=== PATIENT | male | born 1980 | race Caucasian/White ===

== ENCOUNTER 2017-02-17 20:46 | Emergency (ER) | payer SELFPAY ==
[2017-02-17 20:49] VITALS: BP 149/100; BMI 32.1
[2017-02-17] MEDS ORDERED: FUL-GLO STRIP ONE ×2 (21:26→22:02)
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
[2017-02-17] MEDS ORDERED: BACITRACIN ZINC ONE (22:23)
[2017-02-17] MEDS ORDERED: BACTROBAN OINT TOP ONE (22:24)
[2017-02-17] MEDS ORDERED: BACITRACIN ZINC TOP ONE (22:26)
[2017-02-17] MEDS ORDERED: ARTIFICIAL TEARS DROPS AFFEYE ONE (22:29)
[2017-02-17] MEDS ORDERED: ILOTYCIN OPHTH OINT EACHEYE ONE (22:29)
[2017-02-17] MEDS ORDERED: ARTIFICIAL TEARS DROPS ONE (22:30)
[2017-02-17] MEDS ORDERED: ILOTYCIN OPHTH OINT ONE (22:30)
[2017-02-17 22:31] LABS: BASOPHILS # (AUTO) 0.1 X10^3/uL (0.0-0.1); BASOPHILS % (AUTO) 1.2 % (0.2-1.0); EOSINOPHILS # (AUTO) 0.2 x10^3/uL (0.0-0.2); EOSINOPHILS % (AUTO) 2.1 % (0.9-2.9); HEMATOCRIT 41.2 % (42.0-54.0); HEMOGLOBIN 14.8 g/dL (13.5-18.0); LYMPHOCYTES # (AUTO) 2.2 X10^3/uL (1.3-2.9); LYMPHOCYTES % (AUTO) 27.7 % (21.0-51.0); MEAN CORPUSCULAR VOLUME 80.5 fL (80.0-100.0); MEAN PLATELET VOLUME 9.5 fL (7.4-11.0); MONOCYTES # (AUTO) 0.5 x10^3/uL (0.3-0.8); MONOCYTES % (AUTO) 6.4 % (0.0-13.0); NEUTROPHILS # (AUTO) 5.1 x10^3/uL (2.2-4.8); NEUTROPHILS % (AUTO) 62.6 % (42.0-75.0); PLATELET COUNT 215 X10^3/uL (150.0-450.0); RED BLOOD COUNT 5.12 X10^6/uL (4.7-6.0); RED CELL DISTRIBUTION WIDTH 13.7 % (11.6-16.5); WHITE BLOOD COUNT 8.1 X10^3/uL (3.6-10.0)
[2017-02-17 22:41] LABS: ALANINE AMINOTRANSFERASE 26 Units/L (12-78); ALBUMIN 3.5 g/dL (3.4-5.0); ALKALINE PHOSPHATASE 64 Units/L (46-116); ASPARTATE AMINO TRANSFERASE 18 Units/L (15-37); BLOOD UREA NITROGEN 11 mg/dL (7-18); CALCIUM 8.8 mg/dL (8.5-10.1); CARBON DIOXIDE 23.6 mmol/L (21-32); CHLORIDE 103 mmol/L (98-107); COR NA(FOR HYPERGLY) 142 mmol/L (136-145); CREATININE 1.19 mg/dL (0.70-1.30); SODIUM 137 mmol/L (136-145); eGFR BLACK RACES > 60 (>60); eGFR NON BLACK RACES > 60 (>60)
--- NOTE | 2017-02-17 23:31 | CT ---
HISTORY: Headache, worst headache of life. Study: CT brain without contrast Comparison: None Technique: Multiple axial images of the brain were obtained from the skull base to the vertex without administra tion of IV contrast. Automated exposure control (AEC) was utilized to adjust the MA and/or kV accordi ng to patient size. Findings: There is no acute intracranial hemorrhage. The brain parenchyma is normal in density. No mass or ma ss effect. No abnormal extra-axial fluid collection. The ventricles are normal in size, shape and position. Basilar cisterns patent. Pederson matter -white m atter interface is distinct. The bilateral mastoid air cells and included paranasal sinuses are predominantly clear. There is no acute osseous abnormality. IMPRESSION: 1. No acute intracranial process can be identified. Reported By:
== END 2017-02-17 23:51 | disposition home or self-care (01) ==
LOC: ER 20:46
DX: R51 Headache (principal); T26.12XA Burn of cornea and conjunctival sac, left eye, initial encounter; E11.9 Type 2 diabetes mellitus without complications; E87.6 Hypokalemia
CPT/HCPCS: 36415; 70450; 80053; 85025; 99282; 99283

== ENCOUNTER 2017-07-12 22:26 | Emergency (ER) | payer SELFPAY ==
[2017-07-12 22:32] VITALS: BP 129/80; BMI 32.1
--- NOTE | 2017-07-12 23:33 | RAD ---
Three views of the left foot Indication: Left foot pain after twisting injury Findings: There is no acute fracture or dislocation identified within the left foot. There is mild so ft tissue swelling within the left forefoot. Lisfranc joint alignment is maintained. Mild degenerativ e change of the great toe MTP joint and IP joint. There appear to be hammertoe deformities involving the 2nd through 5th toes. The mild degenerative changes noted within the talonavicular joint. Impression: Degenerative changes without acute fracture or dislocation within the left foot. Mild sof t tissue swelling within the forefoot. Reported By:
--- NOTE | 2017-07-13 01:01 | RAD ---
Three views of the left ankle Indication: Twisting injury 2 weeks prior with ankle swelling. Findings: There is circumferential soft tissue swelling within the left ankle. Cortical regularity is noted within the lateral talar body suspicious for talofibular ligamentous avulsion injury of indete rminate age. There is a well corticated osseous density in the tip of the medial malleolus consistent with likely chronic deltoid ligamentous avulsion injury. Ankle mortise is symmetric with mild degene rative change of the tibiotalar articulation. There is also degenerative change of the talar neck and 10 navicular joints. Mild enthesopathic change of the Achilles tendon. No talar dome osteochondral a bnormality. Impression: 1.Circumferential soft tissue swelling within the left ankle consistent with soft tissue injury/sprai n. 2.Age-indeterminate talofibular avulsion injury adjacent to the lateral talar body. 3.Chronic appearing avulsion injury of the deltoid ligamentous complex at the tip of the medial malle olus. 4.Mild osteoarthrosis of the tibiotalar joint. Reported By:
--- NOTE | 2017-07-13 01:03 | DR.GENAD ---
HPI - PCP Primary Care Physician: MILTON - HPI Comment HPI Comment: PROGRESSIVE SWELLING AND PAIN SINCE. WORSE TODAY. NO NEW INJURY. - Complaint/Symptoms Chief Complaint Doctors Comments: INJURY LEFT FOOT AND ANKLE TIMES 2 WEEKS. Chief Complaint:: TWISTED MY FOOT 2 WEEKS AGO AND IT JUST STARTED SWELLING BAD TODAY - Nurses notes reviewed Nurses Notes Review: Yes - Source History Provided: Patient - Mode of Arrival Mode of Arrival: Ambulatory - Timing Onset of Chief Complaint: 06/28/17 Came on: Suddenly - Duration Duration: Constant Duration: Days - Severity Severity: Moderate PMH - PMH Past Medical History: Yes Past Medical History: Diabetes, Kidney Stones Past Surgical History: Yes Surgical History: Ortho Surgery - Family History History of Family Medical Conditions: Yes Family Medical History: Diabetes Mellitus, Cancer, Hypertension - Social History Type of Tobacco Use: Smokeless Does any household member use tobacco: Yes Alcohol Use: None Do you use any recreational Drugs:: No Lives With: Family Lives Where: Home - infectious screening In the last 2 months have you had wt loss of >10#?: NO Have you had fever, night sweats or hemotysis?: No Have you traveled outside the country in the last 6 months?: No Isolation: Standard ROS - Review of Systems Constitutional: No Symptoms Reported Eyes: No Symptoms Reported ENTM: No Symptoms Reported Respiratoy: No Symptoms Reported Cardiovascular: No Symptoms Reported Gastrointestinal/Abdominal: No Symptoms Reported Genitourinary: No Symptoms Reported Neurological: No Symptoms Reported Musculoskeletal: Left, Ankle, Foot Integumentary: Change in Color, Bruises Endocrine: No Symptoms Reported All Other Systems: Reviewed and Negative PE - Vital Signs Vitals: Temperature 97.3 F Pulse Rate 91 Respiratory Rate 18 Blood Pressure [Left Calf] 178/89 Blood Pressure [Right Calf] 152/83 Blood Pressure [Right Arm] 119/69 Blood Pressure [Left Arm] 108/66 Blood Pressure 129/80 O2 Sat by Pulse Oximetry 100 - General Limitations: No Limitations General Appearance: Alert - Head Head Exam: Normal Inspection - Eyes Eye exam: Normal Appearance - ENT ENT Exam: Normal External Ear Exam External Ear Exam: Normal External Inspection Throat Exam: Normal Inspection - Neck Neck Exam: Trachea Midline - Chest Chest Inspection: Symmetric Chest Wall Rise - Respiratory Respiratory Exam: Normal Lung Sounds Bilat Respiratory Exam: Bilateral Clear to Auscultation - Cardiovascular Cardiovascular Exam: Regular Rate, Normal Rhythm, Normal Heart Sounds - Abdominal Exam Abdominal Exam: Normal Bowel Sounds, Soft. negative: Tenderness - Extremities Extremities Exam: Tenderness (LEFT ANKLE AND FOOT SWOLLEN, TENDER WITH DECREASE ROM.) - Back Back Exam: Normal Inspection - Neurologic Neurological Exam: Alert, Oriented X3 - Psychiatric Psychiatric Exam: Normal Affect, Normal Mood - Skin Skin Exam: Normal Color MDM - Additional Information Additional Information Obtained From: Family - Differential Diagnosis Differential Diagnosis: LEFT FOOT AND ANKLE CONTUSION, SPRAIN, FRACTURE. Course - Treatment Treatment: SEE ORDERS. - Education/Counseling Education/Counseling: Patient, Family, Education Educated On: Diagnosis, Needs for Follow Up ROR - XRAY XRAY Interpreted by: Radiologist XRAY Findings: REPORT DISCUSS WITH PATIENT AND FAMILY. - Diagnosis Discharge Problem: Left ankle sprain Qualifiers: Encounter type: initial encounter Involved ligament of ankle: unspecified ligament Qualified Code(s): S93.402A - Sprain of unspecified ligament of left ankle, initial encounter Contusion of left foot Qualifiers: Encounter type: initial encounter Qualified Code(s): S90.32XA - Contusion of left foot, initial encounter Sprain of left foot Qualifiers: Encounter type: initial encounter Qualified Code(s): S93.602A - Unspecified sprain of left foot, initial encounter - Discharge Plan Condition: Stable Prescriptions: Ibuprofen [MOTRIN TAB 800 MG *] 800 mg PO Q8H PRN #30 tab PRN Reason: Pain/Inflammation Tramadol HCl 50 mg PO Q8H #15 tablet - Follow ups/Referrals Follow ups/Referrals: NFD,None [Primary Care Provider] - 3 days - Instructions Instructions: Ankle Fracture With Rehab-SportsMed Additional Instructions: RETURN TO ED IF WORSE. YOU ALSO HAVE SPRAIN LEFT FOOT.
== END 2017-07-13 00:19 | disposition home or self-care (01) ==
LOC: ER 22:34
DX: S93.402A Sprain of unspecified ligament of left ankle, initial encounter (principal); S90.32XA Contusion of left foot, initial encounter; S93.602A Unspecified sprain of left foot, initial encounter; Y33.XXXA Other specified events, undetermined intent, initial encounter; Y92.9 Unspecified place or not applicable
CPT/HCPCS: 29540; 73610; 73630; 99282; 99283

== ENCOUNTER 2017-07-25 15:15 | Emergency (ER) | payer SELFPAY ==
[2017-07-25 15:21] VITALS: BMI 34.7
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
[2017-07-25 16:59] LABS: BASOPHILS # (AUTO) 0.1 X10^3/uL (0.0-0.1); BASOPHILS % (AUTO) 1.3 % (0.2-1.0); EOSINOPHILS # (AUTO) 0.1 x10^3/uL (0.0-0.2); EOSINOPHILS % (AUTO) 1.8 % (0.9-2.9); HEMOGLOBIN 14.4 g/dL (13.5-18.0); LYMPHOCYTES # (AUTO) 1.7 X10^3/uL (1.3-2.9); MEAN CORPUSCULAR HEMOGLOBIN 28.8 pg (27.0-34.0); MEAN CORPUSCULAR VOLUME 82.3 fL (80.0-100.0); MEAN PLATELET VOLUME 9.6 fL (7.4-11.0); MONOCYTES # (AUTO) 0.3 x10^3/uL (0.3-0.8); MONOCYTES % (AUTO) 5.7 % (0.0-13.0); NEUTROPHILS # (AUTO) 3.6 x10^3/uL (2.2-4.8); NEUTROPHILS % (AUTO) 62.2 % (42.0-75.0); PLATELET COUNT 230 X10^3/uL (150.0-450.0); RED BLOOD COUNT 4.98 X10^6/uL (4.7-6.0); RED CELL DISTRIBUTION WIDTH 13.4 % (11.6-16.5); WHITE BLOOD COUNT 5.8 X10^3/uL (3.6-10.0)
[2017-07-25 17:15] LABS: ALANINE AMINOTRANSFERASE 22 Units/L (12-78); ALBUMIN 3.2 g/dL (3.4-5.0); ALKALINE PHOSPHATASE 86 Units/L (46-116); ASPARTATE AMINO TRANSFERASE 12 Units/L (15-37); BLOOD UREA NITROGEN 11 mg/dL (7-18); CALCIUM 8.3 mg/dL (8.5-10.1); CARBON DIOXIDE 27.3 mmol/L (21-32); CHLORIDE 100 mmol/L (98-107); COR CA(FOR HYPOALB) 8.9 mg/dL (8.5-10.1); COR NA(FOR HYPERGLY) 144 mmol/L (136-145); SODIUM 136 mmol/L (136-145); TOTAL PROTEIN 6.9 g/dL (6.4-8.2); eGFR BLACK RACES > 60 (>60); eGFR NON BLACK RACES > 60 (>60)
--- NOTE | 2017-07-25 18:56 | RAD ---
HISTORY: Pain and swelling of the left foot/ankle x1 month. Study: Three views each of the left foot and ankle. Comparison: Left foot series dated July 12, 2017. Findings: Marked soft tissue swelling is seen about the ankle and midfoot. There is a minimally displaced fract ure of the left mid navicular bone with associated intra-articular extension. Remaining osseous struc tures appear intact. IMPRESSION: Left mid navicular bone fracture as above. Reported By:
[2017-07-25 19:57] VITALS: BP 138/72
== END 2017-07-25 19:57 | disposition home or self-care (01) ==
LOC: ER 15:30
PROC: 2W3MX1Z Immobilization of Left Lower Extremity using Splint (ICD-10-PCS; principal; 2017-07-25)
DX: S92.902A Unspecified fracture of left foot, initial encounter for closed fracture (principal); W45.8XXA Other foreign body or object entering through skin, initial encounter; Y92.9 Unspecified place or not applicable
CPT/HCPCS: 29515; 36415; 73610; 73630; 80053; 82009; 85025; 85378; 87040; 99283; 99284

== ENCOUNTER 2017-12-25 15:49 | Observation (INO) ==
[2017-12-25] MEDS ORDERED: NORCO 7.5/325 MG TAB PO PRN (17:08)
--- NOTE | 2017-12-25 17:36 | RAD ---
HISTORY: Chest pain Study: Single view chest Comparison: 05/02/2016 Findings: Single portable view is submitted. Lung volumes are slightly reduced. No infiltrate, effusion or pneu mothorax identified. The cardiac and mediastinal contours are within normal limits. The soft tissues are unremarkable. IMPRESSION: 1. No acute cardiopulmonary abnormality. Reported By:
[2017-12-25 17:45] LABS: BASOPHILS % (AUTO) 0.3 % (0.2-1.0); EOSINOPHILS # (AUTO) 0.1 x10^3/uL (0.0-0.2); HEMOGLOBIN 13.8 g/dL (13.5-18.0); LYMPHOCYTES # (AUTO) 1.9 X10^3/uL (1.3-2.9); MEAN CORPUSCULAR HEMOGLOBIN 27.3 pg (27.0-34.0); MEAN CORPUSCULAR HGB CONC 34.7 g/dL (33.0-35.0); MEAN CORPUSCULAR VOLUME 78.9 fL (80.0-100.0); MEAN PLATELET VOLUME 8.4 fL (7.4-11.0); MONOCYTES # (AUTO) 0.5 x10^3/uL (0.3-0.8); MONOCYTES % (AUTO) 7.1 % (0.0-13.0); NEUTROPHILS # (AUTO) 3.9 x10^3/uL (2.2-4.8); NEUTROPHILS % (AUTO) 60.6 % (42.0-75.0); PLATELET COUNT 314 X10^3/uL (150.0-450.0); RED BLOOD COUNT 5.07 X10^6/uL (4.7-6.0); RED CELL DISTRIBUTION WIDTH 13.9 % (11.6-16.5); WHITE BLOOD COUNT 6.5 X10^3/uL (3.6-10.0)
[2017-12-25 18:00] LABS: ALANINE AMINOTRANSFERASE 17 Units/L (12-78); ALBUMIN 3.1 g/dL (3.4-5.0); ALKALINE PHOSPHATASE 98 Units/L (46-116); ASPARTATE AMINO TRANSFERASE 10 Units/L (15-37); BLOOD UREA NITROGEN 9 mg/dL (7-18); CALCIUM 8.7 mg/dL (8.5-10.1); CARBON DIOXIDE 25.9 mmol/L (21-32); CHLORIDE 100 mmol/L (98-107); COR CA(FOR HYPOALB) 9.4 mg/dL (8.5-10.1); COR NA(FOR HYPERGLY) 136 mmol/L (136-145); CREATININE 1.09 mg/dL (0.70-1.30); MAGNESIUM 1.9 mg/dL (1.7-2.9); SODIUM 132 mmol/L (136-145); TOTAL PROTEIN 7.3 g/dL (6.4-8.2); eGFR NON BLACK RACES > 60 (>60)
[2017-12-25] MEDS: NS 1000 ML 1,000 ML IV SCH (18:16)
[2017-12-25] MEDS: BACTROBAN TOPICAL OINT TOP SCH (18:17)
[2017-12-25 18:20] LABS: CKMB % 2.7 % (<4); CREATINE KINASE 37 Units/L (39-308); CREATINE KINASE MB < 1.0 ng/mL (0-4.0); TROPONIN I < 0.02 ng/mL (0-1.5)
[2017-12-25] MEDS ORDERED: GLUCOPHAGE ONE (18:31)
[2017-12-25] MEDS: GLUCOPHAGE PO SCH (18:31)
[2017-12-25 19:05] VITALS: BMI 27.2
[2017-12-25] MEDS ORDERED: SNACK - Diabetic Appropriate PO SCH (20:00)
[2017-12-25] MEDS: VANCOMYCIN HCL 1 GM VIAL 1 G in D5W 250 ML IV 250 ML IV SCH ×2 (20:10→20:17)
[2017-12-25] MEDS: BACTRIM DS TAB PO SCH (20:53)
[2017-12-25] MEDS: KLONOPIN TAB 1 MG PO SCH (20:53)
[2017-12-25] MEDS: HumuLIN R SUBCUT PRN (20:54)
[2017-12-25] MEDS ORDERED: CIPRO IV 400 MG PREMIX* 400 MG/200 ML IV.SOLN. IV SCH (21:00)
[2017-12-26 00:08] LABS: CKMB % 2.2 % (<4); CREATINE KINASE 45 Units/L (39-308); CREATINE KINASE MB < 1.0 ng/mL (0-4.0); TROPONIN I < 0.02 ng/mL (0-1.5)
[2017-12-26 05:21] LABS: BASOPHILS # (AUTO) 0.1 X10^3/uL (0.0-0.1); BASOPHILS % (AUTO) 1.1 % (0.2-1.0); EOSINOPHILS # (AUTO) 0.1 x10^3/uL (0.0-0.2); EOSINOPHILS % (AUTO) 2.2 % (0.9-2.9); HEMATOCRIT 38.7 % (42.0-54.0); HEMOGLOBIN 13.2 g/dL (13.5-18.0); LYMPHOCYTES # (AUTO) 2.2 X10^3/uL (1.3-2.9); LYMPHOCYTES % (AUTO) 31.5 % (21.0-51.0); MEAN CORPUSCULAR HEMOGLOBIN 27.3 pg (27.0-34.0); MEAN CORPUSCULAR HGB CONC 34.1 g/dL (33.0-35.0); MEAN PLATELET VOLUME 8.9 fL (7.4-11.0); MONOCYTES # (AUTO) 0.6 x10^3/uL (0.3-0.8); MONOCYTES % (AUTO) 8.1 % (0.0-13.0); NEUTROPHILS % (AUTO) 57.1 % (42.0-75.0); PLATELET COUNT 314 X10^3/uL (150.0-450.0); RED BLOOD COUNT 4.84 X10^6/uL (4.7-6.0); WHITE BLOOD COUNT 6.9 X10^3/uL (3.6-10.0)
[2017-12-26 05:41] LABS: CKMB % 3.1 % (<4); CREATINE KINASE 32 Units/L (39-308); CREATINE KINASE MB < 1.0 ng/mL (0-4.0); TROPONIN I < 0.02 ng/mL (0-1.5)
[2017-12-26] MEDS ORDERED: GLUCOPHAGE ONE (05:42)
[2017-12-26 05:47] LABS: ALANINE AMINOTRANSFERASE 17 Units/L (12-78); ALBUMIN 2.8 g/dL (3.4-5.0); ALKALINE PHOSPHATASE 88 Units/L (46-116); ASPARTATE AMINO TRANSFERASE 10 Units/L (15-37); BLOOD UREA NITROGEN 12 mg/dL (7-18); CALCIUM 8.4 mg/dL (8.5-10.1); CARBON DIOXIDE 27.4 mmol/L (21-32); CHLORIDE 100 mmol/L (98-107); CHOL/HDL RATIO 5.7 (0.0-5.0); CHOLESTEROL 136 mg/dL (0-200); COR CA(FOR HYPOALB) 9.4 mg/dL (8.5-10.1); COR NA(FOR HYPERGLY) 139 mmol/L (136-145); CREATININE 1.12 mg/dL (0.70-1.30); HDL CHOLESTEROL 24 mg/dL (40-60); SODIUM 133 mmol/L (136-145); TOTAL PROTEIN 6.6 g/dL (6.4-8.2); TRIGLYCERIDES 327 mg/dL (0-150); eGFR NON BLACK RACES > 60 (>60)
[2017-12-26] MEDS: HumuLIN R SUBCUT PRN (06:06)
[2017-12-26] MEDS: GLUCOPHAGE PO SCH (06:06)
[2017-12-26] MEDS: VANCOMYCIN HCL 1 GM VIAL 1 G in D5W 250 ML IV 250 ML IV SCH (09:05)
[2017-12-26] MEDS: KLONOPIN TAB 1 MG PO SCH (09:05)
[2017-12-26] MEDS: BACTRIM DS TAB PO SCH (09:06)
[2017-12-26] MEDS: NS 1000 ML 1,000 ML IV SCH (09:07)
[2017-12-26] MEDS: BACTROBAN TOPICAL OINT TOP SCH (09:07)
--- NOTE | 2017-12-26 11:20 | DR.UPDATE ---
H&P Update History and Physical Update: WAS SEEN IN THE OFFICE TODAY. A H&P WAS COMPLETED PRIOR TO ADMISSION. PATIENT HAS BEEN SEEN AND EXAMINED WITH NO CHANGES NOTED TO H&P. Changes noted: NO Yes with the following:
[2017-12-26 12:20] VITALS: BP 116/60
--- NOTE | 2018-01-04 01:20 | DR.CARTERD ---
- Discharge Summary for: Discharge Summary for Date of:: 12/26/17 - Admission Date Date of Admission: 12/25/17 - Admission Diagnoses Admission Diagnosis: 1. Chest pain 2. Hyperglycemia 3. Left foot ulcer 4. Diabetes type 2 - Discharge Date Discharge Date: 12/26/17 - Discharge Diagnoses Discharge Diagnosis: 1. Chest pain 2. Staphylococcus Haemolyticus infection 3. Hyperglycemia 4. Left foot ulcer 5. Diabetes type 2 - Hospital Course Hospital Course: Day one, Mr. Pena presented to the hospital as a direct admission after being seen in the office with multiple complaints. Patient stated his blood sugar had been running high. He reported he was taken to [facility] and was taken off of his Metformin and put on Insulin. Patient stated he broke his left foot in July and it never healed. He reportedly had an abscess on the left foot which was drained last Sunday and he had been on oral antibiotics. Patient reported he had chest pain on Sunday on and off but had not had any additional chest pain since Sunday. Patient stated he thought it was stress because he had been under a lot. Patient admitted to the hospital for further evaluation and treatment. Medical History: Kidney Stones, DM type II, Anxiety. Medications: [place] 7.5/325mg 1tab po Q6hr PRN, Humulin R sliding scale PRN, Glucophage 1000mg po BID, OTBS ACHS, Bactroban Ointment daily, NS @75ml/hr, Vancomycin 1gm IV Q12hr, Klonopin 1mg po BID, Bactrim Ds 1tab po BID. Abnormal Labs: Hct 40.0, MCV 78.9, Creatine Kinase 37, Sodium 132, Glucose 265, AST 10, Albumin 3.1, A/G Ratio 0.7. Chest X-Ray: No acute cardiopulmonary abnormality. EKG: Sinus Rhythm, rate 84. Left foot wound cultured. Day two, patient reported he was feeling better. Blood glucose 251. Final wound culture reported: Staphylococcus Haemolyticus. Vital signs stable. Labs wnl. Cardiac enzymes and ekg's normal. We planned for discharge with oral antibiotics according to culture and sensitivity. Instructions for medications and follow up were discussed with patient and family, both voiced understanding. Patient discharged home in stable condition with family. Labs: Microbiology 12/25/17 17:25 Foot - Left Gram Stain - Final 12/25/17 17:25 Foot - Left Wound Culture - Final Staphylococcus Haemolyticus - Discharge Medications Discharge Medications: Home Medication List ciprofloxacin HCl 1 tab PO BID 12/25/17 [History] hydrocodone-acetaminophen 1 tab PO Q6H PRN 12/25/17 [History] sulfamethoxazole-trimethoprim 1 tab PO BID 12/25/17 [History] fluoxetine [Prozac] 20 mg PO QAM #30 cap 12/26/17 [Rx] insulin regular human [Humulin R Regular U-100 Insuln] See Label Instructions .ROUTE .COMPLEX PRN #10 ml 12/26/17 [Rx] metformin 1,000 mg PO BIDWM #60 tab 12/26/17 [Rx] rosuvastatin 5 mg PO HS #30 tab 12/26/17 [Rx] Prescriptions: fluoxetine [Prozac] Marcus Amezcua insulin regular human [Humulin R Regular U-100 Insuln] Marcus Amezcua metformin Marcus Amezcua rosuvastatin Marcus Amezcua - Discharge Disposition Discharge Disposition: Patient is to follow up in our office in one week.
== END 2017-12-26 12:05 | disposition home or self-care (01) ==
LOC: MED/SURG 16:35 → INTOOBSV 16:35
PROVIDERS: ADMIT Internal Medicine; ATTEND Internal Medicine
DX: E11.65 Type 2 diabetes mellitus with hyperglycemia; X58.XXXA Exposure to other specified factors, initial encounter; M14.672 Charcot's joint, left ankle and foot; Z89.411 Acquired absence of right great toe; R07.89 Other chest pain; Z79.899 Other long term (current) drug therapy; S91.302A Unspecified open wound, left foot, initial encounter; E11.621 Type 2 diabetes mellitus with foot ulcer
CPT/HCPCS: 36415; 71010; 71045; 80053; 80061; 82550; 82553; 83036; 83735; 84484; 85025; 85610; 85730; 87070; 87077; 87186; 87205; 93005; 93010; 94760; A4216; A4222; G0378; J1815; J3370; J3490; J7030; J7060

== ENCOUNTER 2018-11-17 23:10 | Observation (INO) ==
[2018-11-17] MEDS ORDERED: ASPIRIN 81 MG CHEWTAB PO ONE (23:22)
[2018-11-17] MEDS ORDERED: ASPIRIN 81 MG CHEWTAB ONE (23:23)
[2018-11-17] MEDS ORDERED: NITROSTAT SL PRN (23:30)
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
[2018-11-17 23:32] LABS: BASOPHILS # (AUTO) 0.1 X10^3/uL (0.0-0.1); BASOPHILS % (AUTO) 0.9 % (0.2-1.0); EOSINOPHILS # (AUTO) 0.1 x10^3/uL (0.0-0.2); EOSINOPHILS % (AUTO) 1.1 % (0.9-2.9); HEMATOCRIT 36.1 % (42.0-54.0); HEMOGLOBIN 12.1 g/dL (13.5-18.0); LYMPHOCYTES # (AUTO) 2.3 X10^3/uL (1.3-2.9); LYMPHOCYTES % (AUTO) 25.1 % (21.0-51.0); MEAN CORPUSCULAR HEMOGLOBIN 26.1 pg (27.0-34.0); MEAN CORPUSCULAR HGB CONC 33.4 g/dL (33.0-35.0); MEAN CORPUSCULAR VOLUME 78.2 fL (80.0-100.0); MEAN PLATELET VOLUME 8.3 fL (7.4-11.0); MONOCYTES # (AUTO) 0.7 x10^3/uL (0.3-0.8); MONOCYTES % (AUTO) 7.1 % (0.0-13.0); NEUTROPHILS # (AUTO) 6.1 x10^3/uL (2.2-4.8); NEUTROPHILS % (AUTO) 65.8 % (42.0-75.0); PLATELET COUNT 316 X10^3/uL (150.0-450.0); RED BLOOD COUNT 4.62 X10^6/uL (4.7-6.0); RED CELL DISTRIBUTION WIDTH 13.9 % (11.6-16.5); WHITE BLOOD COUNT 9.2 X10^3/uL (3.6-10.0)
[2018-11-17] MEDS: NS 1000 ML 1,000 ML IV SCH (23:42)
[2018-11-17 23:46] LABS: BLOOD UREA NITROGEN 13 mg/dL (7-18); CALCIUM 8.7 mg/dL (8.5-10.1); CARBON DIOXIDE 23.2 mmol/L (21-32); CHLORIDE 101 mmol/L (98-107); COR NA(FOR HYPERGLY) 142 mmol/L (136-145); CREATININE 1.42 mg/dL (0.70-1.30); SODIUM 136 mmol/L (136-145); TROPONIN I < 0.02 ng/mL (0-1.5); eGFR NON BLACK RACES 60 (>60)
[2018-11-17 23:51] LABS: ALANINE AMINOTRANSFERASE 11 Units/L (12-78); ALBUMIN 3.2 g/dL (3.4-5.0); ALKALINE PHOSPHATASE 90 Units/L (46-116); ASPARTATE AMINO TRANSFERASE 20 Units/L (15-37); CKMB % 0.1 % (<4); COR CA(FOR HYPOALB) 9.3 mg/dL (8.5-10.1); CREATINE KINASE 733 Units/L (39-308); CREATINE KINASE MB < 1.0 ng/mL (0-4.0); TOTAL PROTEIN 7.4 g/dL (6.4-8.2)
[2018-11-18] MEDS ORDERED: NORCO 7.5/325 MG TAB PO PRN (01:15)
[2018-11-18] MEDS ORDERED: HumuLIN R SC PRN (01:17)
[2018-11-18] MEDS: NS 1000 ML 1,000 ML IV SCH ×3 (02:45→09:27)
[2018-11-18 03:46] VITALS: BMI 33.7
[2018-11-18] MEDS ORDERED: NS 1000 ML 1,000 ML ONE (04:25)
--- NOTE | 2018-11-18 04:41 | RAD ---
Chest AP portable Indication: Chest pain. Findings: There is no pneumothorax or effusion. There is no consolidation. Monitoring leads obscure detail. Impression: No acute chest process or change from the prior. Reported By:
[2018-11-18 05:23] LABS: BASOPHILS # (AUTO) 0.1 X10^3/uL (0.0-0.1); BASOPHILS % (AUTO) 1.1 % (0.2-1.0); EOSINOPHILS # (AUTO) 0.2 x10^3/uL (0.0-0.2); EOSINOPHILS % (AUTO) 2.5 % (0.9-2.9); HEMATOCRIT 32.7 % (42.0-54.0); HEMOGLOBIN 11.1 g/dL (13.5-18.0); LYMPHOCYTES # (AUTO) 2.3 X10^3/uL (1.3-2.9); LYMPHOCYTES % (AUTO) 30.9 % (21.0-51.0); MEAN CORPUSCULAR HEMOGLOBIN 26.5 pg (27.0-34.0); MEAN CORPUSCULAR HGB CONC 33.9 g/dL (33.0-35.0); MEAN PLATELET VOLUME 8.3 fL (7.4-11.0); MONOCYTES # (AUTO) 0.6 x10^3/uL (0.3-0.8); MONOCYTES % (AUTO) 8.4 % (0.0-13.0); NEUTROPHILS # (AUTO) 4.3 x10^3/uL (2.2-4.8); NEUTROPHILS % (AUTO) 57.1 % (42.0-75.0); PLATELET COUNT 270 X10^3/uL (150.0-450.0); RED BLOOD COUNT 4.18 X10^6/uL (4.7-6.0); RED CELL DISTRIBUTION WIDTH 14.3 % (11.6-16.5); WHITE BLOOD COUNT 7.6 X10^3/uL (3.6-10.0)
[2018-11-18 05:37] LABS: ALANINE AMINOTRANSFERASE 9 Units/L (12-78); ALBUMIN 2.6 g/dL (3.4-5.0); ALKALINE PHOSPHATASE 76 Units/L (46-116); ASPARTATE AMINO TRANSFERASE 12 Units/L (15-37); BLOOD UREA NITROGEN 12 mg/dL (7-18); CALCIUM 8.1 mg/dL (8.5-10.1); CARBON DIOXIDE 24.1 mmol/L (21-32); CHLORIDE 105 mmol/L (98-107); CHOL/HDL RATIO 4.3 (0.0-5.0); CHOLESTEROL 103 mg/dL (0-200); COR CA(FOR HYPOALB) 9.2 mg/dL (8.5-10.1); COR NA(FOR HYPERGLY) 142 mmol/L (136-145); CREATININE 1.05 mg/dL (0.70-1.30); HDL CHOLESTEROL 24 mg/dL (40-60); MAGNESIUM 1.9 mg/dL (1.7-2.9); SODIUM 139 mmol/L (136-145); TOTAL PROTEIN 6.3 g/dL (6.4-8.2); TRIGLYCERIDES 112 mg/dL (0-150); eGFR NON BLACK RACES > 60 (>60)
[2018-11-18 05:53] LABS: CKMB % 0.2 % (<4); CREATINE KINASE 470 Units/L (39-308); CREATINE KINASE MB < 1.0 ng/mL (0-4.0); TROPONIN I < 0.02 ng/mL (0-1.5)
[2018-11-18] MEDS ORDERED: POTASSIUM CHL 60 MEQ/NS 0.45% 500 ML IV PRN (06:35)
[2018-11-18] MEDS ORDERED: MICRO K EXTEN CAP 10 MEQ PO PRN (06:35)
[2018-11-18] MEDS ORDERED: K-RIDER 10 MEQ/NS 100 ML 10 MEQ/100 ML BAG IV PRN (06:35)
[2018-11-18] MEDS ORDERED: KLOR-CON PO PRN (06:35)
[2018-11-18] MEDS ORDERED: POTASSIUM CHL 40 MEQ/NS 0.45% 500 ML IV PRN (06:35)
[2018-11-18] MEDS ORDERED: POTASSIUM CHLORIDE LIQ 20 MEQ UDC PO PRN (06:35)
[2018-11-18] MEDS ORDERED: K-DUR TAB 20 MEQ PO PRN (06:35)
[2018-11-18] MEDS ORDERED: PROzac PO SCH (09:00)
[2018-11-18] MEDS: MAGNESIUM SULFATE 1 GRAM/100 mL PREMIX 1 GM/100 ML BAG IV PRN ×2 (09:25→10:30)
[2018-11-18 09:50] VITALS: BP 120/67
[2018-11-18 09:52] LABS: BILIRUBIN,URINE NEGATIVE (NEGATIVE); BLOOD/HEMOGLOBIN,URINE NEGATIVE (NEGATIVE); GLUCOSE, URINE 4+ (NEGATIVE); KETONES,URINE NEGATIVE (NEGATIVE); LEUKOCYTE ESTERASE ,URINE NEGATIVE (NEGATIVE); NITRITES,URINE NEGATIVE (NEGATIVE); PROTEIN,URINE NEGATIVE (NEGATIVE); UROBILINOGEN,URINE 2+ (NORMAL)
[2018-11-18 09:55] LABS: APPEARANCE,URINE CLEAR (CLEAR); COLOR,URINE YELLOW (YELLOW)
[2018-11-18 10:31] LABS: RBC,URINE NONE SEEN /HPF (NONE SEEN)
[2018-11-18 10:32] LABS: AMORPHOUS SEDIMENT,UR 1+ /HPF (NEGATIVE); BACTERIA,URINE NEGATIVE /HPF (NEGATIVE); SQUAMOUS EPITHELIAL CELL,UR RARE /HPF (NEGATIVE)
[2018-11-18 12:09] LABS: CKMB % 0.3 % (<4); CREATINE KINASE 360 Units/L (39-308); CREATINE KINASE MB < 1.0 ng/mL (0-4.0); TROPONIN I < 0.02 ng/mL (0-1.5)
[2018-11-18] MEDS ORDERED: SNACK - Diabetic Appropriate PO SCH (20:00)
[2018-11-18] MEDS ORDERED: INSULIN DEGLUDEC 60 UNIT SUBCUT SCH (21:00)
[2018-11-18] MEDS ORDERED: CRESTOR TAB 10 MG PO SCH (21:00)
== END 2018-11-18 12:59 | disposition home or self-care (01) ==
LOC: MED/SURG 23:10 → ER 23:10 → MED/SURG 11-18 01:27
PROVIDERS: ADMIT Obstetrics & Gynecology Obstetrics; ATTEND Obstetrics & Gynecology Obstetrics
DX: E86.0 Dehydration; E11.9 Type 2 diabetes mellitus without complications; R07.89 Other chest pain; M54.2 Cervicalgia; R73.9 Hyperglycemia, unspecified
CPT/HCPCS: 36415; 71010; 71045; 80053; 80061; 81001; 82550; 82553; 83735; 84132; 84484; 85025; 87070; 87075; 87205; 93005; 93041; 96365; 96367; 96372; 96374; 99284; A4222; G0378; J1815; J3475; J7030

== ENCOUNTER 2019-03-26 21:01 | Inpatient (IN) ==
[2019-03-26] MEDS ORDERED: NS 1000 ML 1,000 ML IV ONE (21:34)
[2019-03-26] MEDS ORDERED: NS 1000 ML 1,000 ML ONE (21:35)
--- NOTE | 2019-03-26 21:54 | DR.ABDMALE ---
HPI Time seen Time Seen by Provider: 03/26/19 21:15 PCP Primary Care Physician: Stormy MESSER Complaint Chief Complaint Doctors Comments: Pt is a 38 yo male who present abdominal pain. He states that he has had it for month but it has progressively worsened. He states that it Is located around his umbilicus, is 10 out of 10 pain, feels like he is being squeezed,. Patient says that is a severe pain. He was worked up at another hospital and told that he has ulcers. But he was never scoped. He has been on Carafate and Protonix. But the pain has been worsening which brought him in tonight. Over the past few days he stated his past blood clots. And that he has been also having diarrhea and vomiting. Chief Complaint:: SEEN IN [facility] ON MAR 18 FOR BLOOD IN HIS STOOL. WAS TOLD THAT HE HAD A BLEEDING ULCER. TODAY HIS ABDOMINAL PAIN IS WORSE AND HE HAS PASSED 5-6 BLOOD CLOTS IN HIS STOOL. Source History provided by:: patient Mode of arrival Mode of Arrival: Ambulatory Timing Onset of Chief Complaint: 01/08/19 PMH PMH Past Medical History: Yes Past Medical History: Diabetes and Kidney Stones Past Medical History Comment: H-PYLORI, NEUROPATHY Past Surgical History: Yes Surgical History: Ortho Surgery Family History History of Family Medical Conditions: Yes Family Medical History: Diabetes Mellitus Social History Does patient currently use any type of tobacco product: Yes Have you used tobacco products in the last 12 months: Yes Type of Tobacco Use: Smokeless How many years tobacco product used: 22 Alcohol Use: None Do you use any recreational Drugs:: No Lives With: Family Lives Where: Home infectious screening In the last 2 months have you had wt loss of >10#?: NO Have you had fever, night sweats or hemotysis?: No Have you traveled outside the country in the last 6 months?: No Isolation: Standard ROS Review of Systems Constitutional: No Symptoms Reported Eyes: No Symptoms Reported ENTM: No Symptoms Reported Respiratoy: No Symptoms Reported Cardiovascular: No Symptoms Reported Gastrointestinal/Abdominal: Abdominal Pain, Diarrhea, Nausea, Vomiting and Other (blood in stool ) Genitourinary: No Symptoms Reported Neurological: No Symptoms Reported Musculoskeletal: No Symptoms Reported Integumentary: No Symptoms Reported Hematologic/Lymphatic: No Symptoms Reported Psychiatric: No Symptoms Reported All Other Systems: Reviewed and Negative PE Vital Signs Vital Signs: Temp Pulse Pulse Resp BP BP BP 03/26/19 22:09 20 03/26/19 21:16 99.4 F 114 H 20 112/75 03/26/19 21:15 99.4 F 114 H 20 112/75 11/18/18 08:00 05/03/16 12:00 178/89 05/01/16 00:00 BP BP Pulse Ox 03/26/19 22:09 03/26/19 21:16 99 03/26/19 21:15 99 11/18/18 08:00 120/67 05/03/16 12:00 05/01/16 00:00 152/83 General Limitations: No Limitations General Appearance: In Distress Head Head Exam: Normal Inspection, Atraumatic and Normocephalic Eyes Eye exam: Normal Appearance and EOMI ENT ENT Exam: Normal Exam and Normal Oropharynx Respiratory Respiratory Exam: Normal Lung Sounds Bilat Respiratory Exam: Bilateral: Clear to Auscultation Cardiovascular Cardiovascular Exam: Normal Rhythm and Tachycardia Abdominal Exam Abdominal Exam: Normal Bowel Sounds, Soft and Tenderness Abdominal Tenderness: Diffuse and Other (umbilical ) Extremeties Extremities Exam: Normal Inspection and Full ROM Neurologic Neurological Exam: Alert, Oriented X3, CN II-XII Intact and Normal Gait Psychiatric Psychiatric Exam: Normal Affect, Normal Mood and Anxious Skin Skin Exam: Warm, Dry, Intact and Normal Color MDM Additional Information Obtained From Additional information provided by: Old Records and Family Differential Diagnosis Differential Diagnosis: Appendicitis, Bowel Obstruction, Cholcystitis, Diverticular disease and Gastritus/PUD COURSE Treatment Treatment: Patient presents with acute pain in the abdomen. Pain was treated while in ED. Patient has history of ulcers and GI issues. Patient was made n.p.o. and given Protonix. GI was consulted. CT had abnormal findings of the abdomen and pelvis please see above. Reevaluation 1st: Worsened (22:06 pt is in pain during exam, pain med and nausea meds. ) 2nd: Improved (22:40 pt improved, pt states that he has no more pain. ) 3rd: Unchanged (23:49 unchanged. ) Consultation Called: 23:45 Call Returned: 23:45 Consultation Comments: Dr. Miguel discussed case with him. advised admission Education/Counseling Education/Counseling: Patient, Family, Education and Counseling Educated On: Treatment, Diagnosis, Prognosis and Needs for Follow Up ROR Labs Reviewed Laboratory Results Reviewed?: Yes Result Diagrams: 03/26/19 21:44 03/26/19 21:44 Laboratory: WBC 5.2 X10^3/uL (3.6-10.0) 03/26/19 21:44 RBC 4.86 X10^6/uL (4.7-6.0) 03/26/19 21:44 Hgb 11.6 g/dL (13.5-18.0) L 03/26/19 21:44 Hct 34.8 % (42.0-54.0) L 03/26/19 21:44 MCV 71.6 fL (80.0-100.0) L 03/26/19 21:44 MCH 23.8 pg (27.0-34.0) L 03/26/19 21:44 MCHC 33.3 g/dL (33.0-35.0) 03/26/19 21:44 RDW 15.8 % (11.6-16.5) 03/26/19 21:44 Plt Count 273 X10^3/uL (150.0-450.0) 03/26/19 21:44 Plt Count Comment Adequate (ADEQUATE) 03/26/19 21:44 MPV 7.8 fL (7.4-11.0) 03/26/19 21:44 Neut % (Auto) 71.2 % (42.0-75.0) 03/26/19 21:44 Lymph % (Auto) 16.4 % (21.0-51.0) L 03/26/19 21:44 [place] % (Auto) 10.9 % (0.0-13.0) 03/26/19 21:44 Eos % (Auto) 0.7 % (0.9-2.9) L 03/26/19 21:44 Baso % (Auto) 0.8 % (0.2-1.0) 03/26/19 21:44 Neut # (Auto) 3.7 x10^3/uL (2.2-4.8) 03/26/19 21:44 Lymph # (Auto) 0.9 X10^3/uL (1.3-2.9) L 03/26/19 21:44 [place] # (Auto) 0.6 x10^3/uL (0.3-0.8) 03/26/19 21:44 Eos # (Auto) 0.0 x10^3/uL (0.0-0.2) 03/26/19 21:44 Baso # (Auto) 0.0 X10^3/uL (0.0-0.1) 03/26/19 21:44 Absolute Nucleated RBC 0.0 /100WBC 03/26/19 21:44 Plt Morphology Comment Normal (NORMAL) 03/26/19 21:44 RBC Morphology Abnormal (NORMAL) 03/26/19 21:44 Hypochromasia 1+ A 03/26/19 21:44 Microcytosis Slight A 03/26/19 21:44 Sodium 138 mmol/L (136-145) 03/26/19 21:44 Corrected Sodium 144 mmol/L (136-145) 03/26/19 21:44 Potassium 3.5 mmol/L (3.5-5.1) 03/26/19 21:44 Chloride 101 mmol/L (98-107) 03/26/19 21:44 Carbon Dioxide 23.2 mmol/L (21-32) 03/26/19 21:44 BUN 7 mg/dL (7-18) 03/26/19 21:44 Creatinine 1.18 mg/dL (0.70-1.30) 03/26/19 21:44 Est GFR (MDRD) Af Amer > 60 (>60) 03/26/19 21:44 Est GFR (MDRD) Non-Af > 60 (>60) 03/26/19 21:44 Glucose 338 mg/dL (65-99) H 03/26/19 21:44 Calcium 8.5 mg/dL (8.5-10.1) 03/26/19 21:44 Corrected Calcium 9.4 mg/dL (8.5-10.1) 03/26/19 21:44 Total Bilirubin 0.40 mg/dL (0.2-1.0) 03/26/19 21:44 AST 12 Units/L (15-37) L 03/26/19 21:44 ALT 12 Units/L (12-78) 03/26/19 21:44 Alkaline Phosphatase 88 Units/L (46-116) 03/26/19 21:44 Total Protein 7.2 g/dL (6.4-8.2) 03/26/19 21:44 Albumin 2.9 g/dL (3.4-5.0) L 03/26/19 21:44 Globulin 4.3 g/dL (2.5-4.5) 03/26/19 21:44 Albumin/Globulin Ratio 0.7 Ratio (1.1-2.1) L 03/26/19 21:44 Stool Description Fob tube 03/26/19 22:05 Stl Occult Blood (IFOB) Negative (NEGATIVE) 03/26/19 22:05 Acetone, Semi-Quant Negative (NEGATIVE) 03/26/19 21:44 Other Results Comments: Service Date: 03/26/19 Service Time: 2219 CT abdomen and pelvis with contrast Indication: Abdominal pain, nausea, vomiting, diarrhea Technique: Helical CT images of the abdomen and pelvis were obtained with IV contrast. Reformatted images in the coronal and sagittal planes were also generated for review. Comparison: None Findings: Lung bases are clear. No acute osseous abnormality. The liver, gallbladder, spleen, pancreas, adrenals and kidneys are unremarkable. Evaluation of the GI tract is slightly limited without oral contrast. Accounting for this, there is short segment irregular mural thickening of the rectosigmoid colon (see coronal images 22-30 for example). The remainder of the GI tract is without obstruction or inflammation. The appendix is normal. The IVC, abdominal aorta and urinary bladder are normal. Prostate is not enlarged. No free air, free fluid or bulky lymphadenopathy is identified. Impression: Irregular short segment mural thickening of the rectosigmoid colon as above. Although findings could reflect focal colitis, direct visualization with colonoscopy is recommended to exclude underlying colonic neoplasm. Opioid Opioid Risk Tool Age (Víctor box if 16-45): Yes History of Preadolescent Sexual Abuse: No Total: 1 Total Score Risk Category: Low Risk Copyright: [facility] predicting aberrant behaviors Diagnosis Discharge Problem: Colitis Narrative Support Text: Admit to Dr. Ambriz.
[2019-03-26 21:55] LABS: BASOPHILS % (AUTO) 0.8 % (0.2-1.0); EOSINOPHILS % (AUTO) 0.7 % (0.9-2.9); HEMATOCRIT 34.8 % (42.0-54.0); HEMOGLOBIN 11.6 g/dL (13.5-18.0); LYMPHOCYTES # (AUTO) 0.9 X10^3/uL (1.3-2.9); LYMPHOCYTES % (AUTO) 16.4 % (21.0-51.0); MEAN CORPUSCULAR HEMOGLOBIN 23.8 pg (27.0-34.0); MEAN CORPUSCULAR HGB CONC 33.3 g/dL (33.0-35.0); MEAN CORPUSCULAR VOLUME 71.6 fL (80.0-100.0); MEAN PLATELET VOLUME 7.8 fL (7.4-11.0); MONOCYTES # (AUTO) 0.6 x10^3/uL (0.3-0.8); MONOCYTES % (AUTO) 10.9 % (0.0-13.0); NEUTROPHILS # (AUTO) 3.7 x10^3/uL (2.2-4.8); NEUTROPHILS % (AUTO) 71.2 % (42.0-75.0); PLATELET COUNT 273 X10^3/uL (150.0-450.0); RED BLOOD COUNT 4.86 X10^6/uL (4.7-6.0); RED CELL DISTRIBUTION WIDTH 15.8 % (11.6-16.5); WHITE BLOOD COUNT 5.2 X10^3/uL (3.6-10.0)
[2019-03-26] MEDS ORDERED: ZOFRAN INJ 4 MG VIAL IVP ONE (21:56)
[2019-03-26] MEDS ORDERED: DEMEROL INJ IVP ONE (21:56)
[2019-03-26] MEDS ORDERED: ZOFRAN INJ 4 MG VIAL ONE (21:57)
[2019-03-26] MEDS ORDERED: DEMEROL INJ ONE (21:58)
[2019-03-26 22:04] LABS: PLATELET MORPHOLOGY COMMENT NORMAL (NORMAL)
[2019-03-26 22:05] LABS: HYPOCHROMASIA 1+; MICROCYTOSIS SLIGHT
[2019-03-26 22:06] LABS: ALANINE AMINOTRANSFERASE 12 Units/L (12-78); ALBUMIN 2.9 g/dL (3.4-5.0); ALKALINE PHOSPHATASE 88 Units/L (46-116); ASPARTATE AMINO TRANSFERASE 12 Units/L (15-37); BLOOD UREA NITROGEN 7 mg/dL (7-18); CALCIUM 8.5 mg/dL (8.5-10.1); CARBON DIOXIDE 23.2 mmol/L (21-32); CHLORIDE 101 mmol/L (98-107); COR CA(FOR HYPOALB) 9.4 mg/dL (8.5-10.1); COR NA(FOR HYPERGLY) 144 mmol/L (136-145); CREATININE 1.18 mg/dL (0.70-1.30); SODIUM 138 mmol/L (136-145); TOTAL PROTEIN 7.2 g/dL (6.4-8.2); eGFR NON BLACK RACES > 60 (>60)
[2019-03-26] MEDS ORDERED: PROTONIX INJ 40 MG VIAL IVP ONE (22:50)
--- NOTE | 2019-03-26 23:18 | CT ---
CT abdomen and pelvis with contrast Indication: Abdominal pain, nausea, vomiting, diarrhea Technique: Helical CT images of the abdomen and pelvis were obtained with IV contrast. Reformatted images in the coronal and sagittal planes were also generated for review. Comparison: None Findings: Lung bases are clear. No acute osseous abnormality. The liver, gallbladder, spleen, pancreas, adrenals and kidneys are unremarkable. Evaluation of the GI tract is slightly limited without oral contrast. Accounting for this, there is short segment irregular mural thickening of the rectosigmoid colon (see coronal images 22-30 for example). The remainder of the GI tract is without obstruction or inflammation. The appendix is normal. The IVC, abdominal aorta and urinary bladder are normal. Prostate is not enlarged. No free air, free fluid or bulky lymphadenopathy is identified. Impression: Irregular short segment mural thickening of the rectosigmoid colon as above. Although findings could reflect focal colitis, direct visualization with colonoscopy is recommended to exclude underlying colonic neoplasm. Reported By:
[2019-03-27] MEDS ORDERED: PROTONIX INJ 40 MG VIAL ONE (00:30)
[2019-03-27] MEDS ORDERED: HumuLIN R SUBCUT PRN (00:35)
[2019-03-27] MEDS ORDERED: DEMEROL INJ IVP PRN (01:30)
[2019-03-27] MEDS: NS 1000 ML 1,000 ML IV SCH ×3 (01:52→23:11)
[2019-03-27 02:12] VITALS: BMI 32.3
[2019-03-27 05:24] LABS: BASOPHILS % (AUTO) 0.7 % (0.2-1.0); EOSINOPHILS # (AUTO) 0.1 x10^3/uL (0.0-0.2); EOSINOPHILS % (AUTO) 1.3 % (0.9-2.9); HEMATOCRIT 33.3 % (42.0-54.0); HEMOGLOBIN 10.9 g/dL (13.5-18.0); LYMPHOCYTES # (AUTO) 1.3 X10^3/uL (1.3-2.9); LYMPHOCYTES % (AUTO) 26.2 % (21.0-51.0); MEAN CORPUSCULAR HEMOGLOBIN 23.6 pg (27.0-34.0); MEAN CORPUSCULAR HGB CONC 32.8 g/dL (33.0-35.0); MEAN CORPUSCULAR VOLUME 72.1 fL (80.0-100.0); MEAN PLATELET VOLUME 8.5 fL (7.4-11.0); MONOCYTES # (AUTO) 0.6 x10^3/uL (0.3-0.8); MONOCYTES % (AUTO) 11.9 % (0.0-13.0); NEUTROPHILS % (AUTO) 59.9 % (42.0-75.0); PLATELET COUNT 251 X10^3/uL (150.0-450.0); RED BLOOD COUNT 4.62 X10^6/uL (4.7-6.0); RED CELL DISTRIBUTION WIDTH 16.1 % (11.6-16.5)
[2019-03-27 05:39] LABS: ALANINE AMINOTRANSFERASE 12 Units/L (12-78); ALBUMIN 2.7 g/dL (3.4-5.0); ALKALINE PHOSPHATASE 80 Units/L (46-116); ASPARTATE AMINO TRANSFERASE 12 Units/L (15-37); BLOOD UREA NITROGEN 7 mg/dL (7-18); CARBON DIOXIDE 24.9 mmol/L (21-32); CHLORIDE 105 mmol/L (98-107); COR NA(FOR HYPERGLY) 141 mmol/L (136-145); CREATININE 0.83 mg/dL (0.70-1.30); SODIUM 140 mmol/L (136-145); TOTAL PROTEIN 6.8 g/dL (6.4-8.2); eGFR NON BLACK RACES > 60 (>60)
[2019-03-27 05:41] LABS: HYPOCHROMASIA 1+; PLATELET MORPHOLOGY COMMENT NORMAL (NORMAL)
[2019-03-27] MEDS ORDERED: K-DUR TAB 20 MEQ PO PRN (05:52)
[2019-03-27] MEDS ORDERED: MICRO K EXTEN CAP 10 MEQ PO PRN (05:52)
[2019-03-27] MEDS ORDERED: POTASSIUM CHLORIDE LIQ 20 MEQ UDC PO PRN (05:52)
[2019-03-27] MEDS ORDERED: KLOR-CON PO PRN (05:52)
[2019-03-27] MEDS ORDERED: K-RIDER 10 MEQ/NS 100 ML 10 MEQ/100 ML BAG IV PRN (05:52)
[2019-03-27] MEDS ORDERED: POTASSIUM CHL 60 MEQ/NS 0.45% 500 ML IV PRN (05:52)
[2019-03-27] MEDS ORDERED: MAGNESIUM SULFATE 1 GRAM/100 mL PREMIX 1 GM/100 ML BAG IV PRN (05:52)
[2019-03-27] MEDS ORDERED: POTASSIUM CHL 40 MEQ/NS 0.45% 500 ML IV PRN (05:52)
[2019-03-27] MEDS ORDERED: DIPRIVAN VIAL ONE (11:08)
[2019-03-27] MEDS ORDERED: HYDROGEN PEROXIDE 3% MT PRN (11:52)
[2019-03-27] MEDS ORDERED: PHARMACY CONSULT - VANCOMYCIN XX SCH (12:00)
--- NOTE | 2019-03-27 12:50 | RAD ---
History: Plantar left foot wound Study: Three views of the left foot Comparison: July 25, 2017 Findings: There is new severe pes planus with reversal of plantar arch. There is severe collapse and fragmentation of the navicular, new since 2018 with superior displacement of deformed navicular. There is new deformity of the cuboid and the medial and lateral Q deforms. There are osteophytes. A midfoot plantar ulcer is demonstrated. There is no associated bone destruction to suggest osteomyelitis. There are degenerative osteophytes in the ankle joint. Impression: Severe new midfoot abnormalities suggesting Charcot joint. No evidence for osteomyelitis. Reported By:
[2019-03-27] MEDS: VANCOMYCIN HCL 1 G in NS 250 ML IV 250 ML IV SCH ×2 (14:25→22:46)
[2019-03-27] MEDS ORDERED: DIPRIVAN VIAL 20 ML ONE (14:47)
[2019-03-27] MEDS ORDERED: NULYTELY or GO-LYTELY PO SCH (16:00)
[2019-03-27] MEDS: PROTONIX INJ 40 MG VIAL IVP SCH ×2 (16:50→20:33)
[2019-03-27] MEDS ORDERED: ATIVAN TAB 1 MG PO PRN (18:15)
[2019-03-28] MEDS: NS 1000 ML 1,000 ML IV SCH ×2 (01:42→10:17)
[2019-03-28] MEDS: VANCOMYCIN HCL 1 G in NS 250 ML IV 250 ML IV SCH (05:09)
[2019-03-28 05:25] LABS: BASOPHILS % (AUTO) 0.9 % (0.2-1.0); EOSINOPHILS # (AUTO) 0.2 x10^3/uL (0.0-0.2); EOSINOPHILS % (AUTO) 3.3 % (0.9-2.9); HEMATOCRIT 33.2 % (42.0-54.0); HEMOGLOBIN 10.8 g/dL (13.5-18.0); LYMPHOCYTES # (AUTO) 1.6 X10^3/uL (1.3-2.9); LYMPHOCYTES % (AUTO) 30.4 % (21.0-51.0); MEAN CORPUSCULAR HEMOGLOBIN 23.5 pg (27.0-34.0); MEAN CORPUSCULAR HGB CONC 32.5 g/dL (33.0-35.0); MEAN CORPUSCULAR VOLUME 72.3 fL (80.0-100.0); MEAN PLATELET VOLUME 8.4 fL (7.4-11.0); MONOCYTES # (AUTO) 0.6 x10^3/uL (0.3-0.8); MONOCYTES % (AUTO) 12.1 % (0.0-13.0); NEUTROPHILS # (AUTO) 2.9 x10^3/uL (2.2-4.8); NEUTROPHILS % (AUTO) 53.3 % (42.0-75.0); PLATELET COUNT 262 X10^3/uL (150.0-450.0); RED BLOOD COUNT 4.59 X10^6/uL (4.7-6.0); RED CELL DISTRIBUTION WIDTH 16.4 % (11.6-16.5); WHITE BLOOD COUNT 5.4 X10^3/uL (3.6-10.0)
[2019-03-28 05:39] LABS: HYPOCHROMASIA SLIGHT; PLATELET MORPHOLOGY COMMENT NORMAL (NORMAL)
[2019-03-28 05:45] LABS: ALANINE AMINOTRANSFERASE 13 Units/L (12-78); ALBUMIN 2.6 g/dL (3.4-5.0); ALKALINE PHOSPHATASE 78 Units/L (46-116); ASPARTATE AMINO TRANSFERASE 15 Units/L (15-37); BLOOD UREA NITROGEN 7 mg/dL (7-18); CALCIUM 8.3 mg/dL (8.5-10.1); CARBON DIOXIDE 25.7 mmol/L (21-32); CHLORIDE 106 mmol/L (98-107); COR CA(FOR HYPOALB) 9.4 mg/dL (8.5-10.1); COR NA(FOR HYPERGLY) 142 mmol/L (136-145); SODIUM 140 mmol/L (136-145); TOTAL PROTEIN 6.8 g/dL (6.4-8.2); eGFR NON BLACK RACES > 60 (>60)
[2019-03-28] MEDS ORDERED: DIPRIVAN VIAL 20 ML ONE (08:35)
[2019-03-28] MEDS ORDERED: DIPRIVAN VIAL 10 ML ONE (08:53)
[2019-03-28] MEDS ORDERED: NS 1000 ML 1,000 ML ONE (09:20)
--- NOTE | 2019-03-28 09:20 | MRI ---
MR left foot with and without contrast Indication: Plantar wound left foot. Technique: Multiplanar multi sequence imaging through the left foot before and after IV contrast. Comparison: 07/25/2017 radiograph and 03/27/2019 radiograph Findings: As seen on the prior radiograph, the midfoot shows advanced collapsed, with fragmentation of the navicular bone with fracture fragments displaced dorsally-see sagittal image 15. Fragments are also displaced medially-see axial image 19. Advanced degenerative change of the calcaneocuboid joint and the tarsometatarsal joints is noted. Findings suggesting osteonecrosis and collapse of the anterior talus is seen on sagittal image 10, with tibiotalar and talocalcaneal DJD noted. Due to the collapse of the midfoot, the 5th toe metatarsal base and the cuboid appear displaced in a plantar direction-see sagittal image 18 with overlying skin thickening. No large tract is seen, but developing pressure ulcer is certainly possible. Great toe MTP joint DJD is mild, with the phalanges generally appearing intact. Mild intramuscular edema in the midfoot intrinsic musculature noted. There is edema within the anterior talus and the cuneiform bones, best demonstrated on axial image 18 and sagittal images 11 through 15. The extensor tendons are intact. There is tear of the peroneus longus tendon at the level of the calcaneus on axial image 23 through 28, as the tendon enters the cuboid tunnel, probably a split tear or partial-thickness tear with tendinosis. The flexor tendons are intact. Tarsal tunnel structures appear normal. Achilles tendon is intact. Lateral ankle ligaments are not well resolved, with possible chronic tearing of the anterior talofibular ligament. The deltoid ligament, particularly the superficial fibers and spring ligament are probably torn, not well identified, with the midfoot sagging medially and in a plantar direction. Plantar fascia is mildly thickened at the medial bundle. There is enhancement of the subcutaneous soft tissues at the lateral aspect of the plantar fascia, where the cuboid approaches the plantar skin, best demonstrated on coronal images 22 through 29. There is mild associated edema. Developing phlegmon is possible. The peroneus longus passes through this area and shows thickening and abnormal signal, compatible with partial-thickness tear. Infected tenosynovitis could be developing if there is open wound. No tense joint effusion or peripherally enhancing fluid collection seen. No peripherally enhancing tract to the joint is identified Impression: 1. Findings are most compatible with midfoot Charcot joint, worst at the talonavicular and tarsometatarsal joints of the cuneiform is and cuboid joints, with resulting midfoot collapse medially and plantarly, with the cuboid rotated and approaching the skin surface. 2. The navicular bone is fragmented and fractured, presumably chronically given lack of edema, with fragments displaced superiorly and medially. 3. 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 Partial collapse of the intermediate and lateral cuneiform S0. 4. There is subcutaneous edema and enhancement at the plantar lateral foot, where the cuboid approaches the skin surface, without large peripherally enhancing fluid collection or specific evidence of osteomyelitis, drainable abscess or tract deep into the joint. All this favors noninfected Charcot joint. 5. However, given the mild enhancement in the approach to the skin, if there is indeed a skin defect, developing phlegmon or developing osteomyelitis are difficult to completely exclude. Therefore close clinical and imaging follow-up is recommended. 6. Tear of the peroneus longus tendon just above and within the cuboid tunnel, possibly split tear intrasubstance partial thickness tearing. Given the approach of the peroneus longus tendon to the enhancing subcutaneous soft tissue, developing infected tenosynovitis is not entirely excluded 7. With the midfoot collapse, the superficial and anterior fibers of the deltoid ligament complex including the spring ligament are likely torn. 8. Mild thickening of the medial bundle of the plantar fascia. Chronic plantar fasciitis possible. Reported By:
[2019-03-28] MEDS: PROTONIX INJ 40 MG VIAL IVP SCH (10:12)
[2019-03-28] MEDS ORDERED: DIPRIVAN VIAL ONE (10:54)
[2019-03-28 12:30] VITALS: BP 149/86
[2019-03-28] MEDS ORDERED: PHARMACY COMMENT IV NR (13:30)
== END 2019-03-28 11:55 | disposition home or self-care (01) | DRG 378 ==
LOC: MED/SURG 21:15 → ER 21:15 → OBSVTOIN 03-27 00:34 → MED/SURG 03-27 01:37
PROVIDERS: ADMIT Surgery; ATTEND Surgery
DX: E11.65 Type 2 diabetes mellitus with hyperglycemia; C18.7 Malignant neoplasm of sigmoid colon; D64.89 Other specified anemias; B96.4 Proteus (mirabilis) (morganii) as the cause of diseases classified elsewhere; X58.XXXA Exposure to other specified factors, initial encounter; E11.610 Type 2 diabetes mellitus with diabetic neuropathic arthropathy; B96.89 Other specified bacterial agents as the cause of diseases classified elsewhere; K44.9 Diaphragmatic hernia without obstruction or gangrene; R10.84 Generalized abdominal pain; K26.3 Acute duodenal ulcer without hemorrhage or perforation; Z87.19 Personal history of other diseases of the digestive system; S90.922A Unspecified superficial injury of left foot, initial encounter; Z87.11 Personal history of peptic ulcer disease; K21.9 Gastro-esophageal reflux disease without esophagitis; K62.5 Hemorrhage of anus and rectum
CPT/HCPCS: 36415; 73630; 73720; 74177; 80053; 82009; 82270; 82378; 83036; 83735; 85025; 87070; 87075; 87077; 87186; 87205; 94760; 96365; 96367; 96374; 96375; 99284; A4216; A4222; C9113; J1815; J2175; J2405; J2704; J3370; J3480; J7030; J7050

== ENCOUNTER 2021-05-16 07:30 | Inpatient (IN) ==
[2021-05-16] MEDS ORDERED: NS 1,000 ML IV 1,000 ML ONE ×3 (07:43→12:41)
[2021-05-16] MEDS ORDERED: ANCEF 1 GRAM IV PREMIX* 2 G/100 ML BAG IV ONE (07:43)
[2021-05-16] MEDS ORDERED: BETADINE SOLN ONE (08:52)
[2021-05-16] MEDS ORDERED: POLYMYXIN B SULFATE ONE ×2 (08:52→13:14)
[2021-05-16] MEDS ORDERED: NovoLIN R (or HumuLIN R) ONE ×2 (08:52→10:07)
[2021-05-16] MEDS ORDERED: NovoLIN R (or HumuLIN R) SUBCUT ONE (08:56)
[2021-05-16] MEDS ORDERED: DILAUDID INJ ONE ×2 (09:03→14:19)
[2021-05-16] MEDS ORDERED: FENTANYL VIAL INJ 250 mcg ONE (09:03)
[2021-05-16] MEDS ORDERED: OFIRMEV IV 1000 MG VIAL 1,000 MG/100 ML VIAL IV ONE (09:03)
[2021-05-16] MEDS ORDERED: BRIDION ONE (09:10)
[2021-05-16] MEDS ORDERED: EPHEDRINE SULFATE INJ ONE (09:30)
[2021-05-16] MEDS ORDERED: XYLOCAINE 2 % (PLAIN) ONE (09:30)
[2021-05-16] MEDS ORDERED: VERSED ONE (09:30)
[2021-05-16] MEDS ORDERED: QUELICIN (OR ANECTINE) ONE (09:30)
[2021-05-16] MEDS ORDERED: NORCURON INJ 10 MG VIAL ONE (09:30)
[2021-05-16] MEDS ORDERED: SUPRANE ONE ×2 (09:30→11:59)
[2021-05-16] MEDS ORDERED: ZOFRAN INJ 4 MG VIAL ONE (09:30)
[2021-05-16] MEDS ORDERED: DIPRIVAN VIAL ONE (09:30)
[2021-05-16] MEDS ORDERED: LEVAQUIN PREMIX IV 500 MG 500 MG/100 ML BAG IV ONE (13:20)
[2021-05-16] MEDS ORDERED: REGLAN INJ 10 MG VIAL IVP PRN (13:29)
[2021-05-16] MEDS ORDERED: PHENERGAN INJ 25 MG IM PRN (13:29)
[2021-05-16] MEDS ORDERED: DILAUDID INJ IVP PRN (13:29)
[2021-05-16] MEDS ORDERED: BARHEMSYS INJ IVP PRN (13:29)
[2021-05-16] MEDS ORDERED: ZOFRAN INJ 4 MG VIAL IVP PRN ×2 (13:29→15:42)
[2021-05-16] MEDS ORDERED: BENADRYL INJ 50 MG VIAL IVP PRN (13:29)
[2021-05-16] MEDS: D5 1/2 NS 1,000 ML 1,000 ML IV SCH ×2 (16:00→23:44)
[2021-05-16 16:06] LABS: BASOPHILS # (AUTO) 0.1 X10^3/uL (0.0-0.1); BASOPHILS % (AUTO) 0.4 % (0.2-1.0); EOSINOPHILS % (AUTO) 0.1 % (0.9-2.9); HEMATOCRIT 45.6 % (42.0-54.0); HEMOGLOBIN 15.8 g/dL (13.5-18.0); LYMPHOCYTES # (AUTO) 0.9 X10^3/uL (1.3-2.9); LYMPHOCYTES % (AUTO) 6.5 % (21.0-51.0); MEAN CORPUSCULAR HGB CONC 34.6 g/dL (33.0-35.0); MEAN CORPUSCULAR VOLUME 83.7 fL (80.0-100.0); MEAN PLATELET VOLUME 9.4 fL (7.4-11.0); MONOCYTES # (AUTO) 0.7 x10^3/uL (0.3-0.8); MONOCYTES % (AUTO) 4.9 % (0.0-13.0); NEUTROPHILS # (AUTO) 12.6 x10^3/uL (2.2-4.8); NEUTROPHILS % (AUTO) 88.1 % (42.0-75.0); PLATELET COUNT 240 X10^3/uL (150.0-450.0); RED BLOOD COUNT 5.45 X10^6/uL (4.7-6.0); RED CELL DISTRIBUTION WIDTH 13.2 % (11.6-16.5); WHITE BLOOD COUNT 14.4 X10^3/uL (3.6-10.0)
[2021-05-16 16:19] LABS: ALANINE AMINOTRANSFERASE 19 Units/L (12-78); ALKALINE PHOSPHATASE 71 Units/L (46-116); ASPARTATE AMINO TRANSFERASE 18 Units/L (15-37); BLOOD UREA NITROGEN 11 mg/dL (7-18); CALCIUM 7.5 mg/dL (8.5-10.1); CARBON DIOXIDE 25.3 mmol/L (21-32); CHLORIDE 106 mmol/L (98-107); COR CA(FOR HYPOALB) 8.3 mg/dL (8.5-10.1); COR NA(FOR HYPERGLY) 145 mmol/L (136-145); CREATININE 1.22 mg/dL (0.70-1.30); SODIUM 140 mmol/L (136-145); TOTAL PROTEIN 6.5 g/dL (6.4-8.2); eGFR NON BLACK RACES > 60 (>60)
[2021-05-16] MEDS: DILAUDID INJ IVP PRN (19:20)
[2021-05-16] MEDS ORDERED: ZOSYN VIAL 3.375 GRAMS IV ONE (20:08)
[2021-05-16] MEDS ORDERED: NS 100 ML IV + SPIKE MINIBAG* 100 ML IV ONE (20:08)
[2021-05-16] MEDS: NovoLIN R (or HumuLIN R) SUBCUT PRN (20:15)
[2021-05-16] MEDS: SNACK - Diabetic Appropriate PO SCH (20:35)
[2021-05-16] MEDS: ZOSYN VIAL 3.375 GRAMS 3.375 G in NS 100 ML IV + SPIKE MINIBAG* 100 ML IV SCH (21:03)
[2021-05-17] MEDS: ZOSYN VIAL 3.375 GRAMS 3.375 G in NS 100 ML IV + SPIKE MINIBAG* 100 ML IV SCH ×3 (05:45→21:01)
[2021-05-17] MEDS: DILAUDID INJ IVP PRN ×2 (05:50→11:59)
[2021-05-17 06:11] LABS: BASOPHILS % (AUTO) 0.4 % (0.2-1.0); EOSINOPHILS % (AUTO) 0.1 % (0.9-2.9); HEMOGLOBIN 15.3 g/dL (13.5-18.0); LYMPHOCYTES # (AUTO) 1.2 X10^3/uL (1.3-2.9); LYMPHOCYTES % (AUTO) 9.9 % (21.0-51.0); MEAN CORPUSCULAR HEMOGLOBIN 28.7 pg (27.0-34.0); MEAN CORPUSCULAR VOLUME 84.4 fL (80.0-100.0); MEAN PLATELET VOLUME 9.6 fL (7.4-11.0); MONOCYTES % (AUTO) 7.6 % (0.0-13.0); NEUTROPHILS # (AUTO) 10.3 x10^3/uL (2.2-4.8); PLATELET COUNT 234 X10^3/uL (150.0-450.0); RED BLOOD COUNT 5.34 X10^6/uL (4.7-6.0); RED CELL DISTRIBUTION WIDTH 13.5 % (11.6-16.5); WHITE BLOOD COUNT 12.6 X10^3/uL (3.6-10.0)
[2021-05-17 06:20] LABS: ALANINE AMINOTRANSFERASE 13 Units/L (12-78); ALBUMIN 2.8 g/dL (3.4-5.0); ALKALINE PHOSPHATASE 65 Units/L (46-116); ASPARTATE AMINO TRANSFERASE 14 Units/L (15-37); BLOOD UREA NITROGEN 9 mg/dL (7-18); CALCIUM 8.2 mg/dL (8.5-10.1); CARBON DIOXIDE 28.8 mmol/L (21-32); CHLORIDE 104 mmol/L (98-107); COR CA(FOR HYPOALB) 9.2 mg/dL (8.5-10.1); COR NA(FOR HYPERGLY) 148 mmol/L (136-145); CREATININE 1.17 mg/dL (0.70-1.30); SODIUM 142 mmol/L (136-145); TOTAL PROTEIN 6.5 g/dL (6.4-8.2); eGFR NON BLACK RACES > 60 (>60)
[2021-05-17] MEDS: D5 1/2 NS 1,000 ML 1,000 ML IV SCH ×4 (06:25→20:00)
[2021-05-17] MEDS: NovoLIN R (or HumuLIN R) SUBCUT PRN ×4 (06:31→21:06)
[2021-05-17] MEDS: LOVENOX INJ 40 MG SYR SC SCH (08:29)
[2021-05-17] MEDS: PROTONIX INJ 40 MG VIAL IVP SCH (08:29)
--- NOTE | 2021-05-17 08:51 | DR.PROGNOT ---
Hospital Progress Notes - Progress Note for Day of: Progress Note Date: 05/17/21 - Chief Complaint Chief Complaint: c/o nausea and discomfort with the NGT. moderate incisional pain . - Past Medical Family Social History Past Med/Fam/Surg Hx: No changes since H&P Allergies: Allergies No Known Drug Allergies Allergy (Verified 07/25/17 15:16) - Review Of Systems ROS: No change since H&P - Vital Signs Vital Signs: Temperature 98.4 F Pulse Rate [Bilateral Radial] 105 Pulse Rate 112 Respiratory Rate 20 Blood Pressure [Left Arm] 121/77 Blood Pressure [Left Calf] 178/89 Blood Pressure [Right Calf] 152/83 Blood Pressure [Right Arm] 149/86 Blood Pressure [Left Arm] 138/72 Blood Pressure 138/73 O2 Sat by Pulse Oximetry 97 - Physical Exam Oriented: Normal Eyes: Normal Ear: Normal Nose: Normal Throat: Normal Respiratory: Normal Cardiovascular: Normal GI:Auscultation: Decreased GI: Tenderness: Diffuse (soft abdomen with diffuse tenderness .. BS hypoactive ) Musculoskeletal: Normal Psychiatric: Normal Mood Description: Calm, Appropriate Speech Pattern: Clear, Appropriate - Laboratory and Diagnostics Result Diagrams: 05/17/21 05:45 05/17/21 05:45 Labs: Laboratory WBC 12.6 X10^3/uL (3.6-10.0) H 05/17/21 05:45 RBC 5.34 X10^6/uL (4.7-6.0) 05/17/21 05:45 Hgb 15.3 g/dL (13.5-18.0) 05/17/21 05:45 Hct 45.0 % (42.0-54.0) 05/17/21 05:45 MCV 84.4 fL (80.0-100.0) 05/17/21 05:45 MCH 28.7 pg (27.0-34.0) 05/17/21 05:45 MCHC 34.0 g/dL (33.0-35.0) 05/17/21 05:45 RDW 13.5 % (11.6-16.5) 05/17/21 05:45 Plt Count 234 X10^3/uL (150.0-450.0) 05/17/21 05:45 MPV 9.6 fL (7.4-11.0) 05/17/21 05:45 Neut % (Auto) 82.0 % (42.0-75.0) H 05/17/21 05:45 Lymph % (Auto) 9.9 % (21.0-51.0) L 05/17/21 05:45 [place] % (Auto) 7.6 % (0.0-13.0) 05/17/21 05:45 Eos % (Auto) 0.1 % (0.9-2.9) L 05/17/21 05:45 Baso % (Auto) 0.4 % (0.2-1.0) 05/17/21 05:45 Neut # (Auto) 10.3 x10^3/uL (2.2-4.8) H 05/17/21 05:45 Lymph # (Auto) 1.2 X10^3/uL (1.3-2.9) L 05/17/21 05:45 [place] # (Auto) 1.0 x10^3/uL (0.3-0.8) H 05/17/21 05:45 Eos # (Auto) 0.0 x10^3/uL (0.0-0.2) 05/17/21 05:45 Baso # (Auto) 0.0 X10^3/uL (0.0-0.1) 05/17/21 05:45 Absolute Nucleated RBC 0.3 /100WBC 05/17/21 05:45 Sodium 142 mmol/L (136-145) 05/17/21 05:45 Corrected Sodium 148 mmol/L (136-145) H 05/17/21 05:45 Potassium 3.9 mmol/L (3.5-5.1) 05/17/21 05:45 Chloride 104 mmol/L (98-107) 05/17/21 05:45 Carbon Dioxide 28.8 mmol/L (21-32) 05/17/21 05:45 BUN 9 mg/dL (7-18) 05/17/21 05:45 Creatinine 1.17 mg/dL (0.70-1.30) 05/17/21 05:45 Est GFR (MDRD) Af Amer > 60 (>60) 05/17/21 05:45 Est GFR (MDRD) Non-Af > 60 (>60) 05/17/21 05:45 Glucose 353 mg/dL (65-99) H 05/17/21 05:45 POC Glucose (mg/dL) 311 mg/dL (65-99) H 05/17/21 06:23 Calcium 8.2 mg/dL (8.5-10.1) L 05/17/21 05:45 Corrected Calcium 9.2 mg/dL (8.5-10.1) 05/17/21 05:45 Total Bilirubin 0.90 mg/dL (0.2-1.0) 05/17/21 05:45 AST 14 Units/L (15-37) L 05/17/21 05:45 ALT 13 Units/L (12-78) 05/17/21 05:45 Alkaline Phosphatase 65 Units/L (46-116) 05/17/21 05:45 Total Protein 6.5 g/dL (6.4-8.2) 05/17/21 05:45 Albumin 2.8 g/dL (3.4-5.0) L 05/17/21 05:45 Globulin 3.7 g/dL (2.5-4.5) 05/17/21 05:45 Albumin/Globulin Ratio 0.8 Ratio (1.1-2.1) L 05/17/21 05:45 Tissue Pathology To follow 05/16/21 13:00 - Assessment and Plan 1: Post op laparotomy , closure of Guadalupe's with low pelvic anastomosis . DM . same PO care and diabetic control .. DVT prophylaxis ,
[2021-05-17] MEDS ORDERED: CHLORASEPTIC SPRAY MT PRN (09:10)
[2021-05-17] MEDS ORDERED: XYLOCAINE VISCOUS MT PRN (09:11)
--- NOTE | 2021-05-17 10:35 | DR.CONSULT ---
Consult - Consultation for Day of: Date: 05/17/21 - Chief Complaint Chief Complaint: STATUS POST CLOSURE OF JUSTINO'S PROCEDURE WITH LOW PELVIC ANASTOMOSIS AND LYSIS OF ADHESIONS. DIABETES. - History of Present Illness History of Present Illness: IS A 40 YEAR OLD PATIENT OF . HE IS DAY 1 POST OP CLOSURE OF HARTMANNS PROCEDURE WITH LOW PELVIC ANASTOMOSIS AND LYSIS OF ADHESIONS. WE WERE CONSULTED FOR MEDICAL MANAG EMENT OF DIABETES. REASON FOR HARTMANNSS PROCEDURE IN 2019 WAS COLON CANCER. ON THE DAY OF ADMISSION, YESTERDAY, HIS BLOOD SUGAR WAS OVER 400. HE WAS TREATED WITH HUMULIN R SLIDING SCALE. HE WAS GIVEN IV LEVAQUIN AND ANCEF DURING SURGERY AND ALSO IRRIGATED WITH ANTIBIOTIC SOLUTION DUE TO OPENING OF RECTAL STUMP WITH MINIMAL SPILLAGE. AN NG TUBE, NINO CATHETER, AND YONY DRAIN WERE PLACED DURING SURGERY AND LEFT IN PLACE. TODAY, HE IS ALERT, LYING IN BED ON MORNING ROUNDS. HE REPORTS DIFFUSE TENDERNESS TO ABDOMEN AND SORE THROAT FROM THE NG TUBE. HE HAS HAD A MODERATE AMOUNT OF DRAINAGE FROM NG TUBE THROUGHOUT THE NIGHT. ON EXAMINATION, HEART IS REGULAR IN RATE AND RHYTHM. ABDOMEN ROUND, SOFT, AND NOTED WITH DIFFUSE TENDERNESS. YONY DRAIN NOTED TO RIGHT SIDE ABDOMEN. NINO CATHETER NOTED TO BEDSIDE DRAINAGE. HIS VITALS THIS MORNING ARE: 98.4-105-20-97%-121/77. LABS WERE OBTAINED. ABNORMAL LAB VALUES INCLUDE THE FOLLOWING: WBC 12.6, GLUCOSE 353, CALCIUM 8.2, AST 14, ALBUMIN 2.8. HE IS CURRENTLY RECEIVING D51/2 NS AT 150 ML/HR, ZOSYN 3.375G IV TID, LOVENOX 40MG SC DAILY, DILAUDID 2MG IV Q4H PRN, PROTONIX 40MG IV DAILY, ZOFRAN 4MG IV Q6H PRN, XYLOCAINE VISCOUS 5ML PO QID PRN, CHLORASEPTIC 2SPR PO Q12H PRN, OTBS ACHS, AND HUMULIN R SLIDING SCALE. WE WILL CONTINUE WITH CURRENT PLAN OF CARE TODAY. OTHERWISE, WE PLAN TO FOLLOW UP WITH AM LABS AND CONTINUE TO MONITOR. TIME SPENT ON CLINICAL ASSESSMENT, REVIEWING LABS AND IMAGING, DECISION MAKING, AND DOCUMENTATION GREATER THAN 45 MINUTES. - Past Medical History Past Medical History: Diabetes, Kidney Stones Additional Medical History: HX COLON CANCER - Past Surgical History Surgical History: Bowel Resection, Ortho Surgery Additional Surgical History: LEFT BTK AMPUTATION, RIGHT GREAT TOE AMPUTATION - Family History Family Medical History: Diabetes Mellitus, Cancer, Hypertension - Social History Does patient currently use any type of tobacco product: No Have you used tobacco products in the last 12 months: No Type of Tobacco Use: None Does any household member use tobacco: No Alcohol Use: None Drug Use: None - Medications Home Medications: No Known Drug Allergies Allergy (Verified 07/25/17 15:16) CONTINUE taking the following medications insulin regular human [Novolin R Flexpen] See Rx Instructions .ROUTE .COMPLEX 05/16/21 [History] tramadol 50 mg PO BID PRN 05/16/21 [History] - Review of Systems Constitutional: Weakness Eyes: No Symptoms Reported ENT: Throat Pain Respiratory: No Symptoms Reported Cardiovascular: No Symptoms Reported Gastrointestinal: See HPI, Nausea, Abdominal Pain Genitourinary: No Symptoms Reported Musculoskeletal: No Symptoms Reported Skin: No Symptoms Reported Neurological: Weakness - Physical Exam Vital Signs: Temperature 98.4 F Pulse Rate [Bilateral Radial] 105 Pulse Rate 112 Respiratory Rate 20 Blood Pressure [Left Arm] 121/77 Blood Pressure [Left Calf] 178/89 Blood Pressure [Right Calf] 152/83 Blood Pressure [Right Arm] 149/86 Blood Pressure [Left Arm] 138/72 Blood Pressure 138/73 O2 Sat by Pulse Oximetry 97 Oriented: Normal Eyes: Normal Ear: Normal Nose: Normal, Other (NG TUBE ) Throat: Dry Respiratory: Clear Throughout Cardiovascular: Normal : Normal Auscultation: Bowel Sounds: Decreased, Other (YONY DRAIN ) Palpation: Normal Tenderness: Diffuse, Moderate Skin: Normal Musculoskeletal: Normal Psychiatric: Normal Mood Description: Calm Affect: Normal Speech Pattern: Clear - Plan Plan: DAY 1 STATUS POST CLOSURE OF HARTMANS PROCEDURE AND LYSIS OF ADHESIONS. CONTINUE WITH IV ANTIBIOTICS. PAIN MANAGEMENT. DIABETES MANAGEMENT WITH SLIDING SCALE INSULIN. SURGICAL FOLLOW UP AND MANAGEMENT PER . - Allergies Allergies/Adverse Reactions: Allergies Allergy/AdvReac Type Severity Reaction Status Date / Time No Known Drug Allergies Allergy Verified 07/25/17 15:16
[2021-05-17] MEDS: SNACK - Diabetic Appropriate PO SCH (20:58)
[2021-05-18] MEDS: DILAUDID INJ IVP PRN ×2 (03:30→10:39)
[2021-05-18] MEDS: D5 1/2 NS 1,000 ML 1,000 ML IV SCH ×4 (03:36→22:39)
[2021-05-18] MEDS: ZOSYN VIAL 3.375 GRAMS 3.375 G in NS 100 ML IV + SPIKE MINIBAG* 100 ML IV SCH ×3 (06:00→21:18)
[2021-05-18] MEDS: NovoLIN R (or HumuLIN R) SUBCUT PRN ×4 (06:20→21:19)
[2021-05-18 06:33] LABS: BASOPHILS # (AUTO) 0.1 X10^3/uL (0.0-0.1); BASOPHILS % (AUTO) 0.7 % (0.2-1.0); EOSINOPHILS % (AUTO) 0.3 % (0.9-2.9); HEMATOCRIT 37.7 % (42.0-54.0); HEMOGLOBIN 12.9 g/dL (13.5-18.0); LYMPHOCYTES # (AUTO) 1.1 X10^3/uL (1.3-2.9); LYMPHOCYTES % (AUTO) 11.1 % (21.0-51.0); MEAN CORPUSCULAR HEMOGLOBIN 28.7 pg (27.0-34.0); MEAN CORPUSCULAR VOLUME 84.4 fL (80.0-100.0); MEAN PLATELET VOLUME 9.7 fL (7.4-11.0); MONOCYTES # (AUTO) 0.7 x10^3/uL (0.3-0.8); MONOCYTES % (AUTO) 6.8 % (0.0-13.0); NEUTROPHILS # (AUTO) 8.3 x10^3/uL (2.2-4.8); NEUTROPHILS % (AUTO) 81.1 % (42.0-75.0); PLATELET COUNT 212 X10^3/uL (150.0-450.0); RED BLOOD COUNT 4.47 X10^6/uL (4.7-6.0); RED CELL DISTRIBUTION WIDTH 13.8 % (11.6-16.5); WHITE BLOOD COUNT 10.2 X10^3/uL (3.6-10.0)
[2021-05-18 06:53] LABS: ALANINE AMINOTRANSFERASE 11 Units/L (12-78); ALBUMIN 2.3 g/dL (3.4-5.0); ALKALINE PHOSPHATASE 52 Units/L (46-116); ASPARTATE AMINO TRANSFERASE 12 Units/L (15-37); BLOOD UREA NITROGEN 10 mg/dL (7-18); CARBON DIOXIDE 27.8 mmol/L (21-32); CHLORIDE 105 mmol/L (98-107); COR CA(FOR HYPOALB) 9.4 mg/dL (8.5-10.1); COR NA(FOR HYPERGLY) 146 mmol/L (136-145); CREATININE 0.92 mg/dL (0.70-1.30); SODIUM 141 mmol/L (136-145); TOTAL PROTEIN 6.1 g/dL (6.4-8.2); eGFR NON BLACK RACES > 60 (>60)
[2021-05-18] MEDS: LOVENOX INJ 40 MG SYR SC SCH (08:13)
[2021-05-18] MEDS: PROTONIX INJ 40 MG VIAL IVP SCH (08:14)
--- NOTE | 2021-05-18 10:03 | DR.PROGNOT ---
Hospital Progress Notes - Progress Note for Day of: Progress Note Date: 05/18/21 - Chief Complaint Chief Complaint: c/o nausea and discomfort with the NGT. moderate incisional pain . WBC 10.2. BS 266. afebrile . - Past Medical Family Social History Past Med/Fam/Surg Hx: No changes since H&P Allergies: Allergies No Known Drug Allergies Allergy (Verified 07/25/17 15:16) - Review Of Systems ROS: No change since H&P - Vital Signs Vital Signs: Temperature 98.3 F Pulse Rate [Bilateral Radial] 104 Pulse Rate 112 Respiratory Rate 20 Blood Pressure [Left Arm] 144/88 Blood Pressure [Left Calf] 178/89 Blood Pressure [Right Calf] 152/83 Blood Pressure [Right Arm] 149/86 Blood Pressure [Left Arm] 138/72 Blood Pressure 138/73 O2 Sat by Pulse Oximetry 93 - Physical Exam Oriented: Normal Eyes: Normal Ear: Normal Nose: Normal, Other (NG TUBE ) Throat: Dry Respiratory: Normal Cardiovascular: Normal : Normal GI:Auscultation: Decreased, Other (YONY DRAIN ) GI:Palpation: Normal (soft abdomen with diffuse tendederness .. BS+ but hypoactive .) GI: Tenderness: Diffuse, Moderate Skin: Normal Musculoskeletal: Normal Psychiatric: Normal Mood Description: Calm Affect: Normal Speech Pattern: Clear, Appropriate - Laboratory and Diagnostics Result Diagrams: 05/18/21 05:20 05/18/21 05:20 Labs: Laboratory WBC 10.2 X10^3/uL (3.6-10.0) H 05/18/21 05:20 RBC 4.47 X10^6/uL (4.7-6.0) L 05/18/21 05:20 Hgb 12.9 g/dL (13.5-18.0) L D 05/18/21 05:20 Hct 37.7 % (42.0-54.0) L 05/18/21 05:20 MCV 84.4 fL (80.0-100.0) 05/18/21 05:20 MCH 28.7 pg (27.0-34.0) 05/18/21 05:20 MCHC 34.0 g/dL (33.0-35.0) 05/18/21 05:20 RDW 13.8 % (11.6-16.5) 05/18/21 05:20 Plt Count 212 X10^3/uL (150.0-450.0) 05/18/21 05:20 MPV 9.7 fL (7.4-11.0) 05/18/21 05:20 Neut % (Auto) 81.1 % (42.0-75.0) H 05/18/21 05:20 Lymph % (Auto) 11.1 % (21.0-51.0) L 05/18/21 05:20 [place] % (Auto) 6.8 % (0.0-13.0) 05/18/21 05:20 Eos % (Auto) 0.3 % (0.9-2.9) L 05/18/21 05:20 Baso % (Auto) 0.7 % (0.2-1.0) 05/18/21 05:20 Neut # (Auto) 8.3 x10^3/uL (2.2-4.8) H 05/18/21 05:20 Lymph # (Auto) 1.1 X10^3/uL (1.3-2.9) L 05/18/21 05:20 [place] # (Auto) 0.7 x10^3/uL (0.3-0.8) 05/18/21 05:20 Eos # (Auto) 0.0 x10^3/uL (0.0-0.2) 05/18/21 05:20 Baso # (Auto) 0.1 X10^3/uL (0.0-0.1) 05/18/21 05:20 Absolute Nucleated RBC 0.1 /100WBC 05/18/21 05:20 Sodium 141 mmol/L (136-145) 05/18/21 05:20 Corrected Sodium 146 mmol/L (136-145) H 05/18/21 05:20 Potassium 3.7 mmol/L (3.5-5.1) 05/18/21 05:20 Chloride 105 mmol/L (98-107) 05/18/21 05:20 Carbon Dioxide 27.8 mmol/L (21-32) 05/18/21 05:20 BUN 10 mg/dL (7-18) 05/18/21 05:20 Creatinine 0.92 mg/dL (0.70-1.30) 05/18/21 05:20 Est GFR (MDRD) Af Amer > 60 (>60) 05/18/21 05:20 Est GFR (MDRD) Non-Af > 60 (>60) 05/18/21 05:20 Glucose 288 mg/dL (65-99) H 05/18/21 05:20 POC Glucose (mg/dL) 311 mg/dL (65-99) H 05/18/21 05:57 Calcium 8.0 mg/dL (8.5-10.1) L 05/18/21 05:20 Corrected Calcium 9.4 mg/dL (8.5-10.1) 05/18/21 05:20 Total Bilirubin 0.70 mg/dL (0.2-1.0) 05/18/21 05:20 AST 12 Units/L (15-37) L 05/18/21 05:20 ALT 11 Units/L (12-78) L 05/18/21 05:20 Alkaline Phosphatase 52 Units/L (46-116) 05/18/21 05:20 Total Protein 6.1 g/dL (6.4-8.2) L 05/18/21 05:20 Albumin 2.3 g/dL (3.4-5.0) L 05/18/21 05:20 Globulin 3.8 g/dL (2.5-4.5) 05/18/21 05:20 Albumin/Globulin Ratio 0.6 Ratio (1.1-2.1) L 05/18/21 05:20 Tissue Pathology To follow 05/16/21 13:00 - Assessment and Plan 1: Post op laparotomy , closure of Guadalupe's with low pelvic anastomosis . DM . same PO care and diabetic control .. DVT prophylaxis , OOB . to D/C NGT and keep NPO for now .
--- NOTE | 2021-05-18 10:44 | PCM.PROG ---
Progress Note - Progress Note for Day of Date of Exam: 05/18/21 - Subjective Subjective: IS A 40 YEAR OLD PATIENT OF . HE IS DAY 2 POST OP CLOSURE OF HARTMANNS PROCEDURE WITH LOW PELVIC ANASTOMOSIS AND LYSIS OF ADHESIONS. WE WERE CONSULTED FOR MEDICAL MANAGEMENT OF DIABETES. TODAY, HE IS ALERT, LYING IN BED ON MORNING ROUNDS. HE CONTINUES TO REPORT DIFFUSE TENDERNESS TO ABDOMEN AND SORE THROAT FROM THE NG TUBE. ON EXAMINATION, NG TUBE NOTED TO RIGHT NARE, TO INTERMITTENT SUCTION. HEART IS REGULAR IN RATE AND RHYTHM. ABDOMEN ROUND, SOFT, AND NOTED WITH DIFFUSE TENDERNESS. YONY DRAIN NOTED TO RIGHT SIDE ABDOMEN. HIS VITALS THIS MORNING ARE: 98.3-100-20-93%-144/88. LABS WERE OBTAINED. ABNORMAL LAB VALUES INCLUDE THE FOLLOWING: WBC 10.2, RBC 4.47, HGB 1 2.9, HCT 37.7, GLUCOSE 288, CALCIUM 8.0, AT 12, ALT 11, TOTAL PROTEIN 6.1, ALBUMIN 2.3. HE IS CURRENTLY RECEIVING D51/2 NS AT 150 ML/HR, ZOSYN 3.375G IV TID, LOVENOX 40MG SC DAILY, DILAUDID 2MG IV Q4H PRN, PROTONIX 40MG IV DAILY, ZOFRAN 4MG IV Q6H PRN, XYLOCAINE VISCOUS 5ML PO QID PRN, CHLORASEPTIC 2SPR PO Q12H PRN, OTBS ACHS, AND HUMULIN R SLIDING SCALE. WE WILL CONTINUE WITH CURRENT PLAN OF CARE TODAY. OTHERWISE, WE PLAN TO FOLLOW UP WITH AM LABS AND CONTINUE TO MONITOR. PLANS TO REMOVE NG TUBE AND ALLOW PATIENT TO HAVE ICE CHIPS. TIME SPENT ON CLINICAL ASSESSMENT, REVIEWING LABS AND IMAGING, DECISION MAKING, AND DOCUMENTATION GREATER THAN 45 MINUTES. - Past Medical Family Social History Past Med/Fam/Surg Hx: No changes since H&P Allergies: Allergies No Known Drug Allergies Allergy (Verified 07/25/17 15:16) - Review of Systems ROS: No change since H&P - Vital Signs and I&O's Vital Signs: Temperature 98.3 F Pulse Rate [Bilateral Radial] 104 Pulse Rate 112 Respiratory Rate 20 Blood Pressure [Left Arm] 144/88 Blood Pressure [Left Calf] 178/89 Blood Pressure [Right Calf] 152/83 Blood Pressure [Right Arm] 149/86 Blood Pressure [Left Arm] 138/72 Blood Pressure 138/73 O2 Sat by Pulse Oximetry 93 Intake and Output: Intake & Output 05/15/21 05/16/21 05/17/21 05/18/21 11:59 11:59 11:59 11:59 Intake Total 1948 4999 / 4999 3753 / 3753 Output Total 5135 / 5135 2300 / 2300 Balance 1948 -136 / -136 1453 / 1453 - Physical Exam Oriented: Normal Eyes: Normal Ear: Normal Nose: Normal, Other (NG TUBE ) Throat: Dry Respiratory: Normal Cardiovascular: Normal : Normal Auscultation: Bowel Sounds: Decreased, Other (YONY DRAIN ) Tenderness: Diffuse, Moderate Skin: Normal Musculoskeletal: Normal Psychiatric: Normal Mood Description: Calm Affect: Normal Speech Pattern: Clear, Appropriate - Laboratory and Diagnostics Result Diagrams: 05/18/21 05:20 05/18/21 05:20 Labs: Laboratory WBC 10.2 X10^3/uL (3.6-10.0) H 05/18/21 05:20 RBC 4.47 X10^6/uL (4.7-6.0) L 05/18/21 05:20 Hgb 12.9 g/dL (13.5-18.0) L D 05/18/21 05:20 Hct 37.7 % (42.0-54.0) L 05/18/21 05:20 MCV 84.4 fL (80.0-100.0) 05/18/21 05:20 MCH 28.7 pg (27.0-34.0) 05/18/21 05:20 MCHC 34.0 g/dL (33.0-35.0) 05/18/21 05:20 RDW 13.8 % (11.6-16.5) 05/18/21 05:20 Plt Count 212 X10^3/uL (150.0-450.0) 05/18/21 05:20 MPV 9.7 fL (7.4-11.0) 05/18/21 05:20 Neut % (Auto) 81.1 % (42.0-75.0) H 05/18/21 05:20 Lymph % (Auto) 11.1 % (21.0-51.0) L 05/18/21 05:20 [place] % (Auto) 6.8 % (0.0-13.0) 05/18/21 05:20 Eos % (Auto) 0.3 % (0.9-2.9) L 05/18/21 05:20 Baso % (Auto) 0.7 % (0.2-1.0) 05/18/21 05:20 Neut # (Auto) 8.3 x10^3/uL (2.2-4.8) H 05/18/21 05:20 Lymph # (Auto) 1.1 X10^3/uL (1.3-2.9) L 05/18/21 05:20 [place] # (Auto) 0.7 x10^3/uL (0.3-0.8) 05/18/21 05:20 Eos # (Auto) 0.0 x10^3/uL (0.0-0.2) 05/18/21 05:20 Baso # (Auto) 0.1 X10^3/uL (0.0-0.1) 05/18/21 05:20 Absolute Nucleated RBC 0.1 /100WBC 05/18/21 05:20 Sodium 141 mmol/L (136-145) 05/18/21 05:20 Corrected Sodium 146 mmol/L (136-145) H 05/18/21 05:20 Potassium 3.7 mmol/L (3.5-5.1) 05/18/21 05:20 Chloride 105 mmol/L (98-107) 05/18/21 05:20 Carbon Dioxide 27.8 mmol/L (21-32) 05/18/21 05:20 BUN 10 mg/dL (7-18) 05/18/21 05:20 Creatinine 0.92 mg/dL (0.70-1.30) 05/18/21 05:20 Est GFR (MDRD) Af Amer > 60 (>60) 05/18/21 05:20 Est GFR (MDRD) Non-Af > 60 (>60) 05/18/21 05:20 Glucose 288 mg/dL (65-99) H 05/18/21 05:20 POC Glucose (mg/dL) 311 mg/dL (65-99) H 05/18/21 05:57 Calcium 8.0 mg/dL (8.5-10.1) L 05/18/21 05:20 Corrected Calcium 9.4 mg/dL (8.5-10.1) 05/18/21 05:20 Total Bilirubin 0.70 mg/dL (0.2-1.0) 05/18/21 05:20 AST 12 Units/L (15-37) L 05/18/21 05:20 ALT 11 Units/L (12-78) L 05/18/21 05:20 Alkaline Phosphatase 52 Units/L (46-116) 05/18/21 05:20 Total Protein 6.1 g/dL (6.4-8.2) L 05/18/21 05:20 Albumin 2.3 g/dL (3.4-5.0) L 05/18/21 05:20 Globulin 3.8 g/dL (2.5-4.5) 05/18/21 05:20 Albumin/Globulin Ratio 0.6 Ratio (1.1-2.1) L 05/18/21 05:20 Tissue Pathology To follow 05/16/21 13:00
[2021-05-18] MEDS: SNACK - Diabetic Appropriate PO SCH (22:40)
[2021-05-19] MEDS: DILAUDID INJ IVP PRN ×3 (00:38→17:54)
[2021-05-19] MEDS: NovoLIN R (or HumuLIN R) SUBCUT PRN ×4 (05:56→21:27)
[2021-05-19] MEDS: ZOSYN VIAL 3.375 GRAMS 3.375 G in NS 100 ML IV + SPIKE MINIBAG* 100 ML IV SCH ×3 (05:58→21:27)
[2021-05-19 06:18] LABS: BASOPHILS # (AUTO) 0.1 X10^3/uL (0.0-0.1); BASOPHILS % (AUTO) 0.9 % (0.2-1.0); EOSINOPHILS # (AUTO) 0.1 x10^3/uL (0.0-0.2); EOSINOPHILS % (AUTO) 1.7 % (0.9-2.9); HEMATOCRIT 36.5 % (42.0-54.0); HEMOGLOBIN 12.5 g/dL (13.5-18.0); LYMPHOCYTES # (AUTO) 1.5 X10^3/uL (1.3-2.9); LYMPHOCYTES % (AUTO) 20.6 % (21.0-51.0); MEAN CORPUSCULAR HEMOGLOBIN 29.1 pg (27.0-34.0); MEAN CORPUSCULAR HGB CONC 34.2 g/dL (33.0-35.0); MEAN CORPUSCULAR VOLUME 85.1 fL (80.0-100.0); MEAN PLATELET VOLUME 9.6 fL (7.4-11.0); MONOCYTES # (AUTO) 0.6 x10^3/uL (0.3-0.8); MONOCYTES % (AUTO) 8.9 % (0.0-13.0); NEUTROPHILS # (AUTO) 4.9 x10^3/uL (2.2-4.8); NEUTROPHILS % (AUTO) 67.9 % (42.0-75.0); PLATELET COUNT 214 X10^3/uL (150.0-450.0); RED BLOOD COUNT 4.29 X10^6/uL (4.7-6.0); RED CELL DISTRIBUTION WIDTH 13.3 % (11.6-16.5); WHITE BLOOD COUNT 7.2 X10^3/uL (3.6-10.0)
[2021-05-19 06:44] LABS: ALANINE AMINOTRANSFERASE 11 Units/L (12-78); ALBUMIN 2.1 g/dL (3.4-5.0); ALKALINE PHOSPHATASE 46 Units/L (46-116); ASPARTATE AMINO TRANSFERASE 33 Units/L (15-37); BLOOD UREA NITROGEN 10 mg/dL (7-18); CALCIUM 7.9 mg/dL (8.5-10.1); CARBON DIOXIDE 26.4 mmol/L (21-32); CHLORIDE 105 mmol/L (98-107); COR CA(FOR HYPOALB) 9.4 mg/dL (8.5-10.1); COR NA(FOR HYPERGLY) 143 mmol/L (136-145); CREATININE 0.83 mg/dL (0.70-1.30); SODIUM 139 mmol/L (136-145); TOTAL PROTEIN 6.1 g/dL (6.4-8.2); eGFR NON BLACK RACES > 60 (>60)
[2021-05-19] MEDS: D5 1/2 NS 1,000 ML 1,000 ML IV SCH ×2 (08:13→10:02)
[2021-05-19] MEDS: LOVENOX INJ 40 MG SYR SC SCH (08:13)
[2021-05-19] MEDS: PROTONIX INJ 40 MG VIAL IVP SCH (08:13)
--- NOTE | 2021-05-19 09:22 | DR.PROGNOT ---
Hospital Progress Notes - Progress Note for Day of: Progress Note Date: 05/19/21 - Chief Complaint Chief Complaint: more comfortable today .. no more nausea . passing flatus , no BM yet . mild drainage in YONY. BS is better controlled . afebrile .. - Past Medical Family Social History Past Med/Fam/Surg Hx: No changes since H&P Allergies: Allergies No Known Drug Allergies Allergy (Verified 07/25/17 15:16) - Review Of Systems ROS: No change since H&P - Vital Signs Vital Signs: Temperature 98.1 F Pulse Rate [Bilateral Radial] 81 Pulse Rate 112 Respiratory Rate 18 Blood Pressure [Left Arm] 123/85 Blood Pressure [Left Calf] 178/89 Blood Pressure [Right Calf] 152/83 Blood Pressure [Right Arm] 149/86 Blood Pressure [Left Arm] 138/72 Blood Pressure 138/73 O2 Sat by Pulse Oximetry 94 - Physical Exam Oriented: Normal Eyes: Normal Ear: Normal Nose: Normal, Other (NG TUBE ) Throat: Dry Respiratory: Normal Cardiovascular: Normal : Normal GI:Auscultation: Decreased, Other (YONY DRAIN ) GI:Palpation: Normal (soft abdomen with diffuse tendederness .. BS+ but hypoactive .) GI: Tenderness: Diffuse, Moderate Skin: Normal Musculoskeletal: Normal Psychiatric: Normal Mood Description: Calm Affect: Normal Speech Pattern: Clear, Appropriate - Laboratory and Diagnostics Result Diagrams: 05/19/21 05:51 05/19/21 05:51 Labs: Laboratory WBC 7.2 X10^3/uL (3.6-10.0) 05/19/21 05:51 RBC 4.29 X10^6/uL (4.7-6.0) L 05/19/21 05:51 Hgb 12.5 g/dL (13.5-18.0) L 05/19/21 05:51 Hct 36.5 % (42.0-54.0) L 05/19/21 05:51 MCV 85.1 fL (80.0-100.0) 05/19/21 05:51 MCH 29.1 pg (27.0-34.0) 05/19/21 05:51 MCHC 34.2 g/dL (33.0-35.0) 05/19/21 05:51 RDW 13.3 % (11.6-16.5) 05/19/21 05:51 Plt Count 214 X10^3/uL (150.0-450.0) 05/19/21 05:51 MPV 9.6 fL (7.4-11.0) 05/19/21 05:51 Neut % (Auto) 67.9 % (42.0-75.0) 05/19/21 05:51 Lymph % (Auto) 20.6 % (21.0-51.0) L 05/19/21 05:51 [place] % (Auto) 8.9 % (0.0-13.0) 05/19/21 05:51 Eos % (Auto) 1.7 % (0.9-2.9) 05/19/21 05:51 Baso % (Auto) 0.9 % (0.2-1.0) 05/19/21 05:51 Neut # (Auto) 4.9 x10^3/uL (2.2-4.8) H 05/19/21 05:51 Lymph # (Auto) 1.5 X10^3/uL (1.3-2.9) 05/19/21 05:51 [place] # (Auto) 0.6 x10^3/uL (0.3-0.8) 05/19/21 05:51 Eos # (Auto) 0.1 x10^3/uL (0.0-0.2) 05/19/21 05:51 Baso # (Auto) 0.1 X10^3/uL (0.0-0.1) 05/19/21 05:51 Absolute Nucleated RBC 0.1 /100WBC 05/19/21 05:51 Sodium 139 mmol/L (136-145) 05/19/21 05:51 Corrected Sodium 143 mmol/L (136-145) 05/19/21 05:51 Potassium 3.9 mmol/L (3.5-5.1) 05/19/21 05:51 Chloride 105 mmol/L (98-107) 05/19/21 05:51 Carbon Dioxide 26.4 mmol/L (21-32) 05/19/21 05:51 BUN 10 mg/dL (7-18) 05/19/21 05:51 Creatinine 0.83 mg/dL (0.70-1.30) 05/19/21 05:51 Est GFR (MDRD) Af Amer > 60 (>60) 05/19/21 05:51 Est GFR (MDRD) Non-Af > 60 (>60) 05/19/21 05:51 Glucose 248 mg/dL (65-99) H 05/19/21 05:51 POC Glucose (mg/dL) 218 mg/dL (65-99) H 05/19/21 05:53 Calcium 7.9 mg/dL (8.5-10.1) L 05/19/21 05:51 Corrected Calcium 9.4 mg/dL (8.5-10.1) 05/19/21 05:51 Total Bilirubin 0.90 mg/dL (0.2-1.0) 05/19/21 05:51 AST 33 Units/L (15-37) 05/19/21 05:51 ALT 11 Units/L (12-78) L 05/19/21 05:51 Alkaline Phosphatase 46 Units/L (46-116) 05/19/21 05:51 Total Protein 6.1 g/dL (6.4-8.2) L 05/19/21 05:51 Albumin 2.1 g/dL (3.4-5.0) L 05/19/21 05:51 Globulin 4.0 g/dL (2.5-4.5) 05/19/21 05:51 Albumin/Globulin Ratio 0.5 Ratio (1.1-2.1) L 05/19/21 05:51 Tissue Pathology To follow 05/16/21 13:00 - Assessment and Plan 1: day 3 Post op laparotomy , closure of [place]'s with low pelvic anastomosis . DM . on clear liquid now . OOB and PT
[2021-05-19] MEDS: ALBUMIN HUMAN 25%- 100 ML 100 ML IV SCH (10:02)
--- NOTE | 2021-05-19 11:52 | PCM.PROG ---
Progress Note - Progress Note for Day of Date of Exam: 05/19/21 - Subjective Subjective: IS A 40 YEAR OLD PATIENT OF . HE IS DAY 3 POST OP CLOSURE OF HARTMANNS PROCEDURE WITH LOW PELVIC ANASTOMOSIS AND LYSIS OF ADHESIONS. WE WERE CONSULTED FOR MEDICAL MANAGEMENT OF DIABETES. TODAY, HE IS ALERT, LYING IN BED ON MORNING ROUNDS. HE CONTINUES TO REPORT DIFFUSE TENDERNESS TO ABDOMEN WITH SLIGHT IMPROVEMENT TODAY. ON EXAMINATION, HEART IS REGULAR IN RATE AND RHYTHM. ABDOMEN ROUND, SOFT, AND NOTED WITH DIFFUSE TENDERNESS. YONY DRAIN NOTED TO RIGHT SIDE ABDOMEN WITH MINIMAL DRAINAGE. HIS VITALS THIS MORNING ARE: 98.1-81-18-94%-123/85. LABS WERE OBTAINED. ABNORMAL LAB VALUES INCLUDE THE FOLLOWING: RBC 4.29, HGB 12.5, HCT 36.5, GLUCOSE 248, CALCIUM 7.9, ALT 11, TOTAL PROTEIN 6.1, ALBUMIN 2.1. HE IS CURRENTLY RECEIVING D51/2 NS AT 150 ML/HR, ZOSYN 3.375G IV TID, LOVENOX 40MG SC DAILY, DILAUDID 2MG IV Q4H PRN, PROTONIX 40MG IV DAILY, ZOFRAN 4MG IV Q6H PRN, XYLOCAINE VISCOUS 5ML PO QID PRN, CHLORASEPTIC 2SPR PO Q12H PRN, OTBS ACHS, AND HUMULIN R SLIDING SCALE. HAS ADVANCED HIM TO A CLEAR LIQUID DIET. WE WILL CONTINUE WITH CURRENT PLAN OF CARE TODAY AND ADD LEVEMIR 10 UNITS SC DAILY. OTHERWISE, WE PLAN TO FOLLOW UP WITH AM LABS AND CONTINUE TO MONITOR. TIME SPENT ON CLINICAL ASSESSMENT, REVIEWING LABS AND IMAGING, DECISION MAKING, AND DOCUMENTATION GREATER THAN 45 MINUTES. - Past Medical Family Social History Past Med/Fam/Surg Hx: No changes since H&P Allergies: Allergies No Known Drug Allergies Allergy (Verified 07/25/17 15:16) - Review of Systems ROS: No change since H&P - Vital Signs and I&O's Vital Signs: Temperature 98.1 F Pulse Rate [Bilateral Radial] 81 Pulse Rate 112 Respiratory Rate 20 Blood Pressure [Left Arm] 123/85 Blood Pressure [Left Calf] 178/89 Blood Pressure [Right Calf] 152/83 Blood Pressure [Right Arm] 149/86 Blood Pressure [Left Arm] 138/72 Blood Pressure 138/73 O2 Sat by Pulse Oximetry 94 Intake and Output: Intake & Output 05/16/21 05/17/21 05/18/21 05/19/21 11:59 11:59 11:59 11:59 Intake Total 1948 4999 / 4999 3753 / 3753 3680 / 3680 Output Total 5135 / 5135 2300 / 2300 2530 / 2530 Balance 1948 -136 / -136 1453 / 1453 1150 / 1150 - Physical Exam Oriented: Normal Eyes: Normal Ear: Normal Nose: Normal, Other (NG TUBE ) Throat: Dry Respiratory: Normal Cardiovascular: Normal : Normal Auscultation: Bowel Sounds: Decreased, Other (YONY DRAIN ) Tenderness: Diffuse, Moderate Skin: Normal Musculoskeletal: Normal Psychiatric: Normal Mood Description: Calm Affect: Normal Speech Pattern: Clear, Appropriate - Laboratory and Diagnostics Result Diagrams: 05/19/21 05:51 05/19/21 05:51 Labs: Laboratory WBC 7.2 X10^3/uL (3.6-10.0) 05/19/21 05:51 RBC 4.29 X10^6/uL (4.7-6.0) L 05/19/21 05:51 Hgb 12.5 g/dL (13.5-18.0) L 05/19/21 05:51 Hct 36.5 % (42.0-54.0) L 05/19/21 05:51 MCV 85.1 fL (80.0-100.0) 05/19/21 05:51 MCH 29.1 pg (27.0-34.0) 05/19/21 05:51 MCHC 34.2 g/dL (33.0-35.0) 05/19/21 05:51 RDW 13.3 % (11.6-16.5) 05/19/21 05:51 Plt Count 214 X10^3/uL (150.0-450.0) 05/19/21 05:51 MPV 9.6 fL (7.4-11.0) 05/19/21 05:51 Neut % (Auto) 67.9 % (42.0-75.0) 05/19/21 05:51 Lymph % (Auto) 20.6 % (21.0-51.0) L 05/19/21 05:51 [place] % (Auto) 8.9 % (0.0-13.0) 05/19/21 05:51 Eos % (Auto) 1.7 % (0.9-2.9) 05/19/21 05:51 Baso % (Auto) 0.9 % (0.2-1.0) 05/19/21 05:51 Neut # (Auto) 4.9 x10^3/uL (2.2-4.8) H 05/19/21 05:51 Lymph # (Auto) 1.5 X10^3/uL (1.3-2.9) 05/19/21 05:51 [place] # (Auto) 0.6 x10^3/uL (0.3-0.8) 05/19/21 05:51 Eos # (Auto) 0.1 x10^3/uL (0.0-0.2) 05/19/21 05:51 Baso # (Auto) 0.1 X10^3/uL (0.0-0.1) 05/19/21 05:51 Absolute Nucleated RBC 0.1 /100WBC 05/19/21 05:51 Sodium 139 mmol/L (136-145) 05/19/21 05:51 Corrected Sodium 143 mmol/L (136-145) 05/19/21 05:51 Potassium 3.9 mmol/L (3.5-5.1) 05/19/21 05:51 Chloride 105 mmol/L (98-107) 05/19/21 05:51 Carbon Dioxide 26.4 mmol/L (21-32) 05/19/21 05:51 BUN 10 mg/dL (7-18) 05/19/21 05:51 Creatinine 0.83 mg/dL (0.70-1.30) 05/19/21 05:51 Est GFR (MDRD) Af Amer > 60 (>60) 05/19/21 05:51 Est GFR (MDRD) Non-Af > 60 (>60) 05/19/21 05:51 Glucose 248 mg/dL (65-99) H 05/19/21 05:51 POC Glucose (mg/dL) 274 mg/dL (65-99) H 05/19/21 11:27 Calcium 7.9 mg/dL (8.5-10.1) L 05/19/21 05:51 Corrected Calcium 9.4 mg/dL (8.5-10.1) 05/19/21 05:51 Total Bilirubin 0.90 mg/dL (0.2-1.0) 05/19/21 05:51 AST 33 Units/L (15-37) 05/19/21 05:51 ALT 11 Units/L (12-78) L 05/19/21 05:51 Alkaline Phosphatase 46 Units/L (46-116) 05/19/21 05:51 Total Protein 6.1 g/dL (6.4-8.2) L 05/19/21 05:51 Albumin 2.1 g/dL (3.4-5.0) L 05/19/21 05:51 Globulin 4.0 g/dL (2.5-4.5) 05/19/21 05:51 Albumin/Globulin Ratio 0.5 Ratio (1.1-2.1) L 05/19/21 05:51 Tissue Pathology To follow 05/16/21 13:00
[2021-05-19] MEDS: LEVEMIR SC SCH (12:17)
[2021-05-19 17:08] VITALS: BMI 30.2
[2021-05-19] MEDS ORDERED: SNACK - Diabetic Appropriate PO SCH (20:00)
[2021-05-19] MEDS: SNACK - Diabetic Appropriate PO SCH (21:28)
[2021-05-20] MEDS: DILAUDID INJ IVP PRN (01:04)
[2021-05-20] MEDS: D5 1/2 NS 1,000 ML 1,000 ML IV SCH (02:15)
[2021-05-20] MEDS: NovoLIN R (or HumuLIN R) SUBCUT PRN (06:38)
[2021-05-20] MEDS: ZOSYN VIAL 3.375 GRAMS 3.375 G in NS 100 ML IV + SPIKE MINIBAG* 100 ML IV SCH (06:38)
[2021-05-20 06:54] LABS: ALANINE AMINOTRANSFERASE 10 Units/L (12-78); ALBUMIN 2.2 g/dL (3.4-5.0); ALKALINE PHOSPHATASE 40 Units/L (46-116); ASPARTATE AMINO TRANSFERASE 8 Units/L (15-37); BASOPHILS % (AUTO) 0.9 % (0.2-1.0); BLOOD UREA NITROGEN 8 mg/dL (7-18); CALCIUM 7.9 mg/dL (8.5-10.1); CARBON DIOXIDE 27.9 mmol/L (21-32); CHLORIDE 103 mmol/L (98-107); COR CA(FOR HYPOALB) 9.3 mg/dL (8.5-10.1); COR NA(FOR HYPERGLY) 142 mmol/L (136-145); CREATININE 0.78 mg/dL (0.70-1.30); EOSINOPHILS # (AUTO) 0.1 x10^3/uL (0.0-0.2); EOSINOPHILS % (AUTO) 2.7 % (0.9-2.9); HEMATOCRIT 32.3 % (42.0-54.0); HEMOGLOBIN 11.3 g/dL (13.5-18.0); LYMPHOCYTES # (AUTO) 1.1 X10^3/uL (1.3-2.9); LYMPHOCYTES % (AUTO) 21.3 % (21.0-51.0); MEAN CORPUSCULAR HGB CONC 34.9 g/dL (33.0-35.0); MEAN CORPUSCULAR VOLUME 83.2 fL (80.0-100.0); MEAN PLATELET VOLUME 8.8 fL (7.4-11.0); MONOCYTES # (AUTO) 0.5 x10^3/uL (0.3-0.8); MONOCYTES % (AUTO) 9.3 % (0.0-13.0); NEUTROPHILS # (AUTO) 3.5 x10^3/uL (2.2-4.8); NEUTROPHILS % (AUTO) 65.8 % (42.0-75.0); PLATELET COUNT 194 X10^3/uL (150.0-450.0); RED BLOOD COUNT 3.88 X10^6/uL (4.7-6.0); RED CELL DISTRIBUTION WIDTH 13.1 % (11.6-16.5); SODIUM 139 mmol/L (136-145); TOTAL PROTEIN 5.7 g/dL (6.4-8.2); WHITE BLOOD COUNT 5.4 X10^3/uL (3.6-10.0); eGFR NON BLACK RACES > 60 (>60)
[2021-05-20 07:56] VITALS: BP 129/63
[2021-05-20] MEDS: LEVEMIR SC SCH (09:17)
[2021-05-20] MEDS: ALBUMIN HUMAN 25%- 100 ML 100 ML IV SCH (09:17)
[2021-05-20] MEDS: LOVENOX INJ 40 MG SYR SC SCH (09:18)
[2021-05-20] MEDS: PROTONIX INJ 40 MG VIAL IVP SCH (09:18)
== END 2021-05-20 11:20 | disposition home or self-care (01) | DRG 331 ==
LOC: MED/SURG 07:30 → EDSTATUS 09:00
PROVIDERS: ADMIT Surgery; ATTEND Surgery
DX: Z93.3 Colostomy status; E11.65 Type 2 diabetes mellitus with hyperglycemia; Z89.512 Acquired absence of left leg below knee; C20 Malignant neoplasm of rectum; I73.89 Other specified peripheral vascular diseases

== ENCOUNTER 2021-06-14 10:31 | Inpatient (IN) ==
[2021-06-14 10:37] VITALS: BMI 29.9
[2021-06-14] MEDS ORDERED: ZOSYN VIAL 4.5 GRAMS 4.5 G in NS 100 ML IV + SPIKE MINIBAG* 100 ML IV STA (11:23)
[2021-06-14] MEDS ORDERED: NS 1,000 ML IV 1,000 ML IV ONE ×2 (11:23)
--- NOTE | 2021-06-14 11:23 | DR.GENAD ---
HPI Time Seen Time Seen by Provider: 06/14/21 11:22 PCP Primary Care Physician: Pillo HPI Comment HPI Comment: PATIENT WITH A HISTORY OF COLON CARCINOMA, POST CHEMO, RADIATION THERAPY, BOWEL RESECTION WITH COLOSTOMY, UNDER COLOSTOMY TAKE DOWN 05/16/2021 AND THIS AM NOTICED MARKED BROWN DRAINAGE FROM WOUND SITE. DENIES FEVER, ABDOMINAL PAIN, NAUSEA, DIARRHEA. Complaint/Symptoms Chief Complaint Doctors Comments: MARKED BROWN DRAINAGE FROM COLOSTOMY SITE Chief Complaint:: Pt states he had a colostomy reversal 05/16/2021. He says he was sitting on his porch this am and an area of the incision opened. Large amounts of brown drainage noted at this site. Area around site is red and warm to touch. Pt states he has not noticed the redness before today. COVID-19 Coronavirus risk:travel/contact w/high risk person: No Has patient experienced Coronavirus symptoms: No Nurses notes reviewed Nurses Notes Review: Yes Source History Provided: Patient Mode of Arrival Mode of Arrival: Ambulatory Timing Onset of Chief Complaint: 06/14/21 Duration How lon Duration: Hours Location Location: LEFT LOWER ABDOMEN Modifying Factors Worsens:: MARKED DRAINAGE UPON STANDING Associated Signs and Symptoms Associated Signs and Symptoms: DENIES FEVER, CHILLS OR ABDOMINAL PAIN PMH PMH Past Medical History: Yes Past Medical History: Diabetes and Kidney Stones Past Medical History Comment: colon cancer 2019 Past Surgical History: Yes Surgical History: Bowel Resection and Ortho Surgery Family History History of Family Medical Conditions: Yes Family Medical History: Diabetes Mellitus, Cancer and Hypertension Social History Does patient currently use any type of tobacco product: No Have you used tobacco products in the last 12 months: No Type of Tobacco Use: None Does any household member use tobacco: No Alcohol Use: None Do you use any recreational Drugs:: No Lives With: Family Lives Where: Home Travel Risk Coronavirus risk:travel/contact w/high risk person: No Has patient experienced Coronavirus symptoms: No Infectious screening In the last 2 months have you had wt loss of >10#?: NO Have you had fever, night sweats or hemotysis?: No Have you traveled outside the country in the last 6 months?: No Isolation: Standard ROS Review of Systems Constitutional: No Symptoms Reported Eyes: No Symptoms Reported ENTM: No Symptoms Reported Respiratoy: No Symptoms Reported Cardiovascular: No Symptoms Reported Gastrointestinal/Abdominal: See HPI and Other (MARKED ABDOMINAL DRAINAGE, DENIES PAIN) Genitourinary: No Symptoms Reported Neurological: No Symptoms Reported Musculoskeletal: No Symptoms Reported Integumentary: No Symptoms Reported Hematologic/Lymphatic: No Symptoms Reported Endocrine: No Symptoms Reported Psychiatric: No Symptoms Reported All Other Systems: Reviewed and Negative PE Vital Signs Vitals: Temperature 99.4 F Pulse Rate 109 Respiratory Rate 16 Blood Pressure [Left Arm] 129/63 Blood Pressure [Left Calf] 178/89 Blood Pressure [Right Calf] 152/83 Blood Pressure [Right Arm] 149/86 Blood Pressure [Left Arm] 138/72 Blood Pressure 110/62 O2 Sat by Pulse Oximetry 97 General Limitations: No Limitations General Appearance: Alert and In No Apparent Distress Head Head Exam: Normal Inspection and Atraumatic Eyes Eye exam: Normal Appearance and PERRL ENT ENT Exam: Normal Exam and Normal Oropharynx External Ear Exam: Normal External Inspection TM/Canal Exam: Bilateral: Normal Mouth Exam: Normal Inspection Neck Neck Exam: Normal Inspection and Full ROM Chest Chest Inspection: Normal Inspection Respiratory Respiratory Exam: Normal Lung Sounds Bilat Respiratory Exam: Bilateral: Clear to Auscultation Cardiovascular Cardiovascular Exam: Normal Rhythm and Tachycardia Abdominal Exam Abdominal Exam: Normal Bowel Sounds, Soft and Other (WOUND DEHESIENCE MEDIAL BORDER OF HEALING WOUND, MARKED BROWN DRAINAGE, SURROUNDING ERYTHEMA, NONTENDER) Extremities Extremities Exam: Normal Inspection and Full ROM Back Back Exam: Normal Inspection and Full ROM Neurologic Neurological Exam: Alert, Oriented X3 and CN II-XII Intact Psychiatric Psychiatric Exam: Normal Affect and Normal Mood MDM Differential Diagnosis Differential Diagnosis: INTRA-ABDOMINAL ABSCESS COURSE Treatment Treatment: IV NORMAL SALINE 1000ML/HR, AFTER BLOOD CULTURES, ZOSYN 4.5GM IVPB Consultation Call Returned: 12:30 Consultation Comments: 1230- DR PAREDES FOR SURGERY CONSULT AND ADMIT ROR Labs Reviewed Laboratory Results Reviewed?: Yes Result Diagrams: 06/14/21 11:55 06/14/21 11:55 Laboratory: WBC 14.6 X10^3/uL (3.6-10.0) H 06/14/21 11:55 RBC 4.67 X10^6/uL (4.7-6.0) L 06/14/21 11:55 Hgb 12.3 g/dL (13.5-18.0) L 06/14/21 11:55 Hct 36.3 % (42.0-54.0) L 06/14/21 11:55 MCV 77.6 fL (80.0-100.0) L 06/14/21 11:55 MCH 26.2 pg (27.0-34.0) L 06/14/21 11:55 MCHC 33.8 g/dL (33.0-35.0) 06/14/21 11:55 RDW 14.9 % (11.6-16.5) 06/14/21 11:55 Plt Count 295 X10^3/uL (150.0-450.0) 06/14/21 11:55 MPV 9.2 fL (7.4-11.0) 06/14/21 11:55 Neut % (Auto) 83.5 % (42.0-75.0) H 06/14/21 11:55 Lymph % (Auto) 7.3 % (21.0-51.0) L 06/14/21 11:55 [place] % (Auto) 8.3 % (0.0-13.0) 06/14/21 11:55 Eos % (Auto) 0.3 % (0.9-2.9) L 06/14/21 11:55 Baso % (Auto) 0.6 % (0.2-1.0) 06/14/21 11:55 Neut # (Auto) 12.2 x10^3/uL (2.2-4.8) H 06/14/21 11:55 Lymph # (Auto) 1.1 X10^3/uL (1.3-2.9) L 06/14/21 11:55 [place] # (Auto) 1.2 x10^3/uL (0.3-0.8) H 06/14/21 11:55 Eos # (Auto) 0.0 x10^3/uL (0.0-0.2) 06/14/21 11:55 Baso # (Auto) 0.1 X10^3/uL (0.0-0.1) 06/14/21 11:55 Absolute Nucleated RBC 0.0 /100WBC 06/14/21 11:55 PT 19.2 SECONDS (11.8-14.3) 06/14/21 11:55 INR Target Range - 06/14/21 11:55 INR 1.70 (0.8-1.3) H 06/14/21 11:55 Sodium 121 mmol/L (136-145) L* 06/14/21 11:55 Corrected Sodium 128 mmol/L (136-145) L 06/14/21 11:55 Potassium 3.7 mmol/L (3.5-5.1) 06/14/21 11:55 Chloride 87 mmol/L (98-107) L 06/14/21 11:55 Carbon Dioxide 26.3 mmol/L (21-32) 06/14/21 11:55 BUN 11 mg/dL (7-18) 06/14/21 11:55 Creatinine 1.32 mg/dL (0.70-1.30) H 06/14/21 11:55 Est GFR (MDRD) Af Amer > 60 (>60) 06/14/21 11:55 Est GFR (MDRD) Non-Af > 60 (>60) 06/14/21 11:55 Glucose 398 mg/dL (65-99) H 06/14/21 11:55 Lactic Acid 2.4 mmol/L (0.4-2.0) H 06/14/21 11:55 Calcium 8.7 mg/dL (8.5-10.1) 06/14/21 11:55 Corrected Calcium 10.2 mg/dL (8.5-10.1) H 06/14/21 11:55 Total Bilirubin 1.40 mg/dL (0.2-1.0) H 06/14/21 11:55 AST 14 Units/L (15-37) L 06/14/21 11:55 ALT 13 Units/L (12-78) 06/14/21 11:55 Alkaline Phosphatase 100 Units/L (46-116) 06/14/21 11:55 Troponin I < 0.02 ng/mL (0-1.5) 06/14/21 11:55 Total Protein 8.3 g/dL (6.4-8.2) H 06/14/21 11:55 Albumin 2.1 g/dL (3.4-5.0) L 06/14/21 11:55 Globulin 6.2 g/dL (2.5-4.5) H 06/14/21 11:55 Albumin/Globulin Ratio 0.3 Ratio (1.1-2.1) L 06/14/21 11:55 Acetone, Semi-Quant Negative (NEGATIVE) 06/14/21 11:55 XRAY XRAY Interpreted by: Radiologist (ABDOMINAL PELVIC CT IV CONTRAST- COLLECTION LLQ ANTERIOR BODY WALL ABSCESS 6.8 CM THICK ABDOMINAL RECTUS ABDOMINAL GAS) X-ray Results: PORTABLE CHEST XRAY- NEGATIVE Opioid Opioid Risk Tool Age (Víctor box if 16-45): Yes History of Preadolescent Sexual Abuse: No Total: 1 Total Score Risk Category: Low Risk Copyright: Ronny OLMSTEAD predicting aberrant behaviors Diagnosis Discharge Problem: Abdominal wall abscess
[2021-06-14] MEDS ORDERED: NS 100 ML IV + SPIKE MINIBAG* 100 ML IV ONE (11:37)
[2021-06-14] MEDS ORDERED: NS 1,000 ML IV 2,000 ML ONE (11:37)
[2021-06-14] MEDS ORDERED: ZOSYN VIAL 4.5 GRAMS IV ONE (11:37)
[2021-06-14 12:22] LABS: ALANINE AMINOTRANSFERASE 13 Units/L (12-78); ALBUMIN 2.1 g/dL (3.4-5.0); ALKALINE PHOSPHATASE 100 Units/L (46-116); ASPARTATE AMINO TRANSFERASE 14 Units/L (15-37); BLOOD UREA NITROGEN 11 mg/dL (7-18); CALCIUM 8.7 mg/dL (8.5-10.1); CARBON DIOXIDE 26.3 mmol/L (21-32); CHLORIDE 87 mmol/L (98-107); COR CA(FOR HYPOALB) 10.2 mg/dL (8.5-10.1); COR NA(FOR HYPERGLY) 128 mmol/L (136-145); CREATININE 1.32 mg/dL (0.70-1.30); TOTAL PROTEIN 8.3 g/dL (6.4-8.2); eGFR NON BLACK RACES > 60 (>60)
[2021-06-14 12:25] LABS: SODIUM 121 mmol/L (136-145)
[2021-06-14 12:27] LABS: BASOPHILS # (AUTO) 0.1 X10^3/uL (0.0-0.1); BASOPHILS % (AUTO) 0.6 % (0.2-1.0); EOSINOPHILS % (AUTO) 0.3 % (0.9-2.9); HEMATOCRIT 36.3 % (42.0-54.0); HEMOGLOBIN 12.3 g/dL (13.5-18.0); LYMPHOCYTES # (AUTO) 1.1 X10^3/uL (1.3-2.9); LYMPHOCYTES % (AUTO) 7.3 % (21.0-51.0); MEAN CORPUSCULAR HEMOGLOBIN 26.2 pg (27.0-34.0); MEAN CORPUSCULAR HGB CONC 33.8 g/dL (33.0-35.0); MEAN CORPUSCULAR VOLUME 77.6 fL (80.0-100.0); MEAN PLATELET VOLUME 9.2 fL (7.4-11.0); MONOCYTES # (AUTO) 1.2 x10^3/uL (0.3-0.8); MONOCYTES % (AUTO) 8.3 % (0.0-13.0); NEUTROPHILS # (AUTO) 12.2 x10^3/uL (2.2-4.8); NEUTROPHILS % (AUTO) 83.5 % (42.0-75.0); PLATELET COUNT 295 X10^3/uL (150.0-450.0); RED BLOOD COUNT 4.67 X10^6/uL (4.7-6.0); RED CELL DISTRIBUTION WIDTH 14.9 % (11.6-16.5); WHITE BLOOD COUNT 14.6 X10^3/uL (3.6-10.0)
--- NOTE | 2021-06-14 12:28 | CT ---
HISTORYPt states he had a colostomy reversal 05/16/2021. He says he was sitting on his porch this am and an area of the incision opened. Large amounts of brown drainage noted at this site. Area around site is red and warm to touchSTUDYABDOMEN/PELVIS WITH CONCOMPARISONCT stone from 06/04/2019.TECHNIQUEMultiple axial images of the abdomen and pelvis were obtained from the lung bases to the pubic symphysis after the administration of IV contrast. Dose reduction techniques including Automated Exposure Control (AEC) and adjustment of mA and kV were utilized.FINDINGSThe lung bases are clear. The heart is normal in size. Bilateral gynecomastia. The liver, gallbladder, spleen, pancreas, adrenal glands, and kidneys have a benign appearance. Urinary bladder appears benign.The prostate is normal in size. Status post partial colectomy with rectosigmoid anastomosis. The appendix appears normal. Negative for diverticulitis. Negative for bowel obstruction. Non-atherosclerotic normal caliber abdominal aorta. The portal vein is patent. No free intra-abdominal air. No free fluid. There is a complex collection in the lower anterior body wall and left lower quadrant of the anterior body wall. The collection has air-fluid level and peripheral enhancement suggesting abscess. One portion of the collection measures approximately the 4.5 x 5 cm axial image 65 series 4 and approximately 6.8 cm craniocaudal image 23 series 6. This is at the site of prior colostomy. There is mild thickening of the adjacent rectus musculature with a focus of gas in the left rectus musculature image 57 series 4. There is mild fat stranding in the adjacent omentum image 55 series 4. Suspected intra-abdominal extension of the abscess in this location in the left lower quadrant seen on image 23 series 7 with loss of normal fascial plane. There several bone islands about the left hip. No acute osseous abnormality.IMPRESSIONThere is a collection centered in the left lower quadrant of the anterior body wall consistent with an abscess. The abscess measures up to 6.8 cm craniocaudal. There is thickening of the left rectus abdominus musculature with a focus of gas consistent with abscess extension. There is suspected mild intra-abdominal extension with loss of normal fascial plane.Electronically signed by: Joaquin Walker (Jun 14, 2021 12:25:56)
[2021-06-14 12:33] LABS: LACTIC ACID 2.4 mmol/L (0.4-2.0)
[2021-06-14] MEDS ORDERED: NovoLIN R (or HumuLIN R) IV STA (12:40)
--- NOTE | 2021-06-14 12:54 | RAD ---
HISTORYPt states he had a colostomy reversal 05/16/2021. He says he was sitting on his porch this am and an area of the incision opened. Large amounts of brown drainage noted at this site. Area around site is red and warm to touch DM, COLON CA, COLOSTOMY REVERSALSTUDYCHEST, 1 VIEWCOMPARISONChest radiograph dated June 08, 2021FINDINGSThe trachea is midline. The cardiac silhouette is unremarkable. The lungs are clear without focal infiltrate or effusion. The bony thorax is unremarkable. There is an unchanged left-sided kelli catheter CVL. No pneumothorax or acute infiltrates are seen.IMPRESSIONNo acute cardiopulmonary findings or changes.Electronically signed by: BASILIA FRIEND III (Jun 14, 2021 12:53:05)
[2021-06-14] MEDS ORDERED: DILAUDID INJ IVP ONE (13:09)
[2021-06-14] MEDS ORDERED: DILAUDID INJ ONE (13:14)
[2021-06-14] MEDS ORDERED: NovoLIN R (or HumuLIN R) ONE (13:15)
[2021-06-14] MEDS: ZOSYN VIAL 4.5 GRAMS 4.5 G in NS 100 ML IV + SPIKE MINIBAG* 100 ML IV SCH ×2 (14:29→21:13)
[2021-06-14] MEDS ORDERED: NS 1/2 1,000 ML IV 1,000 ML IV ONE (14:33)
[2021-06-14] MEDS ORDERED: FLAGYL IV PREMIX 500 MG BAG 500 MG/100 ML BAG IV ONE (14:33)
[2021-06-14] MEDS: NS 1/2 1,000 ML IV 1,000 ML IV SCH (14:57)
[2021-06-14] MEDS: FLAGYL IV PREMIX 500 MG BAG 500 MG/100 ML BAG IV SCH ×2 (15:00→20:10)
[2021-06-14] MEDS ORDERED: NORCO 10/325 TAB PO PRN (16:25)
[2021-06-14] MEDS: NovoLIN R (or HumuLIN R) SUBCUT PRN ×2 (16:57→21:07)
[2021-06-14] MEDS: CRESTOR TAB 10 MG PO SCH (21:07)
[2021-06-14] MEDS: CELEBREX PO SCH (21:07)
[2021-06-14] MEDS: SNACK - Diabetic Appropriate PO SCH (21:08)
[2021-06-14 21:35] LABS: BILIRUBIN,URINE 1+ (NEGATIVE); BLOOD/HEMOGLOBIN,URINE 2+ (NEGATIVE); GLUCOSE, URINE 4+ (NEGATIVE); KETONES,URINE 2+ (NEGATIVE); LEUKOCYTE ESTERASE ,URINE NEGATIVE (NEGATIVE); NITRITES,URINE NEGATIVE (NEGATIVE); PROTEIN,URINE 2+ (NEGATIVE); UROBILINOGEN,URINE 4+ (NORMAL)
[2021-06-14 21:39] LABS: APPEARANCE,URINE CLEAR (CLEAR); BACTERIA,URINE TRACE /HPF (NEGATIVE); COLOR,URINE DARK YELLOW (YELLOW); SQUAMOUS EPITHELIAL CELL,UR RARE /HPF (NEGATIVE)
[2021-06-15] MEDS ORDERED: NS 1/2 1,000 ML IV 1,000 ML IV ONE ×2 (02:09→14:06)
[2021-06-15] MEDS: NS 1/2 1,000 ML IV 1,000 ML IV SCH ×3 (02:15→14:15)
[2021-06-15] MEDS: FLAGYL IV PREMIX 500 MG BAG 500 MG/100 ML BAG IV SCH ×4 (02:15→20:35)
[2021-06-15] MEDS: ZOSYN VIAL 4.5 GRAMS 4.5 G in NS 100 ML IV + SPIKE MINIBAG* 100 ML IV SCH ×4 (05:39→22:05)
[2021-06-15] MEDS: NovoLIN R (or HumuLIN R) SUBCUT PRN ×4 (05:39→20:36)
[2021-06-15 06:45] LABS: BASOPHILS # (AUTO) 0.1 X10^3/uL (0.0-0.1); BASOPHILS % (AUTO) 0.9 % (0.2-1.0); EOSINOPHILS # (AUTO) 0.2 x10^3/uL (0.0-0.2); EOSINOPHILS % (AUTO) 2.5 % (0.9-2.9); HEMATOCRIT 32.4 % (42.0-54.0); HEMOGLOBIN 11.2 g/dL (13.5-18.0); LYMPHOCYTES # (AUTO) 1.1 X10^3/uL (1.3-2.9); LYMPHOCYTES % (AUTO) 14.2 % (21.0-51.0); MEAN CORPUSCULAR HEMOGLOBIN 26.4 pg (27.0-34.0); MEAN CORPUSCULAR HGB CONC 34.4 g/dL (33.0-35.0); MEAN CORPUSCULAR VOLUME 76.6 fL (80.0-100.0); MEAN PLATELET VOLUME 9.1 fL (7.4-11.0); MONOCYTES # (AUTO) 0.7 x10^3/uL (0.3-0.8); MONOCYTES % (AUTO) 9.2 % (0.0-13.0); NEUTROPHILS # (AUTO) 5.5 x10^3/uL (2.2-4.8); NEUTROPHILS % (AUTO) 73.2 % (42.0-75.0); PLATELET COUNT 243 X10^3/uL (150.0-450.0); RED BLOOD COUNT 4.24 X10^6/uL (4.7-6.0); RED CELL DISTRIBUTION WIDTH 15.2 % (11.6-16.5); WHITE BLOOD COUNT 7.5 X10^3/uL (3.6-10.0)
[2021-06-15 06:58] LABS: ALANINE AMINOTRANSFERASE 8 Units/L (12-78); ALBUMIN 1.7 g/dL (3.4-5.0); ALKALINE PHOSPHATASE 77 Units/L (46-116); ASPARTATE AMINO TRANSFERASE 11 Units/L (15-37); BLOOD UREA NITROGEN 8 mg/dL (7-18); CALCIUM 8.3 mg/dL (8.5-10.1); CARBON DIOXIDE 26.1 mmol/L (21-32); CHLORIDE 95 mmol/L (98-107); COR CA(FOR HYPOALB) 10.1 mg/dL (8.5-10.1); COR NA(FOR HYPERGLY) 134 mmol/L (136-145); CREATININE 0.74 mg/dL (0.70-1.30); SODIUM 131 mmol/L (136-145); eGFR NON BLACK RACES > 60 (>60)
[2021-06-15 07:09] LABS: LACTIC ACID 0.9 mmol/L (0.4-2.0)
[2021-06-15] MEDS ORDERED: K-RIDER 10 MEQ/NS 100 ML 10 MEQ/100 ML BAG IV PRN (07:57)
[2021-06-15] MEDS ORDERED: POTASSIUM CHL 60 MEQ/NS 0.45% 500 ML IV PRN (07:57)
[2021-06-15] MEDS ORDERED: POTASSIUM CHLORIDE LIQ 20 MEQ UDC PO PRN (07:57)
[2021-06-15] MEDS ORDERED: KLOR-CON PO PRN (07:57)
[2021-06-15] MEDS ORDERED: MICRO K EXTEN CAP 10 MEQ PO PRN (07:57)
[2021-06-15] MEDS ORDERED: POTASSIUM CHL 40 MEQ/NS 0.45% 500 ML IV PRN (07:57)
[2021-06-15] MEDS ORDERED: LEVEMIR SC SCH (09:00)
[2021-06-15] MEDS: CELEBREX PO SCH ×2 (09:03→20:36)
[2021-06-15] MEDS: CARDIZEM CD 120 MG 24-HR PO SCH (09:03)
[2021-06-15] MEDS: ERTUGLIFLOZIN 15 MG PO SCH (09:03)
[2021-06-15] MEDS: CARAFATE PO SCH (09:03)
[2021-06-15] MEDS: K-DUR TAB 20 MEQ PO PRN (09:04)
[2021-06-15] MEDS: LEVEMIR SC SCH (09:04)
[2021-06-15] MEDS: PROTONIX TAB 40 MG PO SCH (09:04)
[2021-06-15] MEDS: DILAUDID INJ IVP PRN (10:06)
--- NOTE | 2021-06-15 10:47 | DR.PROGNOT ---
Hospital Progress Notes - Progress Note for Day of: Progress Note Date: 06/15/21 - Chief Complaint Chief Complaint: no abdominal pain . no nausea or vomiting . still having moderate drainage from colosomy site incision . the dressing was changed and a new packing was used .. GS 238.. K 3.1. temp 98 - Past Medical Family Social History Past Med/Fam/Surg Hx: No changes since H&P Allergies: Allergies No Known Drug Allergies Allergy (Verified 07/25/17 15:16) - Review Of Systems ROS: No change since H&P - Vital Signs Vital Signs: Temperature 97.6 F Pulse Rate [Left Brachial] 73 Pulse Rate 92 Respiratory Rate 20 Blood Pressure [Left Arm] 120/71 Blood Pressure [Left Calf] 178/89 Blood Pressure [Right Calf] 152/83 Blood Pressure [Right Arm] 149/86 Blood Pressure [Left Arm] 138/72 Blood Pressure 108/58 O2 Sat by Pulse Oximetry 100 - Physical Exam Oriented: Normal Eyes: Normal Ear: Normal Nose: Normal Respiratory: Normal Cardiovascular: Normal : Normal GI:Auscultation: Normal GI:Palpation: Normal GI: Tenderness: Normal Skin: Other (open wound at previous colostomy site with mild cellulitis .. ) Speech Pattern: Clear, Appropriate - Laboratory and Diagnostics Result Diagrams: 06/15/21 05:43 06/15/21 05:43 Labs: 06/14/21 11:55 Abdomen Wound Culture - Preliminary Laboratory WBC 7.5 X10^3/uL (3.6-10.0) 06/15/21 05:43 RBC 4.24 X10^6/uL (4.7-6.0) L 06/15/21 05:43 Hgb 11.2 g/dL (13.5-18.0) L 06/15/21 05:43 Hct 32.4 % (42.0-54.0) L 06/15/21 05:43 MCV 76.6 fL (80.0-100.0) L 06/15/21 05:43 MCH 26.4 pg (27.0-34.0) L 06/15/21 05:43 MCHC 34.4 g/dL (33.0-35.0) 06/15/21 05:43 RDW 15.2 % (11.6-16.5) 06/15/21 05:43 Plt Count 243 X10^3/uL (150.0-450.0) 06/15/21 05:43 MPV 9.1 fL (7.4-11.0) 06/15/21 05:43 Neut % (Auto) 73.2 % (42.0-75.0) 06/15/21 05:43 Lymph % (Auto) 14.2 % (21.0-51.0) L 06/15/21 05:43 [place] % (Auto) 9.2 % (0.0-13.0) 06/15/21 05:43 Eos % (Auto) 2.5 % (0.9-2.9) 06/15/21 05:43 Baso % (Auto) 0.9 % (0.2-1.0) 06/15/21 05:43 Neut # (Auto) 5.5 x10^3/uL (2.2-4.8) H 06/15/21 05:43 Lymph # (Auto) 1.1 X10^3/uL (1.3-2.9) L 06/15/21 05:43 [place] # (Auto) 0.7 x10^3/uL (0.3-0.8) 06/15/21 05:43 Eos # (Auto) 0.2 x10^3/uL (0.0-0.2) 06/15/21 05:43 Baso # (Auto) 0.1 X10^3/uL (0.0-0.1) 06/15/21 05:43 Absolute Nucleated RBC 0.0 /100WBC 06/15/21 05:43 PT 19.2 SECONDS (11.8-14.3) 06/14/21 11:55 INR Target Range - 06/14/21 11:55 INR 1.70 (0.8-1.3) H 06/14/21 11:55 Sodium 131 mmol/L (136-145) L 06/15/21 05:43 Corrected Sodium 134 mmol/L (136-145) L 06/15/21 05:43 Potassium 3.1 mmol/L (3.5-5.1) L 06/15/21 05:43 Chloride 95 mmol/L (98-107) L 06/15/21 05:43 Carbon Dioxide 26.1 mmol/L (21-32) 06/15/21 05:43 BUN 8 mg/dL (7-18) 06/15/21 05:43 Creatinine 0.74 mg/dL (0.70-1.30) 06/15/21 05:43 Est GFR (MDRD) Af Amer > 60 (>60) 06/15/21 05:43 Est GFR (MDRD) Non-Af > 60 (>60) 06/15/21 05:43 Glucose 238 mg/dL (65-99) H 06/15/21 05:43 POC Glucose (mg/dL) 249 mg/dL (65-99) H 06/15/21 05:09 Lactic Acid 0.9 mmol/L (0.4-2.0) 06/15/21 05:43 Calcium 8.3 mg/dL (8.5-10.1) L 06/15/21 05:43 Corrected Calcium 10.1 mg/dL (8.5-10.1) 06/15/21 05:43 Magnesium 2.3 mg/dL (1.7-2.9) 06/15/21 05:43 Total Bilirubin 0.80 mg/dL (0.2-1.0) 06/15/21 05:43 AST 11 Units/L (15-37) L 06/15/21 05:43 ALT 8 Units/L (12-78) L 06/15/21 05:43 Alkaline Phosphatase 77 Units/L (46-116) 06/15/21 05:43 Troponin I < 0.02 ng/mL (0-1.5) 06/14/21 11:55 Total Protein 7.0 g/dL (6.4-8.2) 06/15/21 05:43 Albumin 1.7 g/dL (3.4-5.0) L 06/15/21 05:43 Globulin 5.3 g/dL (2.5-4.5) H 06/15/21 05:43 Albumin/Globulin Ratio 0.3 Ratio (1.1-2.1) L 06/15/21 05:43 Specimen Type Clean catch urine 06/14/21 21:15 Urine Color Dark yellow (YELLOW) 06/14/21 21:15 Urine Appearance Clear (CLEAR) 06/14/21 21:15 Urine pH 6.0 (5.0 - 8.0) 06/14/21 21:15 Ur Specific [place] 1.010 (1.000-1.030) 06/14/21 21:15 Urine Protein 2+ (NEGATIVE) 06/14/21 21:15 Urine Glucose (UA) 4+ (NEGATIVE) 06/14/21 21:15 Urine Ketones 2+ (NEGATIVE) 06/14/21 21:15 Urine Occult Blood 2+ (NEGATIVE) 06/14/21 21:15 Urine Nitrite Negative (NEGATIVE) 06/14/21 21:15 Urine Bilirubin 1+ (NEGATIVE) 06/14/21 21:15 Urine Urobilinogen 4+ (NORMAL) 06/14/21 21:15 Ur Leukocyte Esterase Negative (NEGATIVE) 06/14/21 21:15 Urine RBC 10-20 /HPF (0-3) A 06/14/21 21:15 Urine WBC 0-2 /HPF (0-5) 06/14/21 21:15 Ur Squamous Epith Cells Rare /HPF (NEGATIVE) 06/14/21 21:15 Urine Bacteria Trace /HPF (NEGATIVE) 06/14/21 21:15 Ur Culture Indicated? No/not indicated 06/14/21 21:15 Acetone, Semi-Quant Negative (NEGATIVE) 06/14/21 11:55 SARS CoV-2 RNA Rapid CINDY Negative (NEGATIVE) 06/14/21 12:52 - Assessment and Plan 1: abdominal wall abscess at colostomy site .Gm- Rods. s/p drainage. DM . h/o rectal cancer s/p resection .. same local care and IV ABT , diabetic control .. - Problem Patient Problems: Patient Problems Abdominal wall abscess (Acute) L02.211
--- NOTE | 2021-06-15 11:18 | DR.H&P ---
H&P - History & Physical for Day of: H&P Date: 06/14/21 - Chief Complaint Chief Complaint: ABDOMINAL WOUND DRAINAGE - History of Present Illness History of Present Illness: IS A 40 YEAR OLD PATIENT OF . HE IS STATUS POST CLOSURE OF HARTMANNS PROCEDURE, WHICH WAS DONE ABOUT A MONTH AGO. HE HAS DONE WELL SINCE THE PROCEDURE. SUTURES WERE RECENTLY REMOVED BY IN THE OFFICE. REASON FOR HARTMANNSS PROCEDURE IN 2019 WAS COLON CANCER. PATIENT PRESENTED TO THE ER ON 06/14/21 WITH REPORTS OF MODERATE DRAINAGE FROM THE STOMA SITE INCISION. HE REPORTS FOUL SMELLING, PURULENT DRAINAGE. HE DENIES PAIN OR FEVER, BUT DOES REPORT HAVING NAUSEA, VOMITING, AND WEAKNESS SEVERAL DAYS AGO. HE DENIES CHANGE IN BOWEL HABITS AND IS TOLERATING FOOD WELL. HE HAS A PMH OF DIABETES, WHICH IS DIFFICULT TO CONTROL, AND PERIPHER AL VASCULAR DISEASE. 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 ON ARRIVAL TO THE ER, VITALS WERE 99.4-128-16-98%-110/62. LABS WERE OBTAINED. ABNORMAL LAB VALUES INCLUDE THE FOLLOWING: WBC 14.6, RBC 4.67, HGB 12.3, HCT 36.3, INR 1.70, SODIUM 121, CHLORIDE 87, CREATININE 1.32, GLUCOSE 398, LACTIC ACID 2.4, TOTAL BILI 1.40, AST 14, TOTAL PRTOEIN 8.3, ALBUMIN 2.1, GLOBULIN 6.2. A URINALYSIS WAS OBTAINED AND REVEALED: WBC 0-2, RBC 10-20, BACTERIA TRACE, LEUKOCYTES NEGATIVE. URINE ACETONES NEGATIVE. COVID-19 NEGATIVE. BLOOD AND ABDOMEN/WOUND CULTURES WERE SET UP. AN ABDOMEN/PELVIS CT WITH CONTRAST WAS OBTAINED AND REVEALED: There is a collection centered in the left lower quadrant of the anterior body wall consistent with an abscess. The abscess measures up to 6.8 cm craniocaudal. There is thickening of the left rectus abdominus musculature with a focus of gas consistent with abscess extension. There is suspected mild intra-abdominal extension with loss of normal fascial plane. [facility] XRAY WAS OBTAINED AND REVEALED: No acute cardiopulmonary findings or changes. EKG REVEALED: SINUS TACHYCARDIA WITH HR 109. CONSULTED WITH PATIENT IN THE ER AND PACKED WOUND WITH INCH IODAFORM AND PLACED DRESSING TO AREA. IN THE ER, HE WAS GIVEN A NORMAL SALINE BOLUS X 2 LITERS, ZOSYN 4.5G IV X 1, NOVOLIN R 4 UNITS, DILAUDID 2MG IV X 1 DOSE. HE WAS ADMITTED TO THE HOSPITAL FOR FURTHER EVALUATION AND TREATMENT OF ABDOMINAL ABSCESS, SEPSIS, HYPONATREMIA, AND UNCONTROLLED DM. HE WAS STARTED ON NS AT 100 ML/HR, FLAGYL 500MG IV Q6H, ZOSYN 4.5G IV TID, OTBS ACHS, HUMULIN R SLIDING SCALE, LEVEMIR 15 UNITS SC DAILY, THE POTASSIUM AND MAGNESIUM PROTOCOLS, AND HIS HOME MEDICATIONS WERE RESUMED. OTHERWISE, WE PLAN TO FOLLOW UP WITH AM LABS AND CONTINUE TO MONITOR. TIME SPENT ON CLINICAL ASSESSMENT, REVIEWING LABS AND IMAGING, DECISION MAKING, AND DOCUMENTATION GREATER THAN 75 MINUTES. - Past Medical History Past Medical History: Diabetes, Kidney Stones Additional Medical History: HX COLON CANCER - Past Surgical History Surgical History: Bowel Resection, Ortho Surgery Additional Surgical History: LEFT BTK AMPUTATION, RIGHT GREAT TOE AMPUTATION, COLOSTOMY REVERSAL - Family History Family Medical History: Diabetes Mellitus, Cancer, Hypertension - Social History Does patient currently use any type of tobacco product: No Have you used tobacco products in the last 12 months: No Type of Tobacco Use: None Does any household member use tobacco: No Alcohol Use: None Drug Use: None - Medications Home Medications: No Known Drug Allergies Allergy (Verified 07/25/17 15:16) - Review of Systems Constitutional: No Symptoms Reported Eyes: No Symptoms Reported ENT: No Symptoms Reported Respiratory: No Symptoms Reported Cardiovascular: No Symptoms Reported Gastrointestinal: See HPI (DRAINAGE FROM ABDOMINAL WOUND ), Nausea Genitourinary: No Symptoms Reported Musculoskeletal: No Symptoms Reported Skin: No Symptoms Reported Neurological: No Symptoms Reported - Physical Exam Vital Signs: Temperature 97.6 F Pulse Rate [Left Brachial] 73 Pulse Rate 92 Respiratory Rate 20 Blood Pressure [Left Arm] 120/71 Blood Pressure [Left Calf] 178/89 Blood Pressure [Right Calf] 152/83 Blood Pressure [Right Arm] 149/86 Blood Pressure [Left Arm] 138/72 Blood Pressure 108/58 O2 Sat by Pulse Oximetry 100 Oriented: Normal Eyes: Normal Ear: Normal Nose: Normal Throat: Normal Respiratory: Clear Throughout Cardiovascular: Tachycardia : Normal Auscultation: Bowel Sounds: Normal Palpation: Normal Tenderness: Normal Skin: Red (ABDOMEN ), Tender, Hot Musculoskeletal: Left (LEFT BTK AMBUTATION ) Psychiatric: Normal Mood Description: Calm Affect: Normal Speech Pattern: Clear - Assessment/Plan (1) Abdominal wall abscess Status: Acute Plan: ADMIT, WOUND CARE, NS AT 100 ML/HR, FLAGYL 500MG IV Q6H, ZOSYN 4.5G IV TID, OTBS ACHS, HUMULIN R SLIDING SCALE, LEVEMIR 15 UNITS SC DAILY, THE POTASSIUM AND MAGNESIUM PROTOCOLS, AND HIS HOME MEDICATIONS WERE RESUMED. (2) Sepsis Qualifiers: Sepsis type: sepsis due to unspecified organism Sepsis acute organ dysfunction status: unspecified Qualified Code(s): A41.9 - Sepsis, unspecified organism Status: Acute (3) Hyponatremia Status: Acute (4) Paroxysmal sinus tachycardia Status: Acute (5) Diabetes mellitus, type 2 Qualifiers: Diabetes mellitus intermediate insulin use: with oysterman use Diabetes mellitus complication status: with hyperglycemia Qualified Code(s): E11.65 - Type 2 diabetes mellitus with hyperglycemia; Z79.4 - detention (current) use of insulin Status: Chronic - Allergies Allergies/Adverse Reactions: Allergies Allergy/AdvReac Type Severity Reaction Status Date / Time No Known Drug Allergies Allergy Verified 07/25/17 15:16
[2021-06-15] MEDS: ZOFRAN INJ 4 MG VIAL IVP PRN (16:21)
[2021-06-15] MEDS: SNACK - Diabetic Appropriate PO SCH (20:35)
[2021-06-15] MEDS: CRESTOR TAB 10 MG PO SCH (20:36)
[2021-06-16] MEDS ORDERED: NS 1/2 1,000 ML IV 1,000 ML IV ONE ×3 (00:37→20:03)
[2021-06-16] MEDS: NS 1/2 1,000 ML IV 1,000 ML IV SCH ×6 (01:56→21:58)
[2021-06-16] MEDS: FLAGYL IV PREMIX 500 MG BAG 500 MG/100 ML BAG IV SCH ×2 (02:02→08:36)
[2021-06-16] MEDS: ZOSYN VIAL 4.5 GRAMS 4.5 G in NS 100 ML IV + SPIKE MINIBAG* 100 ML IV SCH ×3 (05:38→21:58)
[2021-06-16 06:25] LABS: BASOPHILS # (AUTO) 0.1 X10^3/uL (0.0-0.1); BASOPHILS % (AUTO) 1.1 % (0.2-1.0); EOSINOPHILS # (AUTO) 0.1 x10^3/uL (0.0-0.2); EOSINOPHILS % (AUTO) 2.4 % (0.9-2.9); HEMATOCRIT 33.7 % (42.0-54.0); HEMOGLOBIN 11.6 g/dL (13.5-18.0); LYMPHOCYTES % (AUTO) 21.5 % (21.0-51.0); MEAN CORPUSCULAR HEMOGLOBIN 26.6 pg (27.0-34.0); MEAN CORPUSCULAR HGB CONC 34.4 g/dL (33.0-35.0); MEAN CORPUSCULAR VOLUME 77.2 fL (80.0-100.0); MEAN PLATELET VOLUME 8.7 fL (7.4-11.0); MONOCYTES # (AUTO) 0.4 x10^3/uL (0.3-0.8); MONOCYTES % (AUTO) 8.8 % (0.0-13.0); NEUTROPHILS % (AUTO) 66.2 % (42.0-75.0); PLATELET COUNT 271 X10^3/uL (150.0-450.0); RED BLOOD COUNT 4.37 X10^6/uL (4.7-6.0); RED CELL DISTRIBUTION WIDTH 14.8 % (11.6-16.5); WHITE BLOOD COUNT 4.5 X10^3/uL (3.6-10.0)
[2021-06-16 06:37] LABS: ALANINE AMINOTRANSFERASE < 6 Units/L (12-78); ALBUMIN 1.7 g/dL (3.4-5.0); ALKALINE PHOSPHATASE 63 Units/L (46-116); ASPARTATE AMINO TRANSFERASE 12 Units/L (15-37); BLOOD UREA NITROGEN 6 mg/dL (7-18); CARBON DIOXIDE 26.6 mmol/L (21-32); CHLORIDE 99 mmol/L (98-107); COR CA(FOR HYPOALB) 9.8 mg/dL (8.5-10.1); COR NA(FOR HYPERGLY) 133 mmol/L (136-145); CREATININE 0.75 mg/dL (0.70-1.30); SODIUM 132 mmol/L (136-145); TOTAL PROTEIN 6.5 g/dL (6.4-8.2); eGFR NON BLACK RACES > 60 (>60)
[2021-06-16] MEDS: LEVEMIR SC SCH (08:32)
[2021-06-16] MEDS: ALBUMIN HUMAN 25%- 100 ML 100 ML IV SCH (08:33)
[2021-06-16] MEDS: CARDIZEM CD 120 MG 24-HR PO SCH (08:35)
[2021-06-16] MEDS: CELEBREX PO SCH ×2 (08:35→20:49)
[2021-06-16] MEDS: CARAFATE PO SCH (08:35)
[2021-06-16] MEDS: ERTUGLIFLOZIN 15 MG PO SCH (08:36)
[2021-06-16] MEDS: PROTONIX TAB 40 MG PO SCH ×2 (08:36→20:50)
[2021-06-16] MEDS: ZOFRAN INJ 4 MG VIAL IVP PRN (08:59)
[2021-06-16] MEDS ORDERED: ZOFRAN INJ 4 MG VIAL IVP PRN (10:06)
[2021-06-16] MEDS: PEPCID 20 MG IV PREMIX* 20 MG/50 ML BAG IV SCH ×2 (11:12→20:50)
--- NOTE | 2021-06-16 11:33 | PCM.PROG ---
Progress Note - Progress Note for Day of Date of Exam: 06/16/21 - Subjective Subjective: IS BEING TREATED FOR AN ABDOMINAL WALL ABSCESS, SEPSIS, HYPONATREMIA, DM II. TODAY, HE IS ALERT AND ORIENTED, LYING IN BED ON MORNING ROUNDS. HE DENIES ABDOMINAL PAIN, BUT DOES ADMIT TO NAUSEA. HE REPORTEDLY HAD MULTIPLE EPISODES OF VOMITING YESTERDAY AND ONE TIME THIS MORNING. ON EXAMINATION, HEART IS REGULAR IN RATE AND RHYTHM. BILATERAL LUNGS ARE CLEAR TO AUSCULTATION. ABDOMEN IS ROUND, SOFT, AND NON-TENDER. THERE IS A DRESSING NOTED TO ABDOMEN. DRESSING IS DRY AND INTACT. THERE IS SOME REDNESS TO AREA SURROUNDING WOUND. HIS VITALS THIS MORNING ARE: 97.9-66-18-99%-153/86. LABS WERE OBTAINED. ABNORMAL LAB VALUES INCLUDE FOLLOWING: RBC 4.37, HGB 11.6, HCT 33.7, SODIUM 132, POTASSIUM 3.1, BUN 6, GLUCOSE 161, CALCIUM 8.0, AST 12, ALT <6, ALBUMIN 1.7. WOUND CULTURE IS POSITIVE FOR GROWTH OF E.COLI. BLOOD CULTURES ARE PENDING. HE IS CURRENTLY RECEIVING NS AT 100 ML/HR, FLAGYL 500MG IV Q6H, ZOSYN 4.5G IV TID, OTBS ACHS, HUMULIN R SLIDING SCALE, LEVEMIR 15 UNITS SC DAILY, THE POTASSIUM AND MAGNESIUM PROTOCOLS, AND HIS HOME MEDICATIONS WERE RESUMED. TODAY, WE WILL ADD PEPCID 20MG IV Q12H, INCREASE PROTONIX TO 40MG PO BID, AND INCREASE ZOFRAN TO 4MG IV Q4H PRN. WE WILL ALSO ADD ALBUMIN 25% IV DAILY. OTHERWISE, WE PLAN TO FOLLOW UP WITH AM LABS AND CONTINUE TO MONITOR. TIME SPENT ON CLINICAL ASSESSMENT, REVIEWING LABS AND IMAGING, DECISION MAKING, AND DOCUMENTATION GREATER THAN 45 MINUTES. - Past Medical Family Social History Past Med/Fam/Surg Hx: No changes since H&P Allergies: Allergies No Known Drug Allergies Allergy (Verified 07/25/17 15:16) - Review of Systems ROS: No change since H&P - Vital Signs and I&O's Vital Signs: Temperature 97.9 F Pulse Rate [Left Brachial] 66 Pulse Rate 92 Respiratory Rate 18 Blood Pressure [Left Arm] 153/86 Blood Pressure [Left Calf] 178/89 Blood Pressure [Right Calf] 152/83 Blood Pressure [Right Arm] 149/86 Blood Pressure [Left Arm] 138/72 Blood Pressure 108/58 O2 Sat by Pulse Oximetry 99 Intake and Output: Intake & Output 06/13/21 06/14/21 06/15/21 06/16/21 11:59 11:59 11:59 11:59 Intake Total 2200 / 2200 4160 / 4160 Output Total 1700 / 1700 1660 / 1660 Balance 500 / 500 2500 / 2500 - Physical Exam Oriented: Normal Eyes: Normal Ear: Normal Nose: Normal Throat: Normal Respiratory: Normal Cardiovascular: Tachycardia : Normal Auscultation: Bowel Sounds: Normal Palpation: Normal Tenderness: Normal Skin: Red (ABDOMEN ), Hot Musculoskeletal: Left (LEFT BTK AMBUTATION ) Psychiatric: Normal Mood Description: Calm Affect: Normal Speech Pattern: Clear, Appropriate - Laboratory and Diagnostics Result Diagrams: 06/16/21 05:34 06/16/21 05:34 Labs: 06/14/21 11:55 Abdomen Wound Culture - Final Escherichia Coli Laboratory WBC 4.5 X10^3/uL (3.6-10.0) 06/16/21 05:34 RBC 4.37 X10^6/uL (4.7-6.0) L 06/16/21 05:34 Hgb 11.6 g/dL (13.5-18.0) L 06/16/21 05:34 Hct 33.7 % (42.0-54.0) L 06/16/21 05:34 MCV 77.2 fL (80.0-100.0) L 06/16/21 05:34 MCH 26.6 pg (27.0-34.0) L 06/16/21 05:34 MCHC 34.4 g/dL (33.0-35.0) 06/16/21 05:34 RDW 14.8 % (11.6-16.5) 06/16/21 05:34 Plt Count 271 X10^3/uL (150.0-450.0) 06/16/21 05:34 MPV 8.7 fL (7.4-11.0) 06/16/21 05:34 Neut % (Auto) 66.2 % (42.0-75.0) 06/16/21 05:34 Lymph % (Auto) 21.5 % (21.0-51.0) 06/16/21 05:34 [place] % (Auto) 8.8 % (0.0-13.0) 06/16/21 05:34 Eos % (Auto) 2.4 % (0.9-2.9) 06/16/21 05:34 Baso % (Auto) 1.1 % (0.2-1.0) H 06/16/21 05:34 Neut # (Auto) 3.0 x10^3/uL (2.2-4.8) 06/16/21 05:34 Lymph # (Auto) 1.0 X10^3/uL (1.3-2.9) L 06/16/21 05:34 [place] # (Auto) 0.4 x10^3/uL (0.3-0.8) 06/16/21 05:34 Eos # (Auto) 0.1 x10^3/uL (0.0-0.2) 06/16/21 05:34 Baso # (Auto) 0.1 X10^3/uL (0.0-0.1) 06/16/21 05:34 Absolute Nucleated RBC 0.1 /100WBC 06/16/21 05:34 PT 19.2 SECONDS (11.8-14.3) 06/14/21 11:55 INR Target Range - 06/14/21 11:55 INR 1.70 (0.8-1.3) H 06/14/21 11:55 Sodium 132 mmol/L (136-145) L 06/16/21 05:34 Corrected Sodium 133 mmol/L (136-145) L 06/16/21 05:34 Potassium 3.1 mmol/L (3.5-5.1) L 06/16/21 05:34 Chloride 99 mmol/L (98-107) 06/16/21 05:34 Carbon Dioxide 26.6 mmol/L (21-32) 06/16/21 05:34 BUN 6 mg/dL (7-18) L 06/16/21 05:34 Creatinine 0.75 mg/dL (0.70-1.30) 06/16/21 05:34 Est GFR (MDRD) Af Amer > 60 (>60) 06/16/21 05:34 Est GFR (MDRD) Non-Af > 60 (>60) 06/16/21 05:34 Glucose 161 mg/dL (65-99) H 06/16/21 05:34 POC Glucose (mg/dL) 155 mg/dL (65-99) H 06/16/21 10:47 Lactic Acid 0.9 mmol/L (0.4-2.0) 06/15/21 05:43 Calcium 8.0 mg/dL (8.5-10.1) L 06/16/21 05:34 Corrected Calcium 9.8 mg/dL (8.5-10.1) 06/16/21 05:34 Magnesium 2.3 mg/dL (1.7-2.9) 06/15/21 05:43 Total Bilirubin 0.70 mg/dL (0.2-1.0) 06/16/21 05:34 AST 12 Units/L (15-37) L 06/16/21 05:34 ALT < 6 Units/L (12-78) L 06/16/21 05:34 Alkaline Phosphatase 63 Units/L (46-116) 06/16/21 05:34 Troponin I < 0.02 ng/mL (0-1.5) 06/14/21 11:55 Total Protein 6.5 g/dL (6.4-8.2) 06/16/21 05:34 Albumin 1.7 g/dL (3.4-5.0) L 06/16/21 05:34 Globulin 4.8 g/dL (2.5-4.5) H 06/16/21 05:34 Albumin/Globulin Ratio 0.4 Ratio (1.1-2.1) L 06/16/21 05:34 Specimen Type Clean catch urine 06/14/21 21:15 Urine Color Dark yellow (YELLOW) 06/14/21 21:15 Urine Appearance Clear (CLEAR) 06/14/21 21:15 Urine pH 6.0 (5.0 - 8.0) 06/14/21 21:15 Ur Specific [place] 1.010 (1.000-1.030) 06/14/21 21:15 Urine Protein 2+ (NEGATIVE) 06/14/21 21:15 Urine Glucose (UA) 4+ (NEGATIVE) 06/14/21 21:15 Urine Ketones 2+ (NEGATIVE) 06/14/21 21:15 Urine Occult Blood 2+ (NEGATIVE) 06/14/21 21:15 Urine Nitrite Negative (NEGATIVE) 06/14/21 21:15 Urine Bilirubin 1+ (NEGATIVE) 06/14/21 21:15 Urine Urobilinogen 4+ (NORMAL) 06/14/21 21:15 Ur Leukocyte Esterase Negative (NEGATIVE) 06/14/21 21:15 Urine RBC 10-20 /HPF (0-3) A 06/14/21 21:15 Urine WBC 0-2 /HPF (0-5) 06/14/21 21:15 Ur Squamous Epith Cells Rare /HPF (NEGATIVE) 06/14/21 21:15 Urine Bacteria Trace /HPF (NEGATIVE) 06/14/21 21:15 Ur Culture Indicated? No/not indicated 06/14/21 21:15 Acetone, Semi-Quant Negative (NEGATIVE) 06/14/21 11:55 SARS CoV-2 RNA Rapid CINDY Negative (NEGATIVE) 06/14/21 12:52 - Plan (1) Abdominal wall abscess Status: Acute Plan: WOUND CARE, NS AT 100 ML/HR, FLAGYL 500MG IV Q6H, ZOSYN 4.5G IV TID, ALBUMIN 25% IV DAILY, OTBS ACHS, HUMULIN R SLIDING SCALE, LEVEMIR 15 UNITS SC DAILY, PEPCID IV BID, PROTONIX BID, ZOFRAN 4MG IV Q4H PRN, THE POTASSIUM AND MAGNESIUM PROTOCOLS, AND HIS HOME MEDICATIONS WERE RESUMED. (2) Sepsis Status: Acute Qualifiers: Sepsis type: sepsis due to unspecified organism Sepsis acute organ dysfunction status: unspecified Qualified Code(s): A41.9 - Sepsis, unspecified organism (3) Hyponatremia Status: Acute (4) Paroxysmal sinus tachycardia Status: Acute (5) Diabetes mellitus, type 2 Status: Chronic Qualifiers: Diabetes mellitus residential insulin use: with intermediate manager use Diabetes mellitus complication status: with hyperglycemia Qualified Code(s): E11.65 - Type 2 diabetes mellitus with hyperglycemia; Z79.4 - shelter (current) use of insulin
[2021-06-16] MEDS ORDERED: PHENERGAN INJ 25 MG IM PRN (12:17)
--- NOTE | 2021-06-16 12:49 | DR.PROGNOT ---
Hospital Progress Notes - Progress Note for Day of: Progress Note Date: 06/16/21 - Chief Complaint Chief Complaint: no abdominal pain . having vausea and vomiting started last night . less drainage today .. . the dressing was changed and a new packing was used .. BS is less than 200 .. WBC is normal .. Albumin 1.7. temp 98 - Past Medical Family Social History Past Med/Fam/Surg Hx: No changes since H&P Allergies: Allergies No Known Drug Allergies Allergy (Verified 07/25/17 15:16) - Review Of Systems ROS: No change since H&P - Vital Signs Vital Signs: Temperature 97.8 F Pulse Rate [Left Brachial] 62 Pulse Rate 92 Respiratory Rate 20 Blood Pressure [Left Arm] 162/89 Blood Pressure [Left Calf] 178/89 Blood Pressure [Right Calf] 152/83 Blood Pressure [Right Arm] 149/86 Blood Pressure [Left Arm] 138/72 Blood Pressure 108/58 O2 Sat by Pulse Oximetry 100 - Physical Exam Oriented: Normal Eyes: Normal Ear: Normal Nose: Normal Throat: Normal Respiratory: Normal Cardiovascular: Tachycardia : Normal GI:Auscultation: Normal GI:Palpation: Normal GI: Tenderness: Normal Skin: Wound (colostomy site incision is still open with 3 x 3 cm cavity above the fascia .. erythema had subsided .) Musculoskeletal: Left (LEFT BTK AMBUTATION ) Psychiatric: Normal Mood Description: Calm Affect: Normal Speech Pattern: Clear, Appropriate - Laboratory and Diagnostics Result Diagrams: 06/16/21 05:34 06/16/21 05:34 Labs: 06/14/21 11:55 Blood Blood Culture - Preliminary 06/14/21 11:41 Blood Blood Culture - Preliminary 06/14/21 11:55 Abdomen Wound Culture - Final Escherichia Coli Laboratory WBC 4.5 X10^3/uL (3.6-10.0) 06/16/21 05:34 RBC 4.37 X10^6/uL (4.7-6.0) L 06/16/21 05:34 Hgb 11.6 g/dL (13.5-18.0) L 06/16/21 05:34 Hct 33.7 % (42.0-54.0) L 06/16/21 05:34 MCV 77.2 fL (80.0-100.0) L 06/16/21 05:34 MCH 26.6 pg (27.0-34.0) L 06/16/21 05:34 MCHC 34.4 g/dL (33.0-35.0) 06/16/21 05:34 RDW 14.8 % (11.6-16.5) 06/16/21 05:34 Plt Count 271 X10^3/uL (150.0-450.0) 06/16/21 05:34 MPV 8.7 fL (7.4-11.0) 06/16/21 05:34 Neut % (Auto) 66.2 % (42.0-75.0) 06/16/21 05:34 Lymph % (Auto) 21.5 % (21.0-51.0) 06/16/21 05:34 [place] % (Auto) 8.8 % (0.0-13.0) 06/16/21 05:34 Eos % (Auto) 2.4 % (0.9-2.9) 06/16/21 05:34 Baso % (Auto) 1.1 % (0.2-1.0) H 06/16/21 05:34 Neut # (Auto) 3.0 x10^3/uL (2.2-4.8) 06/16/21 05:34 Lymph # (Auto) 1.0 X10^3/uL (1.3-2.9) L 06/16/21 05:34 [place] # (Auto) 0.4 x10^3/uL (0.3-0.8) 06/16/21 05:34 Eos # (Auto) 0.1 x10^3/uL (0.0-0.2) 06/16/21 05:34 Baso # (Auto) 0.1 X10^3/uL (0.0-0.1) 06/16/21 05:34 Absolute Nucleated RBC 0.1 /100WBC 06/16/21 05:34 PT 19.2 SECONDS (11.8-14.3) 06/14/21 11:55 INR Target Range - 06/14/21 11:55 INR 1.70 (0.8-1.3) H 06/14/21 11:55 Sodium 132 mmol/L (136-145) L 06/16/21 05:34 Corrected Sodium 133 mmol/L (136-145) L 06/16/21 05:34 Potassium 3.1 mmol/L (3.5-5.1) L 06/16/21 05:34 Chloride 99 mmol/L (98-107) 06/16/21 05:34 Carbon Dioxide 26.6 mmol/L (21-32) 06/16/21 05:34 BUN 6 mg/dL (7-18) L 06/16/21 05:34 Creatinine 0.75 mg/dL (0.70-1.30) 06/16/21 05:34 Est GFR (MDRD) Af Amer > 60 (>60) 06/16/21 05:34 Est GFR (MDRD) Non-Af > 60 (>60) 06/16/21 05:34 Glucose 161 mg/dL (65-99) H 06/16/21 05:34 POC Glucose (mg/dL) 155 mg/dL (65-99) H 06/16/21 10:47 Lactic Acid 0.9 mmol/L (0.4-2.0) 06/15/21 05:43 Calcium 8.0 mg/dL (8.5-10.1) L 06/16/21 05:34 Corrected Calcium 9.8 mg/dL (8.5-10.1) 06/16/21 05:34 Magnesium 2.3 mg/dL (1.7-2.9) 06/15/21 05:43 Total Bilirubin 0.70 mg/dL (0.2-1.0) 06/16/21 05:34 AST 12 Units/L (15-37) L 06/16/21 05:34 ALT < 6 Units/L (12-78) L 06/16/21 05:34 Alkaline Phosphatase 63 Units/L (46-116) 06/16/21 05:34 Troponin I < 0.02 ng/mL (0-1.5) 06/14/21 11:55 Total Protein 6.5 g/dL (6.4-8.2) 06/16/21 05:34 Albumin 1.7 g/dL (3.4-5.0) L 06/16/21 05:34 Globulin 4.8 g/dL (2.5-4.5) H 06/16/21 05:34 Albumin/Globulin Ratio 0.4 Ratio (1.1-2.1) L 06/16/21 05:34 Specimen Type Clean catch urine 06/14/21 21:15 Urine Color Dark yellow (YELLOW) 06/14/21 21:15 Urine Appearance Clear (CLEAR) 06/14/21 21:15 Urine pH 6.0 (5.0 - 8.0) 06/14/21 21:15 Ur Specific [place] 1.010 (1.000-1.030) 06/14/21 21:15 Urine Protein 2+ (NEGATIVE) 06/14/21 21:15 Urine Glucose (UA) 4+ (NEGATIVE) 06/14/21 21:15 Urine Ketones 2+ (NEGATIVE) 06/14/21 21:15 Urine Occult Blood 2+ (NEGATIVE) 06/14/21 21:15 Urine Nitrite Negative (NEGATIVE) 06/14/21 21:15 Urine Bilirubin 1+ (NEGATIVE) 06/14/21 21:15 Urine Urobilinogen 4+ (NORMAL) 06/14/21 21:15 Ur Leukocyte Esterase Negative (NEGATIVE) 06/14/21 21:15 Urine RBC 10-20 /HPF (0-3) A 06/14/21 21:15 Urine WBC 0-2 /HPF (0-5) 06/14/21 21:15 Ur Squamous Epith Cells Rare /HPF (NEGATIVE) 06/14/21 21:15 Urine Bacteria Trace /HPF (NEGATIVE) 06/14/21 21:15 Ur Culture Indicated? No/not indicated 06/14/21 21:15 Acetone, Semi-Quant Negative (NEGATIVE) 06/14/21 11:55 SARS CoV-2 RNA Rapid CINDY Negative (NEGATIVE) 06/14/21 12:52 - Assessment and Plan 1: abdominal wall abscess at colostomy site . s/p drainage. DM . h/o rectal cancer s/p resection .. same local care with packing with Iodoform . and IV ABT , diabetic control .. to D/C Flagyl - Problem Patient Problems: Patient Problems Diabetes mellitus, type 2 (Chronic) E11.9 Hyponatremia (Acute) E87.1 Paroxysmal sinus tachycardia (Acute) I47.1 Abdominal wall abscess (Acute) L02.211 Sepsis (Acute) A41.9
[2021-06-16] MEDS: SNACK - Diabetic Appropriate PO SCH (20:49)
[2021-06-16] MEDS: CRESTOR TAB 10 MG PO SCH (20:50)
[2021-06-17] MEDS: ZOSYN VIAL 4.5 GRAMS 4.5 G in NS 100 ML IV + SPIKE MINIBAG* 100 ML IV SCH ×3 (05:39→21:53)
[2021-06-17] MEDS: NS 1/2 1,000 ML IV 1,000 ML IV SCH ×4 (05:40→23:30)
[2021-06-17 06:21] LABS: BASOPHILS % (AUTO) 0.8 % (0.2-1.0); EOSINOPHILS # (AUTO) 0.1 x10^3/uL (0.0-0.2); EOSINOPHILS % (AUTO) 2.3 % (0.9-2.9); HEMATOCRIT 30.2 % (42.0-54.0); HEMOGLOBIN 10.4 g/dL (13.5-18.0); LYMPHOCYTES # (AUTO) 1.3 X10^3/uL (1.3-2.9); LYMPHOCYTES % (AUTO) 28.5 % (21.0-51.0); MEAN CORPUSCULAR HEMOGLOBIN 26.5 pg (27.0-34.0); MEAN CORPUSCULAR HGB CONC 34.5 g/dL (33.0-35.0); MEAN CORPUSCULAR VOLUME 76.8 fL (80.0-100.0); MEAN PLATELET VOLUME 8.3 fL (7.4-11.0); MONOCYTES # (AUTO) 0.6 x10^3/uL (0.3-0.8); MONOCYTES % (AUTO) 12.2 % (0.0-13.0); NEUTROPHILS # (AUTO) 2.6 x10^3/uL (2.2-4.8); NEUTROPHILS % (AUTO) 56.2 % (42.0-75.0); PLATELET COUNT 279 X10^3/uL (150.0-450.0); RED BLOOD COUNT 3.93 X10^6/uL (4.7-6.0); RED CELL DISTRIBUTION WIDTH 14.7 % (11.6-16.5); WHITE BLOOD COUNT 4.6 X10^3/uL (3.6-10.0)
[2021-06-17 06:44] LABS: ALANINE AMINOTRANSFERASE 10 Units/L (12-78); ALBUMIN 1.8 g/dL (3.4-5.0); ALKALINE PHOSPHATASE 63 Units/L (46-116); ASPARTATE AMINO TRANSFERASE 22 Units/L (15-37); BLOOD UREA NITROGEN 6 mg/dL (7-18); CALCIUM 7.5 mg/dL (8.5-10.1); CARBON DIOXIDE 28.7 mmol/L (21-32); CHLORIDE 102 mmol/L (98-107); COR CA(FOR HYPOALB) 9.3 mg/dL (8.5-10.1); COR NA(FOR HYPERGLY) 137 mmol/L (136-145); CREATININE 0.83 mg/dL (0.70-1.30); SODIUM 135 mmol/L (136-145); TOTAL PROTEIN 5.9 g/dL (6.4-8.2); eGFR NON BLACK RACES > 60 (>60)
--- NOTE | 2021-06-17 08:36 | DR.PROGNOT ---
Hospital Progress Notes - Progress Note for Day of: Progress Note Date: 06/17/21 - Chief Complaint Chief Complaint: much better today .. no nausea . drainage is mild .. the dressing was changed and a new packing was used .. BS is less than 200 .. WBC is normal .. Albumin 1.8. temp 98 - Past Medical Family Social History Past Med/Fam/Surg Hx: No changes since H&P Allergies: Allergies No Known Drug Allergies Allergy (Verified 07/25/17 15:16) - Review Of Systems ROS: No change since H&P - Vital Signs Vital Signs: Temperature 97.7 F Pulse Rate [Left Brachial] 58 Pulse Rate 92 Respiratory Rate 18 Blood Pressure [Left Arm] 141/79 Blood Pressure [Left Calf] 178/89 Blood Pressure [Right Calf] 152/83 Blood Pressure [Right Arm] 149/86 Blood Pressure [Left Arm] 138/72 Blood Pressure 108/58 O2 Sat by Pulse Oximetry 99 - Physical Exam Oriented: Normal Eyes: Normal Ear: Normal Nose: Normal Throat: Normal Respiratory: Normal Cardiovascular: Tachycardia : Normal GI:Auscultation: Normal GI:Palpation: Normal GI: Tenderness: Normal Skin: Wound (colostomy site incision is still open with 2 x 1 x 3 cm cavity above the fascia .. erythema had subsided .) Musculoskeletal: Left (LEFT BTK AMBUTATION ) Psychiatric: Normal Mood Description: Calm Affect: Normal Speech Pattern: Clear, Appropriate - Laboratory and Diagnostics Result Diagrams: 06/17/21 05:26 06/17/21 05:26 Labs: 06/14/21 11:55 Blood Blood Culture - Preliminary 06/14/21 11:41 Blood Blood Culture - Preliminary 06/14/21 11:55 Abdomen Wound Culture - Final Escherichia Coli Laboratory WBC 4.6 X10^3/uL (3.6-10.0) 06/17/21 05:26 RBC 3.93 X10^6/uL (4.7-6.0) L 06/17/21 05:26 Hgb 10.4 g/dL (13.5-18.0) L 06/17/21 05:26 Hct 30.2 % (42.0-54.0) L 06/17/21 05:26 MCV 76.8 fL (80.0-100.0) L 06/17/21 05:26 MCH 26.5 pg (27.0-34.0) L 06/17/21 05:26 MCHC 34.5 g/dL (33.0-35.0) 06/17/21 05:26 RDW 14.7 % (11.6-16.5) 06/17/21 05:26 Plt Count 279 X10^3/uL (150.0-450.0) 06/17/21 05:26 MPV 8.3 fL (7.4-11.0) 06/17/21 05:26 Neut % (Auto) 56.2 % (42.0-75.0) 06/17/21 05:26 Lymph % (Auto) 28.5 % (21.0-51.0) 06/17/21 05:26 [place] % (Auto) 12.2 % (0.0-13.0) 06/17/21 05:26 Eos % (Auto) 2.3 % (0.9-2.9) 06/17/21 05:26 Baso % (Auto) 0.8 % (0.2-1.0) 06/17/21 05:26 Neut # (Auto) 2.6 x10^3/uL (2.2-4.8) 06/17/21 05:26 Lymph # (Auto) 1.3 X10^3/uL (1.3-2.9) 06/17/21 05:26 [place] # (Auto) 0.6 x10^3/uL (0.3-0.8) 06/17/21 05:26 Eos # (Auto) 0.1 x10^3/uL (0.0-0.2) 06/17/21 05:26 Baso # (Auto) 0.0 X10^3/uL (0.0-0.1) 06/17/21 05:26 Absolute Nucleated RBC 0.1 /100WBC 06/17/21 05:26 PT 19.2 SECONDS (11.8-14.3) 06/14/21 11:55 INR Target Range - 06/14/21 11:55 INR 1.70 (0.8-1.3) H 06/14/21 11:55 Sodium 135 mmol/L (136-145) L 06/17/21 05:26 Corrected Sodium 137 mmol/L (136-145) 06/17/21 05:26 Potassium 3.2 mmol/L (3.5-5.1) L 06/17/21 05:26 Chloride 102 mmol/L (98-107) 06/17/21 05:26 Carbon Dioxide 28.7 mmol/L (21-32) 06/17/21 05:26 BUN 6 mg/dL (7-18) L 06/17/21 05:26 Creatinine 0.83 mg/dL (0.70-1.30) 06/17/21 05:26 Est GFR (MDRD) Af Amer > 60 (>60) 06/17/21 05:26 Est GFR (MDRD) Non-Af > 60 (>60) 06/17/21 05:26 Glucose 170 mg/dL (65-99) H 06/17/21 05:26 POC Glucose (mg/dL) 168 mg/dL (65-99) H 06/17/21 05:09 Lactic Acid 0.9 mmol/L (0.4-2.0) 06/15/21 05:43 Calcium 7.5 mg/dL (8.5-10.1) L 06/17/21 05:26 Corrected Calcium 9.3 mg/dL (8.5-10.1) 06/17/21 05:26 Magnesium 2.3 mg/dL (1.7-2.9) 06/15/21 05:43 Total Bilirubin 0.50 mg/dL (0.2-1.0) 06/17/21 05:26 AST 22 Units/L (15-37) 06/17/21 05:26 ALT 10 Units/L (12-78) L 06/17/21 05:26 Alkaline Phosphatase 63 Units/L (46-116) 06/17/21 05:26 Troponin I < 0.02 ng/mL (0-1.5) 06/14/21 11:55 Total Protein 5.9 g/dL (6.4-8.2) L 06/17/21 05:26 Albumin 1.8 g/dL (3.4-5.0) L 06/17/21 05:26 Globulin 4.1 g/dL (2.5-4.5) 06/17/21 05:26 Albumin/Globulin Ratio 0.4 Ratio (1.1-2.1) L 06/17/21 05:26 Specimen Type Clean catch urine 06/14/21 21:15 Urine Color Dark yellow (YELLOW) 06/14/21 21:15 Urine Appearance Clear (CLEAR) 06/14/21 21:15 Urine pH 6.0 (5.0 - 8.0) 06/14/21 21:15 Ur Specific [place] 1.010 (1.000-1.030) 06/14/21 21:15 Urine Protein 2+ (NEGATIVE) 06/14/21 21:15 Urine Glucose (UA) 4+ (NEGATIVE) 06/14/21 21:15 Urine Ketones 2+ (NEGATIVE) 06/14/21 21:15 Urine Occult Blood 2+ (NEGATIVE) 06/14/21 21:15 Urine Nitrite Negative (NEGATIVE) 06/14/21 21:15 Urine Bilirubin 1+ (NEGATIVE) 06/14/21 21:15 Urine Urobilinogen 4+ (NORMAL) 06/14/21 21:15 Ur Leukocyte Esterase Negative (NEGATIVE) 06/14/21 21:15 Urine RBC 10-20 /HPF (0-3) A 06/14/21 21:15 Urine WBC 0-2 /HPF (0-5) 06/14/21 21:15 Ur Squamous Epith Cells Rare /HPF (NEGATIVE) 06/14/21 21:15 Urine Bacteria Trace /HPF (NEGATIVE) 06/14/21 21:15 Ur Culture Indicated? No/not indicated 06/14/21 21:15 Acetone, Semi-Quant Negative (NEGATIVE) 06/14/21 11:55 SARS CoV-2 RNA Rapid CINDY Negative (NEGATIVE) 06/14/21 12:52 - Assessment and Plan 1: abdominal wall abscess at colostomy site . s/p drainage. DM . h/o rectal cancer s/p resection .. same local care with packing with Iodoform . and IV ABT , diabetic control .. - Problem Patient Problems: Patient Problems Diabetes mellitus, type 2 (Chronic) E11.9 Hyponatremia (Acute) E87.1 Paroxysmal sinus tachycardia (Acute) I47.1 Abdominal wall abscess (Acute) L02.211 Sepsis (Acute) A41.9
[2021-06-17] MEDS: DILAUDID INJ IVP PRN ×2 (09:26→21:00)
[2021-06-17] MEDS: PEPCID 20 MG IV PREMIX* 20 MG/50 ML BAG IV SCH ×2 (10:05→21:00)
[2021-06-17] MEDS: CELEBREX PO SCH ×2 (10:05→21:00)
[2021-06-17] MEDS: CARDIZEM CD 120 MG 24-HR PO SCH (10:06)
[2021-06-17] MEDS: CARAFATE PO SCH (10:06)
[2021-06-17] MEDS: ALBUMIN HUMAN 25%- 100 ML 100 ML IV SCH (10:06)
[2021-06-17] MEDS: PROTONIX TAB 40 MG PO SCH ×2 (10:07→21:00)
[2021-06-17] MEDS: LEVEMIR SC SCH (10:07)
[2021-06-17] MEDS ORDERED: NS 1/2 1,000 ML IV 1,000 ML IV ONE ×2 (13:51→23:15)
--- NOTE | 2021-06-17 17:53 | PCM.PROG ---
Progress Note Progress Note for Day of Date of Exam: 06/17/21 Subjective Subjective: Patient seen at bedside, no events overnight. He has been doing well. He is currently being treaed for abdominal abscess at the colostomy site and hyponatremia. Dr Andrade also at bedside to change dressing. Patient's wound is still having moderate amount of drainage. Patient's site looks better, not much erythema seen. Patient's N/V improved after stopping Flagyl yesterday. Labs reviewed Plan: follow Dr Andrade's recommendations, dressing change. Continue IV Zosyn. Wound Cx growing E.coli. Blood Cx remain negative. Replace K as per protocol. Monitor AM labs. Possible discharge tomorrow. Past Medical Family Social History Past Med/Fam/Surg Hx: No changes since H&P Allergies: Allergies No Known Drug Allergies Allergy (Verified 07/25/17 15:16) Review of Systems ROS: No change since H&P Vital Signs and I&O's Vital Signs: Temperature 97.8 F Pulse Rate [Left Brachial] 60 Pulse Rate 92 Respiratory Rate 18 Blood Pressure [Left Arm] 149/75 Blood Pressure [Left Calf] 178/89 Blood Pressure [Right Calf] 152/83 Blood Pressure [Right Arm] 149/86 Blood Pressure [Left Arm] 138/72 Blood Pressure 108/58 O2 Sat by Pulse Oximetry 99 Intake and Output: Intake & Output 06/14/21 06/15/21 06/16/21 06/17/21 23:59 23:59 23:59 23:59 Intake Total 2200 / 2200 3060 / 3060 3591 / 3591 1530 / 1530 Output Total 900 / 900 1280 / 1280 2054 / 2054 0 / 0 Balance 1300 / 1300 1780 / 1780 1536 / 1536 1530 / 1530 Physical Exam Oriented: Normal Eyes: Normal Ear: Normal Nose: Normal Throat: Normal Respiratory: Normal Cardiovascular: Normal Auscultation: Bowel Sounds: Normal Tenderness: Normal Skin: Wound (colostomy site incision is still open with 2 x 1 x 3 cm cavity above the fascia .. erythema had subsided .) Musculoskeletal: Left (LEFT BTK AMBUTATION ) Psychiatric: Normal Mood Description: Calm Affect: Normal Speech Pattern: Clear and Appropriate Laboratory and Diagnostics Result Diagrams: 06/17/21 05:26 06/17/21 05:26 Labs: 06/14/21 11:55 Blood Blood Culture - Preliminary 06/14/21 11:41 Blood Blood Culture - Preliminary 06/14/21 11:55 Abdomen Wound Culture - Final Escherichia Coli Laboratory WBC 4.6 X10^3/uL (3.6-10.0) 06/17/21 05:26 RBC 3.93 X10^6/uL (4.7-6.0) L 06/17/21 05:26 Hgb 10.4 g/dL (13.5-18.0) L 06/17/21 05:26 Hct 30.2 % (42.0-54.0) L 06/17/21 05:26 MCV 76.8 fL (80.0-100.0) L 06/17/21 05:26 MCH 26.5 pg (27.0-34.0) L 06/17/21 05:26 MCHC 34.5 g/dL (33.0-35.0) 06/17/21 05:26 RDW 14.7 % (11.6-16.5) 06/17/21 05:26 Plt Count 279 X10^3/uL (150.0-450.0) 06/17/21 05:26 MPV 8.3 fL (7.4-11.0) 06/17/21 05:26 Neut % (Auto) 56.2 % (42.0-75.0) 06/17/21 05:26 Lymph % (Auto) 28.5 % (21.0-51.0) 06/17/21 05:26 [place] % (Auto) 12.2 % (0.0-13.0) 06/17/21 05:26 Eos % (Auto) 2.3 % (0.9-2.9) 06/17/21 05:26 Baso % (Auto) 0.8 % (0.2-1.0) 06/17/21 05:26 Neut # (Auto) 2.6 x10^3/uL (2.2-4.8) 06/17/21 05:26 Lymph # (Auto) 1.3 X10^3/uL (1.3-2.9) 06/17/21 05:26 [place] # (Auto) 0.6 x10^3/uL (0.3-0.8) 06/17/21 05:26 Eos # (Auto) 0.1 x10^3/uL (0.0-0.2) 06/17/21 05:26 Baso # (Auto) 0.0 X10^3/uL (0.0-0.1) 06/17/21 05:26 Absolute Nucleated RBC 0.1 /100WBC 06/17/21 05:26 PT 19.2 SECONDS (11.8-14.3) 06/14/21 11:55 INR Target Range - 06/14/21 11:55 INR 1.70 (0.8-1.3) H 06/14/21 11:55 Sodium 135 mmol/L (136-145) L 06/17/21 05:26 Corrected Sodium 137 mmol/L (136-145) 06/17/21 05:26 Potassium 3.2 mmol/L (3.5-5.1) L 06/17/21 05:26 Chloride 102 mmol/L (98-107) 06/17/21 05:26 Carbon Dioxide 28.7 mmol/L (21-32) 06/17/21 05:26 BUN 6 mg/dL (7-18) L 06/17/21 05:26 Creatinine 0.83 mg/dL (0.70-1.30) 06/17/21 05:26 Est GFR (MDRD) Af Amer > 60 (>60) 06/17/21 05:26 Est GFR (MDRD) Non-Af > 60 (>60) 06/17/21 05:26 Glucose 170 mg/dL (65-99) H 06/17/21 05:26 POC Glucose (mg/dL) 190 mg/dL (65-99) H 06/17/21 16:31 Lactic Acid 0.9 mmol/L (0.4-2.0) 06/15/21 05:43 Calcium 7.5 mg/dL (8.5-10.1) L 06/17/21 05:26 Corrected Calcium 9.3 mg/dL (8.5-10.1) 06/17/21 05:26 Magnesium 2.3 mg/dL (1.7-2.9) 06/15/21 05:43 Total Bilirubin 0.50 mg/dL (0.2-1.0) 06/17/21 05:26 AST 22 Units/L (15-37) 06/17/21 05:26 ALT 10 Units/L (12-78) L 06/17/21 05:26 Alkaline Phosphatase 63 Units/L (46-116) 06/17/21 05:26 Troponin I < 0.02 ng/mL (0-1.5) 06/14/21 11:55 Total Protein 5.9 g/dL (6.4-8.2) L 06/17/21 05:26 Albumin 1.8 g/dL (3.4-5.0) L 06/17/21 05:26 Globulin 4.1 g/dL (2.5-4.5) 06/17/21 05:26 Albumin/Globulin Ratio 0.4 Ratio (1.1-2.1) L 06/17/21 05:26 Specimen Type Clean catch urine 06/14/21 21:15 Urine Color Dark yellow (YELLOW) 06/14/21 21:15 Urine Appearance Clear (CLEAR) 06/14/21 21:15 Urine pH 6.0 (5.0 - 8.0) 06/14/21 21:15 Ur Specific [place] 1.010 (1.000-1.030) 06/14/21 21:15 Urine Protein 2+ (NEGATIVE) 06/14/21 21:15 Urine Glucose (UA) 4+ (NEGATIVE) 06/14/21 21:15 Urine Ketones 2+ (NEGATIVE) 06/14/21 21:15 Urine Occult Blood 2+ (NEGATIVE) 06/14/21 21:15 Urine Nitrite Negative (NEGATIVE) 06/14/21 21:15 Urine Bilirubin 1+ (NEGATIVE) 06/14/21 21:15 Urine Urobilinogen 4+ (NORMAL) 06/14/21 21:15 Ur Leukocyte Esterase Negative (NEGATIVE) 06/14/21 21:15 Urine RBC 10-20 /HPF (0-3) A 06/14/21 21:15 Urine WBC 0-2 /HPF (0-5) 06/14/21 21:15 Ur Squamous Epith Cells Rare /HPF (NEGATIVE) 06/14/21 21:15 Urine Bacteria Trace /HPF (NEGATIVE) 06/14/21 21:15 Ur Culture Indicated? No/not indicated 06/14/21 21:15 Acetone, Semi-Quant Negative (NEGATIVE) 06/14/21 11:55 SARS CoV-2 RNA Rapid CINDY Negative (NEGATIVE) 06/14/21 12:52 Plan (1) Abdominal wall abscess: Status: Acute (2) Sepsis: Status: Acute Qualifiers: Sepsis acute organ dysfunction status: unspecified Sepsis type: sepsis due to unspecified organism Qualified Code(s): A41.9 - Sepsis, unspecified organism (3) Hyponatremia: Status: Acute (4) Paroxysmal sinus tachycardia: Status: Acute (5) Diabetes mellitus, type 2: Status: Chronic Qualifiers: Diabetes mellitus complication status: with hyperglycemia Diabetes raven itus mcc insulin use: with mcc use Qualified Code(s): E11.65 - Type 2 diabetes mellitus with hyperglycemia; Z79.4 - USP (current) use of insulin
[2021-06-17] MEDS: SNACK - Diabetic Appropriate PO SCH (20:58)
[2021-06-17] MEDS: CRESTOR TAB 10 MG PO SCH (21:00)
[2021-06-17] MEDS: K-DUR TAB 20 MEQ PO PRN (21:54)
[2021-06-18] MEDS: ZOSYN VIAL 4.5 GRAMS 4.5 G in NS 100 ML IV + SPIKE MINIBAG* 100 ML IV SCH (05:02)
[2021-06-18 06:13] LABS: BASOPHILS % (AUTO) 1.1 % (0.2-1.0); EOSINOPHILS # (AUTO) 0.1 x10^3/uL (0.0-0.2); EOSINOPHILS % (AUTO) 3.8 % (0.9-2.9); HEMATOCRIT 30.9 % (42.0-54.0); HEMOGLOBIN 10.4 g/dL (13.5-18.0); LYMPHOCYTES % (AUTO) 29.2 % (21.0-51.0); MEAN CORPUSCULAR HEMOGLOBIN 26.2 pg (27.0-34.0); MEAN CORPUSCULAR HGB CONC 33.7 g/dL (33.0-35.0); MEAN CORPUSCULAR VOLUME 77.8 fL (80.0-100.0); MONOCYTES # (AUTO) 0.4 x10^3/uL (0.3-0.8); NEUTROPHILS % (AUTO) 54.9 % (42.0-75.0); PLATELET COUNT 266 X10^3/uL (150.0-450.0); RED BLOOD COUNT 3.97 X10^6/uL (4.7-6.0); RED CELL DISTRIBUTION WIDTH 14.9 % (11.6-16.5); WHITE BLOOD COUNT 3.6 X10^3/uL (3.6-10.0)
[2021-06-18 06:25] LABS: ALANINE AMINOTRANSFERASE 18 Units/L (12-78); ALBUMIN 2.1 g/dL (3.4-5.0); ALKALINE PHOSPHATASE 72 Units/L (46-116); ASPARTATE AMINO TRANSFERASE 45 Units/L (15-37); BLOOD UREA NITROGEN 5 mg/dL (7-18); CALCIUM 7.6 mg/dL (8.5-10.1); CARBON DIOXIDE 27.1 mmol/L (21-32); CHLORIDE 102 mmol/L (98-107); COR CA(FOR HYPOALB) 9.1 mg/dL (8.5-10.1); COR NA(FOR HYPERGLY) 139 mmol/L (136-145); CREATININE 0.73 mg/dL (0.70-1.30); SODIUM 136 mmol/L (136-145); eGFR NON BLACK RACES > 60 (>60)
[2021-06-18] MEDS: K-DUR TAB 20 MEQ PO PRN ×2 (06:34→09:37)
[2021-06-18] MEDS: CARAFATE PO SCH (09:32)
[2021-06-18] MEDS: CARDIZEM CD 120 MG 24-HR PO SCH (09:32)
[2021-06-18] MEDS: ALBUMIN HUMAN 25%- 100 ML 100 ML IV SCH (09:32)
[2021-06-18] MEDS: CELEBREX PO SCH (09:33)
[2021-06-18] MEDS: PROTONIX TAB 40 MG PO SCH (09:36)
[2021-06-18] MEDS: PEPCID 20 MG IV PREMIX* 20 MG/50 ML BAG IV SCH (09:36)
[2021-06-18] MEDS: LEVEMIR SC SCH (09:36)
--- NOTE | 2021-06-18 09:57 | DR.PROGNOT ---
Hospital Progress Notes - Progress Note for Day of: Progress Note Date: 06/18/21 - Chief Complaint Chief Complaint: much better today .. no nausea . drainage is mild .. the dressing was changed and a new packing was used .. BS is less than 200 .. WBC is normal .. Albumin 1.8. temp 98 - Past Medical Family Social History Past Med/Fam/Surg Hx: No changes since H&P Allergies: Allergies No Known Drug Allergies Allergy (Verified 07/25/17 15:16) - Review Of Systems ROS: No change since H&P - Vital Signs Vital Signs: Temperature 97.4 F Pulse Rate [Left Brachial] 58 Pulse Rate 92 Respiratory Rate 18 Blood Pressure [Left Arm] 161/79 Blood Pressure [Left Calf] 178/89 Blood Pressure [Right Calf] 152/83 Blood Pressure [Right Arm] 149/86 Blood Pressure [Left Arm] 138/72 Blood Pressure 108/58 O2 Sat by Pulse Oximetry 99 - Physical Exam Oriented: Normal Eyes: Normal Ear: Normal Nose: Normal Throat: Normal Respiratory: Normal Cardiovascular: Normal : Normal GI:Auscultation: Normal GI:Palpation: Normal GI: Tenderness: Normal Skin: Wound (colostomy site incision is still open with 2 x 1 x 3 cm cavity above the fascia .. erythema had subsided .) Musculoskeletal: Left (LEFT BTK AMBUTATION) Psychiatric: Normal Mood Description: Calm Affect: Normal Speech Pattern: Clear, Appropriate - Laboratory and Diagnostics Result Diagrams: 06/18/21 05:32 06/18/21 05:32 Labs: 06/14/21 11:55 Blood Blood Culture - Preliminary 06/14/21 11:41 Blood Blood Culture - Preliminary 06/14/21 11:55 Abdomen Wound Culture - Final Escherichia Coli Laboratory WBC 3.6 X10^3/uL (3.6-10.0) 06/18/21 05:32 RBC 3.97 X10^6/uL (4.7-6.0) L 06/18/21 05:32 Hgb 10.4 g/dL (13.5-18.0) L 06/18/21 05:32 Hct 30.9 % (42.0-54.0) L 06/18/21 05:32 MCV 77.8 fL (80.0-100.0) L 06/18/21 05:32 MCH 26.2 pg (27.0-34.0) L 06/18/21 05:32 MCHC 33.7 g/dL (33.0-35.0) 06/18/21 05:32 RDW 14.9 % (11.6-16.5) 06/18/21 05:32 Plt Count 266 X10^3/uL (150.0-450.0) 06/18/21 05:32 MPV 8.0 fL (7.4-11.0) 06/18/21 05:32 Neut % (Auto) 54.9 % (42.0-75.0) 06/18/21 05:32 Lymph % (Auto) 29.2 % (21.0-51.0) 06/18/21 05:32 [place] % (Auto) 11.0 % (0.0-13.0) 06/18/21 05:32 Eos % (Auto) 3.8 % (0.9-2.9) H 06/18/21 05:32 Baso % (Auto) 1.1 % (0.2-1.0) H 06/18/21 05:32 Neut # (Auto) 2.0 x10^3/uL (2.2-4.8) L 06/18/21 05:32 Lymph # (Auto) 1.0 X10^3/uL (1.3-2.9) L 06/18/21 05:32 [place] # (Auto) 0.4 x10^3/uL (0.3-0.8) 06/18/21 05:32 Eos # (Auto) 0.1 x10^3/uL (0.0-0.2) 06/18/21 05:32 Baso # (Auto) 0.0 X10^3/uL (0.0-0.1) 06/18/21 05:32 Absolute Nucleated RBC 0.1 /100WBC 06/18/21 05:32 PT 19.2 SECONDS (11.8-14.3) 06/14/21 11:55 INR Target Range - 06/14/21 11:55 INR 1.70 (0.8-1.3) H 06/14/21 11:55 Sodium 136 mmol/L (136-145) 06/18/21 05:32 Corrected Sodium 139 mmol/L (136-145) 06/18/21 05:32 Potassium 3.5 mmol/L (3.5-5.1) 06/18/21 05:32 Chloride 102 mmol/L (98-107) 06/18/21 05:32 Carbon Dioxide 27.1 mmol/L (21-32) 06/18/21 05:32 BUN 5 mg/dL (7-18) L 06/18/21 05:32 Creatinine 0.73 mg/dL (0.70-1.30) 06/18/21 05:32 Est GFR (MDRD) Af Amer > 60 (>60) 06/18/21 05:32 Est GFR (MDRD) Non-Af > 60 (>60) 06/18/21 05:32 Glucose 212 mg/dL (65-99) H 06/18/21 05:32 POC Glucose (mg/dL) 199 mg/dL (65-99) H 06/18/21 05:30 Lactic Acid 0.9 mmol/L (0.4-2.0) 06/15/21 05:43 Calcium 7.6 mg/dL (8.5-10.1) L 06/18/21 05:32 Corrected Calcium 9.1 mg/dL (8.5-10.1) 06/18/21 05:32 Magnesium 2.3 mg/dL (1.7-2.9) 06/15/21 05:43 Total Bilirubin 0.60 mg/dL (0.2-1.0) 06/18/21 05:32 AST 45 Units/L (15-37) H 06/18/21 05:32 ALT 18 Units/L (12-78) 06/18/21 05:32 Alkaline Phosphatase 72 Units/L (46-116) 06/18/21 05:32 Troponin I < 0.02 ng/mL (0-1.5) 06/14/21 11:55 Total Protein 6.0 g/dL (6.4-8.2) L 06/18/21 05:32 Albumin 2.1 g/dL (3.4-5.0) L 06/18/21 05:32 Globulin 3.9 g/dL (2.5-4.5) 06/18/21 05:32 Albumin/Globulin Ratio 0.5 Ratio (1.1-2.1) L 06/18/21 05:32 Specimen Type Clean catch urine 06/14/21 21:15 Urine Color Dark yellow (YELLOW) 06/14/21 21:15 Urine Appearance Clear (CLEAR) 06/14/21 21:15 Urine pH 6.0 (5.0 - 8.0) 06/14/21 21:15 Ur Specific [place] 1.010 (1.000-1.030) 06/14/21 21:15 Urine Protein 2+ (NEGATIVE) 06/14/21 21:15 Urine Glucose (UA) 4+ (NEGATIVE) 06/14/21 21:15 Urine Ketones 2+ (NEGATIVE) 06/14/21 21:15 Urine Occult Blood 2+ (NEGATIVE) 06/14/21 21:15 Urine Nitrite Negative (NEGATIVE) 06/14/21 21:15 Urine Bilirubin 1+ (NEGATIVE) 06/14/21 21:15 Urine Urobilinogen 4+ (NORMAL) 06/14/21 21:15 Ur Leukocyte Esterase Negative (NEGATIVE) 06/14/21 21:15 Urine RBC 10-20 /HPF (0-3) A 06/14/21 21:15 Urine WBC 0-2 /HPF (0-5) 06/14/21 21:15 Ur Squamous Epith Cells Rare /HPF (NEGATIVE) 06/14/21 21:15 Urine Bacteria Trace /HPF (NEGATIVE) 06/14/21 21:15 Ur Culture Indicated? No/not indicated 06/14/21 21:15 Acetone, Semi-Quant Negative (NEGATIVE) 06/14/21 11:55 SARS CoV-2 RNA Rapid CINDY Negative (NEGATIVE) 06/14/21 12:52 - Assessment and Plan 1: abdominal wall abscess at colostomy site . s/p drainage. DM . h/o rectal cancer s/p resection .. Pt could be D/C on Augmentin 500 BID. [place] 5 BID PRN . change dressing daily . F/U in 3 days . - Problem Patient Problems: Patient Problems Diabetes mellitus, type 2 (Chronic) E11.9 Hyponatremia (Acute) E87.1 Paroxysmal sinus tachycardia (Acute) I47.1 Abdominal wall abscess (Acute) L02.211 Sepsis (Acute) A41.9
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
[2021-06-18 10:52] VITALS: BP 147/78
== END 2021-06-18 11:15 | disposition home or self-care (01) | DRG 872 ==
LOC: ER 10:31 → MED/SURG 14:11
PROVIDERS: ADMIT Internal Medicine; ATTEND Internal Medicine

== ENCOUNTER 2023-01-05 10:45 | Inpatient (IN) ==
[2023-01-05 10:54] VITALS: BMI 30.8
--- NOTE | 2023-01-05 11:26 | RAD ---
HISTORYTRUCK RUN OVER FOOTSTUDYFOOT, RIGHTCOMPARISONNoneTECHNIQUEThree-view right foot.FINDINGSStatus post amputation of the great toe at the level of the MTP joint. There is a calcification just distal to the great toe metatarsal head that measures 7 mm medial-lateral. No acute fracture, malalignment, or aggressive osseous lesion. Moderate soft tissue swelling over the dorsum of the forefoot.IMPRESSIONAmputated great toe at the level of the MTP joint. No acute fracture or malalignment.Moderate soft tissue swelling over the dorsum of the foot may represent contusion.Electronically signed by: Joaquin Walker (Jan 05, 2023 11:25:43)
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
[2023-01-05] MEDS ORDERED: ZOSYN VIAL 3.375 GRAMS 3.375 G in NS 100 ML IV 100 ML IV ONE (11:56)
[2023-01-05] MEDS ORDERED: ZOSYN VIAL 3.375 GRAMS IV ONE (11:58)
[2023-01-05] MEDS ORDERED: NS 100 ML IV 100 ML ONE ×2 (11:59→15:00)
[2023-01-05 12:27] LABS: BASOPHILS % (AUTO) 0.4 % (0.2-1.0); EOSINOPHILS # (AUTO) 0.1 x10^3/uL (0.0-0.2); EOSINOPHILS % (AUTO) 1.3 % (0.9-2.9); HEMATOCRIT 35.8 % (42.0-54.0); HEMOGLOBIN 12.4 g/dL (13.5-18.0); LYMPHOCYTES # (AUTO) 0.9 X10^3/uL (1.3-2.9); LYMPHOCYTES % (AUTO) 8.6 % (21.0-51.0); MEAN CORPUSCULAR HEMOGLOBIN 27.8 pg (27.0-34.0); MEAN CORPUSCULAR HGB CONC 34.7 g/dL (33.0-35.0); MEAN CORPUSCULAR VOLUME 80.1 fL (80.0-100.0); MEAN PLATELET VOLUME 8.9 fL (7.4-11.0); MONOCYTES # (AUTO) 0.7 x10^3/uL (0.3-0.8); NEUTROPHILS # (AUTO) 8.2 x10^3/uL (2.2-4.8); NEUTROPHILS % (AUTO) 82.7 % (42.0-75.0); PLATELET COUNT 254 X10^3/uL (150.0-450.0); RED BLOOD COUNT 4.46 X10^6/uL (4.7-6.0); RED CELL DISTRIBUTION WIDTH 13.4 % (11.6-16.5)
[2023-01-05] MEDS: NS 1,000 ML IV 1,000 ML ONE ×2 (12:31→12:33)
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
--- NOTE | 2023-01-05 13:05 | EKG ---
Test Reason : pre op Blood Pressure : */* mmHG Vent. Rate : 88 BPM Atrial Rate : 88 BPM P-R Int : 152 ms QRS Dur : 92 ms QT Int : 374 ms P-R-T Axes : 66 42 44 degrees QTc Int : 452 ms Normal sinus rhythm Normal ECG No previous ECGs available Confirmed by Gabe Dutton ([id number]) on 01/06/2023 7:03:58 AM Referred By: Confirmed By: Gabe Dutton
[2023-01-05 13:11] LABS: ALANINE AMINOTRANSFERASE 12 Units/L (12-78); ALBUMIN 2.3 g/dL (3.4-5.0); ALKALINE PHOSPHATASE 85 Units/L (46-116); ASPARTATE AMINO TRANSFERASE 12 Units/L (15-37); BLOOD UREA NITROGEN 9 mg/dL (7-18); CALCIUM 8.3 mg/dL (8.5-10.1); CARBON DIOXIDE 29.8 mmol/L (21-32); CHLORIDE 95 mmol/L (98-107); COR CA(FOR HYPOALB) 9.7 mg/dL (8.5-10.1); COR NA(FOR HYPERGLY) 140 mmol/L (136-145); CREATINE KINASE 120 Units/L (39-308); CREATININE 1.09 mg/dL (0.70-1.30); GLUCOSE 415 mg/dL (65-99); POTASSIUM 3.6 mmol/L (3.5-5.1); SODIUM 132 mmol/L (136-145); eGFR NON BLACK RACES > 60 (>60)
[2023-01-05] MEDS ORDERED: NovoLIN R (or HumuLIN R) ONE (14:05)
[2023-01-05] MEDS: NovoLIN R (or HumuLIN R) SUBCUT PRN ×3 (14:09→20:49)
[2023-01-05] MEDS ORDERED: BETADINE SOLN ONE (14:27)
[2023-01-05] MEDS ORDERED: TOBRAMYCIN SULFATE ONE (14:27)
[2023-01-05] MEDS ORDERED: MARCAINE 0.25% INJ ONE (14:27)
[2023-01-05] MEDS ORDERED: VANCOMYCIN HCL ONE (14:27)
[2023-01-05] MEDS ORDERED: ANCEF VIAL 1 GRAM ONE (15:00)
[2023-01-05] MEDS ORDERED: VERSED ONE (15:21)
[2023-01-05] MEDS ORDERED: DIPRIVAN VIAL 20 ML ONE (15:30)
[2023-01-05] MEDS ORDERED: FENTANYL VIAL INJ 100 mcg ONE (15:30)
[2023-01-05] MEDS ORDERED: HYDROGEN PEROXIDE 3% ONE (15:47)
--- NOTE | 2023-01-05 16:16 | DR.OPNOTE ---
OP NOTE Pre-Op Diagnosis: Gas gangrene, right foot Post-Op Diagnosis: Same as abote Procedure Date Date Of Procedure: 01/05/23 Procedure: Incision and drainage, right foot Open amputation of digits 2-5, right foot Implantation of antibiotic beads, right foot Anesthesia Comment: MAC Findings: Tracking noted along the extensor of the 2nd ray SIgnificant purulent drainage Specimen/Pathology: Digits sent for pathology Wound culture x2 EBL: 100cc Drains/Tubes Comment: None Hardware: Antibiotic cement Cultures: Right foot Complications:: None Needle/Sponge Count:: Counted Disposition/Condition: Pt. tolerated procedure without difficulty. Extubated in the OR and taken to PACU in stable condition.
[2023-01-05] MEDS ORDERED: TYLENOL 325 MG TAB PO PRN (16:32)
[2023-01-05] MEDS ORDERED: PERCOCET TAB 5/325 MG PO PRN (16:32)
[2023-01-05] MEDS ORDERED: ZOFRAN INJ 4 MG VIAL IVP PRN (16:32)
[2023-01-05] MEDS: VANCOMYCIN IV *PREMIX 1 G/200 ML BAG 1 G/200 ML PIGGYBACK IV SCH ×2 (17:32→20:33)
[2023-01-05] MEDS: COLACE CAP 100 MG PO SCH (20:33)
[2023-01-05] MEDS: SNACK - Diabetic Appropriate PO SCH (20:34)
[2023-01-06] MEDS: NovoLIN R (or HumuLIN R) SUBCUT PRN ×4 (05:44→22:36)
[2023-01-06 05:48] LABS: ERYTHROCYTE SEDIMENTATION RATE 70 MM/HOUR (0-15)
[2023-01-06 05:51] LABS: BASOPHILS # (AUTO) 0.1 X10^3/uL (0.0-0.1); BASOPHILS % (AUTO) 1.4 % (0.2-1.0); EOSINOPHILS # (AUTO) 0.2 x10^3/uL (0.0-0.2); EOSINOPHILS % (AUTO) 2.5 % (0.9-2.9); HEMOGLOBIN 11.3 g/dL (13.5-18.0); LYMPHOCYTES # (AUTO) 1.7 X10^3/uL (1.3-2.9); LYMPHOCYTES % (AUTO) 22.3 % (21.0-51.0); MEAN CORPUSCULAR HEMOGLOBIN 28.4 pg (27.0-34.0); MEAN CORPUSCULAR HGB CONC 35.2 g/dL (33.0-35.0); MEAN CORPUSCULAR VOLUME 80.5 fL (80.0-100.0); MEAN PLATELET VOLUME 8.8 fL (7.4-11.0); MONOCYTES # (AUTO) 0.6 x10^3/uL (0.3-0.8); MONOCYTES % (AUTO) 7.4 % (0.0-13.0); NEUTROPHILS # (AUTO) 4.9 x10^3/uL (2.2-4.8); NEUTROPHILS % (AUTO) 66.4 % (42.0-75.0); PLATELET COUNT 270 X10^3/uL (150.0-450.0); RED BLOOD COUNT 3.98 X10^6/uL (4.7-6.0); RED CELL DISTRIBUTION WIDTH 13.3 % (11.6-16.5); WHITE BLOOD COUNT 7.5 X10^3/uL (3.6-10.0)
--- NOTE | 2023-01-06 07:53 | NOTE.SOAP ---
Soap Note Note for Day of Date of Exam: 01/06/23 Subjective Data Subjective Data: Patient seen this am bedside, doing well. No acute symptoms overnight. Denies nausea, vomiting, fever, chills, SOB or calf pain. No pain due to neuropathy. Denies walking on right leg Objective Data Objective Data: Surgical site open draining serosanguinous drainage as expect. Antibiotic beads intact within the surgical site. Erythema is improving from yesterday's encounter. No purulence expressed and no maceration noted to the site. Negative calf pain. Assessment Assessment: S/P Amputation of digits 2-5, Right foot with implantation of antibiotic cement beads (DOS: 01/05/23) Gas Gangrene, Right foot Plan Plan: Patient seen at bedside, discussed plan with him at length. Explained that surgical site will be kept open until infection is gone. During this time, patient is to remain NWB to the RLE and can wear prosthesis on the left. Routine dressing changes with dry sterile supplies will be performed. Continue Vancomycin. Pending cultures and pathology. Pending CTA. Plan to take patient back to the operating room for a delayed primary closure pending on improvements.
[2023-01-06] MEDS: VANCOMYCIN IV *PREMIX 1 G/200 ML BAG 1 G/200 ML PIGGYBACK IV SCH ×2 (08:59→22:00)
[2023-01-06] MEDS: LOVENOX INJ 40 MG SYR SC SCH (08:59)
[2023-01-06 09:51] LABS: ALANINE AMINOTRANSFERASE 11 Units/L (12-78); ALKALINE PHOSPHATASE 72 Units/L (46-116); ASPARTATE AMINO TRANSFERASE 11 Units/L (15-37); BLOOD UREA NITROGEN 12 mg/dL (7-18); CARBON DIOXIDE 28.7 mmol/L (21-32); CHLORIDE 99 mmol/L (98-107); COR CA(FOR HYPOALB) 9.6 mg/dL (8.5-10.1); COR NA(FOR HYPERGLY) 141 mmol/L (136-145); CREATININE 0.92 mg/dL (0.70-1.30); GLUCOSE 264 mg/dL (65-99); POTASSIUM 3.3 mmol/L (3.5-5.1); SODIUM 137 mmol/L (136-145); TOTAL PROTEIN 6.2 g/dL (6.4-8.2); eGFR NON BLACK RACES > 60 (>60)
[2023-01-06] MEDS ORDERED: OMNIPAQUE 350 mg/mL 100 mL BTL 100 ML ONE (11:21)
[2023-01-06] MEDS ORDERED: OMNIPAQUE 350 mg/mL 50 mL BTL 50 ML ONE (11:21)
--- NOTE | 2023-01-06 12:00 | DR.H&P ---
H&P - History & Physical for Day of: H&P Date: 01/05/23 - Chief Complaint Chief Complaint: RIGHT FOOT DISCOLORATION AND SWELLING, CRUSH INJURY - History of Present Illness History of Present Illness: IS A 42 YEAR OLD PATIENT OF OURS. HE HAS A PMH OF DIABETES, WHICH IS DIFFICULT TO CONTROL, PERIPHERAL VASCULAR DISEASE, BOWEL RESECTION DUE TO COLON CANCER, AND THEN REVERSAL OF COLOSTOMY. HE HAS A BELOW THE KNEE AMPUTATION OF THE LEFT LEG DUE TO INFECTION AND CHARCOT IN 2019. HE ALSO HAD AMPUTATION OF THE RIGHT GREAT TOE DUE TO INFECTION. HE PRESENTED TO THE ER ON 01/05 WITH COMPLAINTS OF SWELLING AND DISCOLORATION OF THE RIGHT FOOT. PATIENT REPORTS THAT HIS RIGHT FOOT WAS RAN OVER THE NIGHT BEFORE. HE DENIES FEELING ANY PAIN TO THE FOOT OR TOES DUE TO NEUROPATHY. EXAMINATION REVEALED DRY NECROTIC, GANGRENOUS CHANGES OF THE 3RD DIGIT. THERE WAS A SMALL AMOUNT OF PURULENT DRAINAGE. THERE WAS SWELLING OF THE DIGIT. THERE WAS ALSO SWELLING AND DECREASED RANGE OF MOTION OF THE RIGHT FOOT. PATIENT CLAIMS THAT HE DID NOT NOTI CE ANY DISCOLORATION OF THE TOES PRIOR TO THEM BEING RAN OVER. HE DID ADMIT TO HAVING SOME RIGHT WELLER AND KNEE PAIN EARLIER IN THE WEEK, BUT NO CHANGES OF THE TOES. HE REPORTS THAT HE HAD BEEN TAKING AUGMENTIN 875/125MG BID FOR THE PAST 3- 4 DAYS FOR TREATMENT OF AN ABSCESSED TOOTH. ON ARRIVAL TO THE ER, VITALS WERE 98.2-105-20-99%-137/74. LABS WERE OBTAINED. WBC 10.0, RBC 4.46, HGB 12.4, HCT 35.8, PLT COUNT 254, SODIUM 132, POTASSIUM 3.6, CHLORIDE 95, BUN 9, CREATININE 1.09, GLUCOSE 415, CALCIUM 8.3, AST 12, ALT 12, ALK PHOS 85, CREATINE KINASE 20, TROPONIN 3.2, TOTAL PROTEIN 7.0, ALBUMIN 2.3. BLOOD CULTURES WERE SET UP. A RIGHT FOOT XRAY WAS OBTAINED AND REVEALED: Amputated great toe at the level of the MTP joint. No acute fracture or malalignment. Moderate soft tissue swelling over the dorsum of the foot may represent contusion. AN EKG WAS OBTAINED AND REVEALED: NORMAL SINUS RHYTHM WITH HR 88 BPM. IN THE ER, HE WAS GIVEN A NORMAL SALINE BOLUS X 1 LITERS, ZOSYN 3.375G IV X 1. 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 HE TOOK PATIENT TO THE OR, WHERE HE PERFORMED INCISION AND DRAINAGE OF THE RIGHT FOOT, OPEN AMPUTATION OF THE 2-5 DIGITS ON THE RIGHT FOOT, AND IMPLANTATION OF ANTIBIOTIC BEADS. HE REPORTS THAT THERE WAS SIGNIFICANT PURULENT DRAINAGE AND TRACKING NOTED ALONG THE EXTENSOR OF THE 2ND RAY. DIGITS WERE SENT FOR PATHOLOGY AND WOUND CULUTRES WERE SET UP. HE PLANS TO MONITOR WOUND. PATIENT WILL HAVE TO RETURN TO THE OR FOR CLOSURE SOMETIME NEXT WEEK. HE WAS ADMITTED TO THE HOSPITAL FOR FURTHER EVALUATION AND TREATMENT OF AMPUTATIN OF TOES OF THE RIGHT FOOT, DIABETIC WET GANGRENE OF THE FOOT, PERIPHERAL VASCULAR DISEASE, UNCONTROLLED TYPE II DM . HE WAS STARTED ON VANCOMYCIN 1G IV Q12H, OTBS ACHS, HUMULIN R SLIDING SCALE, LOVENOX 40MG SC DAILY, PERCOCET 5/325MG Q4H PRN, COLACE 200MG HS, TYLENOL 325MG PO Q4H PRN. WE WILL RESUME HIS HOME MEDICATIONS OF TRESIBA AND STEGLATRO. WE WILL OBTAIN BILAERAL LOWER EXTREMITY CTA WITH AND WITHOUT CONTRAST. OTHERWISE, WE WILL FOLLOW UP WITH AM LABS AND WOUND CARE AND CONTINUE TO MONITOR. TIME SPENT ON CLINICAL ASSESSMENT, REVIEWING LABS AND IMAGING, DECISION MAKING, AND DOCUMENTATION GREATER THAN 75 MINUTES. - Past Medical History Past Medical History: Diabetes Additional Medical History: HX COLON CANCER, - Past Surgical History Surgical History: Bowel Resection Additional Surgical History: LEFT BTK AMPUTATION, RIGHT GREAT TOE AMPUTATION, COLOSTOMY REVERSAL - Family History Family Medical History: Diabetes Mellitus - Social History Does patient currently use any type of tobacco product: No Have you used tobacco products in the last 12 months: No Type of Tobacco Use: None Does any household member use tobacco: No Alcohol Use: None Drug Use: None - Review of Systems Constitutional: Weakness Eyes: No Symptoms Reported ENT: No Symptoms Reported Respiratory: No Symptoms Reported Cardiovascular: No Symptoms Reported Gastrointestinal: No Symptoms Reported Genitourinary: No Symptoms Reported Musculoskeletal: Other (RIGHT FOOT SWELLING, DISCOLORATION OF 3RD DIGIT ) Skin: No Symptoms Reported Neurological: No Symptoms Reported - Physical Exam Vital Signs: Vital Signs Temperature 97.5 F Temperature 97.8 F Pulse Rate [Apical] 77 Pulse Rate [Apical] 77 Respiratory Rate 18 Respiratory Rate 20 Blood Pressure [Left Arm] 147/88 Blood Pressure [Left Arm] 135/76 O2 Sat by Pulse Oximetry 100 O2 Sat by Pulse Oximetry 95 Oriented: Normal Eyes: Normal Ear: Normal Nose: Normal Throat: Normal Respiratory: Clear Throughout Cardiovascular: Normal : Normal Auscultation: Bowel Sounds: Normal Palpation: Normal Tenderness: Normal Skin: Red (REDNESS AND SWELLING OF RIGHT FOOT), Hot, Wound (GANGRENOUS CHANGES OF 3RD DIGIT OF RIGHT FOOT) Musculoskeletal: Right, Foot, Swelling Psychiatric: Normal Mood Description: Calm Affect: Normal Speech Pattern: Clear - Assessment/Plan (1) Diabetic wet gangrene of the foot Status: Acute Plan: ADMIT, STATUS POST AMPUTATION OF TOES ON RIGHT FOOT, VANCOMYCIN 1G IV Q12H, OTBS ACHS, HUMULIN R SLIDING SCALE, LOVENOX 40MG SC DAILY, PERCOCET 5/325MG Q4H PRN, COLACE 200MG HS, TYLENOL 325MG PO Q4H PRN. WE WILL RESUME HIS HOME MEDICATIONS OF TRESIBA AND STEGLATRO. OBTAIN BILATERAL LOWER EXTREMITY CTA WITH AND WITHOUT CONTRAST (2) Amputation of one or more toes Qualifiers: Laterality: right Qualified Code(s): S98.131A - Complete traumatic amputation of one right lesser toe, initial encounter Status: Acute (3) Cellulitis of right foot Status: Acute (4) Diabetes mellitus Qualifiers: Diabetes mellitus type: type 2 Diabetes mellitus senior care insulin use: with magnetic resonance technologist use Diabetes mellitus complication status: with skin complications Diabetes mellitus complication detail: with other skin complication Qualified Code(s): E11.628 - Type 2 diabetes mellitus with other skin complications; Z79.4 - field representative/health education (current) use of insulin Status: Chronic (5) Peripheral vascular disease, unspecified Status: Chronic - Allergies Allergies/Adverse Reactions: Allergies Allergy/AdvReac Type Severity Reaction Status Date / Time No Known Drug Allergies Allergy Verified 07/25/17 15:16 - Medications Home Medications: Home Medications Medication Instructions Recorded Confirmed ertugliflozin 15 mg tablet 15 mg PO DAILY 06/08/21 01/05/23 (Steglatro) insulin degludec 100 unit/mL (3 10 unit subcut QAM 06/08/21 01/05/23 mL) subcutaneous pen (Tresiba FlexTouch U-100 insulin) insulin regular human 100 unit/mL See Rx Instructions .Route 12/29/21 07/28/23 injection solution (Humulin R .COMPLEX PRN Regular U-100 Insulin)
[2023-01-06] MEDS: K-DUR TAB 20 MEQ PO SCH ×2 (17:51→20:35)
[2023-01-06] MEDS ORDERED: CONSULT PHARMACY - POTASSIUM & MAGNESIUM XX SCH (18:00)
[2023-01-06] MEDS ORDERED: PHARMACY COMMENT IV NR (20:30)
[2023-01-06] MEDS: COLACE CAP 100 MG PO SCH (20:35)
[2023-01-06] MEDS: SNACK - Diabetic Appropriate PO SCH (20:36)
[2023-01-07] MEDS: NovoLIN R (or HumuLIN R) SUBCUT PRN ×4 (06:08→21:54)
[2023-01-07 06:27] LABS: BASOPHILS % (AUTO) 0.2 % (0.2-1.0); EOSINOPHILS # (AUTO) 0.2 x10^3/uL (0.0-0.2); EOSINOPHILS % (AUTO) 2.5 % (0.9-2.9); HEMATOCRIT 30.2 % (42.0-54.0); HEMOGLOBIN 10.8 g/dL (13.5-18.0); LYMPHOCYTES # (AUTO) 1.9 X10^3/uL (1.3-2.9); LYMPHOCYTES % (AUTO) 27.2 % (21.0-51.0); MEAN CORPUSCULAR HEMOGLOBIN 28.6 pg (27.0-34.0); MEAN CORPUSCULAR HGB CONC 35.6 g/dL (33.0-35.0); MEAN CORPUSCULAR VOLUME 80.3 fL (80.0-100.0); MEAN PLATELET VOLUME 8.3 fL (7.4-11.0); MONOCYTES # (AUTO) 0.5 x10^3/uL (0.3-0.8); MONOCYTES % (AUTO) 7.6 % (0.0-13.0); NEUTROPHILS # (AUTO) 4.3 x10^3/uL (2.2-4.8); NEUTROPHILS % (AUTO) 62.5 % (42.0-75.0); PLATELET COUNT 315 X10^3/uL (150.0-450.0); RED BLOOD COUNT 3.76 X10^6/uL (4.7-6.0); RED CELL DISTRIBUTION WIDTH 13.6 % (11.6-16.5); WHITE BLOOD COUNT 6.9 X10^3/uL (3.6-10.0)
[2023-01-07 06:47] LABS: ALANINE AMINOTRANSFERASE 8 Units/L (12-78); ALBUMIN 1.9 g/dL (3.4-5.0); ALKALINE PHOSPHATASE 72 Units/L (46-116); ASPARTATE AMINO TRANSFERASE 12 Units/L (15-37); BLOOD UREA NITROGEN 7 mg/dL (7-18); CALCIUM 8.1 mg/dL (8.5-10.1); CARBON DIOXIDE 28.3 mmol/L (21-32); CHLORIDE 104 mmol/L (98-107); COR CA(FOR HYPOALB) 9.8 mg/dL (8.5-10.1); COR NA(FOR HYPERGLY) 143 mmol/L (136-145); CREATININE 0.76 mg/dL (0.70-1.30); GLUCOSE 258 mg/dL (65-99); POTASSIUM 3.5 mmol/L (3.5-5.1); SODIUM 139 mmol/L (136-145); TOTAL PROTEIN 6.2 g/dL (6.4-8.2); eGFR NON BLACK RACES > 60 (>60)
[2023-01-07] MEDS: VANCOMYCIN IV *PREMIX 1 G/200 ML BAG 1 G/200 ML PIGGYBACK IV SCH ×3 (08:48→21:34)
[2023-01-07] MEDS: LOVENOX INJ 40 MG SYR SC SCH (08:48)
--- NOTE | 2023-01-07 14:21 | CT ---
HISTORYPOSSIBLE PVDSTUDYLOW EXT CTA W W/O CONCOMPARISONNoneTECHNIQUECT images of the pelvis and lower extremities were obtained before and after IV contrast administration per protocol. MIP images provided. Dose reduction techniques including Automated Exposure Control (AEC) and adjustment of mA and kV were utilized.FINDINGSThe lower portion of the aorta appears normal. The bilateral common, internal, and external iliac arteries are unremarkable.Left lower extremity: The common femoral and deep femoral artery are normal. The proximal superficial femoral artery is patent, although there is severely diminished flow beyond the proximal portion of the vessel, with essentially no flow in the distal half of the vessel or popliteal artery. No collateral vessels are observed.Right lower extremity: The common femoral artery is normal. The deep femoral and superficial femoral arteries are patent without significant stenosis. The popliteal artery is normal. The lower leg arteries are patent with three-vessel runoff to the foot.Previous left BKA and right toe amputations noted. No acute osseous abnormality is identified. There is a small focus of gas within the left lower abdominal subcutaneous tissues, presumably recent injection. Distal large bowel anastomosis is noted. No pelvic free fluid. There are mildly enlarged right inguinal lymph nodes.IMPRESSIONStatus post left BKA. No significant flow within the distal half of the left SFA or left popliteal artery.No significant atherosclerosis or stenosis of the major right lower extremity arteries. There is three-vessel runoff to the right foot.Nonspecific right inguinal adenopathy.Electronically signed by: CORRINE PHILIPPE (Jan 07, 2023 14:20:18)
[2023-01-07] MEDS: SNACK - Diabetic Appropriate PO SCH (21:00)
[2023-01-07] MEDS ORDERED: CONSULT PHARMACY - POTASSIUM & MAGNESIUM XX SCH (21:00)
[2023-01-07] MEDS: COLACE CAP 100 MG PO SCH (21:34)
[2023-01-07] MEDS ORDERED: K-DUR TAB 20 MEQ PO SCH (23:00)
[2023-01-08] MEDS: VANCOMYCIN IV *PREMIX 1 G/200 ML BAG 1 G/200 ML PIGGYBACK IV SCH ×3 (05:22→21:50)
[2023-01-08] MEDS ORDERED: PHARMACY COMMENT IV ONE (05:30)
[2023-01-08] MEDS: NovoLIN R (or HumuLIN R) SUBCUT PRN ×4 (06:00→22:17)
[2023-01-08 06:14] LABS: BASOPHILS # (AUTO) 0.1 X10^3/uL (0.0-0.1); BASOPHILS % (AUTO) 1.3 % (0.2-1.0); EOSINOPHILS # (AUTO) 0.2 x10^3/uL (0.0-0.2); EOSINOPHILS % (AUTO) 2.6 % (0.9-2.9); HEMATOCRIT 30.2 % (42.0-54.0); HEMOGLOBIN 10.6 g/dL (13.5-18.0); LYMPHOCYTES # (AUTO) 1.6 X10^3/uL (1.3-2.9); LYMPHOCYTES % (AUTO) 24.5 % (21.0-51.0); MEAN CORPUSCULAR HEMOGLOBIN 28.2 pg (27.0-34.0); MEAN CORPUSCULAR HGB CONC 35.1 g/dL (33.0-35.0); MEAN CORPUSCULAR VOLUME 80.4 fL (80.0-100.0); MEAN PLATELET VOLUME 7.8 fL (7.4-11.0); MONOCYTES # (AUTO) 0.5 x10^3/uL (0.3-0.8); MONOCYTES % (AUTO) 7.6 % (0.0-13.0); NEUTROPHILS # (AUTO) 4.3 x10^3/uL (2.2-4.8); PLATELET COUNT 296 X10^3/uL (150.0-450.0); RED BLOOD COUNT 3.76 X10^6/uL (4.7-6.0); RED CELL DISTRIBUTION WIDTH 13.3 % (11.6-16.5); WHITE BLOOD COUNT 6.7 X10^3/uL (3.6-10.0)
[2023-01-08 06:21] LABS: ALANINE AMINOTRANSFERASE 6 Units/L (12-78); ALBUMIN 1.9 g/dL (3.4-5.0); ALKALINE PHOSPHATASE 69 Units/L (46-116); ASPARTATE AMINO TRANSFERASE 8 Units/L (15-37); BLOOD UREA NITROGEN 6 mg/dL (7-18); CALCIUM 7.7 mg/dL (8.5-10.1); CARBON DIOXIDE 28.2 mmol/L (21-32); CHLORIDE 104 mmol/L (98-107); COR CA(FOR HYPOALB) 9.4 mg/dL (8.5-10.1); COR NA(FOR HYPERGLY) 143 mmol/L (136-145); CREATININE 0.73 mg/dL (0.70-1.30); GLUCOSE 259 mg/dL (65-99); POTASSIUM 3.5 mmol/L (3.5-5.1); SODIUM 139 mmol/L (136-145); eGFR NON BLACK RACES > 60 (>60)
--- NOTE | 2023-01-08 07:33 | NOTE.SOAP ---
Soap Note Note for Day of Date of Exam: 01/08/23 Subjective Data Subjective Data: Patient doing well, resting comfortably in bed. States he has not been bearing weight on his right foot Objective Data Objective Data: Surgical site open draining serosanguinous drainage as expect. Antibiotic beads intact within the surgical site. Erythema appears to be resolved. No purulence expressed and no maceration noted to the site. Negative calf pain. Assessment Assessment: S/P Amputation of digits 2-5, Right foot with implantation of antibiotic cement beads (DOS: 01/05/23) Gas Gangrene, Right foot Plan Plan: Patient seen at bedside, discussed plan with him at length. During this t halima, patient is to remain NWB to the RLE and can wear prosthesis on the left. Routine dressing changes with dry sterile supplies will be performed. Continue Vancomycin. Cultures and CTA reviewed; 3 vessel run off. Will likely take patient back to the OR on sunday for delayed primary closure
[2023-01-08] MEDS: LOVENOX INJ 40 MG SYR SC SCH (08:38)
--- NOTE | 2023-01-08 12:39 | PCM.PROG ---
Progress Note - Progress Note for Day of Date of Exam: 01/07/23 - Subjective Subjective: IS CURRENTLY INPATIENT STATUS FOR TREATMENT OF DIABETIC WET GANGRENE OF THE FOOT, CELLULITIS OF THE RIGHT FOOT, PERIPHERAL VASCULAR DISEASE, AND UNCONTROLLED DM II. HE IS DAY 2 STATUS POST SURGICAL AMPUTATION OF TOES 2-5 OF THE RIGHT FOOT WITH IMPLANTATION OF ANTIBIOTIC CEMENT BEADS. TODAY, HE IS ALERT AND ORIENTED, LYING IN BED ON MORNING ROUNDS. HE HAS HAD AN UNEVENTFUL NIGHT AND HAS HAD NO NEW SYMPTOMS OR COMPLAINTS. HE DENIES NAUSEA, VOMITING, FEVER, CHILLS, SOB, OR CALF PAIN. HE DENIES PAIN TO THE FOOT DUE TO NEUROPATHY. ON EXAMINATION, HEART IS REGULAR IN RATE AND RHYTHM. BILATERAL LUNGS ARE CLEAR TO AUSCULTATION. ABDOMEN IS ROUND, SOFT, AND NON-TENDER WITH NORMAL PAMELA WEL SOUNDS NOTED IN ALL QUADRANTS. BTK AMPUTATION OF LEFT LEG NOTED. THERE IS A SURGICAL DRESSING NOTED TO THE RIGHT FOOT. AND HIS NEON TUBE PUMPER ARE MONITORING WOUND. GOOD MOVEMENT NOTED TO RIGHT LEG AND BILATERAL UPPER EXTREMITIES. HIS VITALS THIS MORNING ARE: 97.6-74-20-98%-115/63. LABS WERE O BTAINED. WBC 6.9, RBC 3.76, HGB 10.8, HCT 30.2, PLT CONT 315, SODIUM 139, POTASSIUM 3.5, CHLORIDE 104, CARBON DIOXIDE 28.3, BUN 7, CREATININE 0.76, GLUCOSE 258, CALCIUM 8.1, TOTAL BILI 0.20, AST 12, ALT 8, ALK PHOS 72, CRP 82.50, TOTAL PROTEIN 6.2, ALBUMIN 1.9. BLOOD AND WOUND CULTURES ARE PENDING. BILATERAL LOWER EXTREMITY CTA WAS OBTAINED YESTERDAY. IT REVEALED: Status post left BKA. No significant flow within the distal half of the left SFA or left popliteal artery. No significant atherosclerosis or stenosis of the major right lower extremity arteries. There is three-vessel runoff to the right foot. Nonspecific right inguinal adenopathy. PLANS FOR FURTHER TRANSMETATARSAL AMPUTATION AND CLOSURE POSSIBLY ON SUNDAY. HE IS CURRENTLY RECEIVING VANCOMYCIN 1G IV Q12H, OTBS ACHS, HUMULIN R SLIDING SCALE, LOVENOX 40MG SC DAILY, PERCOCET 5/325MG Q4H PRN, COLACE 200MG HS, TYLENOL 325MG PO Q4H PRN. WE WILL RESUME HIS HOME MEDICATIONS OF TRESIBA AND STEGLATRO. OTHERWISE, WE WILL FOLLOW UP WITH AM LABS AND CONTINUE TO MONITOR. TIME SPENT ON CLINICAL ASSESSMENT, REVIEWING LABS AND IMAGING, DECISION MAKING, AND DOCUMENTATION GREATER THAN 45 MINUTES. - Past Medical Family Social History Past Med/Fam/Surg Hx: No changes since H&P Allergies: Allergies No Known Drug Allergies Allergy (Verified 07/25/17 15:16) - Review of Systems ROS: No change since H&P - Vital Signs and I&O's Vital Signs: Vital Signs Temperature 98.0 F Temperature 97.5 F Pulse Rate [Apical] 75 Pulse Rate [Apical] 79 Respiratory Rate 20 Respiratory Rate 20 Blood Pressure [Right Arm] 161/88 Blood Pressure [Right Arm] 138/83 O2 Sat by Pulse Oximetry 100 O2 Sat by Pulse Oximetry 100 Intake and Output: Intake & Output 01/06/23 01/07/23 01/08/23 01/09/23 11:59 11:59 11:59 11:59 Intake Total 2031 / 2031 1670 / 1670 1525 / 1525 Output Total 1450 / 1450 925 / 925 1000 / 1000 Balance 582 / 582 745 / 745 525 / 525 - Physical Exam Oriented: Normal Eyes: Normal Ear: Normal Nose: Normal Throat: Normal Respiratory: Normal Cardiovascular: Normal : Normal Auscultation: Bowel Sounds: Normal Palpation: Normal Tenderness: Normal Skin: Red (REDNESS AND SWELLING OF RIGHT FOOT), Hot, Wound (RECENT AMPUTATION OF 2-5 TOES ON RIGHT FOOT. GREAT TOE WAS AMPUTATED AT AN EARLIER DATE. ) Musculoskeletal: Right, Foot, Swelling Psychiatric: Normal Mood Description: Calm Affect: Normal Speech Pattern: Clear, Appropriate - Laboratory and Diagnostics Result Diagrams: 01/08/23 05:54 01/08/23 05:54 Labs: 01/05/23 15:45 Foot - Right Wound Gram Stain - Final 01/05/23 15:45 Foot - Right Wound Culture - Preliminary Methicillin Resis Staph Aureus 01/05/23 12:15 Blood Blood Culture - Preliminary 01/05/23 12:00 Blood Blood Culture - Preliminary Laboratory WBC 6.7 X10^3/uL (3.6-10.0) 01/08/23 05:54 RBC 3.76 X10^6/uL (4.7-6.0) L 01/08/23 05:54 Hgb 10.6 g/dL (13.5-18.0) L 01/08/23 05:54 Hct 30.2 % (42.0-54.0) L 01/08/23 05:54 MCV 80.4 fL (80.0-100.0) 01/08/23 05:54 MCH 28.2 pg (27.0-34.0) 01/08/23 05:54 MCHC 35.1 g/dL (33.0-35.0) H 01/08/23 05:54 RDW 13.3 % (11.6-16.5) 01/08/23 05:54 Plt Count 296 X10^3/uL (150.0-450.0) 01/08/23 05:54 MPV 7.8 fL (7.4-11.0) 01/08/23 05:54 Neut % (Auto) 64.0 % (42.0-75.0) 01/08/23 05:54 Lymph % (Auto) 24.5 % (21.0-51.0) 01/08/23 05:54 [place] % (Auto) 7.6 % (0.0-13.0) 01/08/23 05:54 Eos % (Auto) 2.6 % (0.9-2.9) 01/08/23 05:54 Baso % (Auto) 1.3 % (0.2-1.0) H 01/08/23 05:54 Neut # (Auto) 4.3 x10^3/uL (2.2-4.8) 01/08/23 05:54 Lymph # (Auto) 1.6 X10^3/uL (1.3-2.9) 01/08/23 05:54 [place] # (Auto) 0.5 x10^3/uL (0.3-0.8) 01/08/23 05:54 Eos # (Auto) 0.2 x10^3/uL (0.0-0.2) 01/08/23 05:54 Baso # (Auto) 0.1 X10^3/uL (0.0-0.1) 01/08/23 05:54 Absolute Nucleated RBC 0.0 /100WBC 01/08/23 05:54 ESR 70 MM/HOUR (0-15) H 01/06/23 05:03 Sodium 139 mmol/L (136-145) 01/08/23 05:54 Corrected Sodium 143 mmol/L (136-145) 01/08/23 05:54 Potassium 3.5 mmol/L (3.5-5.1) 01/08/23 05:54 Chloride 104 mmol/L (98-107) 01/08/23 05:54 Carbon Dioxide 28.2 mmol/L (21-32) 01/08/23 05:54 BUN 6 mg/dL (7-18) L 01/08/23 05:54 Creatinine 0.73 mg/dL (0.70-1.30) 01/08/23 05:54 Est GFR (MDRD) Af Amer > 60 (>60) 01/08/23 05:54 Est GFR (MDRD) Non-Af > 60 (>60) 01/08/23 05:54 Glucose 259 mg/dL (65-99) H 01/08/23 05:54 POC Glucose (mg/dL) 306 mg/dL (65-99) H 01/08/23 11:14 Calcium 7.7 mg/dL (8.5-10.1) L 01/08/23 05:54 Corrected Calcium 9.4 mg/dL (8.5-10.1) 01/08/23 05:54 Magnesium 2.0 mg/dL (2.0-2.9) 01/07/23 06:00 Total Bilirubin 0.20 mg/dL (0.2-1.0) 01/08/23 05:54 AST 8 Units/L (15-37) L 01/08/23 05:54 ALT 6 Units/L (12-78) L 01/08/23 05:54 Alkaline Phosphatase 69 Units/L (46-116) 01/08/23 05:54 Creatine Kinase 120 Units/L (39-308) 01/05/23 12:47 Troponin I High Sens 3.2 ng/L (4.0-60.0) L 01/05/23 12:47 C-Reactive Protein 43.80 mg/L (0-3.0) H 01/08/23 05:54 Total Protein 6.0 g/dL (6.4-8.2) L 01/08/23 05:54 Albumin 1.9 g/dL (3.4-5.0) L 01/08/23 05:54 Globulin 4.1 g/dL (2.5-4.5) 01/08/23 05:54 Albumin/Globulin Ratio 0.5 Ratio (1.1-2.1) L 01/08/23 05:54 Random Vancomycin 5.1 ug/mL 01/06/23 20:36 - Plan (1) Diabetic wet gangrene of the foot Status: Acute Plan: STATUS POST AMPUTATION OF TOES ON RIGHT FOOT, VANCOMYCIN 1G IV Q12H, OTBS ACHS, HUMULIN R SLIDING SCALE, LOVENOX 40MG SC DAILY, PERCOCET 5/325MG Q4H PRN, COLACE 200MG HS, TYLENOL 325MG PO Q4H PRN. WE WILL RESUME HIS HOME MEDICATIONS OF TRESIBA AND STEGLATRO. 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
[2023-01-08] MEDS: ERTUGLIFLOZIN 15 MG PO SCH (13:14)
--- NOTE | 2023-01-08 18:57 | PCM.PROG ---
Progress Note - Progress Note for Day of Date of Exam: 01/08/23 - Subjective Subjective: IS CURRENTLY INPATIENT STATUS FOR TREATMENT OF DIABETIC WET GANGRENE OF THE FOOT, CELLULITIS OF THE RIGHT FOOT, PERIPHERAL VASCULAR DISEASE, AND UNCONTROLLED DM II. HE IS DAY 3 STATUS POST SURGICAL AMPUTATION OF TOES 2-5 OF THE RIGHT FOOT WITH IMPLANTATION OF ANTIBIOTIC CEMENT BEADS. TODAY, HE IS ALERT AND ORIENTED, LYING IN BED ON MORNING ROUNDS. HE HAS HAD AN UNEVENTFUL NIGHT AND HAS HAD NO NEW SYMPTOMS OR COMPLAINTS. HE DENIES NAUSEA, VOMITING, FEVER, CHILLS, SOB, OR CALF PAIN. HE DENIES PAIN TO THE FOOT DUE TO NEUROPATHY. ON EXAMINATION, HEART IS REGULAR IN RATE AND RHYTHM. BILATERAL LUNGS ARE CLEAR TO AUSCULTATION. ABDOMEN IS ROUND, SOFT, AND NON-TENDER WITH NORMAL PAMELA WEL SOUNDS NOTED IN ALL QUADRANTS. BTK AMPUTATION OF LEFT LEG NOTED. THERE IS A SURGICAL DRESSING NOTED TO THE RIGHT FOOT. AND HIS [employer] SURFACE FIRE SUPPORT PLANNER ARE MONITORING WOUND. GOOD MOVEMENT NOTED TO RIGHT LEG AND BILATERAL UPPER EXTREMITIES. HIS VITALS THIS MORNING ARE: 97.5-79-20-100%-138/83. LABS WERE OBTAINED. WBC 6.7, RBC 3.76, HGB 10.6, HCT 30.2, PLT COUNT 296, SODIUM 139, POTASSIUM 3.5, CHLORIDE 104, CARBON DIOXIDE 28.2, BUN 6, CREATININE 0.73, GLUCOSE 259, CALCIUM 7.7, TOTAL BILI 0.20, AST 8, ALT 6, ALK PHOS 69, CRP 43.80, TOTAL PROTEIN 6.0, ALBUMIN 1.9. BLOOD CULTURES ARE PENDING. RIGHT FOOT CULTURE IS POSITIVE FOR GROWTH OF MRSA. BILATERAL LOWER EXTREMITY CTA WAS OBTAINED YESTERDAY. IT REVEALED: Status post left BKA. No significant flow within the distal half of the left SFA or left popliteal artery. No significant atherosclerosis or stenosis of the major right lower extremity arteries. There is three-vessel runoff to the right foot. Nonspecific right inguinal adenopathy. PLANS FOR FURTHER TRANSMETATARSAL AMPUTATION AND CLOSURE POSSIBLY ON SUNDAY. HE IS CURRENTLY RECEIVING VANCOMYCIN 1G IV Q12H, OTBS ACHS, HUMULIN R SLIDING SCALE, LOVENOX 40MG SC DAILY, PERCOCET 5/325MG Q4H PRN, COLACE 200MG HS, TYLENOL 325MG PO Q4H PRN. WE WILL RESUME HIS HOME MEDICATIONS OF TRESIBA AND STEGLATRO. OTHERWISE, WE WILL FOLLOW UP WITH AM LABS AND CONTINUE TO MONITOR. TIME SPENT ON CLINICAL ASSESSMENT, REVIEWING LABS AND IMAGING, DECISION MAKING, AND DOCUMENTATION GREATER THAN 45 MINUTES. - Past Medical Family Social History Past Med/Fam/Surg Hx: No changes since H&P Allergies: Allergies No Known Drug Allergies Allergy (Verified 07/25/17 15:16) - Review of Systems ROS: No change since H&P - Vital Signs and I&O's Vital Signs: Vital Signs Temperature 98.1 F Temperature 98.0 F Pulse Rate [Apical] 66 Pulse Rate [Apical] 75 Respiratory Rate 20 Respiratory Rate 20 Blood Pressure [Right Arm] 141/86 Blood Pressure [Right Arm] 161/88 O2 Sat by Pulse Oximetry 99 O2 Sat by Pulse Oximetry 100 Intake and Output: Intake & Output 01/06/23 01/07/23 01/08/23 01/09/23 11:59 11:59 11:59 11:59 Intake Total 2031 / 2031 1670 / 1670 1525 / 1525 1060 / 1060 Output Total 1450 / 1450 925 / 925 1000 / 1000 1999 / 1999 Balance 582 / 582 745 / 745 525 / 525 -940 / -940 - Physical Exam Oriented: Normal Eyes: Normal Ear: Normal Nose: Normal Throat: Normal Respiratory: Normal Cardiovascular: Normal : Normal Auscultation: Bowel Sounds: Normal Palpation: Normal Tenderness: Normal Skin: Red (REDNESS AND SWELLING OF RIGHT FOOT), Hot, Wound (RECENT AMPUTATION OF 2-5 TOES ON RIGHT FOOT. GREAT TOE WAS AMPUTATED AT AN EARLIER DATE. ) Musculoskeletal: Right, Foot, Swelling Psychiatric: Normal Mood Description: Calm Affect: Normal Speech Pattern: Clear, Appropriate - Laboratory and Diagnostics Result Diagrams: 01/08/23 05:54 01/08/23 05:54 Labs: 01/05/23 15:45 Foot - Right Wound Gram Stain - Final 01/05/23 15:45 Foot - Right Wound Culture - Preliminary Methicillin Resis Staph Aureus 01/05/23 12:15 Blood Blood Culture - Preliminary 01/05/23 12:00 Blood Blood Culture - Preliminary Laboratory WBC 6.7 X10^3/uL (3.6-10.0) 01/08/23 05:54 RBC 3.76 X10^6/uL (4.7-6.0) L 01/08/23 05:54 Hgb 10.6 g/dL (13.5-18.0) L 01/08/23 05:54 Hct 30.2 % (42.0-54.0) L 01/08/23 05:54 MCV 80.4 fL (80.0-100.0) 01/08/23 05:54 MCH 28.2 pg (27.0-34.0) 01/08/23 05:54 MCHC 35.1 g/dL (33.0-35.0) H 01/08/23 05:54 RDW 13.3 % (11.6-16.5) 01/08/23 05:54 Plt Count 296 X10^3/uL (150.0-450.0) 01/08/23 05:54 MPV 7.8 fL (7.4-11.0) 01/08/23 05:54 Neut % (Auto) 64.0 % (42.0-75.0) 01/08/23 05:54 Lymph % (Auto) 24.5 % (21.0-51.0) 01/08/23 05:54 [place] % (Auto) 7.6 % (0.0-13.0) 01/08/23 05:54 Eos % (Auto) 2.6 % (0.9-2.9) 01/08/23 05:54 Baso % (Auto) 1.3 % (0.2-1.0) H 01/08/23 05:54 Neut # (Auto) 4.3 x10^3/uL (2.2-4.8) 01/08/23 05:54 Lymph # (Auto) 1.6 X10^3/uL (1.3-2.9) 01/08/23 05:54 [place] # (Auto) 0.5 x10^3/uL (0.3-0.8) 01/08/23 05:54 Eos # (Auto) 0.2 x10^3/uL (0.0-0.2) 01/08/23 05:54 Baso # (Auto) 0.1 X10^3/uL (0.0-0.1) 01/08/23 05:54 Absolute Nucleated RBC 0.0 /100WBC 01/08/23 05:54 ESR 70 MM/HOUR (0-15) H 01/06/23 05:03 Sodium 139 mmol/L (136-145) 01/08/23 05:54 Corrected Sodium 143 mmol/L (136-145) 01/08/23 05:54 Potassium 3.5 mmol/L (3.5-5.1) 01/08/23 05:54 Chloride 104 mmol/L (98-107) 01/08/23 05:54 Carbon Dioxide 28.2 mmol/L (21-32) 01/08/23 05:54 BUN 6 mg/dL (7-18) L 01/08/23 05:54 Creatinine 0.73 mg/dL (0.70-1.30) 01/08/23 05:54 Est GFR (MDRD) Af Amer > 60 (>60) 01/08/23 05:54 Est GFR (MDRD) Non-Af > 60 (>60) 01/08/23 05:54 Glucose 259 mg/dL (65-99) H 01/08/23 05:54 POC Glucose (mg/dL) 280 mg/dL (65-99) H 01/08/23 16:11 Calcium 7.7 mg/dL (8.5-10.1) L 01/08/23 05:54 Corrected Calcium 9.4 mg/dL (8.5-10.1) 01/08/23 05:54 Magnesium 2.0 mg/dL (2.0-2.9) 01/07/23 06:00 Total Bilirubin 0.20 mg/dL (0.2-1.0) 01/08/23 05:54 AST 8 Units/L (15-37) L 01/08/23 05:54 ALT 6 Units/L (12-78) L 01/08/23 05:54 Alkaline Phosphatase 69 Units/L (46-116) 01/08/23 05:54 Creatine Kinase 120 Units/L (39-308) 01/05/23 12:47 Troponin I High Sens 3.2 ng/L (4.0-60.0) L 01/05/23 12:47 C-Reactive Protein 43.80 mg/L (0-3.0) H 01/08/23 05:54 Total Protein 6.0 g/dL (6.4-8.2) L 01/08/23 05:54 Albumin 1.9 g/dL (3.4-5.0) L 01/08/23 05:54 Globulin 4.1 g/dL (2.5-4.5) 01/08/23 05:54 Albumin/Globulin Ratio 0.5 Ratio (1.1-2.1) L 01/08/23 05:54 Random Vancomycin 5.1 ug/mL 01/06/23 20:36 - Plan (1) Diabetic wet gangrene of the foot Status: Acute Plan: STATUS POST AMPUTATION OF TOES ON RIGHT FOOT, VANCOMYCIN 1G IV Q12H, OTBS ACHS, HUMULIN R SLIDING SCALE, LOVENOX 40MG SC DAILY, PERCOCET 5/325MG Q4H PRN, COLACE 200MG HS, TYLENOL 325MG PO Q4H PRN. WE WILL RESUME HIS HOME MEDICATIONS OF TRESIBA AND STEGLATRO. OBTAIN BILATERAL LOWER EXTREMITY CTA WITH AND WITHOUT CONTRAST (2) MRSA (methicillin resistant Staphylococcus aureus) infection Status: Acute (3) Amputation of one or more toes Status: Acute Qualifiers: Laterality: right Qualified Code(s): S98.131A - Complete traumatic amputation of one right lesser toe, initial encounter (4) Cellulitis of right foot Status: Acute (5) Diabetes mellitus Status: Chronic Qualifiers: Diabetes mellitus type: type 2 Diabetes mellitus intermediate insulin use: with intermediate use Diabetes mellitus complication status: with skin complications Diabetes mellitus complication detail: with other skin complication Qualified Code(s): E11.628 - Type 2 diabetes mellitus with other skin complications; 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
[2023-01-08] MEDS: SNACK - Diabetic Appropriate PO SCH (20:08)
[2023-01-08 21:38] LABS: CREATININE 0.92 mg/dL (0.70-1.30); VANCOMYCIN,TROUGH 10.4 ug/mL (15-20)
[2023-01-08] MEDS: COLACE CAP 100 MG PO SCH (21:51)
--- NOTE | 2023-01-09 00:08 | DR.CONSULT ---
CONSULT Consultation for Day of: Date: 01/08/23 Chief Complaint Chief Complaint: Gangrenous changes of toes the right foot with gas in these tissues . Allergies Allergies Allergy/AdvReac Type Severity Reaction Status Date / Time No Known Drug Allergies Allergy Verified 07/25/17 15:16 History of Present Illness History of Present Illness: I was asked to consult on this patient for possible peripheral vascular disease. He is a 42 year old male with significant diabetes who has had infections of the left leg ultimately resulting in left leg below knee amputation. He presents now with swelling and discoloration of toes or the right foot after trauma to this area. He already has had amputation of th right great toe. He was started on IV antibiotics and taken to the operating Suite by for disarticulation of toes 2 through 5 .The wound was left open, then packed antibiotic beads. I was consulted to assess his vascular supply. Dr. Fabian noted there was good leading at the time of the operation. Past Medical History Past Medical History: Diabetes Additional Medical History: HX COLON CANCER, Past Surgical History Surgical History: Bowel Resection (History of presumed left colon cancer with resection and colostomy and subsequent colostomy take down. He received no adjuvant therapy. ) Additional Surgical History: LEFT BTK AMPUTATION, RIGHT GREAT TOE AMPUTATION, COLOSTOMY REVERSAL Family History Family Medical History: Diabetes Mellitus Social History Does patient currently use any type of tobacco product: No Have you used tobacco products in the last 12 months: No Type of Tobacco Use: None Does any household member use tobacco: No Alcohol Use: None Drug Use: None Medications Home Medications: No Known Drug Allergies Allergy (Verified 07/25/17 15:16) Humulin R Insulin Tresiba Narayanglatro Review of Systems Constitutional: See HPI Eyes: No Symptoms Reported ENT: No Symptoms Reported Respiratory: No Symptoms Reported Cardiovascular: No Symptoms Reported Gastrointestinal: No Symptoms Reported Genitourinary: No Symptoms Reported Musculoskeletal: No Symptoms Reported Skin: See HPI Neurological: No Symptoms Reported Physical Exam Vital Signs: Vital Signs Temperature 98.4 F Pulse Rate [Apical] 70 Respiratory Rate 20 Blood Pressure [Right Arm] 179/87 O2 Sat by Pulse Oximetry 99 CT angiogram of the right leg shows no significant or specific blockage to arterial flow of the right leg Oriented: Normal, Time, Person and Place Eyes: Normal Ear: Normal Nose: Normal Throat: Normal Respiratory: Clear Throughout Cardiovascular: Normal and Other (Pulse is intact right leg ) : Normal Auscultation: Bowel Sounds: Normal Palpation: Normal Tenderness: Normal Skin: Other (reported open wound of the right foot after disarticulation of toes 2 through 5 and placement of antibiotic beads ) Musculoskeletal: Leg (left below knee amputation, well-healed ) Psychiatric: Normal Mood Description: Anxious Affect: Normal Speech Pattern: Clear Plan (1) Diabetic wet gangrene of the foot: Status: Acute Narrative Support Text: no obvious evidence of significant vascular disease is right leg Plan: as per Dr. Fabian (2) MRSA (methicillin resistant Staphylococcus aureus) infection: Status: Acute Plan: wound culture, blood cultures, IV Vancomycin (3) Amputation of one or more toes: Status: Acute Qualifiers: Laterality: right Qualified Code(s): S98.131A - Complete traumatic amputation of one right lesser toe, initial encounter (4) Cellulitis of right foot: Status: Acute (5) Diabetes mellitus: Status: Chronic Qualifiers: Diabetes mellitus complication detail: with other skin complication Diabetes mellitus complication status: with skin complications Diabetes mellitus fdc insulin use: with fdc use Diabetes mellitus type: type 2 Qualified Code(s): E11.628 - Type 2 diabetes mellitus with other skin complications; Z79.4 - FDC (current) use of insulin (6) Peripheral vascular disease, unspecified: Status: Chronic Plan: no significant peripheral vascular disease of the right leg
[2023-01-09] MEDS: VANCOMYCIN IV *PREMIX 1 G/200 ML BAG 1 G/200 ML PIGGYBACK IV SCH ×3 (05:25→21:27)
[2023-01-09 06:14] LABS: BASOPHILS % (AUTO) 0.6 % (0.2-1.0); EOSINOPHILS # (AUTO) 0.2 x10^3/uL (0.0-0.2); EOSINOPHILS % (AUTO) 2.1 % (0.9-2.9); HEMATOCRIT 32.9 % (42.0-54.0); HEMOGLOBIN 11.4 g/dL (13.5-18.0); LYMPHOCYTES # (AUTO) 1.8 X10^3/uL (1.3-2.9); LYMPHOCYTES % (AUTO) 23.6 % (21.0-51.0); MEAN CORPUSCULAR HGB CONC 34.8 g/dL (33.0-35.0); MEAN CORPUSCULAR VOLUME 80.6 fL (80.0-100.0); MEAN PLATELET VOLUME 7.9 fL (7.4-11.0); MONOCYTES # (AUTO) 0.5 x10^3/uL (0.3-0.8); MONOCYTES % (AUTO) 7.2 % (0.0-13.0); NEUTROPHILS # (AUTO) 4.9 x10^3/uL (2.2-4.8); NEUTROPHILS % (AUTO) 66.5 % (42.0-75.0); PLATELET COUNT 339 X10^3/uL (150.0-450.0); RED BLOOD COUNT 4.08 X10^6/uL (4.7-6.0); RED CELL DISTRIBUTION WIDTH 13.4 % (11.6-16.5); WHITE BLOOD COUNT 7.4 X10^3/uL (3.6-10.0)
[2023-01-09 06:17] LABS: BLOOD UREA NITROGEN 4 mg/dL (7-18); CALCIUM 8.5 mg/dL (8.5-10.1); CARBON DIOXIDE 29.2 mmol/L (21-32); CHLORIDE 101 mmol/L (98-107); COR NA(FOR HYPERGLY) 141 mmol/L (136-145); GLUCOSE 253 mg/dL (65-99); POTASSIUM 3.8 mmol/L (3.5-5.1); SODIUM 137 mmol/L (136-145); eGFR NON BLACK RACES > 60 (>60)
[2023-01-09] MEDS: NovoLIN R (or HumuLIN R) SUBCUT PRN ×4 (06:24→22:23)
[2023-01-09 06:45] LABS: ALANINE AMINOTRANSFERASE 12 Units/L (12-78); ALBUMIN 2.1 g/dL (3.4-5.0); ALKALINE PHOSPHATASE 80 Units/L (46-116); ASPARTATE AMINO TRANSFERASE 12 Units/L (15-37); TOTAL PROTEIN 6.6 g/dL (6.4-8.2)
--- NOTE | 2023-01-09 07:27 | NOTE.SOAP ---
Soap Note Note for Day of Date of Exam: 01/08/23 Subjective Data Subjective Data: Patient doing well, resting comfortably in bed. States he has not been bearing weight on his right foot, denies any pain Objective Data Objective Data: Surgical site open draining serosanguinous drainage as expect, less than the day before. Antibiotic beads intact within the surgical site. Erythema appears to be resolved. No purulence expressed and no maceration noted to the site. Negative calf pain. Assessment Assessment: S/P Amputation of digits 2-5, Right foot with implantation of antibiotic cement beads (DOS: 01/05/23) Gas Gangrene, Right foot Plan Plan: Patient seen at bedside, discussed plan with him at length. During this time, patient is to remain NWB to the RLE and can wear prosthesis on the left. Routine dressing changes with dry sterile supplies will be performed. Continue Vancomycin. Cultures and CTA reviewed; 3 vessel run off. Will be taking patient to OR tomorrow for washout, explantation of antibiotic cement and delayed primary closure, pending a time. NPO after midnight tonight
[2023-01-09] MEDS: LOVENOX INJ 40 MG SYR SC SCH (10:06)
[2023-01-09] MEDS: ERTUGLIFLOZIN 15 MG PO SCH (10:15)
[2023-01-09] MEDS: FARXIGA PO SCH (10:26)
[2023-01-09] MEDS: LEVEMIR SC SCH (10:26)
[2023-01-09] MEDS: SNACK - Diabetic Appropriate PO SCH (20:00)
[2023-01-09] MEDS ORDERED: CRESTOR TAB 10 MG PO SCH (21:00)
[2023-01-09] MEDS: COLACE CAP 100 MG PO SCH (21:26)
[2023-01-10] MEDS: VANCOMYCIN IV *PREMIX 1 G/200 ML BAG 1 G/200 ML PIGGYBACK IV SCH ×2 (05:50→14:44)
[2023-01-10 06:35] LABS: BASOPHILS # (AUTO) 0.1 X10^3/uL (0.0-0.1); BASOPHILS % (AUTO) 0.9 % (0.2-1.0); EOSINOPHILS # (AUTO) 0.2 x10^3/uL (0.0-0.2); EOSINOPHILS % (AUTO) 1.9 % (0.9-2.9); HEMOGLOBIN 11.9 g/dL (13.5-18.0); LYMPHOCYTES # (AUTO) 1.9 X10^3/uL (1.3-2.9); LYMPHOCYTES % (AUTO) 22.3 % (21.0-51.0); MEAN CORPUSCULAR HEMOGLOBIN 28.1 pg (27.0-34.0); MEAN CORPUSCULAR VOLUME 80.2 fL (80.0-100.0); MEAN PLATELET VOLUME 7.8 fL (7.4-11.0); MONOCYTES # (AUTO) 0.6 x10^3/uL (0.3-0.8); MONOCYTES % (AUTO) 6.7 % (0.0-13.0); NEUTROPHILS % (AUTO) 68.2 % (42.0-75.0); PLATELET COUNT 362 X10^3/uL (150.0-450.0); RED BLOOD COUNT 4.24 X10^6/uL (4.7-6.0); RED CELL DISTRIBUTION WIDTH 13.5 % (11.6-16.5); WHITE BLOOD COUNT 8.7 X10^3/uL (3.6-10.0)
[2023-01-10 06:39] LABS: HEMOGLOBIN A1C 13.1 %
[2023-01-10 06:40] LABS: VANCOMYCIN,TROUGH 18.9 ug/mL (15-20)
[2023-01-10 06:59] LABS: BLOOD UREA NITROGEN 9 mg/dL (7-18); CALCIUM 8.8 mg/dL (8.5-10.1); CARBON DIOXIDE 28.9 mmol/L (21-32); CHLORIDE 101 mmol/L (98-107); COR NA(FOR HYPERGLY) 140 mmol/L (136-145); CREATININE 0.87 mg/dL (0.70-1.30); GLUCOSE 223 mg/dL (65-99); SODIUM 137 mmol/L (136-145); eGFR NON BLACK RACES > 60 (>60)
[2023-01-10 07:35] LABS: ALANINE AMINOTRANSFERASE 16 Units/L (12-78); ALBUMIN 2.4 g/dL (3.4-5.0); ALKALINE PHOSPHATASE 89 Units/L (46-116); ASPARTATE AMINO TRANSFERASE 15 Units/L (15-37); CHOL/HDL RATIO 4.9 (0.0-5.0); CHOLESTEROL 137 mg/dL (0-200); COR CA(FOR HYPOALB) 10.1 mg/dL (8.5-10.1); HDL CHOLESTEROL 28 mg/dL (40-60); MAGNESIUM 2.1 mg/dL (2.0-2.9); TOTAL PROTEIN 6.9 g/dL (6.4-8.2); TRIGLYCERIDES 119 mg/dL (0-150)
[2023-01-10] MEDS ORDERED: ANCEF VIAL 1 GRAM ONE (09:59)
[2023-01-10] MEDS ORDERED: NS 1,000 ML IV 1,000 ML ONE (09:59)
[2023-01-10] MEDS ORDERED: NS 100 ML IV 100 ML ONE (10:00)
[2023-01-10] MEDS ORDERED: VERSED ONE (10:16)
[2023-01-10] MEDS ORDERED: FENTANYL VIAL INJ 100 mcg ONE (10:17)
[2023-01-10] MEDS ORDERED: DIPRIVAN VIAL 20 ML ONE (10:17)
[2023-01-10] MEDS ORDERED: ZOFRAN INJ 4 MG VIAL ONE (10:17)
[2023-01-10] MEDS ORDERED: MARCAINE 0.25% INJ ONE (10:19)
[2023-01-10] MEDS: LOVENOX INJ 40 MG SYR SC SCH (11:41)
--- NOTE | 2023-01-10 11:47 | PCM.PROG ---
Progress Note - Progress Note for Day of Date of Exam: 01/09/23 - Subjective Subjective: IS CURRENTLY INPATIENT STATUS FOR TREATMENT OF DIABETIC WET GANGRENE OF THE FOOT, CELLULITIS OF THE RIGHT FOOT, PERIPHERAL VASCULAR DISEASE, AND UNCONTROLLED DM II. HE IS DAY 4 STATUS POST SURGICAL AMPUTATION OF TOES 2-5 OF THE RIGHT FOOT WITH IMPLANTATION OF ANTIBIOTIC CEMENT BEADS. PHYSICAL THERAPY WAS ABLE TO ASSIST HIM IN WALKING DOWN THE HALLWAY YESTERDAY. HE WAS ABLE TO TOLERATED WALKING WITH NWB TO THE RIGHT FOOT. TODAY, HE IS ALERT AND ORIENTED, LYING IN BED ON MORNING ROUNDS. HE HAS HAD AN UNEVENTFUL NIGHT AND HAS HAD NO NEW SYMPTOMS OR COMPLAINTS. HE DENIES NAUSEA, VOMITING, FEVER, CHILLS, SOB, OR CALF PAIN. HE DENIES PAIN TO THE FOOT DUE TO NEUROPATHY. ON EXAMINATION, HEART IS REGULAR IN RATE AND RHYTHM. BILATERAL LUNGS ARE CLEAR TO AUSCULTATION. ABDOMEN IS ROUND, SOFT, AND NON-TENDER WITH NORMAL BOWEL SOUNDS NOTED IN ALL QUADRANTS. BTK AMPUTATION OF LEFT LEG NOTED. THERE IS A SURGICAL DRESSING NOTED TO THE RIGHT FOOT. AND HIS ACCOUNT MANAGER ARE MONITORING WOUND. GOOD MOVEMENT NOTED TO RIGHT LEG AND BILATERAL UPPER EXTREMITIES. HIS VITALS THIS MORNING ARE: 97.6-72-18-100%-165/86. LABS WERE OBTAINED. WBC 7.4, RBC 4.08, HGB 11.4, HCT 32.9, PLT 339, SODIUM 137, POTASSIUM 3.8, CHLORIDE 101, CARBON DIOXIDE 29.2, BUN 4, CREATININE 0.80, GLUCOSE 253, CALCIUM 8.5, AST 12, ALT 12, ALK PHOS 80, CRP 33.50, TOTAL PROTEIN 6.6, ALBUMIN 2.1. BLOOD CULTURES ARE PENDING. RIGHT FOOT CULTURE IS POSITIVE FOR GROWTH OF MRSA. PLANS FOR WASHOUT, FURTHER TRANSMETATARSAL AMPUTATION, AND CLOSURE POSSIBLY TOMORROW. WE ARE IN AGREEMENT WITH PLANS AND WILL KEEP HIM NPO AFTER MIDNIGHT. HE IS CURRENTLY RECEIVING VANCOMYCIN 1G IV Q8H, OTBS ACHS, HUMULIN R SLIDING SCALE, LOVENOX 40MG SC DAILY, PERCOCET 5/325MG Q4H PRN, COLACE 200MG HS, TYLENOL 325MG PO Q4H PRN. WE WILL RESUME HIS HOME MEDICATIONS OF TRESIBA AND STEGLATRO. WE WILL ADD ROSUVASTATIN 20MG HS TODAY AND THEN ECOTRIN 81MG DAILY AFTER HIS PROCEDURE. OTHERWISE, WE WILL FOLLOW UP WITH AM LABS AND CONTINUE TO MONITOR. TIME SPENT ON CLINICAL ASSESSMENT, REVIEWING LABS AND IMAGING, DECISION MAKING, AND DOCUMENTATION GREATER THAN 45 MINUTES. - Past Medical Family Social History Past Med/Fam/Surg Hx: No changes since H&P Allergies: Allergies No Known Drug Allergies Allergy (Verified 07/25/17 15:16) - Review of Systems ROS: No change since H&P - Vital Signs and I&O's Vital Signs: Vital Signs Temperature 97.9 F Temperature 98.6 F Pulse Rate [Apical] 66 Pulse Rate [Apical] 73 Pulse Rate 74 Respiratory Rate 17 Respiratory Rate 18 Respiratory Rate 20 Blood Pressure [Right Arm] 134/75 Blood Pressure [Right Arm] 151/75 Blood Pressure 131/85 O2 Sat by Pulse Oximetry 96 O2 Sat by Pulse Oximetry 98 O2 Sat by Pulse Oximetry 99 Intake and Output: Intake & Output 01/07/23 01/08/23 01/09/23 01/10/23 11:59 11:59 11:59 11:59 Intake Total 1670 / 1670 1525 / 1525 2018 2686 / 2686 Output Total 925 / 925 1000 / 1000 3000 / 3000 3540 / 3540 Balance 745 / 745 525 / 525 -981 / -981 -854 / -854 - Physical Exam Oriented: Normal, Time, Person, Place Eyes: Normal Ear: Normal Nose: Normal Throat: Normal Respiratory: Normal Cardiovascular: Normal, Other (Pulse is intact right leg) : Normal Auscultation: Bowel Sounds: Normal Palpation: Normal Tenderness: Normal Skin: Other (reported open wound of the right foot after disarticulation of toes 2 through 5 and placement of antibiotic beads) Musculoskeletal: Leg (left below knee amputation, well-healed) Psychiatric: Normal Mood Description: Anxious Affect: Normal Speech Pattern: Clear, Appropriate - Laboratory and Diagnostics Result Diagrams: 01/10/23 05:58 01/10/23 05:58 Labs: 01/05/23 15:45 Foot - Right Wound Gram Stain - Final 01/05/23 15:45 Foot - Right Wound Culture - Final Methicillin Resis Staph Aureus 01/05/23 12:15 Blood Blood Culture - Preliminary 01/05/23 12:00 Blood Blood Culture - Preliminary Laboratory WBC 8.7 X10^3/uL (3.6-10.0) 01/10/23 05:58 RBC 4.24 X10^6/uL (4.7-6.0) L 01/10/23 05:58 Hgb 11.9 g/dL (13.5-18.0) L 01/10/23 05:58 Hct 34.0 % (42.0-54.0) L 01/10/23 05:58 MCV 80.2 fL (80.0-100.0) 01/10/23 05:58 MCH 28.1 pg (27.0-34.0) 01/10/23 05:58 MCHC 35.0 g/dL (33.0-35.0) 01/10/23 05:58 RDW 13.5 % (11.6-16.5) 01/10/23 05:58 Plt Count 362 X10^3/uL (150.0-450.0) 01/10/23 05:58 MPV 7.8 fL (7.4-11.0) 01/10/23 05:58 Neut % (Auto) 68.2 % (42.0-75.0) 01/10/23 05:58 Lymph % (Auto) 22.3 % (21.0-51.0) 01/10/23 05:58 [place] % (Auto) 6.7 % (0.0-13.0) 01/10/23 05:58 Eos % (Auto) 1.9 % (0.9-2.9) 01/10/23 05:58 Baso % (Auto) 0.9 % (0.2-1.0) 01/10/23 05:58 Neut # (Auto) 6.0 x10^3/uL (2.2-4.8) H 01/10/23 05:58 Lymph # (Auto) 1.9 X10^3/uL (1.3-2.9) 01/10/23 05:58 [place] # (Auto) 0.6 x10^3/uL (0.3-0.8) 01/10/23 05:58 Eos # (Auto) 0.2 x10^3/uL (0.0-0.2) 01/10/23 05:58 Baso # (Auto) 0.1 X10^3/uL (0.0-0.1) 01/10/23 05:58 Absolute Nucleated RBC 0.0 /100WBC 01/10/23 05:58 ESR 70 MM/HOUR (0-15) H 01/06/23 05:03 Sodium 137 mmol/L (136-145) 01/10/23 05:58 Corrected Sodium 140 mmol/L (136-145) 01/10/23 05:58 Potassium 4.0 mmol/L (3.5-5.1) 01/10/23 05:58 Chloride 101 mmol/L (98-107) 01/10/23 05:58 Carbon Dioxide 28.9 mmol/L (21-32) 01/10/23 05:58 BUN 9 mg/dL (7-18) 01/10/23 05:58 Creatinine 0.87 mg/dL (0.70-1.30) 01/10/23 05:58 Est GFR (MDRD) Af Amer > 60 (>60) 01/10/23 05:58 Est GFR (MDRD) Non-Af > 60 (>60) 01/10/23 05:58 Glucose 223 mg/dL (65-99) H 01/10/23 05:58 POC Glucose (mg/dL) 197 mg/dL (65-99) H 01/10/23 05:54 Hemoglobin A1c 13.1 % 01/10/23 05:58 Calcium 8.8 mg/dL (8.5-10.1) 01/10/23 05:58 Corrected Calcium 10.1 mg/dL (8.5-10.1) 01/10/23 05:58 Magnesium 2.1 mg/dL (2.0-2.9) 01/10/23 05:58 Total Bilirubin 0.20 mg/dL (0.2-1.0) 01/10/23 05:58 AST 15 Units/L (15-37) 01/10/23 05:58 ALT 16 Units/L (12-78) 01/10/23 05:58 Alkaline Phosphatase 89 Units/L (46-116) 01/10/23 05:58 Creatine Kinase 120 Units/L (39-308) 01/05/23 12:47 Troponin I High Sens 3.2 ng/L (4.0-60.0) L 01/05/23 12:47 C-Reactive Protein 30.30 mg/L (0-3.0) H 01/10/23 05:58 Total Protein 6.9 g/dL (6.4-8.2) 01/10/23 05:58 Albumin 2.4 g/dL (3.4-5.0) L 01/10/23 05:58 Globulin 4.5 g/dL (2.5-4.5) 01/10/23 05:58 Albumin/Globulin Ratio 0.5 Ratio (1.1-2.1) L 01/10/23 05:58 Triglycerides 119 mg/dL (0-150) 01/10/23 05:58 Cholesterol 137 mg/dL (0-200) 01/10/23 05:58 LDL Cholesterol, Calc 85 mg/dL (0-100) 01/10/23 05:58 HDL Cholesterol 28 mg/dL (40-60) L 01/10/23 05:58 Cholesterol/HDL Ratio 4.9 (0.0-5.0) 01/10/23 05:58 Vancomycin Trough 18.9 ug/mL (15-20) 01/10/23 05:58 Random Vancomycin 5.1 ug/mL 01/06/23 20:36 - Plan (1) Diabetic wet gangrene of the foot Status: Acute Plan: STATUS POST AMPUTATION OF TOES ON RIGHT FOOT, VANCOMYCIN 1G IV Q18H, OTBS ACHS, HUMULIN R SLIDING SCALE, LOVENOX 40MG SC DAILY, PERCOCET 5/325MG Q4H PRN, COLACE 200MG HS, TYLENOL 325MG PO Q4H PRN, ROSUVASTATIN 20MG HS, ECOTRIN 81MG DAILY. WE WILL RESUME HIS HOME MEDICATIONS OF TRESIBA AND STEGLATRO (2) MRSA (methicillin resistant Staphylococcus aureus) infection Status: Acute (3) Amputation of one or more toes Status: Acute Qualifiers: Laterality: right Qualified Code(s): S98.131A - Complete traumatic amputation of one right lesser toe, initial encounter (4) Cellulitis of right foot Status: Acute (5) Diabetes mellitus Status: Chronic Qualifiers: Diabetes mellitus type: type 2 Diabetes mellitus mcfp insulin use: with mcfp use Diabetes mellitus complication status: with skin complications Diabetes mellitus complication detail: with other skin complication Qualified Code(s): E11.628 - Type 2 diabetes mellitus with other skin complications; Z79.4 - intermediate project manager (current) use of insulin (6) Peripheral vascular disease, unspecified Status: Chronic
--- NOTE | 2023-01-10 11:48 | DR.OPNOTE ---
OP NOTE Pre-Op Diagnosis: Gas Gangrene, Right foot Post-Op Diagnosis: Gas gangrene, Right foot Procedure Date Date Of Procedure: 01/10/23 Procedure: Delayed primary closure, right foot Tendo achilles lengthening, Right Type of Anesthesia: Local Findings: Clean surgical site- resolved infection Specimen/Pathology: Bone EBL: 100 Drains/Tubes Placed: None Hardware: None Cultures: x2 from right foot Complications:: None Needle/Sponge Count:: Counted Disposition/Condition: Pt. tolerated procedure without difficulty. Extubated in the OR and taken to PACU in stable condition.
--- NOTE | 2023-01-10 11:52 | PCM.PROG ---
Progress Note - Progress Note for Day of Date of Exam: 01/10/23 - Subjective Subjective: IS CURRENTLY INPATIENT STATUS FOR TREATMENT OF DIABETIC WET GANGRENE OF THE FOOT, CELLULITIS OF THE RIGHT FOOT, PERIPHERAL VASCULAR DISEASE, AND UNCONTROLLED DM II. HE IS DAY 5 STATUS POST SURGICAL AMPUTATION OF TOES 2-5 OF THE RIGHT FOOT WITH IMPLANTATION OF ANTIBIOTIC CEMENT BEADS. PHYSICAL THERAPY WAS ABLE TO ASSIST HIM IN WALKING DOWN THE HALLWAY YESTERDAY. HE WAS ABLE TO TOLERATED WALKING WITH NWB TO THE RIGHT FOOT. TODAY, HE IS ALERT AND ORIENTED, LYING IN BED ON MORNING ROUNDS. HE HAS HAD AN UNEVENTFUL NIGHT AND HAS HAD NO NEW SYMPTOMS OR COMPLAINTS. HE DENIES NAUSEA, VOMITING, FEVER, CHILLS, SOB, OR CALF PAIN. HE DENIES PAIN TO THE FOOT DUE TO NEUROPATHY. ON EXAMINATION, HEART IS REGULAR IN RATE AND RHYTHM. BILATERAL LUNGS ARE CLEAR TO AUSCULTATION. ABDOMEN IS ROUND, SOFT, AND NON-TENDER WITH NORMAL BOWEL SOUNDS NOTED IN ALL QUADRANTS. BTK AMPUTATION OF LEFT LEG NOTED. THERE IS A SURGICAL DRESSING NOTED TO THE RIGHT FOOT. AND HIS FILTER PRESS TENDER HEAD ARE MONITORING WOUND. GOOD MOVEMENT NOTED TO RIGHT LEG AND BILATERAL UPPER EXTREMITIES. HIS VITALS THIS MORNING ARE: 97.9-66-18-98%-134/75. LABS WERE OBTAINED. WBC 8.7, RBC 4.24, HGB 11.9, HCT 34.0, PLT COUNT 362, SODIUM 137, POTASSIUM 4.0, CHLORIDE 101, CARBON DIOXIDE 28.9, BUN 9, CREATININE 0.87, GLUCOSE 223, A1C 13.1, CALCIUM 8.8, MAGNESIUM 2.1, AST 15, ALT 16, ALK PHOS 89, CRP 30.30, TOTAL PROTEIN 6.9, A LBUMIN 2.4. BLOOD CULTURES ARE PENDING. RIGHT FOOT CULTURE IS POSITIVE FOR GROWTH OF MRSA. PLANS FOR WASHOUT, FURTHER TRANSMETATARSAL AMPUTATION, AND CLOSURE THIS MORNING. WE ARE IN AGREEMENT WITH PLANS. HE IS CURRENTLY RECEIVING VANCOMYCIN 1G IV Q8H, OTBS ACHS, HUMULIN R SLIDING SCALE, LOVENOX 40MG SC DAILY, PERCOCET 5/325MG Q4H PRN, COLACE 200MG HS, TYLENOL 325MG PO Q4H PRN, ROSUVASTATIN 20MG HS. WE WILL CONTINUE WITH CURRENT PLAN OF CARE TODAY. OTHERWISE, WE WILL FOLLOW UP WITH AM LABS AND CONTINUE TO MONITOR. TIME SPENT ON CLINICAL ASSESSMENT, REVIEWING LABS AND IMAGING, DECISION MAKING, AND DOCUMENTATION GREATER THAN 45 MINUTES. - Past Medical Family Social History Past Med/Fam/Surg Hx: No changes since H&P Allergies: Allergies No Known Drug Allergies Allergy (Verified 07/25/17 15:16) - Review of Systems ROS: No change since H&P - Vital Signs and I&O's Vital Signs: Vital Signs Temperature 97.9 F Temperature 98.6 F Pulse Rate [Apical] 66 Pulse Rate [Apical] 73 Pulse Rate 74 Respiratory Rate 17 Respiratory Rate 18 Respiratory Rate 20 Blood Pressure [Right Arm] 134/75 Blood Pressure [Right Arm] 151/75 Blood Pressure 131/85 O2 Sat by Pulse Oximetry 96 O2 Sat by Pulse Oximetry 98 O2 Sat by Pulse Oximetry 99 Intake and Output: Intake & Output 01/07/23 01/08/23 01/09/23 01/10/23 11:59 11:59 11:59 11:59 Intake Total 1670 / 1670 1525 / 1525 2018 2686 / 2686 Output Total 925 / 925 1000 / 1000 3000 / 3000 3540 / 3540 Balance 745 / 745 525 / 525 -981 / -981 -854 / -854 - Physical Exam Oriented: Normal, Time, Person, Place Eyes: Normal Ear: Normal Nose: Normal Throat: Normal Respiratory: Normal Cardiovascular: Normal, Other (Pulse is intact right leg) : Normal Auscultation: Bowel Sounds: Normal Palpation: Normal Tenderness: Normal Skin: Other (reported open wound of the right foot after disarticulation of toes 2 through 5 and placement of antibiotic beads) Musculoskeletal: Leg (left below knee amputation, well-healed) Psychiatric: Normal Mood Description: Anxious Affect: Normal Speech Pattern: Clear, Appropriate - Laboratory and Diagnostics Result Diagrams: 01/10/23 05:58 01/10/23 05:58 Labs: 01/05/23 15:45 Foot - Right Wound Gram Stain - Final 01/05/23 15:45 Foot - Right Wound Culture - Final Methicillin Resis Staph Aureus 01/05/23 12:15 Blood Blood Culture - Preliminary 01/05/23 12:00 Blood Blood Culture - Preliminary Laboratory WBC 8.7 X10^3/uL (3.6-10.0) 01/10/23 05:58 RBC 4.24 X10^6/uL (4.7-6.0) L 01/10/23 05:58 Hgb 11.9 g/dL (13.5-18.0) L 01/10/23 05:58 Hct 34.0 % (42.0-54.0) L 01/10/23 05:58 MCV 80.2 fL (80.0-100.0) 01/10/23 05:58 MCH 28.1 pg (27.0-34.0) 01/10/23 05:58 MCHC 35.0 g/dL (33.0-35.0) 01/10/23 05:58 RDW 13.5 % (11.6-16.5) 01/10/23 05:58 Plt Count 362 X10^3/uL (150.0-450.0) 01/10/23 05:58 MPV 7.8 fL (7.4-11.0) 01/10/23 05:58 Neut % (Auto) 68.2 % (42.0-75.0) 01/10/23 05:58 Lymph % (Auto) 22.3 % (21.0-51.0) 01/10/23 05:58 [place] % (Auto) 6.7 % (0.0-13.0) 01/10/23 05:58 Eos % (Auto) 1.9 % (0.9-2.9) 01/10/23 05:58 Baso % (Auto) 0.9 % (0.2-1.0) 01/10/23 05:58 Neut # (Auto) 6.0 x10^3/uL (2.2-4.8) H 01/10/23 05:58 Lymph # (Auto) 1.9 X10^3/uL (1.3-2.9) 01/10/23 05:58 [place] # (Auto) 0.6 x10^3/uL (0.3-0.8) 01/10/23 05:58 Eos # (Auto) 0.2 x10^3/uL (0.0-0.2) 01/10/23 05:58 Baso # (Auto) 0.1 X10^3/uL (0.0-0.1) 01/10/23 05:58 Absolute Nucleated RBC 0.0 /100WBC 01/10/23 05:58 ESR 70 MM/HOUR (0-15) H 01/06/23 05:03 Sodium 137 mmol/L (136-145) 01/10/23 05:58 Corrected Sodium 140 mmol/L (136-145) 01/10/23 05:58 Potassium 4.0 mmol/L (3.5-5.1) 01/10/23 05:58 Chloride 101 mmol/L (98-107) 01/10/23 05:58 Carbon Dioxide 28.9 mmol/L (21-32) 01/10/23 05:58 BUN 9 mg/dL (7-18) 01/10/23 05:58 Creatinine 0.87 mg/dL (0.70-1.30) 01/10/23 05:58 Est GFR (MDRD) Af Amer > 60 (>60) 01/10/23 05:58 Est GFR (MDRD) Non-Af > 60 (>60) 01/10/23 05:58 Glucose 223 mg/dL (65-99) H 01/10/23 05:58 POC Glucose (mg/dL) 197 mg/dL (65-99) H 01/10/23 05:54 Hemoglobin A1c 13.1 % 01/10/23 05:58 Calcium 8.8 mg/dL (8.5-10.1) 01/10/23 05:58 Corrected Calcium 10.1 mg/dL (8.5-10.1) 01/10/23 05:58 Magnesium 2.1 mg/dL (2.0-2.9) 01/10/23 05:58 Total Bilirubin 0.20 mg/dL (0.2-1.0) 01/10/23 05:58 AST 15 Units/L (15-37) 01/10/23 05:58 ALT 16 Units/L (12-78) 01/10/23 05:58 Alkaline Phosphatase 89 Units/L (46-116) 01/10/23 05:58 Creatine Kinase 120 Units/L (39-308) 01/05/23 12:47 Troponin I High Sens 3.2 ng/L (4.0-60.0) L 01/05/23 12:47 C-Reactive Protein 30.30 mg/L (0-3.0) H 01/10/23 05:58 Total Protein 6.9 g/dL (6.4-8.2) 01/10/23 05:58 Albumin 2.4 g/dL (3.4-5.0) L 01/10/23 05:58 Globulin 4.5 g/dL (2.5-4.5) 01/10/23 05:58 Albumin/Globulin Ratio 0.5 Ratio (1.1-2.1) L 01/10/23 05:58 Triglycerides 119 mg/dL (0-150) 01/10/23 05:58 Cholesterol 137 mg/dL (0-200) 01/10/23 05:58 LDL Cholesterol, Calc 85 mg/dL (0-100) 01/10/23 05:58 HDL Cholesterol 28 mg/dL (40-60) L 01/10/23 05:58 Cholesterol/HDL Ratio 4.9 (0.0-5.0) 01/10/23 05:58 Vancomycin Trough 18.9 ug/mL (15-20) 01/10/23 05:58 Random Vancomycin 5.1 ug/mL 01/06/23 20:36 - Plan (1) Diabetic wet gangrene of the foot Status: Acute Plan: STATUS POST AMPUTATION OF TOES ON RIGHT FOOT, VANCOMYCIN 1G IV Q12H, OTBS ACHS, HUMULIN R SLIDING SCALE, LEVEMIR 10 UNITS SC DAILY, LOVENOX 40MG SC DAILY, PERCOCET 5/325MG Q4H PRN, COLACE 200MG HS, TYLENOL 325MG PO Q4H PRN, ROSUVASTAIN 20MG HS. (2) MRSA (methicillin resistant Staphylococcus aureus) infection Status: Acute (3) Amputation of one or more toes Status: Acute Qualifiers: Laterality: right Qualified Code(s): S98.131A - Complete traumatic amputation of one right lesser toe, initial encounter (4) Cellulitis of right foot Status: Acute (5) Diabetes mellitus Status: Chronic Qualifiers: Diabetes mellitus type: type 2 Diabetes mellitus termite treater helper insulin use: wi th correction use Diabetes mellitus complication status: with skin complic ations Diabetes mellitus complication detail: with other skin complication Qualified Code(s): E11.628 - Type 2 diabetes mellitus with other skin c omplications; Z79.4 - termite treater helper (current) use of insulin (6) Peripheral vascular disease, unspecified Status: Chronic
[2023-01-10] MEDS: LEVEMIR SC SCH ×2 (11:55→12:04)
[2023-01-10] MEDS: FARXIGA PO SCH (11:55)
[2023-01-10] MEDS: NovoLIN R (or HumuLIN R) SUBCUT PRN (12:05)
[2023-01-10 12:09] VITALS: RESP 18
[2023-01-10 13:13] VITALS: O2SAT 100
[2023-01-10 14:45] VITALS: BP 149/80; PULSE 87; TEMP 97.4
== END 2023-01-10 14:25 | disposition home or self-care (01) | DRG 854 ==
LOC: ER 10:45 → SURG1 14:47 → MED/SURG 14:47 → OBSVTOIN 16:20
PROVIDERS: ADMIT Internal Medicine; ATTEND Internal Medicine
DX: E11.628 Type 2 diabetes mellitus with other skin complications; R70.0 Elevated erythrocyte sedimentation rate; R26.89 Other abnormalities of gait and mobility; L08.89 Other specified local infections of the skin and subcutaneous tissue; E11.52 Type 2 diabetes mellitus with diabetic peripheral angiopathy with gangrene; E11.65 Type 2 diabetes mellitus with hyperglycemia; A48.0 Gas gangrene; R79.82 Elevated C-reactive protein (CRP); L03.115 Cellulitis of right lower limb; Z79.4 Long term (current) use of insulin; Z89.512 Acquired absence of left leg below knee; B95.62 Methicillin resistant Staphylococcus aureus infection as the cause of diseases classified elsewhere; Z85.038 Personal history of other malignant neoplasm of large intestine

== ENCOUNTER 2023-04-10 19:42 | Inpatient (IN) ==
[2023-04-10] MEDS ORDERED: NS 1,000 ML IV 1,000 ML IV ONE (20:12)
--- NOTE | 2023-04-10 20:14 | DR.EXTPAIN ---
HPI Time seen Time Seen by Provider: 04/10/23 20:11 PCP Primary Care Physician: STACY Complaint/Symptoms Chief Complaint Doctor Comments: 42-year-old male presents for evaluation. Has a history of partial amputation of the right foot/toes in the distant past. Has been having increasing pain, swelling and redness of the right lower leg/foot, over the past 3 days. No recent trauma. Has an abrasion over the right anterior mid castillo, after spouse tried to massage it. Started with cold sensation last night. Spiked a fever today. Denies URI symptoms. Has had a minimal cough. No bowel or bladder issues. Having pain in the right lower extremity, sharp and severe. Worse with movement and palpation. Nothing makes it better. Patient has been treated by Dr. Fabian, last saw him about 1 month ago. Chief Complaint:: PT TP ED C/O PAIN AND POSSIBLE INFECTION STARTING TO RIGHT LOWER LEG. PT STATES HE STARTED TO NOTICE SKIN BREAKDOWN 3 DAYS AGO BUT PAIN IS SO BAD TODAY THAT HE CANNOT TAKE IT ANYMORE. PT LEG HAS OBVIOUS REDNESS, SWELLING WITH FOUL ODOR. COVID-19 Coronavirus risk:travel/contact w/high risk person: No Has patient experienced Coronavirus symptoms: No Nurses notes reviewed Nurses Notes Review: Yes Source History Provided: Patient Mode of arrival Mode of Arrival: Wheelchair Timing Onset of Chief Complaint: 04/07/23 PMH PMH Past Medical History: Yes Past Medical History: Diabetes Past Medical History Comment: COLON CANCER Past Surgical History: Yes Surgical History: Bowel Resection Past Surgical History Comment: COLON RESECTION, L AKA, R partial foot amputation Family History History of Family Medical Conditions: Yes Family Medical History: Diabetes Mellitus, Cancer, OR, Coronary Artery Disease, Heart Failure and Hypertension Social History Do you use any recreational Drugs:: No Travel Risk Coronavirus risk:travel/contact w/high risk person: No Has patient experienced Coronavirus symptoms: No Infectious screening Have you traveled outside the country in the last 6 months?: No Isolation: Contact ROS Review of Systems Constitutional: Chills and Fever Eyes: No Symptoms Reported ENTM: No Symptoms Reported Respiratoy: No Symptoms Reported Cardiovascular: No Symptoms Reported Gastrointestinal/Abdominal: No Symptoms Reported Genitourinary: No Symptoms Reported Neurological: No Symptoms Reported Musculoskeletal: See HPI Integumentary: See HPI All Other Systems: Reviewed and Negative PE Vital Signs Vitals: Vital Signs Temperature 103.1 F Pulse Rate 114 Pulse Rate 111 Pulse Rate 116 Pulse Rate 118 Pulse Rate 121 Pulse Rate 128 Respiratory Rate 20 Respiratory Rate 20 Respiratory Rate 23 Blood Pressure 146/78 Blood Pressure 152/82 Blood Pressure 171/83 Blood Pressure 175/84 Blood Pressure 169/79 Blood Pressure 169/79 Blood Pressure 145/73 O2 Sat by Pulse Oximetry 98 O2 Sat by Pulse Oximetry 97 O2 Sat by Pulse Oximetry 100 O2 Sat by Pulse Oximetry 100 O2 Sat by Pulse Oximetry 100 O2 Sat by Pulse Oximetry 100 General General Appearance: Alert and Other (Appears uncomfortable) Eyes Eye exam: PERRL and EOMI ENT ENT Exam: Normal Oropharynx and Mucous Membranes Moist Neck Neck Exam: Normal Inspection Respiratory Respiratory Exam: Normal Lung Sounds Bilat; negative Accessory Muscle Use or Respiratory Distress Cardiovascular Cardiovascular Exam: Regular Rate, Normal Rhythm, Tachycardia and Normal Heart Sounds Abdominal Exam Abdominal Exam: Normal Bowel Sounds and Soft; negative Tenderness Neurological Neurological Exam: Alert, Oriented X3 and CN II-XII Intact; negative Motor Sensory Deficit Skin Skin Exam: Warm and Dry Other Exam Other Exam: RLE - + 3 x 1.5 cm abrasion of mid R anterior castillo, has diffuse swelling of the right foot, with a forefoot amputation, with erythema, warmth, tenderness extending up to the mid R tib/fib. COURSE Treatment Treatment: 42-year-old male, history of partial amputation of the right foot in the distant past, presents with apparent cellulitis of the right foot extending up to the right lower leg. Has a fever here. Work-up initiated.. Patient giv en IV fluids, IV Dilaudid/Zofran. Given oral Tylenol for fever. 925 -x-rays obtained, + gas formation of anterior R tibia, some of R foot. Antibiotics ordered-Zosyn/vancomycin. Notified Dr. Fabian, coming to take to the OR. Notified his covering medical attending, Dr. Perdomo (for Dr Amezcua). [id number] - pt to the OR now. [facility] Labs Reviewed Laboratory Results Reviewed?: Yes 04/10/23 20:25 04/10/23 20:25 Laboratory: WBC 11.0 X10^3/uL (3.6-10.0) H 04/10/23 20:25 RBC 3.70 X10^6/uL (4.7-6.0) L 04/10/23 20:25 Hgb 8.7 g/dL (13.5-18.0) L 04/10/23 20: Hct 27.0 % (42.0-54.0) L 04/10/23 20:25 MCV 73.0 fL (80.0-100.0) L 04/10/23 20:25 MCH 23.5 pg (27.0-34.0) L 04/10/23 20: MCHC 32.2 g/dL (33.0-35.0) L 04/10/23 20: RDW 16.9 % (11.6-16.5) H 04/10/23 20: Plt Count 364 X10^3/uL (150.0-450.0) 04/10/23 20: Plt Count Comment Adequate (ADEQUATE) 04/10/23: MPV 7.7 fL (7.4-11.0) 04/10/23 20: Neut % (Auto) 75.5 % (42.0-75.0) H 04/10/23 20: Lymph % (Auto) 13.8 % (21.0-51.0) L 04/10/23 20: [place] % (Auto) 9.1 % (0.0-13.0) 04/10/23 20: Eos % (Auto) 0.6 % (0.9-2.9) L 04/10/23 20: Baso % (Auto) 1.0 % (0.2-1.0) 04/10/23 20: Neut # (Auto) 8.3 x10^3/uL (2.2-4.8) H 04/10/23 20:25 Lymph # (Auto) 1.5 X10^3/uL (1.3-2.9) 04/10/23 20:25 [place] # (Auto) 1.0 x10^3/uL (0.3-0.8) H 04/10/23 20:25 Eos # (Auto) 0.1 x10^3/uL (0.0-0.2) 04/10/23 20: Baso # (Auto) 0.1 X10^3/uL (0.0-0.1) 04/10/23 20:25 Absolute Nucleated RBC 0.0 /100WBC 04/10/23 20:25 Plt Morphology Comment Normal (NORMAL) 04/10/23 20:25 RBC Morphology Abnormal (NORMAL) 04/10/23 20:25 Hypochromasia 1+ A 04/10/23 20:25 Anisocytosis Slight A 04/10/23 20:25 Microcytosis Slight A 04/10/23 20:25 Sodium 124 mmol/L (136-145) L* 04/10/23 20:25 Corrected Sodium 130 mmol/L (136-145) L 04/10/23 20:25 Potassium 3.6 mmol/L (3.5-5.1) 04/10/23 20:25 Chloride 90 mmol/L (98-107) L 04/10/23 20:25 Carbon Dioxide 25.5 mmol/L (21-32) 04/10/23 20:25 BUN 7 mg/dL (7-18) 04/10/23 20:25 Creatinine 1.04 mg/dL (0.70-1.30) 04/10/23 20:25 Est GFR (MDRD) Af Amer > 60 (>60) 04/10/23 20:25 Est GFR (MDRD) Non-Af > 60 (>60) 04/10/23 20:25 Glucose 364 mg/dL (65-99) H 04/10/23 20:25 Lactic Acid 3.8 mmol/L (0.4-2.0) H 04/10/23 20:25 Calcium 7.5 mg/dL (8.5-10.1) L 04/10/23 20:25 Corrected Calcium 9.7 mg/dL (8.5-10.1) 04/10/23 20:25 Total Bilirubin 0.40 mg/dL (0.2-1.0) 04/10/23 20:25 AST 31 Units/L (15-37) 04/10/23 20:25 ALT 7 Units/L (12-78) L 04/10/23 20:25 Alkaline Phosphatase 192 Units/L (46-116) H 04/10/23 20:25 Total Protein 7.2 g/dL (6.4-8.2) 04/10/23 20:25 Albumin 1.3 g/dL (3.4-5.0) L 04/10/23 20:25 Globulin 5.9 g/dL (2.5-4.5) H 04/10/23 20:25 Albumin/Globulin Ratio 0.2 Ratio (1.1-2.1) L 04/10/23 20:25 Lipase 21 Units/L (16-77) 04/10/23 20:25 Opioid Opioid Risk Tool Age (Víctor box if 16-45): No History of Preadolescent Sexual Abuse: No Total: 0 Total Score Risk Category: Low Risk Copyright: Ronny OLMSTEAD predicting aberrant behaviors Discharge Plan Diagnosis Discharge Problem: Cellulitis of leg, right Discharge Plan Patient Disposition: ADMITTED INPATIENT Condition: Stable Prescriptions: No Action Steglatro 15 mg tablet 15 mg PO BID Health Concerns: Post Hospitalization: new medications and changes needed to prevent readmission or further decline. Pt educated and given instructions on all concerns. Plan of Treatment: Continue with present treatment and follow up plan. Pt is to keep follow up appointment as instructed and take medications as ordered. Follow ups/Referrals Follow ups/Referrals: Marcus Amezcua [Primary Care Provider] - 3 days
[2023-04-10] MEDS ORDERED: NS 1,000 ML IV 1,000 ML ONE ×2 (20:26→22:13)
[2023-04-10] MEDS ORDERED: DILAUDID INJ IVP ONE (20:49)
[2023-04-10] MEDS ORDERED: ZOFRAN INJ 4 MG VIAL IVP ONE (20:49)
[2023-04-10 20:50] LABS: BASOPHILS # (AUTO) 0.1 X10^3/uL (0.0-0.1); EOSINOPHILS # (AUTO) 0.1 x10^3/uL (0.0-0.2); EOSINOPHILS % (AUTO) 0.6 % (0.9-2.9); HEMOGLOBIN 8.7 g/dL (13.5-18.0); LYMPHOCYTES # (AUTO) 1.5 X10^3/uL (1.3-2.9); LYMPHOCYTES % (AUTO) 13.8 % (21.0-51.0); MEAN CORPUSCULAR HEMOGLOBIN 23.5 pg (27.0-34.0); MEAN CORPUSCULAR HGB CONC 32.2 g/dL (33.0-35.0); MEAN PLATELET VOLUME 7.7 fL (7.4-11.0); MONOCYTES % (AUTO) 9.1 % (0.0-13.0); NEUTROPHILS # (AUTO) 8.3 x10^3/uL (2.2-4.8); NEUTROPHILS % (AUTO) 75.5 % (42.0-75.0); PLATELET COUNT 364 X10^3/uL (150.0-450.0); RED CELL DISTRIBUTION WIDTH 16.9 % (11.6-16.5)
[2023-04-10] MEDS ORDERED: DILAUDID INJ ONE (20:54)
[2023-04-10] MEDS ORDERED: ZOFRAN INJ 4 MG VIAL ONE ×2 (20:55→23:03)
[2023-04-10] MEDS ORDERED: TYLENOL 500 MG TAB EXTRA STRENGTH PO ONE (20:55)
[2023-04-10] MEDS ORDERED: TYLENOL 500 MG TAB EXTRA STRENGTH PO STA (20:56)
[2023-04-10 21:01] LABS: ALANINE AMINOTRANSFERASE 7 Units/L (12-78); ALBUMIN 1.3 g/dL (3.4-5.0); ALKALINE PHOSPHATASE 192 Units/L (46-116); ASPARTATE AMINO TRANSFERASE 31 Units/L (15-37); BLOOD UREA NITROGEN 7 mg/dL (7-18); CALCIUM 7.5 mg/dL (8.5-10.1); CARBON DIOXIDE 25.5 mmol/L (21-32); CHLORIDE 90 mmol/L (98-107); COR CA(FOR HYPOALB) 9.7 mg/dL (8.5-10.1); COR NA(FOR HYPERGLY) 130 mmol/L (136-145); CREATININE 1.04 mg/dL (0.70-1.30); GLUCOSE 364 mg/dL (65-99); LIPASE 21 Units/L (16-77); POTASSIUM 3.6 mmol/L (3.5-5.1); TOTAL PROTEIN 7.2 g/dL (6.4-8.2); eGFR NON BLACK RACES > 60 (>60)
[2023-04-10 21:03] LABS: PLATELET MORPHOLOGY COMMENT NORMAL (NORMAL)
[2023-04-10 21:04] LABS: SODIUM 124 mmol/L (136-145)
[2023-04-10 21:07] LABS: ANISOCYTOSIS SLIGHT; HYPOCHROMASIA 1+
[2023-04-10 21:08] LABS: MICROCYTOSIS SLIGHT
[2023-04-10] MEDS ORDERED: NovoLIN R (or HumuLIN R) IV STA (21:09)
[2023-04-10] MEDS ORDERED: ZOSYN VIAL 3.375 GRAMS 3.375 G in NS 100 ML IV 100 ML IV STA (21:12)
[2023-04-10] MEDS ORDERED: NovoLIN R (or HumuLIN R) ONE ×2 (21:13→21:15)
[2023-04-10] MEDS ORDERED: VANCOMYCIN IV *PREMIX 1 G/200 ML BAG 1 G/200 ML PIGGYBACK IV SCH (21:13)
--- NOTE | 2023-04-10 21:16 | RAD ---
HISTORYPT TP ED C/O PAIN AND POSSIBLE INFECTION STARTING TO RIGHT LOWER LEG. PT STATES HE STARTED TO NOTICE SKIN BREAKDOWN 3 DAYS AGO Relevant Clinical InformationSTUDYLOWER LEG, TIB/FIB RIGHTCOMPARISONFINDINGSAP and lateral radiographs of the lower extremity demonstrate no evidence for acute cortical disruption. There is air or gas within the soft tissues of the mid and lower aspect of the lower leg. No radiopaque foreign bodies.IMPRESSIONNo acute bony abnormality.Air or gas within the soft tissues of the mid and lower leg.Electronically signed by: Justus Lassiter (Apr 10, 2023 21:14:46)
--- NOTE | 2023-04-10 21:18 | RAD ---
HISTORYPT TP ED C/O PAIN AND POSSIBLE INFECTION STARTING TO RIGHT LOWER LEG. PT STATES HE STARTED TO NOTICE SKIN BREAKDOWN 3 DAYS AGO Relevant Clinical InformationSTUDYFOOT, [id number]/28/2023.FINDINGSPost amputation changes of the 2nd through 5th toes have occurrences prior study. There is bony destruction of the 1st metatarsal bone suggestive of osteomyelitis. There is soft tissue swelling about the foot as well as air gas within the soft tissues of the lower leg. The visualized portions of the talus and calcaneus are unremarkable.IMPRESSIONPost amputation changes 2nd through 5th toes.Bony destruction of the 1st metatarsal bone suggestive of osteomyelitis.Diffuse soft tissue swelling of the footAir gas within the soft tissues of the distal lower leg.MR of the foot may be helpful in further evaluation of extent of osteomyelitis.Electronically signed by: Justus Lassiter (Apr 10, 2023 21:17:10)
[2023-04-10] MEDS ORDERED: ZOSYN VIAL 3.375 GRAMS IV ONE (21:19)
[2023-04-10] MEDS ORDERED: NS 100 ML IV 100 ML ONE (21:20)
[2023-04-10] MEDS ORDERED: MARCAINE 0.25% INJ ONE (21:58)
[2023-04-10] MEDS ORDERED: PHARMACY CONSULT - VANCOMYCIN XX SCH (22:00)
[2023-04-10] MEDS ORDERED: BETADINE SOLN ONE ×2 (22:14→23:05)
--- NOTE | 2023-04-10 22:17 | DR.CONSULT ---
CONSULT Consultation for Day of: Date: 04/10/23 Chief Complaint Chief Complaint: infection right leg with gas right leg and foot Allergies Allergies Allergy/AdvReac Type Severity Reaction Status Date / Time No Known Drug Allergies Allergy Verified 07/25/17 15:16 History of Present Illness History of Present Illness: patient been sick for 3 days. noted no appetitie for last three days. has noted fever over last 24 hrs. saw pain today when rubbed leg and then prompted him to come to ER. has noted some spots on the legs that started three days ago as well. Past Medical History Past Medical History: Diabetes Additional Medical History: HX COLON CANCER, Past Surgical History Surgical History: Bowel Resection Additional Surgical History: LEFT BTK AMPUTATION, RIGHT GREAT TOE AMPUTATION, COLOSTOMY REVERSAL Family History Family Medical History: Diabetes Mellitus, Cancer, [place], Coronary Artery Disease, Heart Failure and Hypertension Medications Home Medications: No Known Drug Allergies Allergy (Verified 07/25/17 15:16) Review of Systems Constitutional: Fever, Chills, Sweats, Weakness and Malaise Respiratory: Other (increased breathing per patient) Musculoskeletal: Leg Pain (right leg severe pain of the leg. ) Neurological: Numbness (of right leg) Physical Exam Vital Signs: Vital Signs Temperature 103.1 F Pulse Rate 114 Pulse Rate 111 Pulse Rate 116 Pulse Rate 118 Pulse Rate 121 Pulse Rate 128 Respiratory Rate 20 Respiratory Rate 20 Respiratory Rate 23 Blood Pressure 146/78 Blood Pressure 152/82 Blood Pressure 171/83 Blood Pressure 175/84 Blood Pressure 169/79 Blood Pressure 169/79 Blood Pressure 145/73 O2 Sat by Pulse Oximetry 98 O2 Sat by Pulse Oximetry 97 O2 Sat by Pulse Oximetry 100 O2 Sat by Pulse Oximetry 100 O2 Sat by Pulse Oximetry 100 O2 Sat by Pulse Oximetry 100 Tenderness: Severe Skin: Wound (has crepitation of the soft tissues of the right distal leg and foot. has increased calor and hot nature. has erytheam to the tibial tubercle. nothing across knee. has wounds dorsal foot at TMA site. necrotis spots on anterior compartment mid leg and over lateral compartment mid leg. boggy and crepi) Musculoskeletal: Sensory Deficit (previous BKA on the left. has loss of protective sensation on the right foot and leg. ) Plan (1) Necrotizing fasciitis of ankle and foot: Status: Acute Narrative Support Text: patient to be taken urgently to the OR. gas running up foot and leg. will need fasciotomy and open debridmeent. very high risk for limb loss. patient septic and will need hospitalization after for observation and IV abx. patient high risk for complications due to severe DM limb threating and life threatening infection. will need general anesthesia and will likely need many trips to OR at attempt for salvage.
[2023-04-10] MEDS ORDERED: TOBRAMYCIN SULFATE ONE (22:22)
[2023-04-10] MEDS ORDERED: VANCOMYCIN HCL ONE (22:22)
[2023-04-10] MEDS ORDERED: VERSED ONE (22:24)
[2023-04-10] MEDS ORDERED: DIPRIVAN VIAL 20 ML ONE (22:24)
[2023-04-10] MEDS ORDERED: FENTANYL VIAL INJ 100 mcg ONE (22:24)
[2023-04-10] MEDS ORDERED: QUELICIN (OR ANECTINE) ONE (22:24)
[2023-04-10] MEDS ORDERED: BRIDION ONE (22:24)
[2023-04-10] MEDS ORDERED: SUPRANE ONE (22:24)
[2023-04-10] MEDS ORDERED: ZEMURON 100 MG VIAL ONE (22:24)
--- NOTE | 2023-04-10 22:47 | CT ---
EXAM:LOWER EXT W/OHISTORY:PAIN AND POSSIBLE INFECTION STARTING TO RT LOWER LEG. NOTICED SKIN BREAKDOWN 3 DAYS AGO. Right TibFIb;COMPARISON:Plain radiographs same dayTECHNIQUE:Axial CT imaging of the right tibia and fibula without contrastFINDINGS:There is severe stranding and induration in the subcutaneous fat of the leg extending into the ankle and foot.There is abnormal stranding and induration in the anterior musculature of the leg extending into the ankle and foot.There is abnormal tracking gas within the subcutaneous fat and musculature of the anterior leg extending into the ankle and foot.There is an ossific density in the subcutaneous soft tissues just anterior to the distal tibia spanning about 9 mm in transverse dimension of uncertain consequence.Ossific erosions are partially visible involving the medial cuneiform and proximal 1st metatarsal.IMPRESSION:Severe cellulitis and myositis with gas-forming organism involving the leg from the knee through the ankle and foot.Possible osteomyelitis of the medial cuneiform and proximal 1st metatarsal.Dose reduction techniques including automated exposure control (AEC) and adjustment of mA and kv were utilized.THIS IS AN ELECTRONICALLY VERIFIED FINAL [id number]/10/2023 10:44 PM - Electronically signed by Bijan Ramírez MD
[2023-04-10] MEDS ORDERED: EPHEDRINE SULFATE INJ ONE (23:01)
[2023-04-10] MEDS ORDERED: HYDROGEN PEROXIDE 3% ONE (23:04)
--- NOTE | 2023-04-10 23:09 | CT ---
EXAM:LOWER EXT W/OHISTORY:PAIN AND POSSIBLE INFECTION STARTING TO RT FOOT. NOTICED SKIN BREAKDOWN 3 DAYS AGO. PT LEG HAS OBVIOUS REDNESS, SWELLING WITH FOUL ODOR.;COMPARISON:Plain film radiographs same dayTECHNIQUE:Axial CT slices through the right ankle and foot without contrastFINDINGS:There has been amputation of all 5 toes at the level of the metatarsal necks. There is severe cortical destruction and periosteal erosions involving the remnant of the 1st metatarsal extending into the medial cuneiform consistent with aggressive osteomyelitis. The bones are demineralized. There is soft tissue swelling and tracking gas within the foot anteriorly and within the soft tissues of the midfoot to the ankle.IMPRESSION:Severe osteomyelitis of the remnant 1st metatarsal and medial cuneiform.Severe cellulitis and myositis with tracking gas involving the foot and ankle.Dose reduction techniques including automated exposure control (AEC) and adjustment of mA and kv were utilized.THIS IS AN ELECTRONICALLY VERIFIED FINAL [id number]/10/2023 11:05 PM - Electronically signed by Bijan Ramírez MD
[2023-04-10] MEDS ORDERED: PERCOCET TAB 5/325 MG PO PRN (23:28)
[2023-04-10] MEDS ORDERED: ZOFRAN INJ 4 MG VIAL IVP PRN ×2 (23:28→23:34)
[2023-04-10] MEDS ORDERED: BARHEMSYS INJ IVP PRN (23:34)
[2023-04-10] MEDS ORDERED: BENADRYL INJ 50 MG VIAL IVP PRN (23:34)
[2023-04-10] MEDS ORDERED: DILAUDID INJ IVP PRN (23:34)
[2023-04-10] MEDS ORDERED: REGLAN INJ 10 MG VIAL IVP PRN (23:34)
[2023-04-11] MEDS: MERREM VIAL IVP SCH ×4 (00:42→21:08)
[2023-04-11] MEDS ORDERED: VANCOMYCIN IV *PREMIX 1 G/200 ML BAG 1 G/200 ML PIGGYBACK IV ONE (01:00)
[2023-04-11 05:30] LABS: BLOOD UREA NITROGEN 10 mg/dL (7-18); CALCIUM 7.1 mg/dL (8.5-10.1); CHLORIDE 93 mmol/L (98-107); COR NA(FOR HYPERGLY) 133 mmol/L (136-145); CREATININE 0.97 mg/dL (0.70-1.30); GLUCOSE 327 mg/dL (65-99); POTASSIUM 4.2 mmol/L (3.5-5.1); SODIUM 128 mmol/L (136-145); eGFR NON BLACK RACES > 60 (>60)
[2023-04-11] MEDS: NovoLIN R (or HumuLIN R) SC PRN ×3 (05:42→20:23)
[2023-04-11 05:45] LABS: BILIRUBIN,URINE NEGATIVE (NEGATIVE); BLOOD/HEMOGLOBIN,URINE 4+ (NEGATIVE); GLUCOSE, URINE 4+ (NEGATIVE); KETONES,URINE NEGATIVE (NEGATIVE); LEUKOCYTE ESTERASE ,URINE NEGATIVE (NEGATIVE); NITRITES,URINE NEGATIVE (NEGATIVE); PROTEIN,URINE 3+ (NEGATIVE); UROBILINOGEN,URINE 2+ (NORMAL)
[2023-04-11 05:55] LABS: COLOR,URINE AMBER (YELLOW)
[2023-04-11 05:56] LABS: APPEARANCE,URINE SLIGHTLY HAZY (CLEAR)
[2023-04-11 05:58] LABS: BACTERIA,URINE 2+ /HPF (NEGATIVE); GRANULAR CASTS,URINE FEW /LPF (NEGATIVE); HYALINE CASTS, URINE RARE /LPF (NEGATIVE); SQUAMOUS EPITHELIAL CELL,UR FEW /HPF (NEGATIVE)
[2023-04-11 07:36] LABS: BASOPHILS % (AUTO) 0.3 % (0.2-1.0); EOSINOPHILS % (AUTO) 0.4 % (0.9-2.9); HEMATOCRIT 22.6 % (42.0-54.0); HEMOGLOBIN 7.5 g/dL (13.5-18.0); LYMPHOCYTES # (AUTO) 0.9 X10^3/uL (1.3-2.9); LYMPHOCYTES % (AUTO) 8.9 % (21.0-51.0); MEAN CORPUSCULAR HEMOGLOBIN 24.3 pg (27.0-34.0); MEAN CORPUSCULAR HGB CONC 33.1 g/dL (33.0-35.0); MEAN CORPUSCULAR VOLUME 73.2 fL (80.0-100.0); MEAN PLATELET VOLUME 7.9 fL (7.4-11.0); MONOCYTES # (AUTO) 0.9 x10^3/uL (0.3-0.8); MONOCYTES % (AUTO) 8.8 % (0.0-13.0); NEUTROPHILS # (AUTO) 8.3 x10^3/uL (2.2-4.8); NEUTROPHILS % (AUTO) 81.6 % (42.0-75.0); PLATELET COUNT 289 X10^3/uL (150.0-450.0); RED BLOOD COUNT 3.08 X10^6/uL (4.7-6.0); RED CELL DISTRIBUTION WIDTH 16.5 % (11.6-16.5); WHITE BLOOD COUNT 10.2 X10^3/uL (3.6-10.0)
[2023-04-11 08:05] LABS: HYPOCHROMASIA SLIGHT; MICROCYTOSIS SLIGHT; PLATELET MORPHOLOGY COMMENT NORMAL (NORMAL)
[2023-04-11] MEDS ORDERED: LOVENOX INJ 40 MG SYR SC SCH (09:00)
[2023-04-11] MEDS: VANCOMYCIN IV *PREMIX 1.5 G/300 ML BAG 1.5 G/300 ML PIGGYBACK IV SCH ×2 (09:30→20:22)
[2023-04-11] MEDS: DILAUDID INJ IVP PRN (14:25)
[2023-04-11] MEDS ORDERED: NS 250 ML IV 250 ML IV ONE ×2 (14:34→22:35)
[2023-04-11] MEDS ORDERED: TYLENOL 325 MG TAB PO ONE (14:45)
[2023-04-11] MEDS ORDERED: BENADRYL INJ 50 MG VIAL IVP ONE (14:45)
[2023-04-11] MEDS ORDERED: BENADRYL INJ 50 MG VIAL ONE (14:47)
--- NOTE | 2023-04-11 17:26 | NOTE.SOAP ---
Soap Note Note for Day of Date of Exam: 04/11/23 Subjective Data Subjective Data: patient seen bedside this am. looking much better than yesterday. no pain in the leg. no strikethrough. fevers better. overall he feels alittle better than yesterday. Objective Data Objective Data: patients leg without strikethrough. he has no other acute issues. Assessment Assessment: 42 M POD #1 from fasciotomies right leg for necrotizing fasciitis, with acute blood loss anemia on top of chronic anemia. IDDM unconrolled. Plan Plan: leave bandage on today. monitor labs and vitals. BP improved today, still tachy, may need one unit of PRBC. will see how continues. fever reduced. continue vanco and zosyn. cx taken yesterday. no data yet. plan for dressing removal tomorrow and will determine if we will wash out again sunday or if need BKA. guarded position on leg at this time due to extensive nature of the infection.
[2023-04-11] MEDS: TYLENOL 325 MG TAB PO ONE ×2 (18:50→19:46)
[2023-04-11] MEDS: SNACK - Diabetic Appropriate PO SCH (20:21)
[2023-04-11] MEDS: COLACE CAP 100 MG PO SCH (20:22)
[2023-04-11] MEDS ORDERED: BENADRYL CAP/TAB 25 MG PO ONE (22:12)
[2023-04-11] MEDS: TYLENOL 325 MG TAB PO PRN (22:46)
[2023-04-12 04:17] LABS: BASOPHILS # (AUTO) 0.1 X10^3/uL (0.0-0.1); BASOPHILS % (AUTO) 0.9 % (0.2-1.0); EOSINOPHILS # (AUTO) 0.2 x10^3/uL (0.0-0.2); EOSINOPHILS % (AUTO) 1.7 % (0.9-2.9); HEMATOCRIT 24.7 % (42.0-54.0); HEMOGLOBIN 8.2 g/dL (13.5-18.0); LYMPHOCYTES # (AUTO) 1.4 X10^3/uL (1.3-2.9); LYMPHOCYTES % (AUTO) 15.8 % (21.0-51.0); MEAN CORPUSCULAR HEMOGLOBIN 25.1 pg (27.0-34.0); MEAN CORPUSCULAR HGB CONC 33.4 g/dL (33.0-35.0); MEAN CORPUSCULAR VOLUME 75.1 fL (80.0-100.0); MEAN PLATELET VOLUME 7.2 fL (7.4-11.0); MONOCYTES # (AUTO) 0.8 x10^3/uL (0.3-0.8); MONOCYTES % (AUTO) 8.6 % (0.0-13.0); NEUTROPHILS # (AUTO) 6.7 x10^3/uL (2.2-4.8); PLATELET COUNT 306 X10^3/uL (150.0-450.0); RED BLOOD COUNT 3.28 X10^6/uL (4.7-6.0); RED CELL DISTRIBUTION WIDTH 18.5 % (11.6-16.5); WHITE BLOOD COUNT 9.1 X10^3/uL (3.6-10.0)
[2023-04-12 04:22] LABS: ALANINE AMINOTRANSFERASE < 6 Units/L (12-78); ALKALINE PHOSPHATASE 185 Units/L (46-116); ASPARTATE AMINO TRANSFERASE 11 Units/L (15-37); BLOOD UREA NITROGEN 11 mg/dL (7-18); CALCIUM 6.7 mg/dL (8.5-10.1); CARBON DIOXIDE 28.6 mmol/L (21-32); CHLORIDE 96 mmol/L (98-107); COR CA(FOR HYPOALB) 9.1 mg/dL (8.5-10.1); COR NA(FOR HYPERGLY) 132 mmol/L (136-145); CREATININE 0.79 mg/dL (0.70-1.30); GLUCOSE 207 mg/dL (65-99); POTASSIUM 3.5 mmol/L (3.5-5.1); SODIUM 129 mmol/L (136-145); TOTAL PROTEIN 5.7 g/dL (6.4-8.2); eGFR NON BLACK RACES > 60 (>60)
[2023-04-12] MEDS: MERREM VIAL IVP SCH ×3 (05:16→21:00)
[2023-04-12] MEDS: NovoLIN R (or HumuLIN R) SC PRN (05:27)
[2023-04-12] MEDS ORDERED: OMNIPAQUE 350 mg/mL 100 mL BTL 0 ML ONE (06:15)
[2023-04-12] MEDS ORDERED: NS 100 ML IV 100 ML ONE (06:15)
[2023-04-12] MEDS: DILAUDID INJ IVP PRN (06:35)
--- NOTE | 2023-04-12 06:38 | NOTE.SOAP ---
Soap Note Note for Day of Date of Exam: 04/11/23 Subjective Data Subjective Data: patient seen bedside this am, he is feeling better and had a good night sleep. Had pain with dressing change, otherwise controlled Objective Data Objective Data: Skin has patches of necrosis proximally and at the TMA stump where there were lesions upon his initial encouter. Significant serosanguinous drainage on the dressings. No purulence or active bleeding noted Assessment Assessment: 42 M POD #2 from fasciotomies right leg for necrotizing fasciitis, with acute blood loss anemia on top of chronic anemia. IDDM unconrolled. Plan Plan: Dressing change today. monitor labs and vitals. Vitals improved. Will continue to monitor. continue vanco and zosyn. Wxcx pending. Guarded position on leg at this time due to extensive nature of the infection. Will take patient to surgery tomorrow for a repeat washout. NPO after midnight
[2023-04-12] MEDS ORDERED: CONSULT PHARMACY - POTASSIUM & MAGNESIUM XX SCH (07:00)
[2023-04-12] MEDS ORDERED: PHARMACY COMMENT IV ONE (08:00)
[2023-04-12] MEDS ORDERED: K-DUR TAB 20 MEQ PO SCH (09:00)
[2023-04-12] MEDS: MAG-OX TAB PO SCH ×2 (09:47→10:56)
[2023-04-12] MEDS: PROTONIX INJ 40 MG VIAL IVP SCH ×2 (09:47→20:11)
[2023-04-12] MEDS: ALBUMIN HUMAN 25%- 100 ML 100 ML IV SCH (09:49)
[2023-04-12 10:17] LABS: CREATININE 0.8 mg/dL (0.70-1.30); VANCOMYCIN,TROUGH 8.5 ug/mL (15-20)
[2023-04-12] MEDS: LANTUS SC SCH (11:53)
--- NOTE | 2023-04-12 12:33 | DR.H&P ---
H&P - History & Physical for Day of: H&P Date: 04/10/23 - Chief Complaint Chief Complaint: RIGHT LEG AND FOOT PAIN, SWELLING, AND REDNESS - History of Present Illness History of Present Illness: IS A 42 YEAR OLD PATIENT OF OURS. HE HAS A PMH OF UNCONTROLLED TYPE 2 DIABETES AND COLON CANCER IN 2019. HE HAD A BOWEL RESECTION WITH COLOSTOMY IN MAY OF 2020 AND HAS SINCE HAD THE COLOSTOMY REVERSED. ADDITIONALLY, PATIENT HAS HAD A LEFT BELOW THE KNEE AMPUTATION, WELL AMPUTATION OF ALL TOES AND PART OF THE RIGHT FOOT. PATIENT PRESENTED WITH COMPLAINTS OF PAIN, REDNESS, AND SWELLING OF THE RIGHT LOWER LEG AND FOOT. SYMPTOMS APPARENTLY STARTED A FEW WEEKS AGO, BUT HAVE PROGRESSIVELY GOTTEN WORSE. HE REPORTS NOTICING TWO LARGE WOUNDS THREE DAYS AGO. HE DENIES RECENT TRAUMA. HE ADMITS TO FEVER AND CHILLS TODAY. HE ALSO ADMITS TO SEVERAL EPISODES OF NAUSEA AND VOMITING OVER THE PAST FEW DAYS. HE DENIES BOWEL OR BLADDER ISSUES. HE DESCRIBES PAIN TO THE RIGHT LOWER EXTREMITY CONSTANT, SHARP, AND WORSE WITH MOVEMENT AND PALPATION. ON EXAMINATION, THERE IS ERYTHEMA AND EDEMA OF THE RIGHT LOWER EXTREMITY, FROM THE KNEE DOWN TO THE FOOT. WOUND NOTED OVER THE RIGHT ANTERIOR MID WELLER WITH PURULENT DRAINAGE AND FOUL ODOR. ON ARRIVAL, HIS VITALS WERE: 103.6-639-75-100%-145/73. LABS WERE OBTAINED. WBC 11.0, RBC 3.70, HGB 8.7, HCT 27.0, PLT COUNT 364, SODIUM 124, POTASSIUM 3.6, CHLORIDE 90, CARBON DIOXIDE 25.5, BUN 7, CREATININE 1.04, GLUCOSE 364, LACTIC ACID 3.8, CALCIUM 7.5, TOTAL BILI 0.40, AST 31, ALT 7, ALK PHOS 192, TOTAL PROTEIN 7.2, ALBUMIN 1.3. URINALYSIS WAS OBTAINED AND REVEALED: WBC 10-20, RBC 3-5, JESSICA KOCYTES NEGATIVE, BACTERIA 2+, BLOOD 4+. BLOOD, WOUND, AND URINE CULTURES WERE SET UP. RIGHT FOOT XRAY WAS OBTAINED AND REVEALED: Post amputation changes 2nd through 5th toes. Bony destruction of the 1st metatarsal bone suggestive of osteomyelitis. Diffuse soft tissue swelling of the foot. Air gas within the soft tissues of the distal lower leg. MR of the foot may be helpful in further evaluation of extent of osteomyelitis. RIGHT TIB/FIB XRAY REVEALED: No acute bony abnormality. Air or gas within the soft tissues of the mid and lower leg. RIGHT TIB/FIB CT WAS OBTAINED AND REVEALED: Severe cellulitis and myositis with gas-forming organism involving the leg from the knee through the ankle and foot. Possible osteomyelitis of the medial cuneiform and proximal 1st metatarsal. RIGHT FOOT AND ANKLE CT REVEALED: Severe osteomyelitis of the remnant 1st metatarsal and medial cuneiform. Severe cellulitis and myositis with tracking gas involving the foot and ankle. IN THE ER, HE WAS GIVEN A NORMAL SALINE BOLUS, DILAUDID 1MG IV X 1, ZOFRAN 4MG IV X 1, TYLENOL 1000MG PO X 1, NOVOLIN R 4 UNITS IV X 1, ZOSYN 3.375G IV X 1. 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 POST OP DX INCLUDES: NECROTIZING FASCIITIS OF THE RIGHT LOWER EXTREMITY, ABSCESS OF THE RIGHT DORSAL FOOT, ANKLE, AND ANTERIOR & LATERAL COMPARTEMENTS, OSTEOMYELITIS OF THE FIRST METATARSAL, AND INFECTIOUS COMPARTEMNT SYNDROME WITH MEDIAL PLANTAR COMPARTMENT WELL. PLANS TO MONITOR OVER THE UPCOMING DAYS AND TAKE PATIENT BACK TO THE OR FOR FURTHER WASHOUT ON SUNDAY. HE IS NOT OUT OF THE [place] [facility] AND MAY STILL NEED A BELOW THE KNEE AMPUTATION. PATIENT WAS ADMITTED TO THE HOSPITAL INPATIENT STATUS FOR FURTHER EVALUATION AND TREATMENT OF SEPSIS, NECROTIZING FASCIITIS RIGHT LOWER EXTREMITY, OSTEOMYELITIS RIGHT LOWER EXTREMITY, ANEMIA, UTI, HYPONATREMIA, DEHY DRATION, UNCONTROLLED DIABETES. HE WAS STARTED ON NORMAL SALINE AT 75 ML/HR, VANCOMYCIN 1.25G IV TID, MEROPENEM 1G IV Q8H, DILAUDID 1MG IV Q4H PRN, OTBS ACHS, HUMULIN R SLIDING SCALE, ZOFRAN 4MG IV Q4H PRN, PERCOCET 5/325MG Q4H PRN, COLACE 200MG HS. WE PLAN TO TRANSFUSE TWO UNITS OF PACKED RED BLOOD CELLS. WE WILL OBTAIN AN ABDOMEN/PELVIS CT WITH CONTRAST DUE TO ANEMIA, VOMITING, AND PRESENCE OF DARK STOOLS. AND HIS TEAM WILL FOLLOW PATIENT FOR WOUND CARE AND EVALUATION. OTHERWISE, WE PLAN TO FOLLOW UP WITH AM LABS AND CONTINUE TO MONITOR. TIME SPENT ON CLINICAL ASSESSMENT, REVIEWING LABS AND IMAGING, DECISION MAKING, AND DOCUMENTATION GREATER THAN 75 MINUTES. - Past Medical History Past Medical History: Diabetes Additional Medical History: HX COLON CANCER, - Past Surgical History Surgical History: Bowel Resection Additional Surgical History: LEFT BTK AMPUTATION, RIGHT GREAT TOE AMPUTATION, COLOSTOMY REVERSAL - Family History Family Medical History: Diabetes Mellitus, [place], Heart Failure, Hypertension - Social History Does patient currently use any type of tobacco product: No Have you used tobacco products in the last 12 months: No Does any household member use tobacco: No Alcohol Use: None Drug Use: None - Review of Systems Constitutional: Fever, Chills, Weakness Eyes: No Symptoms Reported ENT: No Symptoms Reported Respiratory: No Symptoms Reported Cardiovascular: Edema (RIGHT LEG ) Gastrointestinal: See HPI, Nausea, Vomiting Genitourinary: No Symptoms Reported Musculoskeletal: Leg Pain (RIGHT LEG AND FOOT ), Foot Pain Skin: See HPI, Wound Neurological: Weakness - Physical Exam Vital Signs: Vital Signs Temperature 98.9 F Pulse Rate [Right Radial] 91 Respiratory Rate 18 Respiratory Rate 20 Respiratory Rate 20 Blood Pressure [Right Arm] 138/76 O2 Sat by Pulse Oximetry 100 Oriented: Normal Eyes: Normal Ear: Normal Nose: Normal Throat: Normal Respiratory: Clear Throughout Cardiovascular: Tachycardia, Edema (RIGHT LOWER EXTREMITY ) : Normal Auscultation: Bowel Sounds: Normal Palpation: Normal Tenderness: Normal Skin: Decreased [place]urg[place], Red, Tender, Hot, Wound (RIGHT LEG ) Musculoskeletal: Right, Leg, Ankle, Foot, Swelling, Tender Psychiatric: Normal Mood Description: Calm Affect: Normal Speech Pattern: Clear - Assessment/Plan (1) Sepsis Qualifiers: Sepsis type: sepsis due to unspecified organism Sepsis acute organ dysfunction status: unspecified Qualified Code(s): A41.9 - Sepsis, unspecified organism Status: Acute Plan: ADMIT, WOUND CARE, NORMAL SALINE AT 75 ML/HR, VANCOMYCIN 1.25G IV TID, MEROPENEM 1G IV Q8H, DILAUDID 1MG IV Q4H PRN, OTBS ACHS, HUMULIN R SLIDING SCALE, ZOFRAN 4MG IV Q4H PRN, PERCOCET 5/325MG Q4H PRN, COLACE 200MG HS. (2) Necrotizing fasciitis of ankle and foot Status: Acute Plan: WOUND CARE BY (3) Acute osteomyelitis of metatarsal bone of right foot Status: Acute Plan: IV ANTIBIOTICS (4) Anemia Qualifiers: Anemia type: unspecified type Qualified Code(s): D64.9 - Anemia, unspecified Status: Acute Plan: MONITOR H&H, TRANSFUSE PACKED RED BLOOD CELLS (5) UTI (urinary tract infection) Qualifiers: Urinary tract infection type: acute cystitis Hematuria presence: with hematuria Qualified Code(s): N30.01 - Acute cystitis with hematuria Status: Acute Plan: IV ANTIBIOTICS (6) Hyponatremia Status: Acute Plan: IV FLUIDS (7) Dehydration Status: Acute Plan: IV FLUIDS (8) Uncontrolled type 2 diabetes mellitus Qualifiers: Glycemic state: with hyperglycemia Qualified Code(s): E11.65 - Type 2 diabetes mellitus with hyperglycemia Status: Chronic Plan: OTBS ACHS, HUMULIN R SLIDING SCALE - Allergies Allergies/Adverse Reactions: Allergies Allergy/AdvReac Type Severity Reaction Status Date / Time No Known Drug Allergies Allergy Verified 07/25/17 15:16 - Medications Home Medications: Home Medications Medication Instructions Recorded Confirmed ertugliflozin 15 mg tablet 15 mg PO BID 06/08/21 04/10/23 (Tk)
[2023-04-12] MEDS: VANCOMYCIN IV *PREMIX 1.25 G/250 ML BAG 1.25 G/250 ML PIGGYBACK IV SCH ×2 (13:50→21:00)
[2023-04-12] MEDS: NS 1,000 ML IV 1,000 ML IV SCH (14:02)
--- NOTE | 2023-04-12 14:40 | CT ---
EXAM:ABDCMEN/PELVIS WITH CONHISTORY:ANEMIA, SEPTIC;COMPARISON:CT abdomen and pelvis 06/14/2021TECHNIQUE:Multiple CT axial images of the abdomen and pelvis were obtained with IV contrast. Coronal and sagittal images were reconstructed. Dose reduction techniques included Automated Exposure Control (AEC) and adjustment of mA and kV.FINDINGS:Small bilateral pleural effusions are new. Heart size normal. Minimal atelectasis in the lung bases associated with the effusions.The liver is large measuring almost 26 cm. Slightly larger than before. Otherwise liver has a normal enhancement.A layer of density in the gallbladder could be partially calcified stones or sludge. No inflammation around the gallbladder.The spleen is large measuring over 16 cm, stable in size from prior study. It otherwise has normal enhancement.The adrenal glands are normal. The pancreas is normal.Renal enhancement is uniform and symmetric with no solid mass. There is no hydronephrosis. But there is perirenal edema which was not present previously. This extends inferiorly into the right retroperitoneal fascial planes of the upper pelvis. This could be from infection such as pyelonephritis or urinary tract infection.The ureters are not dilated. The bladder is normally distended. It has no wall thickening or perivesical edema.The bowel is not dilated. There is no wall thickening in the bowel or edema around the bowel. The appendix is normal in size with no inflammation around it. No evidence of appendicitis.There is no significant acute bone abnormality. Old healed rib fractures.IMPRESSION:1. New perirenal and retroperitoneal edema, possibly inflammatory2. No renal stone or hydronephrosis3. Hepatomegaly, increased4. Stable splenomegalyTHIS IS AN ELECTRONICALLY VERIFIED FINAL [id number]/12/2023 2:37 PM - Electronically signed by Dima Billingsley MD
[2023-04-12] MEDS ORDERED: NS 500 ML IV 500 ML IV ONE (15:17)
[2023-04-12 15:55] VITALS: BMI 27.2
[2023-04-12] MEDS: COLACE CAP 100 MG PO SCH (20:11)
[2023-04-12] MEDS: SNACK - Diabetic Appropriate PO SCH ×2 (20:12)
[2023-04-12] MEDS ORDERED: BENADRYL CAP/TAB 25 MG PO ONE (20:44)
[2023-04-12] MEDS ORDERED: NS 250 ML IV 250 ML IV ONE (21:38)
[2023-04-12] MEDS: TYLENOL 325 MG TAB PO PRN (21:50)
[2023-04-13] MEDS ORDERED: HIBICLENS WASH EXT ONE (00:25)
[2023-04-13 02:21] LABS: HEMOGLOBIN 10.5 g/dL (13.5-18.0)
[2023-04-13] MEDS: NS 1,000 ML IV 1,000 ML IV SCH (02:50)
[2023-04-13] MEDS: MERREM VIAL IVP SCH ×3 (05:12→22:05)
[2023-04-13] MEDS: VANCOMYCIN IV *PREMIX 1.25 G/250 ML BAG 1.25 G/250 ML PIGGYBACK IV SCH (05:12)
[2023-04-13] MEDS: NovoLIN R (or HumuLIN R) SC PRN ×2 (05:34→22:10)
[2023-04-13 06:22] LABS: BASOPHILS # (AUTO) 0.2 X10^3/uL (0.0-0.1); BASOPHILS % (AUTO) 2.3 % (0.2-1.0); EOSINOPHILS # (AUTO) 0.1 x10^3/uL (0.0-0.2); EOSINOPHILS % (AUTO) 1.6 % (0.9-2.9); HEMATOCRIT 28.3 % (42.0-54.0); HEMOGLOBIN 9.5 g/dL (13.5-18.0); LYMPHOCYTES # (AUTO) 1.2 X10^3/uL (1.3-2.9); LYMPHOCYTES % (AUTO) 13.6 % (21.0-51.0); MEAN CORPUSCULAR HEMOGLOBIN 25.6 pg (27.0-34.0); MEAN CORPUSCULAR HGB CONC 33.7 g/dL (33.0-35.0); MEAN PLATELET VOLUME 7.2 fL (7.4-11.0); MONOCYTES # (AUTO) 0.7 x10^3/uL (0.3-0.8); MONOCYTES % (AUTO) 7.7 % (0.0-13.0); NEUTROPHILS # (AUTO) 6.3 x10^3/uL (2.2-4.8); NEUTROPHILS % (AUTO) 74.8 % (42.0-75.0); PLATELET COUNT 318 X10^3/uL (150.0-450.0); RED BLOOD COUNT 3.73 X10^6/uL (4.7-6.0); RED CELL DISTRIBUTION WIDTH 18.7 % (11.6-16.5); WHITE BLOOD COUNT 8.5 X10^3/uL (3.6-10.0)
[2023-04-13 06:32] LABS: ALANINE AMINOTRANSFERASE < 6 Units/L (12-78); ALBUMIN 1.2 g/dL (3.4-5.0); ALKALINE PHOSPHATASE 276 Units/L (46-116); ASPARTATE AMINO TRANSFERASE 11 Units/L (15-37); BLOOD UREA NITROGEN 8 mg/dL (7-18); CARBON DIOXIDE 26.7 mmol/L (21-32); CHLORIDE 98 mmol/L (98-107); COR CA(FOR HYPOALB) 9.2 mg/dL (8.5-10.1); COR NA(FOR HYPERGLY) 132 mmol/L (136-145); CREATININE 0.78 mg/dL (0.70-1.30); GLUCOSE 180 mg/dL (65-99); POTASSIUM 3.7 mmol/L (3.5-5.1); SODIUM 130 mmol/L (136-145); TOTAL PROTEIN 5.9 g/dL (6.4-8.2); eGFR NON BLACK RACES > 60 (>60)
[2023-04-13 06:57] LABS: BAND NEUTROPHILS % 3 % (0-10); METAMYELOCYTES % 1; PLATELET MORPHOLOGY COMMENT NORMAL (NORMAL)
[2023-04-13 06:58] LABS: ANISOCYTOSIS SLIGHT; HYPOCHROMASIA SLIGHT; MICROCYTOSIS SLIGHT
[2023-04-13] MEDS ORDERED: CONSULT PHARMACY - POTASSIUM & MAGNESIUM XX SCH (07:00)
[2023-04-13] MEDS ORDERED: K-DUR TAB 20 MEQ PO SCH (09:00)
[2023-04-13] MEDS ORDERED: MAG-OX TAB PO SCH (09:00)
[2023-04-13] MEDS: LANTUS SC SCH (09:17)
[2023-04-13] MEDS: PROTONIX INJ 40 MG VIAL IVP SCH ×2 (09:21→20:55)
[2023-04-13] MEDS: ALBUMIN HUMAN 25%- 100 ML 100 ML IV SCH (09:22)
[2023-04-13] MEDS: NS + KCL 20 MEQ/L 1,000 ML with MAGNESIUM SULFATE 50% INJ VIAL 1 G IV SCH ×2 (10:37)
[2023-04-13] MEDS ORDERED: MARCAINE 0.25% INJ ONE (11:30)
[2023-04-13] MEDS ORDERED: VANCOMYCIN HCL ONE (11:30)
[2023-04-13] MEDS ORDERED: TOBRAMYCIN SULFATE ONE (11:30)
[2023-04-13] MEDS ORDERED: BETADINE SOLN ONE (11:31)
--- NOTE | 2023-04-13 11:55 | PCM.PROG ---
Progress Note - Progress Note for Day of Date of Exam: 04/12/23 - Subjective Subjective: IS CURRENTLY INPATIENT STATUS FOR TREATMENT OF SEPSIS, NECROTIZING FASCIITIS OF THE RIGHT ANKLE AND FOOT, OSTEOMYELITIS OF THE RIGHT FOOT, ANEMIA, UTI, HYPONATREMIA, DEHYDRATION, AND UNCONTROLLED TYPE 2 DIABETES. TODAY, HE IS ALERT AND ORIENTED, LYING IN BED ON MORNING ROUNDS. HE CONTINUES TO COMPLAIN OF GENERALIZED WEAKNESS THIS MORNING AND PAIN TO THE RIGHT LOWER EXTREMITY. HE ADMITS TO SLIGHT IMPROVEMENT IN SYMPTOMS SINCE WE SAW HIM YESTERDAY. HE DID RECEIVE TWO UNITS OF PACKED RED BLOOD CELLS. HE IS DAY 2 POST OP FACIOTOMY OF THE ANTERIOR AND LATERAL LEG COMPARTMENT OF THE RIGHT LEG, EXTENSIVE DEBRIDEMENT OF MUSCLES AND TENDONS OF THAT REGION, METATARSECTOMY OF THE RIGHT FOOT (FIRST), ANTIBIOTIC BEAD PLACEMENT, AND MEDICAL PLANTAR FASCIECTOMY OF THE PLANTAR MEDIAL COMPARTMENT OF THE FOOT OF THE RIGHT WITH EXTENSIVE DEBRIDEMENT. ON EXAMINATION TODAY, HEART IS REGULAR IN RATE AND RHYTHM. BILATERAL LUNGS ARE NOTED WITH DIMINISHED LUNG SOUNDS THROUGHOUT. ABDOMEN IS ROUND, SOFT, AND NON-TENDER WITH NORMAL BOWEL SOUNDS NOTED IN ALL QUADRANTS. THERE IS GOOD RANGE OF MOTION NOTED TO THE UPPER EXTREMITIES. HE HAS HAD A LEFT BTA AND HAS WEAKNESS OF THE RIGHT LOWER EXTREMITY. THERE IS A BULKY DRESSING NOTED TO THE RIGHT LOWER EXTREMITY. IS FOLLOWING PATIENT IS PERFORMING DRESSING CHANGES AND WOUND CARE. HIS VITALS THIS MORNING ARE: 98.9-91-18-100%-138/76. LABS WERE OBTAINED. WBC 9.1, RBC 3.28, HGB 8.2, HCT 24.7, PLT COUNT 306, SODIUM 129, POTASSIUM 3.5, CHLORIDE 96, BUN 11, CREATININE 0.79, GLUCOSE 207, CALCIUM 6.7, MAGNESIUM 1.7, TOTAL BILI 1.30, AST 11, ALT <6, ALK PHOS 185, CRP 229, TOTAL PROTEIN 5.7, ALBUMIN 1.0. URINE, WOUND, AND BLOOD CULTURES ARE PENDING. WE OBTAINED AN ABDOMEN/PELVIS CT WITH CONTRAST THIS MORNING. IT REVEALED: 1. New perirenal and retroperitoneal edema, possibly inflammatory 2. No renal stone or hydronephrosis 3. Hepatomegaly, increased 4. Stable splenomegaly. HE IS CURRENTLY RECEIVING NORMAL SALINE AT 75 ML/HR, VANCOMYCIN 1.25G IV TID, MEROPENEM 1G IV Q8H, DILAUDID 1MG IV Q4H PRN, OTBS ACHS, HUMULIN R SLIDING SCALE, ZOFRAN 4MG IV Q4H PRN, PERCOCET 5/325MG Q4H PRN, COLACE 200MG HS. WE PLAN TO TRANSFUSE TWO ADDITIONAL UNITS OF PACKED RED BLOOD CELLS TODAY. WE WILL ADD ALBUMIN 25% IV DAILY AND LANTUS 10 UNITS SC DAILY. OTHERWISE, WE WILL CONTINUE WITH CURRENT PLAN OF CARE. PLANS TO TAKE HIM BACK TO THE OR TOMORROW FOR FURTHER WASHOUT OF WOUND TO ATTEMPT TO SALVAGE THE LIMB. WE ARE IN AGREEMENT WITH PLANS. OTHERWISE, WE WILL FOLLOW UP WITH AM LABS AND CONTINUE TO MONITOR. TIME SPENT ON CLINICAL ASSESSMENT, REVIEWING LABS AND IMAGING, DECISION MAKING, AND DOCUMENTATION GREATER THAN 45 MINUTES. - Past Medical Family Social History Past Med/Fam/Surg Hx: No changes since H&P Allergies: Allergies No Known Drug Allergies Allergy (Verified 07/25/17 15:16) - Review of Systems ROS: No change since H&P - Vital Signs and I&O's Vital Signs: Vital Signs Temperature 99.3 F Temperature 100.6 F Pulse Rate [Right Radial] 94 Pulse Rate [Right Radial] 91 Respiratory Rate 18 Respiratory Rate 20 Blood Pressure [Right Arm] 151/84 Blood Pressure [Right Arm] 158/87 O2 Sat by Pulse Oximetry 99 O2 Sat by Pulse Oximetry 99 Intake and Output: Intake & Output 04/10/23 04/11/23 04/12/23 04/13/23 11:59 11:59 11:59 11:59 Intake Total 1427 / 1427 2351 / 2351 3747 / 3747 Output Total 1550 / 1550 620 / 620 3200 / 3200 Balance -123 / -123 1731 / 1731 547 / 547 - Physical Exam Oriented: Normal Eyes: Normal Ear: Normal Nose: Normal Throat: Normal Respiratory: Normal Cardiovascular: Normal, Edema (RIGHT LOWER EXTREMITY ) : Normal Auscultation: Bowel Sounds: Normal Palpation: Normal Tenderness: Normal Skin: Normal, Red, Tender, Hot, Wound (RIGHT LEG ) Musculoskeletal: Right, Leg, Ankle, Foot, Swelling, Tender Psychiatric: Normal Mood Description: Calm Affect: Normal Speech Pattern: Clear, Appropriate - Laboratory and Diagnostics Result Diagrams: 04/13/23 05:53 04/13/23 05:53 Labs: 04/10/23 20:25 Blood Blood Culture Gram Stain - Final 04/10/23 20:25 Blood Blood Culture - Final 04/10/23 22:50 Foot - Right Wound Gram Stain - Final 04/10/23 22:50 Foot - Right Wound Culture - Preliminary Klebsiella Pneumoniae 04/10/23 22:55 Leg - Right Wound Gram Stain - Final 04/10/23 22:55 Leg - Right Wound Culture - Preliminary Klebsiella Pneumoniae 04/11/23 05:30 Urine,Clean Catch Urine Culture - Final Staphylococcus Aureus 04/10/23 20:22 Blood Blood Culture - Preliminary Laboratory WBC 8.5 X10^3/uL (3.6-10.0) 04/13/23 05:53 RBC 3.73 X10^6/uL (4.7-6.0) L 04/13/23 05:53 Hgb 9.5 g/dL (13.5-18.0) L 04/13/23 05:53 Hct 28.3 % (42.0-54.0) L 04/13/23 05:53 MCV 76.0 fL (80.0-100.0) L 04/13/23 05:53 MCH 25.6 pg (27.0-34.0) L 04/13/23 05:53 MCHC 33.7 g/dL (33.0-35.0) 04/13/23 05:53 RDW 18.7 % (11.6-16.5) H 04/13/23 05:53 Plt Count 318 X10^3/uL (150.0-450.0) 04/13/23 05:53 Plt Count Comment Adequate (ADEQUATE) 04/13/23 05:53 MPV 7.2 fL (7.4-11.0) L 04/13/23 05:53 Neut % (Auto) 74.8 % (42.0-75.0) 04/13/23 05:53 Lymph % (Auto) 13.6 % (21.0-51.0) L 04/13/23 05:53 [place] % (Auto) 7.7 % (0.0-13.0) 04/13/23 05:53 Eos % (Auto) 1.6 % (0.9-2.9) 04/13/23 05:53 Baso % (Auto) 2.3 % (0.2-1.0) H 04/13/23 05:53 Neut # (Auto) 6.3 x10^3/uL (2.2-4.8) H 04/13/23 05:53 Lymph # (Auto) 1.2 X10^3/uL (1.3-2.9) L 04/13/23 05:53 [place] # (Auto) 0.7 x10^3/uL (0.3-0.8) 04/13/23 05:53 Eos # (Auto) 0.1 x10^3/uL (0.0-0.2) 04/13/23 05:53 Baso # (Auto) 0.2 X10^3/uL (0.0-0.1) H 04/13/23 05:53 Absolute Nucleated RBC 0.1 /100WBC 04/13/23 05:53 Total Counted 100 04/13/23 05:53 Neutrophils % (Manual) 77 % (39-76) H 04/13/23 05:53 Band Neutrophils % 3 % (0-10) 04/13/23 05:53 Lymphocytes % (Manual) 13 % (13-43) 04/13/23 05:53 Monocytes % (Manual) 4 % (4-9) 04/13/23 05:53 Eosinophils % (Manual) 2 % (0-6) 04/13/23 05:53 Metamyelocytes % 1 04/13/23 05:53 Plt Morphology Comment Normal (NORMAL) 04/13/23 05:53 RBC Morphology Abnormal (NORMAL) 04/13/23 05:53 Hypochromasia Slight A 04/13/23 05:53 Anisocytosis Slight A 04/13/23 05:53 Microcytosis Slight A 04/13/23 05:53 Sodium 130 mmol/L (136-145) L 04/13/23 05:53 Corrected Sodium 132 mmol/L (136-145) L 04/13/23 05:53 Potassium 3.7 mmol/L (3.5-5.1) 04/13/23 05:53 Chloride 98 mmol/L (98-107) 04/13/23 05:53 Carbon Dioxide 26.7 mmol/L (21-32) 04/13/23 05:53 BUN 8 mg/dL (7-18) 04/13/23 05:53 Creatinine 0.78 mg/dL (0.70-1.30) 04/13/23 05:53 Est GFR (MDRD) Af Amer > 60 (>60) 04/13/23 05:53 Est GFR (MDRD) Non-Af > 60 (>60) 04/13/23 05:53 Glucose 180 mg/dL (65-99) H 04/13/23 05:53 POC Glucose (mg/dL) 142 mg/dL (65-99) H 04/13/23 11:17 Lactic Acid 3.8 mmol/L (0.4-2.0) H 04/10/23 20:25 Calcium 7.0 mg/dL (8.5-10.1) L 04/13/23 05:53 Corrected Calcium 9.2 mg/dL (8.5-10.1) 04/13/23 05:53 Magnesium 1.8 mg/dL (2.0-2.9) L 04/13/23 05:53 Magnesium Cancelled 04/13/23 05:53 Total Bilirubin 0.60 mg/dL (0.2-1.0) 04/13/23 05:53 AST 11 Units/L (15-37) L 04/13/23 05:53 ALT < 6 Units/L (12-78) L 04/13/23 05:53 Alkaline Phosphatase 276 Units/L (46-116) H 04/13/23 05:53 C-Reactive Protein 153.80 mg/L (0-3.0) H 04/13/23 05:53 Total Protein 5.9 g/dL (6.4-8.2) L 04/13/23 05:53 Albumin 1.2 g/dL (3.4-5.0) L 04/13/23 05:53 Globulin 4.7 g/dL (2.5-4.5) H 04/13/23 05:53 Albumin/Globulin Ratio 0.3 Ratio (1.1-2.1) L 04/13/23 05:53 Lipase 21 Units/L (16-77) 04/10/23 20:25 Specimen Type Clean catch urine 04/11/23 05:30 Urine Color [place] (YELLOW) 04/11/23 05:30 Urine Appearance Slightly hazy (CLEAR) 04/11/23 05:30 Urine pH 6.0 (5.0 - 8.0) 04/11/23 05:30 Ur Specific [place] 1.015 (1.000-1.030) 04/11/23 05:30 Urine Protein 3+ (NEGATIVE) 04/11/23 05:30 Urine Glucose (UA) 4+ (NEGATIVE) 04/11/23 05:30 Urine Ketones Negative (NEGATIVE) 04/11/23 05:30 Urine Blood 4+ (NEGATIVE) 04/11/23 05:30 Urine Nitrite Negative (NEGATIVE) 04/11/23 05:30 Urine Bilirubin Negative (NEGATIVE) 04/11/23 05:30 Urine Urobilinogen 2+ (NORMAL) 04/11/23 05:30 Ur Leukocyte Esterase Negative (NEGATIVE) 04/11/23 05:30 Urine RBC 3-5 /HPF (0-3) A 04/11/23 05:30 Urine WBC 10-20 /HPF (0-5) A 04/11/23 05:30 Ur Squamous Epith Cells Few /HPF (NEGATIVE) 04/11/23 05:30 Amorphous Sediment 1+ /HPF (NEGATIVE) 04/11/23 05:30 Urine Bacteria 2+ /HPF (NEGATIVE) 04/11/23 05:30 Hyaline Casts Rare /LPF (NEGATIVE) 04/11/23 05:30 Granular Casts Few /LPF (NEGATIVE) 04/11/23 05:30 Ur Culture Indicated? Yes/culture set up 04/11/23 05:30 Vancomycin Trough 8.5 ug/mL (15-20) L 04/12/23 09:32 Blood Type O POSITIVE 04/11/23 10:06 Antibody Screen Negative 04/11/23 10:03 Crossmatch See Detail 04/11/23 10:03 - Plan (1) Sepsis Status: Acute Qualifiers: Sepsis type: sepsis due to unspecified organism Sepsis acute organ dysfunction status: unspecified Qualified Code(s): A41.9 - Sepsis, unspecified organism Plan: WOUND CARE, NORMAL SALINE AT 75 ML/HR, VANCOMYCIN 1.25G IV TID, MEROPENEM 1G IV Q8H, DILAUDID 1MG IV Q4H PRN, OTBS ACHS, HUMULIN R SLIDING SCALE, ZOFRAN 4MG IV Q4H PRN, PERCOCET 5/325MG Q4H PRN, COLACE 200MG HS. (2) Necrotizing fasciitis of ankle and foot Status: Acute Plan: WOUND CARE BY (3) Acute osteomyelitis of metatarsal bone of right foot Status: Acute Plan: IV ANTIBIOTICS (4) Anemia Status: Acute Qualifiers: Anemia type: unspecified type Qualified Code(s): D64.9 - Anemia, unspecified Plan: MONITOR H&H, TRANSFUSE PACKED RED BLOOD CELLS (5) UTI (urinary tract infection) Status: Acute Qualifiers: Urinary tract infection type: acute cystitis Hematuria presence: with hematuria Qualified Code(s): N30.01 - Acute cystitis with hematuria Plan: IV ANTIBIOTICS (6) Hyponatremia Status: Acute Plan: IV FLUIDS (7) Dehydration Status: Acute Plan: IV FLUIDS (8) Uncontrolled type 2 diabetes mellitus Status: Chronic Qualifiers: Glycemic state: with hyperglycemia Qualified Code(s): E11.65 - Type 2 diabetes mellitus with hyperglycemia Plan: OTBS ACHS, HUMULIN R SLIDING SCALE
[2023-04-13] MEDS ORDERED: DIPRIVAN VIAL 20 ML ONE (12:29)
[2023-04-13] MEDS ORDERED: FENTANYL VIAL INJ 100 mcg ONE (12:30)
[2023-04-13] MEDS ORDERED: VERSED ONE (12:30)
[2023-04-13] MEDS ORDERED: NS 1,000 ML IV 1,000 ML ONE (12:38)
[2023-04-13] MEDS ORDERED: NS 100 ML IV 0 ML ONE (12:46)
[2023-04-13] MEDS ORDERED: ANCEF VIAL 1 GRAM ONE (12:46)
[2023-04-13] MEDS ORDERED: KETAMINE 50 MG/5 ML-NACL SYRNG ONE (13:03)
[2023-04-13] MEDS ORDERED: PHARMACY COMMENT IV NR (13:30)
[2023-04-13 14:52] LABS: CREATININE 0.65 mg/dL (0.70-1.30); VANCOMYCIN,TROUGH 13.1 ug/mL (15-20)
[2023-04-13] MEDS: DILAUDID INJ IVP PRN ×2 (15:36→22:00)
[2023-04-13] MEDS: VANCOMYCIN IV *PREMIX 1.5 G/300 ML BAG 1.5 G/300 ML PIGGYBACK IV SCH ×2 (15:38→21:00)
--- NOTE | 2023-04-13 18:03 | DR.OB ---
OB QUICK NOTE Assessment/Plan (1) Sepsis: Assessment/Plan: IV abx (2) Necrotizing fasciitis of ankle and foot: Assessment/Plan: washed out again today. still with puss in the anterior comparement and the lateral. debrided more muscle and fascia. skin necrosis on the anterior leg and lateral leg, debrided. placed more beads. discussed with sofia today, may need BKA. will see how does through weekend. sofia to assess next week and determine if salvage vs. BKA better option. patient has a lot of complicating factors working against himself right now with anterior muscle groups have been debrided as well as lateral and with skin loss on dorsal anterior leg and foot. patient also with current TMA. already has BKA on the left. per sofia will need Hgb >8g/Dl for amputation and doesn't need stress test. (3) Acute osteomyelitis of metatarsal bone of right foot: (4) Anemia: (5) UTI (urinary tract infection): (6) Hyponatremia: (7) Dehydration: (8) Uncontrolled type 2 diabetes mellitus:
[2023-04-13] MEDS: SNACK - Diabetic Appropriate PO SCH (20:30)
[2023-04-13] MEDS: COLACE CAP 100 MG PO SCH (21:54)
[2023-04-13] MEDS: MILK OF MAGNESIA PO SCH (21:56)
[2023-04-13] MEDS: MIRALAX POWDER (1 DOSE 17 G) PO SCH (21:57)
[2023-04-14] MEDS: MERREM VIAL IVP SCH ×3 (05:00→21:33)
[2023-04-14] MEDS: VANCOMYCIN IV *PREMIX 1.5 G/300 ML BAG 1.5 G/300 ML PIGGYBACK IV SCH ×3 (05:09→21:24)
[2023-04-14 06:23] LABS: BASOPHILS % (AUTO) 0.5 % (0.2-1.0); EOSINOPHILS # (AUTO) 0.1 x10^3/uL (0.0-0.2); EOSINOPHILS % (AUTO) 1.5 % (0.9-2.9); HEMATOCRIT 25.9 % (42.0-54.0); HEMOGLOBIN 8.7 g/dL (13.5-18.0); LYMPHOCYTES # (AUTO) 1.5 X10^3/uL (1.3-2.9); LYMPHOCYTES % (AUTO) 15.9 % (21.0-51.0); MEAN CORPUSCULAR HEMOGLOBIN 25.5 pg (27.0-34.0); MEAN CORPUSCULAR HGB CONC 33.6 g/dL (33.0-35.0); MONOCYTES # (AUTO) 0.9 x10^3/uL (0.3-0.8); MONOCYTES % (AUTO) 8.9 % (0.0-13.0); NEUTROPHILS % (AUTO) 73.2 % (42.0-75.0); PLATELET COUNT 317 X10^3/uL (150.0-450.0); RED BLOOD COUNT 3.41 X10^6/uL (4.7-6.0); RED CELL DISTRIBUTION WIDTH 19.5 % (11.6-16.5); WHITE BLOOD COUNT 9.5 X10^3/uL (3.6-10.0)
[2023-04-14 06:43] LABS: ALANINE AMINOTRANSFERASE < 6 Units/L (12-78); ALBUMIN 1.3 g/dL (3.4-5.0); ALKALINE PHOSPHATASE 339 Units/L (46-116); ASPARTATE AMINO TRANSFERASE 10 Units/L (15-37); BLOOD UREA NITROGEN 6 mg/dL (7-18); CARBON DIOXIDE 28.1 mmol/L (21-32); CHLORIDE 99 mmol/L (98-107); COR CA(FOR HYPOALB) 9.2 mg/dL (8.5-10.1); COR NA(FOR HYPERGLY) 131 mmol/L (136-145); CREATININE 0.68 mg/dL (0.70-1.30); GLUCOSE 118 mg/dL (65-99); POTASSIUM 3.7 mmol/L (3.5-5.1); SODIUM 131 mmol/L (136-145); TOTAL PROTEIN 5.8 g/dL (6.4-8.2); eGFR NON BLACK RACES > 60 (>60)
[2023-04-14] MEDS ORDERED: CONSULT PHARMACY - POTASSIUM & MAGNESIUM XX SCH (07:00)
--- NOTE | 2023-04-14 07:29 | NOTE.SOAP ---
Soap Note Note for Day of Date of Exam: 04/14/23 Subjective Data Subjective Data: patient seen bedside doing well today. no issues overnight. small amount of strikethrough on bandage. Objective Data Objective Data: bandage without issues. leave intact due to cement placement. Assessment Assessment: 40 m with necrotizing fasciitis of the right LE. DM uncontrolled, acute blood loss anemia with chronic anemia. Plan Plan: patient washed out yesterday. position still guarded regarding limb. plan to go back to OR sunday with Dr. Simmons for further washout vs. amputation. has extensive necrosis anterior leg skin and has lost anterior compartment as well as lateral compartment muscles. I feel that BKA will be viable option. discussed with him this am and discussed level as left leg BKA very difficult for prosthetic due to short nature of stump. Dr. Simmons to discuss more but discussed outlook if further attempt at salvage due to extensive nature and patient already with TMA but now doesn't have medial column to TMA due to osteo and metatarsal excision. leave dressing intact until sunday.
[2023-04-14] MEDS ORDERED: K-DUR TAB 20 MEQ PO SCH (08:00)
[2023-04-14] MEDS ORDERED: NS + KCL 20 MEQ/L 1,000 ML IV ONE (08:22)
[2023-04-14] MEDS: NS + KCL 20 MEQ/L 1,000 ML with MAGNESIUM SULFATE 50% INJ VIAL 1 G IV SCH ×2 (09:22)
[2023-04-14] MEDS: MILK OF MAGNESIA PO SCH ×4 (09:25→21:11)
[2023-04-14] MEDS: PROTONIX INJ 40 MG VIAL IVP SCH ×2 (09:25→21:11)
[2023-04-14] MEDS: DILAUDID INJ IVP PRN (09:27)
[2023-04-14] MEDS: ALBUMIN HUMAN 25%- 100 ML 100 ML IV SCH (09:27)
[2023-04-14] MEDS: LANTUS SC SCH (09:28)
[2023-04-14] MEDS ORDERED: PHARMACY COMMENT IV ONE (13:30)
[2023-04-14] MEDS: NovoLIN R (or HumuLIN R) SC PRN ×2 (16:33→21:14)
[2023-04-14] MEDS: SNACK - Diabetic Appropriate PO SCH (21:09)
[2023-04-14] MEDS: MIRALAX POWDER (1 DOSE 17 G) PO SCH (21:10)
[2023-04-14] MEDS: COLACE CAP 100 MG PO SCH (21:10)
[2023-04-15] MEDS: DILAUDID INJ IVP PRN ×3 (00:12→17:55)
[2023-04-15] MEDS: NS + KCL 20 MEQ/L 1,000 ML with MAGNESIUM SULFATE 50% INJ VIAL 1 G IV SCH ×8 (03:27→22:08)
[2023-04-15 05:20] LABS: BASOPHILS # (AUTO) 0.1 X10^3/uL (0.0-0.1); BASOPHILS % (AUTO) 0.9 % (0.2-1.0); EOSINOPHILS # (AUTO) 0.2 x10^3/uL (0.0-0.2); EOSINOPHILS % (AUTO) 3.1 % (0.9-2.9); HEMATOCRIT 27.4 % (42.0-54.0); HEMOGLOBIN 9.2 g/dL (13.5-18.0); LYMPHOCYTES # (AUTO) 1.3 X10^3/uL (1.3-2.9); LYMPHOCYTES % (AUTO) 22.1 % (21.0-51.0); MEAN CORPUSCULAR HEMOGLOBIN 25.5 pg (27.0-34.0); MEAN CORPUSCULAR HGB CONC 33.6 g/dL (33.0-35.0); MEAN PLATELET VOLUME 7.2 fL (7.4-11.0); MONOCYTES # (AUTO) 0.5 x10^3/uL (0.3-0.8); MONOCYTES % (AUTO) 8.8 % (0.0-13.0); NEUTROPHILS # (AUTO) 3.9 x10^3/uL (2.2-4.8); NEUTROPHILS % (AUTO) 65.1 % (42.0-75.0); PLATELET COUNT 320 X10^3/uL (150.0-450.0); RED BLOOD COUNT 3.61 X10^6/uL (4.7-6.0); RED CELL DISTRIBUTION WIDTH 19.3 % (11.6-16.5)
[2023-04-15 05:38] LABS: ALANINE AMINOTRANSFERASE < 6 Units/L (12-78); ALBUMIN 1.6 g/dL (3.4-5.0); ALKALINE PHOSPHATASE 383 Units/L (46-116); ASPARTATE AMINO TRANSFERASE 12 Units/L (15-37); BLOOD UREA NITROGEN 6 mg/dL (7-18); CALCIUM 7.2 mg/dL (8.5-10.1); CARBON DIOXIDE 30.8 mmol/L (21-32); CHLORIDE 99 mmol/L (98-107); COR CA(FOR HYPOALB) 9.1 mg/dL (8.5-10.1); COR NA(FOR HYPERGLY) 135 mmol/L (136-145); CREATININE 0.68 mg/dL (0.70-1.30); GLUCOSE 143 mg/dL (65-99); POTASSIUM 4.1 mmol/L (3.5-5.1); SODIUM 134 mmol/L (136-145); TOTAL PROTEIN 6.4 g/dL (6.4-8.2); eGFR NON BLACK RACES > 60 (>60)
[2023-04-15] MEDS: MERREM VIAL IVP SCH ×3 (05:41→21:09)
[2023-04-15] MEDS: VANCOMYCIN IV *PREMIX 1.5 G/300 ML BAG 1.5 G/300 ML PIGGYBACK IV SCH (05:53)
[2023-04-15] MEDS: LANTUS SC SCH (08:30)
[2023-04-15] MEDS: ALBUMIN HUMAN 25%- 100 ML 100 ML IV SCH (08:30)
[2023-04-15] MEDS: PROTONIX INJ 40 MG VIAL IVP SCH ×2 (08:30→20:29)
--- NOTE | 2023-04-15 08:33 | RAD ---
EXAM:AP chestHISTORY:Short of breathCOMPARISON:June 14, 2021FINDINGS:Heart size remains normal with clear lungs and pleural spaces. Stable position of left subclavian port extending to the SVC.IMPRESSION:No change; no acute findings.THIS IS AN ELECTRONICALLY VERIFIED FINAL [id number] 8:30 AM - Electronically signed by Salinas Draper MD
[2023-04-15] MEDS: MILK OF MAGNESIA PO SCH ×4 (08:38→20:21)
[2023-04-15 14:50] LABS: CREATININE 0.77 mg/dL (0.70-1.30)
[2023-04-15 14:52] LABS: VANCOMYCIN,TROUGH 20.6 ug/mL (15-20)
[2023-04-15] MEDS: NovoLIN R (or HumuLIN R) SC PRN ×2 (17:02→22:07)
[2023-04-15] MEDS: MIRALAX POWDER (1 DOSE 17 G) PO SCH (20:22)
[2023-04-15] MEDS: SNACK - Diabetic Appropriate PO SCH (20:22)
[2023-04-15] MEDS: COLACE CAP 100 MG PO SCH (20:22)
[2023-04-15 22:52] LABS: CREATININE 0.53 mg/dL (0.70-1.30); VANCOMYCIN,TROUGH 12.9 ug/mL (15-20)
[2023-04-15] MEDS: VANCOMYCIN IV *PREMIX 1.25 G/250 ML BAG 1.25 G/250 ML PIGGYBACK IV SCH (23:06)
[2023-04-16] MEDS: DILAUDID INJ IVP PRN ×2 (05:16→15:33)
[2023-04-16] MEDS: MERREM VIAL IVP SCH (05:16)
[2023-04-16 05:33] LABS: BASOPHILS # (AUTO) 0.1 X10^3/uL (0.0-0.1); BASOPHILS % (AUTO) 1.2 % (0.2-1.0); EOSINOPHILS # (AUTO) 0.2 x10^3/uL (0.0-0.2); EOSINOPHILS % (AUTO) 3.4 % (0.9-2.9); HEMATOCRIT 30.5 % (42.0-54.0); HEMOGLOBIN 10.1 g/dL (13.5-18.0); LYMPHOCYTES # (AUTO) 1.6 X10^3/uL (1.3-2.9); LYMPHOCYTES % (AUTO) 24.4 % (21.0-51.0); MEAN CORPUSCULAR HEMOGLOBIN 25.3 pg (27.0-34.0); MEAN CORPUSCULAR VOLUME 76.7 fL (80.0-100.0); MEAN PLATELET VOLUME 7.4 fL (7.4-11.0); MONOCYTES # (AUTO) 0.6 x10^3/uL (0.3-0.8); MONOCYTES % (AUTO) 8.5 % (0.0-13.0); NEUTROPHILS # (AUTO) 4.1 x10^3/uL (2.2-4.8); NEUTROPHILS % (AUTO) 62.5 % (42.0-75.0); PLATELET COUNT 402 X10^3/uL (150.0-450.0); RED BLOOD COUNT 3.98 X10^6/uL (4.7-6.0); RED CELL DISTRIBUTION WIDTH 18.9 % (11.6-16.5); WHITE BLOOD COUNT 6.5 X10^3/uL (3.6-10.0)
[2023-04-16 05:53] LABS: ALANINE AMINOTRANSFERASE 6 Units/L (12-78); ALBUMIN 1.9 g/dL (3.4-5.0); ALKALINE PHOSPHATASE 374 Units/L (46-116); ASPARTATE AMINO TRANSFERASE 11 Units/L (15-37); BLOOD UREA NITROGEN 6 mg/dL (7-18); CALCIUM 7.7 mg/dL (8.5-10.1); CHLORIDE 98 mmol/L (98-107); COR CA(FOR HYPOALB) 9.4 mg/dL (8.5-10.1); COR NA(FOR HYPERGLY) 134 mmol/L (136-145); CREATININE 0.69 mg/dL (0.70-1.30); GLUCOSE 177 mg/dL (65-99); POTASSIUM 3.9 mmol/L (3.5-5.1); SODIUM 132 mmol/L (136-145); TOTAL PROTEIN 7.1 g/dL (6.4-8.2); eGFR NON BLACK RACES > 60 (>60)
[2023-04-16] MEDS: VANCOMYCIN IV *PREMIX 1.25 G/250 ML BAG 1.25 G/250 ML PIGGYBACK IV SCH ×3 (06:01→23:11)
[2023-04-16] MEDS ORDERED: BETADINE SOLN ONE (07:13)
[2023-04-16] MEDS: NS + KCL 20 MEQ/L 1,000 ML with MAGNESIUM SULFATE 50% INJ VIAL 1 G IV SCH ×4 (08:45→15:30)
[2023-04-16] MEDS ORDERED: ANCEF VIAL 1 GRAM ONE (08:59)
[2023-04-16] MEDS ORDERED: NS 100 ML IV 100 ML ONE ×2 (08:59→14:07)
[2023-04-16] MEDS ORDERED: NS 1,000 ML IV 1,000 ML ONE (08:59)
[2023-04-16] MEDS: ALBUMIN HUMAN 25%- 100 ML 100 ML IV SCH (09:15)
[2023-04-16] MEDS: PROTONIX INJ 40 MG VIAL IVP SCH ×2 (09:16→21:18)
[2023-04-16] MEDS: MILK OF MAGNESIA PO SCH ×4 (09:16→21:18)
[2023-04-16] MEDS: LANTUS SC SCH (09:17)
[2023-04-16] MEDS ORDERED: FENTANYL VIAL INJ 100 mcg ONE (09:20)
[2023-04-16] MEDS ORDERED: VERSED ONE (09:20)
[2023-04-16] MEDS ORDERED: DIPRIVAN VIAL 20 ML ONE (09:21)
[2023-04-16] MEDS ORDERED: KETAMINE 50 MG/5 ML-NACL SYRNG ONE (09:21)
--- NOTE | 2023-04-16 09:42 | PCM.PROG ---
Progress Note - Progress Note for Day of Date of Exam: 04/13/23 - Subjective Subjective: IS CURRENTLY INPATIENT STATUS FOR TREATMENT OF SEPSIS, NECROTIZING FASCIITIS OF THE RIGHT ANKLE AND FOOT, OSTEOMYELITIS OF THE RIGHT FOOT, ANEMIA, UTI, HYPONATREMIA, DEHYDRATION, AND UNCONTROLLED TYPE 2 DIABETES. TODAY, HE IS ALERT AND ORIENTED, LYING IN BED ON MORNING ROUNDS. HE CONTINUES TO COMPLAIN OF GENERALIZED WEAKNESS THIS MORNING AND PAIN TO THE RIGHT LOWER EXTREMITY. HE ADMITS TO SLIGHT IMPROVEMENT IN SYMPTOMS SINCE WE SAW HIM YESTERDAY. HE HAS RECEIVIED FOUR UNITS OF PACKED RED BLOOD CELLS SINCE ADMISSION. HE IS DAY 3 POST OP FACIOTOMY OF THE ANTERIOR AND LATERAL LEG COMPARTMENT OF THE RIGHT LEG, EXTENSIVE DEBRIDEMENT OF MUSCLES AND TENDONS OF THAT REGION, METATARSECTOMY OF THE RIGHT FOOT (FIRST), ANTIBIOTIC BEAD PLACEMENT, AND MEDICAL PLANTAR FASCIECTOMY OF THE PLANTAR MEDIAL COMPARTMENT OF THE FOOT OF THE RIGHT WITH EXTENSIVE DEBRIDEMENT. ON EXAMINATION TODAY, HEART IS REGULAR IN RATE AND RHYTHM. BILATERAL LUNGS ARE NOTED WITH DIMINISHED LUNG SOUNDS THROUGHOUT. ABDOMEN IS ROUND, SOFT, AND NON-TENDER WITH NORMAL BOWEL SOUNDS NOTED IN ALL QUADRANTS. THERE IS GOOD RANGE OF MOTION NOTED TO THE UPPER EXTREMITIES. HE HAS HAD A LEFT BTA AND HAS WEAKNESS OF THE RIGHT LOWER EXTREMITY. THERE IS A BULKY DRESSING NOTED TO THE RIGHT LOWER EXTREMITY. IS FOLLOWING PATIENT IS PERFORMING DRESSING CHANGES AND WOUND CARE. HIS VITALS THIS MORNING ARE: 99.3-94-18-99%-151/84. LABS WERE OBTAINED. WBC 8.5, RBC 3.73, HGB 9.5, HCT 28.3, PLT COUNT 318, SODIUM 130, POTASSIUM 3.7, CHLORIDE 98, CARBON DIOXIDE 26.7, BUN 8, CREATININE 0.78, GLUCOSE 180, CALCIUM 7.0, MAGNESIUM 1.8, TOTAL BILI 0.60, AST 11, ALT <6, ALK PHOS 276, CRP 153.80, TOTAL PROTEIN 5.9, ALBUMIN 1.2. URINE, WOUND, AND BLOOD CULTURES ARE PENDING. HE IS CURRENTLY RECEIVING NORMAL SALINE AT 75 ML/HR, ALBUMIN 25% IV DAILY, VANCOMYCIN 1.25G IV TID, MEROPENEM 1G IV Q8H, DILAUDID 1MG IV Q4H PRN, OTBS ACHS, HUMULIN R SLIDING SCALE, LANTUS 10 UNITS DAILY, ZOFRAN 4MG IV Q4H PRN, PERCOCET 5/325MG Q4H PRN, COLACE 200MG HS. PLANS TO TAKE HIM BACK TO THE OR TODAY FOR FURTHER WASHOUT OF WOUND TO ATTEMPT TO SALVAGE THE LIMB. WE ARE IN AGREEMENT WITH PLANS. OTHERWISE, WE WILL CONTINUE WITH CURRENT PLAN OF CARE TODAY. WE WILL FOLLOW UP WITH AM LABS AND CONTINUE TO MONITOR. TIME SPENT ON CLINICAL ASSESSMENT, REVIEWING LABS AND IMAGING, DECISION MAKING, AND DOCUMENTATION GREATER THAN 45 MINUTES. - Past Medical Family Social History Past Med/Fam/Surg Hx: No changes since H&P Allergies: Allergies No Known Drug Allergies Allergy (Verified 07/25/17 15:16) - Review of Systems ROS: No change since H&P - Vital Signs and I&O's Vital Signs: Vital Signs Temperature 98.2 F Temperature 98.3 F Temperature 98.0 F Pulse Rate [Brachial] 79 Pulse Rate [Brachial] 72 Pulse Rate 72 Pulse Rate 72 Respiratory Rate 16 Respiratory Rate 16 Respiratory Rate 20 Respiratory Rate 20 Respiratory Rate 20 Respiratory Rate 20 Blood Pressure [Right Arm] 140/79 Blood Pressure [Right Arm] 144/78 Blood Pressure 154/93 O2 Sat by Pulse Oximetry 97 O2 Sat by Pulse Oximetry 98 O2 Sat by Pulse Oximetry 99 Intake and Output: Intake & Output 04/13/23 04/14/23 04/15/23 04/16/23 12:59 12:59 11:59 11:59 Intake Total 2232 / 2232 Output Total 1900 / 1900 Balance 332 / 332 - Physical Exam Oriented: Normal Eyes: Normal Ear: Normal Nose: Normal Throat: Normal Respiratory: Normal Cardiovascular: Normal, Edema (RIGHT LOWER EXTREMITY ) : Normal Auscultation: Bowel Sounds: Normal Tenderness: Normal Skin: Normal, Red, Tender, Hot, Wound (RIGHT LEG ) Musculoskeletal: Right, Leg, Ankle, Foot, Swelling, Tender Psychiatric: Normal Mood Description: Calm Affect: Normal Speech Pattern: Clear, Appropriate - Laboratory and Diagnostics Result Diagrams: 04/16/23 04:46 04/16/23 04:46 Labs: 04/10/23 20:22 Blood Blood Culture - Final 04/10/23 22:50 Foot - Right Wound Gram Stain - Final 04/10/23 22:50 Foot - Right Wound Culture - Final Klebsiella Pneumoniae Enterococcus Faecalis 04/10/23 22:55 Leg - Right Wound Gram Stain - Final 04/10/23 22:55 Leg - Right Wound Culture - Final Klebsiella Pneumoniae Enterococcus Faecalis 04/12/23 11:44 Blood Blood Culture - Preliminary 04/12/23 11:35 Blood Blood Culture - Preliminary 04/10/23 20:25 Blood Blood Culture Gram Stain - Final 04/10/23 20:25 Blood Blood Culture - Final 04/11/23 05:30 Urine,Clean Catch Urine Culture - Final Staphylococcus Aureus Laboratory WBC 6.5 X10^3/uL (3.6-10.0) 04/16/23 04:46 RBC 3.98 X10^6/uL (4.7-6.0) L 04/16/23 04:46 Hgb 10.1 g/dL (13.5-18.0) L 04/16/23 04:46 Hct 30.5 % (42.0-54.0) L 04/16/23 04:46 MCV 76.7 fL (80.0-100.0) L 04/16/23 04:46 MCH 25.3 pg (27.0-34.0) L 04/16/23 04:46 MCHC 33.0 g/dL (33.0-35.0) 04/16/23 04:46 RDW 18.9 % (11.6-16.5) H 04/16/23 04:46 Plt Count 402 X10^3/uL (150.0-450.0) 04/16/23 04:46 Plt Count Comment Adequate (ADEQUATE) 04/13/23 05:53 MPV 7.4 fL (7.4-11.0) 04/16/23 04:46 Neut % (Auto) 62.5 % (42.0-75.0) 04/16/23 04:46 Lymph % (Auto) 24.4 % (21.0-51.0) 04/16/23 04:46 [place] % (Auto) 8.5 % (0.0-13.0) 04/16/23 04:46 Eos % (Auto) 3.4 % (0.9-2.9) H 04/16/23 04:46 Baso % (Auto) 1.2 % (0.2-1.0) H 04/16/23 04:46 Neut # (Auto) 4.1 x10^3/uL (2.2-4.8) 04/16/23 04:46 Lymph # (Auto) 1.6 X10^3/uL (1.3-2.9) 04/16/23 04:46 [place] # (Auto) 0.6 x10^3/uL (0.3-0.8) 04/16/23 04:46 Eos # (Auto) 0.2 x10^3/uL (0.0-0.2) 04/16/23 04:46 Baso # (Auto) 0.1 X10^3/uL (0.0-0.1) 04/16/23 04:46 Absolute Nucleated RBC 0.1 /100WBC 04/16/23 04:46 Total Counted 100 04/13/23 05:53 Neutrophils % (Manual) 77 % (39-76) H 04/13/23 05:53 Band Neutrophils % 3 % (0-10) 04/13/23 05:53 Lymphocytes % (Manual) 13 % (13-43) 04/13/23 05:53 Monocytes % (Manual) 4 % (4-9) 04/13/23 05:53 Eosinophils % (Manual) 2 % (0-6) 04/13/23 05:53 Metamyelocytes % 1 04/13/23 05:53 Plt Morphology Comment Normal (NORMAL) 04/13/23 05:53 RBC Morphology Abnormal (NORMAL) 04/13/23 05:53 Hypochromasia Slight A 04/13/23 05:53 Anisocytosis Slight A 04/13/23 05:53 Microcytosis Slight A 04/13/23 05:53 Sodium 132 mmol/L (136-145) L 04/16/23 04:46 Corrected Sodium 134 mmol/L (136-145) L 04/16/23 04:46 Potassium 3.9 mmol/L (3.5-5.1) 04/16/23 04:46 Chloride 98 mmol/L (98-107) 04/16/23 04:46 Carbon Dioxide 29.0 mmol/L (21-32) 04/16/23 04:46 BUN 6 mg/dL (7-18) L 04/16/23 04:46 Creatinine 0.69 mg/dL (0.70-1.30) L 04/16/23 04:46 Est GFR (MDRD) Af Amer > 60 (>60) 04/16/23 04:46 Est GFR (MDRD) Non-Af > 60 (>60) 04/16/23 04:46 Glucose 177 mg/dL (65-99) H 04/16/23 04:46 POC Glucose (mg/dL) 161 mg/dL (65-99) H 04/16/23 05:20 Lactic Acid 3.8 mmol/L (0.4-2.0) H 04/10/23 20:25 Calcium 7.7 mg/dL (8.5-10.1) L 04/16/23 04:46 Corrected Calcium 9.4 mg/dL (8.5-10.1) 04/16/23 04:46 Magnesium 2.0 mg/dL (2.0-2.9) 04/14/23 05:55 Total Bilirubin 0.40 mg/dL (0.2-1.0) 04/16/23 04:46 AST 11 Units/L (15-37) L 04/16/23 04:46 ALT 6 Units/L (12-78) L 04/16/23 04:46 Alkaline Phosphatase 374 Units/L (46-116) H 04/16/23 04:46 C-Reactive Protein 69.80 mg/L (0-3.0) H 04/16/23 04:46 Total Protein 7.1 g/dL (6.4-8.2) 04/16/23 04:46 Albumin 1.9 g/dL (3.4-5.0) L 04/16/23 04:46 Globulin 5.2 g/dL (2.5-4.5) H 04/16/23 04:46 Albumin/Globulin Ratio 0.4 Ratio (1.1-2.1) L 04/16/23 04:46 Lipase 21 Units/L (16-77) 04/10/23 20:25 Specimen Type Clean catch urine 04/11/23 05:30 Urine Color [place] (YELLOW) 04/11/23 05:30 Urine Appearance Slightly hazy (CLEAR) 04/11/23 05:30 Urine pH 6.0 (5.0 - 8.0) 04/11/23 05:30 Ur Specific [place] 1.015 (1.000-1.030) 04/11/23 05:30 Urine Protein 3+ (NEGATIVE) 04/11/23 05:30 Urine Glucose (UA) 4+ (NEGATIVE) 04/11/23 05:30 Urine Ketones Negative (NEGATIVE) 04/11/23 05:30 Urine Blood 4+ (NEGATIVE) 04/11/23 05:30 Urine Nitrite Negative (NEGATIVE) 04/11/23 05:30 Urine Bilirubin Negative (NEGATIVE) 04/11/23 05:30 Urine Urobilinogen 2+ (NORMAL) 04/11/23 05:30 Ur Leukocyte Esterase Negative (NEGATIVE) 04/11/23 05:30 Urine RBC 3-5 /HPF (0-3) A 04/11/23 05:30 Urine WBC 10-20 /HPF (0-5) A 04/11/23 05:30 Ur Squamous Epith Cells Few /HPF (NEGATIVE) 04/11/23 05:30 Amorphous Sediment 1+ /HPF (NEGATIVE) 04/11/23 05:30 Urine Bacteria 2+ /HPF (NEGATIVE) 04/11/23 05:30 Hyaline Casts Rare /LPF (NEGATIVE) 04/11/23 05:30 Granular Casts Few /LPF (NEGATIVE) 04/11/23 05:30 Ur Culture Indicated? Yes/culture set up 04/11/23 05:30 Stl Occult Blood (IFOB) Positive (NEGATIVE) A 04/15/23 13:38 Vancomycin Trough 12.9 ug/mL (15-20) L 04/15/23 22:30 Blood Type O POSITIVE 04/11/23 10:06 Antibody Screen Negative 04/11/23 10:03 Crossmatch See Detail 04/11/23 10:03 - Plan (1) Sepsis Status: Acute Qualifiers: Sepsis type: sepsis due to unspecified organism Sepsis acute organ dysfunction status: unspecified Qualified Code(s): A41.9 - Sepsis, unspecified organism Plan: WOUND CARE, NORMAL SALINE AT 75 ML/HR, ALBUMIN 25% IV DAILY, VANCOMYCIN 1.25G IV TID, MEROPENEM 1G IV Q8H, DILAUDID 1MG IV Q4H PRN, OTBS ACHS, HUMULIN R SLIDING SCALE, LANTUS 10 UNITS DAILY, ZOFRAN 4MG IV Q4H PRN, PERCOCET 5/325MG Q4H PRN, COLACE 200MG HS. (2) Necrotizing fasciitis of ankle and foot Status: Acute Plan: WOUND CARE BY (3) Acute osteomyelitis of metatarsal bone of right foot Status: Acute Plan: IV ANTIBIOTICS (4) Anemia Status: Acute Qualifiers: Anemia type: unspecified type Qualified Code(s): D64.9 - Anemia, unspecified Plan: MONITOR H&H, TRANSFUSE PACKED RED BLOOD CELLS IF NEEDED (5) UTI (urinary tract infection) Status: Acute Qualifiers: Urinary tract infection type: acute cystitis Hematuria presence: with hematuria Qualified Code(s): N30.01 - Acute cystitis with hematuria Plan: IV ANTIBIOTICS (6) Hyponatremia Status: Acute Plan: IV FLUIDS (7) Dehydration Status: Acute Plan: IV FLUIDS (8) Uncontrolled type 2 diabetes mellitus Status: Chronic Qualifiers: Glycemic state: with hyperglycemia Qualified Code(s): E11.65 - Type 2 diabetes mellitus with hyperglycemia Plan: OTBS ACHS, HUMULIN R SLIDING SCALE, LANTUS 10 UNITS DAILY
--- NOTE | 2023-04-16 09:56 | PCM.PROG ---
Progress Note - Progress Note for Day of Date of Exam: 04/14/23 - Subjective Subjective: IS CURRENTLY INPATIENT STATUS FOR TREATMENT OF SEPSIS, NECROTIZING FASCIITIS OF THE RIGHT ANKLE AND FOOT, OSTEOMYELITIS OF THE RIGHT FOOT, ANEMIA, UTI, HYPONATREMIA, DEHYDRATION, AND UNCONTROLLED TYPE 2 DIABETES. TODAY, HE IS ALERT AND ORIENTED, LYING IN BED ON MORNING ROUNDS. HE CONTINUES TO COMPLAIN OF GENERALIZED WEAKNESS THIS MORNING AND PAIN TO THE RIGHT LOWER EXTREMITY. HE ADMITS TO SLIGHT IMPROVEMENT IN SYMPTOMS SINCE WE SAW HIM YESTERDAY. HE HAS RECEIVIED FOUR UNITS OF PACKED RED BLOOD CELLS SINCE ADMISSION. HE IS DAY 4 POST OP FACIOTOMY OF THE ANTERIOR AND LATERAL LEG COMPARTMENT OF THE RIGHT LEG, EXTENSIVE DEBRIDEMENT OF MUSCLES AND TENDONS OF THAT REGION, METATARSECTOMY OF THE RIGHT FOOT (FIRST), ANTIBIOTIC BEAD PLACEMENT, AND MEDICAL PLANTAR FASCIECTOMY OF THE PLANTAR MEDIAL COMPARTMENT OF THE FOOT OF THE RIGHT WITH EXTENSIVE DEBRIDEMENT. ALSO TOOK HIM TO THE OR ON 04/13 FOR FURTHER WASHOUT. NOTES IN HIS OPERATIVE NOTE THAT PATIENT HAS EXTENSIVE SOFT TISSUE LOSS WITH GANGREEN AND NECROSIS. ON EXAMINATION TODAY, HEART IS REGULAR IN RATE AND RHYTHM. BILATERAL LUNGS ARE NOTED WITH DIMINISHED LUNG SOUNDS THROUGHOUT. ABDOMEN IS ROUND, SOFT, AND NON-TENDER WITH NORMAL BOWEL SOUNDS NOTED IN ALL QUADRANTS. THERE IS GOOD RANGE OF MOTION NOTED TO THE UPPER EXTREMITIES. HE HAS HAD A LEFT BTA AND HAS WEAKNESS OF THE RIGHT LOWER EXTREMITY. THERE IS A BULKY DRESSING NOTED TO THE RIGHT LOWER EXTREMITY. IS FOLLOWING PATIENT IS PERFORMING DRESSING CHANGES AND WOUND CARE. HIS VITALS THIS MORNING ARE: 98.7-100-18-97%-133/61. LABS WERE OBTAINED. WBC 9.5, RBC 3.41, HGB 8.7, HCT 25.9, PLT COUNT 317, SODIUM 131, POTASSIUM 3.7, CHLORIDE 99, CARBON DIOXIDE 28.1, BUN 6, CREATININE 0.68, GLUCOSE 118, CALCIUM 7.0, TOTAL BILI 0.60, AST 10, ALT <6, ALK PHOS 339, CRP 148.50, TOTAL PROTEIN 5.8, ALBUMIN 1.3. RIGHT FOOT AND RIGHT LEG WOUND CULTURES ARE POSITIVE FOR GROWTH OF ENTEROCOCCUS FAECALIS AND KLEBSIELLA PNEUMONIAE. URINE CULTURE IS POSITIVE FOR STAPHYLOCOCCUS AUREUS. HE IS CURRENTLY RECEIVING NORMAL SALINE AT 75 ML/HR, ALBUMIN 25% IV DA KRISTINA, VANCOMYCIN 1.25G IV TID, MEROPENEM 1G IV Q8H, DILAUDID 1MG IV Q4H PRN, OTBS ACHS, HUMULIN R SLIDING SCALE, LANTUS 10 UNITS DAILY, ZOFRAN 4MG IV Q4H PRN, PERCOCET 5/325MG Q4H PRN, COLACE 200MG HS, MILK OF MAGNESIA 15ML QID, MIRALAX 17G DAILY. PLANS TO TAKE HIM BACK TO THE OR ON SUNDAY FOR FURTHER WASHOUT OF WOUND TO ATTEMPT TO SALVAGE THE LIMB. WE ARE IN AGREEMENT WITH PLANS. OTHERWISE, WE WILL CONTINUE WITH CURRENT PLAN OF CARE TODAY. WE WILL FOLLOW UP WITH AM LABS AND CONTINUE TO MONITOR. TIME SPENT ON CLINICAL ASSESSMENT, REVIEWING LABS AND IMAGING, DECISION MAKING, AND DOCUMENTATION GREATER THAN 45 MINUTES. - Past Medical Family Social History Past Med/Fam/Surg Hx: No changes since H&P Allergies: Allergies No Known Drug Allergies Allergy (Verified 07/25/17 15:16) - Review of Systems ROS: No change since H&P - Vital Signs and I&O's Vital Signs: Vital Signs Temperature 98.2 F Temperature 98.3 F Temperature 98.0 F Pulse Rate [Brachial] 79 Pulse Rate [Brachial] 72 Pulse Rate 72 Pulse Rate 72 Respiratory Rate 16 Respiratory Rate 16 Respiratory Rate 20 Respiratory Rate 20 Respiratory Rate 20 Respiratory Rate 20 Blood Pressure [Right Arm] 140/79 Blood Pressure [Right Arm] 144/78 Blood Pressure 154/93 O2 Sat by Pulse Oximetry 97 O2 Sat by Pulse Oximetry 98 O2 Sat by Pulse Oximetry 99 Intake and Output: Intake & Output 04/13/23 04/14/23 04/15/23 04/16/23 12:59 12:59 11:59 11:59 Intake Total 2232 / 2232 Output Total 1900 / 1900 Balance 332 / 332 - Physical Exam Oriented: Normal Eyes: Normal Ear: Normal Nose: Normal Throat: Normal Respiratory: Normal Cardiovascular: Normal, Edema (RIGHT LOWER EXTREMITY ) : Normal Auscultation: Bowel Sounds: Normal Tenderness: Normal Skin: Normal, Red, Tender, Hot, Wound (RIGHT LEG ) Musculoskeletal: Right, Leg, Ankle, Foot, Swelling, Tender Psychiatric: Normal Mood Description: Calm Affect: Normal Speech Pattern: Clear, Appropriate - Laboratory and Diagnostics Result Diagrams: 04/16/23 04:46 04/16/23 04:46 Labs: 04/10/23 20:22 Blood Blood Culture - Final 04/10/23 22:50 Foot - Right Wound Gram Stain - Final 04/10/23 22:50 Foot - Right Wound Culture - Final Klebsiella Pneumoniae Enterococcus Faecalis 04/10/23 22:55 Leg - Right Wound Gram Stain - Final 04/10/23 22:55 Leg - Right Wound Culture - Final Klebsiella Pneumoniae Enterococcus Faecalis 04/12/23 11:44 Blood Blood Culture - Preliminary 04/12/23 11:35 Blood Blood Culture - Preliminary 04/10/23 20:25 Blood Blood Culture Gram Stain - Final 04/10/23 20:25 Blood Blood Culture - Final 04/11/23 05:30 Urine,Clean Catch Urine Culture - Final Staphylococcus Aureus Laboratory WBC 6.5 X10^3/uL (3.6-10.0) 04/16/23 04:46 RBC 3.98 X10^6/uL (4.7-6.0) L 04/16/23 04:46 Hgb 10.1 g/dL (13.5-18.0) L 04/16/23 04:46 Hct 30.5 % (42.0-54.0) L 04/16/23 04:46 MCV 76.7 fL (80.0-100.0) L 04/16/23 04:46 MCH 25.3 pg (27.0-34.0) L 04/16/23 04:46 MCHC 33.0 g/dL (33.0-35.0) 04/16/23 04:46 RDW 18.9 % (11.6-16.5) H 04/16/23 04:46 Plt Count 402 X10^3/uL (150.0-450.0) 04/16/23 04:46 Plt Count Comment Adequate (ADEQUATE) 04/13/23 05:53 MPV 7.4 fL (7.4-11.0) 04/16/23 04:46 Neut % (Auto) 62.5 % (42.0-75.0) 04/16/23 04:46 Lymph % (Auto) 24.4 % (21.0-51.0) 04/16/23 04:46 [place] % (Auto) 8.5 % (0.0-13.0) 04/16/23 04:46 Eos % (Auto) 3.4 % (0.9-2.9) H 04/16/23 04:46 Baso % (Auto) 1.2 % (0.2-1.0) H 04/16/23 04:46 Neut # (Auto) 4.1 x10^3/uL (2.2-4.8) 04/16/23 04:46 Lymph # (Auto) 1.6 X10^3/uL (1.3-2.9) 04/16/23 04:46 [place] # (Auto) 0.6 x10^3/uL (0.3-0.8) 04/16/23 04:46 Eos # (Auto) 0.2 x10^3/uL (0.0-0.2) 04/16/23 04:46 Baso # (Auto) 0.1 X10^3/uL (0.0-0.1) 04/16/23 04:46 Absolute Nucleated RBC 0.1 /100WBC 04/16/23 04:46 Total Counted 100 04/13/23 05:53 Neutrophils % (Manual) 77 % (39-76) H 04/13/23 05:53 Band Neutrophils % 3 % (0-10) 04/13/23 05:53 Lymphocytes % (Manual) 13 % (13-43) 04/13/23 05:53 Monocytes % (Manual) 4 % (4-9) 04/13/23 05:53 Eosinophils % (Manual) 2 % (0-6) 04/13/23 05:53 Metamyelocytes % 1 04/13/23 05:53 Plt Morphology Comment Normal (NORMAL) 04/13/23 05:53 RBC Morphology Abnormal (NORMAL) 04/13/23 05:53 Hypochromasia Slight A 04/13/23 05:53 Anisocytosis Slight A 04/13/23 05:53 Microcytosis Slight A 04/13/23 05:53 Sodium 132 mmol/L (136-145) L 04/16/23 04:46 Corrected Sodium 134 mmol/L (136-145) L 04/16/23 04:46 Potassium 3.9 mmol/L (3.5-5.1) 04/16/23 04:46 Chloride 98 mmol/L (98-107) 04/16/23 04:46 Carbon Dioxide 29.0 mmol/L (21-32) 04/16/23 04:46 BUN 6 mg/dL (7-18) L 04/16/23 04:46 Creatinine 0.69 mg/dL (0.70-1.30) L 04/16/23 04:46 Est GFR (MDRD) Af Amer > 60 (>60) 04/16/23 04:46 Est GFR (MDRD) Non-Af > 60 (>60) 04/16/23 04:46 Glucose 177 mg/dL (65-99) H 04/16/23 04:46 POC Glucose (mg/dL) 161 mg/dL (65-99) H 04/16/23 05:20 Lactic Acid 3.8 mmol/L (0.4-2.0) H 04/10/23 20:25 Calcium 7.7 mg/dL (8.5-10.1) L 04/16/23 04:46 Corrected Calcium 9.4 mg/dL (8.5-10.1) 04/16/23 04:46 Magnesium 2.0 mg/dL (2.0-2.9) 04/14/23 05:55 Total Bilirubin 0.40 mg/dL (0.2-1.0) 04/16/23 04:46 AST 11 Units/L (15-37) L 04/16/23 04:46 ALT 6 Units/L (12-78) L 04/16/23 04:46 Alkaline Phosphatase 374 Units/L (46-116) H 04/16/23 04:46 C-Reactive Protein 69.80 mg/L (0-3.0) H 04/16/23 04:46 Total Protein 7.1 g/dL (6.4-8.2) 04/16/23 04:46 Albumin 1.9 g/dL (3.4-5.0) L 04/16/23 04:46 Globulin 5.2 g/dL (2.5-4.5) H 04/16/23 04:46 Albumin/Globulin Ratio 0.4 Ratio (1.1-2.1) L 04/16/23 04:46 Lipase 21 Units/L (16-77) 04/10/23 20:25 Specimen Type Clean catch urine 04/11/23 05:30 Urine Color Nubia (YELLOW) 04/11/23 05:30 Urine Appearance Slightly hazy (CLEAR) 04/11/23 05:30 Urine pH 6.0 (5.0 - 8.0) 04/11/23 05:30 Ur Specific [place] 1.015 (1.000-1.030) 04/11/23 05:30 Urine Protein 3+ (NEGATIVE) 04/11/23 05:30 Urine Glucose (UA) 4+ (NEGATIVE) 04/11/23 05:30 Urine Ketones Negative (NEGATIVE) 04/11/23 05:30 Urine Blood 4+ (NEGATIVE) 04/11/23 05:30 Urine Nitrite Negative (NEGATIVE) 04/11/23 05:30 Urine Bilirubin Negative (NEGATIVE) 04/11/23 05:30 Urine Urobilinogen 2+ (NORMAL) 04/11/23 05:30 Ur Leukocyte Esterase Negative (NEGATIVE) 04/11/23 05:30 Urine RBC 3-5 /HPF (0-3) A 04/11/23 05:30 Urine WBC 10-20 /HPF (0-5) A 04/11/23 05:30 Ur Squamous Epith Cells Few /HPF (NEGATIVE) 04/11/23 05:30 Amorphous Sediment 1+ /HPF (NEGATIVE) 04/11/23 05:30 Urine Bacteria 2+ /HPF (NEGATIVE) 04/11/23 05:30 Hyaline Casts Rare /LPF (NEGATIVE) 04/11/23 05:30 Granular Casts Few /LPF (NEGATIVE) 04/11/23 05:30 Ur Culture Indicated? Yes/culture set up 04/11/23 05:30 Stl Occult Blood (IFOB) Positive (NEGATIVE) A 04/15/23 13:38 Vancomycin Trough 12.9 ug/mL (15-20) L 04/15/23 22:30 Blood Type O POSITIVE 04/11/23 10:06 Antibody Screen Negative 04/11/23 10:03 Crossmatch See Detail 04/11/23 10:03 - Plan (1) Sepsis Status: Acute Qualifiers: Sepsis type: sepsis due to unspecified organism Sepsis acute organ dysfunction status: unspecified Qualified Code(s): A41.9 - Sepsis, unspecified organism Plan: WOUND CARE, NORMAL SALINE AT 75 ML/HR, ALBUMIN 25% IV DAILY, VANCOMYCIN 1.25G IV TID, MEROPENEM 1G IV Q8H, DILAUDID 1MG IV Q4H PRN, OTBS ACHS, HUMULIN R SLIDING SCALE, LANTUS 10 UNITS DAILY, ZOFRAN 4MG IV Q4H PRN, PERCOCET 5/325MG Q4H PRN, COLACE 200MG HS. (2) Necrotizing fasciitis of ankle and foot Status: Acute Plan: WOUND CARE BY (3) Acute osteomyelitis of metatarsal bone of right foot Status: Acute Plan: IV ANTIBIOTICS (4) Anemia Status: Acute Qualifiers: Anemia type: unspecified type Qualified Code(s): D64.9 - Anemia, unspecified Plan: MONITOR H&H, TRANSFUSE PACKED RED BLOOD CELLS IF NEEDED (5) UTI (urinary tract infection) Status: Acute Qualifiers: Urinary tract infection type: acute cystitis Hematuria presence: with hematuria Qualified Code(s): N30.01 - Acute cystitis with hematuria Plan: IV ANTIBIOTICS (6) Hyponatremia Status: Acute Plan: IV FLUIDS (7) Dehydration Status: Acute Plan: IV FLUIDS (8) Uncontrolled type 2 diabetes mellitus Status: Chronic Qualifiers: Glycemic state: with hyperglycemia Qualified Code(s): E11.65 - Type 2 diabetes mellitus with hyperglycemia Plan: OTBS ACHS, HUMULIN R SLIDING SCALE, LANTUS 10 UNITS DAILY
--- NOTE | 2023-04-16 10:03 | PCM.PROG ---
Progress Note - Progress Note for Day of Date of Exam: 04/15/23 - Subjective Subjective: IS CURRENTLY INPATIENT STATUS FOR TREATMENT OF SEPSIS, NECROTIZING FASCIITIS OF THE RIGHT ANKLE AND FOOT, OSTEOMYELITIS OF THE RIGHT FOOT, ANEMIA, UTI, HYPONATREMIA, DEHYDRATION, AND UNCONTROLLED TYPE 2 DIABETES. TODAY, HE IS ALERT AND ORIENTED, LYING IN BED ON MORNING ROUNDS. HE CONTINUES TO COMPLAIN OF GENERALIZED WEAKNESS THIS MORNING AND PAIN TO THE RIGHT LOWER EXTREMITY. HE ADMITS TO SLIGHT IMPROVEMENT IN SYMPTOMS SINCE WE SAW HIM YESTERDAY. HE HAS RECEIVIED FOUR UNITS OF PACKED RED BLOOD CELLS SINCE ADMISSION. HE IS DAY 5 POST OP FACIOTOMY OF THE ANTERIOR AND LATERAL LEG COMPARTMENT OF THE RIGHT LEG, EXTENSIVE DEBRIDEMENT OF MUSCLES AND TENDONS OF THAT REGION, METATARSECTOMY OF THE RIGHT FOOT (FIRST), ANTIBIOTIC BEAD PLACEMENT, AND MEDICAL PLANTAR FASCIECTOMY OF THE PLANTAR MEDIAL COMPARTMENT OF THE FOOT OF THE RIGHT WITH EXTENSIVE DEBRIDEMENT. ALSO TOOK HIM TO THE OR ON 04/13 FOR FURTHER WASHOUT. NOTES IN HIS OPERATIVE NOTE THAT PATIENT HAS EXTENSIVE SOFT TISSUE LOSS WITH GANGREEN AND NECROSIS. ON EXAMINATION TODAY, HEART IS REGULAR IN RATE AND RHYTHM. BILATERAL LUNGS ARE NOTED WITH DIMINISHED LUNG SOUNDS THROUGHOUT. ABDOMEN IS ROUND, SOFT, AND NON-TENDER WITH NORMAL BOWEL SOUNDS NOTED IN ALL QUADRANTS. THERE IS GOOD RANGE OF MOTION NOTED TO THE UPPER EXTREMITIES. HE HAS HAD A LEFT BTA AND HAS WEAKNESS AND ATROPHY OF THE RIGHT LOWER EXTREMITY. THERE IS A BULKY DRESSING NOTED TO THE RIGHT LOWER EXTREMITY. IS FOLLOWING PATIENT IS PERFORMING DRESSING CHANGES AND WOUND CARE. HIS VITALS THIS MORNING ARE: 97.8-78-20-99%-148/78. LABS WERE OBTAINED. WBC 6.0, RBC 3.61, HGB 9.2, HCT 27.4, PLT COUNT 320, SODIUM 134, POTASSIUM 4.1, CHLORIDE 99, CARBON DIOXIDE 30.8, BUN 6, CREATININE 0.68, GLUCOSE 143, CALCIUM 7.2, TOTAL BILI 0.40, AST 12, ALT <6, ALK PHOS 383, CRP 114, TOTAL PROTEIN 6.4, ALBUMIN 1.6. RIGHT FOOT AND RIGHT LEG WOUND CULTURES ARE POSITIVE FOR GROWTH OF ENTEROCOCCUS FAECALIS AND KLEBSIELLA PNEUMONIAE. URINE CULTURE IS POSITIVE FOR STAPHYLOCOCCUS AUREUS. A CHEST XRAY WAS OBTAINED TODAY AND REVEALED: Heart size remains normal with clear lungs and pleural spaces. Stable position of left subclavian port extending to the SVC. HE IS CURRENTLY RECEIVING NORMAL SALINE AT 75 ML/HR, ALBUMIN 25% IV DAILY, VANCOMYCIN 1.25G IV TID, MEROPENEM 1G IV Q8H, DILAUDID 1MG IV Q4H PRN, OTBS ACHS, HUMULIN R SLIDING SCALE, LANTUS 10 UNITS DAILY, ZOFRAN 4MG IV Q4H PRN, PERCOCET 5/325MG Q4H PRN, COLACE 200MG HS, MILK OF MAGNESIA 15ML QID, MIRALAX 17G DAILY. PLANS TO TAKE HIM BACK TO THE OR TOMORROW FOR FURTHER WASHOUT OF WOUND TO ATTEMPT TO SALVAGE THE LIMB. WE ARE IN AGREEMENT WITH PLANS. OTHERWISE, WE WILL CONTINUE WITH CURRENT PLAN OF CARE TODAY. WE WILL FOLLOW UP WITH AM LABS AND CONTINUE TO MONITOR. TIME SPENT ON CLINICAL ASSESSMENT, REVIEWING LABS AND IMAGING, DECISION MAKING, AND DOCUMENTATION GREATER THAN 45 MINUTES. - Past Medical Family Social History Past Med/Fam/Surg Hx: No changes since H&P Allergies: Allergies No Known Drug Allergies Allergy (Verified 07/25/17 15:16) - Review of Systems ROS: No change since H&P - Vital Signs and I&O's Vital Signs: Vital Signs Temperature 98.2 F Temperature 98.3 F Temperature 98.0 F Pulse Rate [Brachial] 79 Pulse Rate [Brachial] 72 Pulse Rate 72 Pulse Rate 72 Respiratory Rate 16 Respiratory Rate 16 Respiratory Rate 20 Respiratory Rate 20 Respiratory Rate 20 Respiratory Rate 20 Blood Pressure [Right Arm] 140/79 Blood Pressure [Right Arm] 144/78 Blood Pressure 154/93 O2 Sat by Pulse Oximetry 97 O2 Sat by Pulse Oximetry 98 O2 Sat by Pulse Oximetry 99 Intake and Output: Intake & Output 04/13/23 04/14/23 04/15/23 04/16/23 12:59 12:59 11:59 11:59 Intake Total 2232 / 2232 Output Total 1900 / 1900 Balance 332 / 332 - Physical Exam Oriented: Normal Eyes: Normal Ear: Normal Nose: Normal Throat: Normal Respiratory: Normal Cardiovascular: Normal, Edema (RIGHT LOWER EXTREMITY ) : Normal Auscultation: Bowel Sounds: Normal Tenderness: Normal Skin: Normal, Red, Tender, Hot, Wound (RIGHT LEG ) Musculoskeletal: Right, Leg, Ankle, Foot, Swelling, Tender Psychiatric: Normal Mood Description: Calm Affect: Normal Speech Pattern: Clear, Appropriate - Laboratory and Diagnostics Result Diagrams: 04/16/23 04:46 04/16/23 04:46 Labs: 04/10/23 20:22 Blood Blood Culture - Final 04/10/23 22:50 Foot - Right Wound Gram Stain - Final 04/10/23 22:50 Foot - Right Wound Culture - Final Klebsiella Pneumoniae Enterococcus Faecalis 04/10/23 22:55 Leg - Right Wound Gram Stain - Final 04/10/23 22:55 Leg - Right Wound Culture - Final Klebsiella Pneumoniae Enterococcus Faecalis 04/12/23 11:44 Blood Blood Culture - Preliminary 04/12/23 11:35 Blood Blood Culture - Preliminary 04/10/23 20:25 Blood Blood Culture Gram Stain - Final 04/10/23 20:25 Blood Blood Culture - Final 04/11/23 05:30 Urine,Clean Catch Urine Culture - Final Staphylococcus Aureus Laboratory WBC 6.5 X10^3/uL (3.6-10.0) 04/16/23 04:46 RBC 3.98 X10^6/uL (4.7-6.0) L 04/16/23 04:46 Hgb 10.1 g/dL (13.5-18.0) L 04/16/23 04:46 Hct 30.5 % (42.0-54.0) L 04/16/23 04:46 MCV 76.7 fL (80.0-100.0) L 04/16/23 04:46 MCH 25.3 pg (27.0-34.0) L 04/16/23 04:46 MCHC 33.0 g/dL (33.0-35.0) 04/16/23 04:46 RDW 18.9 % (11.6-16.5) H 04/16/23 04:46 Plt Count 402 X10^3/uL (150.0-450.0) 04/16/23 04:46 Plt Count Comment Adequate (ADEQUATE) 04/13/23 05:53 MPV 7.4 fL (7.4-11.0) 04/16/23 04:46 Neut % (Auto) 62.5 % (42.0-75.0) 04/16/23 04:46 Lymph % (Auto) 24.4 % (21.0-51.0) 04/16/23 04:46 [place] % (Auto) 8.5 % (0.0-13.0) 04/16/23 04:46 Eos % (Auto) 3.4 % (0.9-2.9) H 04/16/23 04:46 Baso % (Auto) 1.2 % (0.2-1.0) H 04/16/23 04:46 Neut # (Auto) 4.1 x10^3/uL (2.2-4.8) 04/16/23 04:46 Lymph # (Auto) 1.6 X10^3/uL (1.3-2.9) 04/16/23 04:46 [place] # (Auto) 0.6 x10^3/uL (0.3-0.8) 04/16/23 04:46 Eos # (Auto) 0.2 x10^3/uL (0.0-0.2) 04/16/23 04:46 Baso # (Auto) 0.1 X10^3/uL (0.0-0.1) 04/16/23 04:46 Absolute Nucleated RBC 0.1 /100WBC 04/16/23 04:46 Total Counted 100 04/13/23 05:53 Neutrophils % (Manual) 77 % (39-76) H 04/13/23 05:53 Band Neutrophils % 3 % (0-10) 04/13/23 05:53 Lymphocytes % (Manual) 13 % (13-43) 04/13/23 05:53 Monocytes % (Manual) 4 % (4-9) 04/13/23 05:53 Eosinophils % (Manual) 2 % (0-6) 04/13/23 05:53 Metamyelocytes % 1 04/13/23 05:53 Plt Morphology Comment Normal (NORMAL) 04/13/23 05:53 RBC Morphology Abnormal (NORMAL) 04/13/23 05:53 Hypochromasia Slight A 04/13/23 05:53 Anisocytosis Slight A 04/13/23 05:53 Microcytosis Slight A 04/13/23 05:53 Sodium 132 mmol/L (136-145) L 04/16/23 04:46 Corrected Sodium 134 mmol/L (136-145) L 04/16/23 04:46 Potassium 3.9 mmol/L (3.5-5.1) 04/16/23 04:46 Chloride 98 mmol/L (98-107) 04/16/23 04:46 Carbon Dioxide 29.0 mmol/L (21-32) 04/16/23 04:46 BUN 6 mg/dL (7-18) L 04/16/23 04:46 Creatinine 0.69 mg/dL (0.70-1.30) L 04/16/23 04:46 Est GFR (MDRD) Af Amer > 60 (>60) 04/16/23 04:46 Est GFR (MDRD) Non-Af > 60 (>60) 04/16/23 04:46 Glucose 177 mg/dL (65-99) H 04/16/23 04:46 POC Glucose (mg/dL) 161 mg/dL (65-99) H 04/16/23 05:20 Lactic Acid 3.8 mmol/L (0.4-2.0) H 04/10/23 20:25 Calcium 7.7 mg/dL (8.5-10.1) L 04/16/23 04:46 Corrected Calcium 9.4 mg/dL (8.5-10.1) 04/16/23 04:46 Magnesium 2.0 mg/dL (2.0-2.9) 04/14/23 05:55 Total Bilirubin 0.40 mg/dL (0.2-1.0) 04/16/23 04:46 AST 11 Units/L (15-37) L 04/16/23 04:46 ALT 6 Units/L (12-78) L 04/16/23 04:46 Alkaline Phosphatase 374 Units/L (46-116) H 04/16/23 04:46 C-Reactive Protein 69.80 mg/L (0-3.0) H 04/16/23 04:46 Total Protein 7.1 g/dL (6.4-8.2) 04/16/23 04:46 Albumin 1.9 g/dL (3.4-5.0) L 04/16/23 04:46 Globulin 5.2 g/dL (2.5-4.5) H 04/16/23 04:46 Albumin/Globulin Ratio 0.4 Ratio (1.1-2.1) L 04/16/23 04:46 Lipase 21 Units/L (16-77) 04/10/23 20:25 Specimen Type Clean catch urine 04/11/23 05:30 Urine Color [place] (YELLOW) 04/11/23 05:30 Urine Appearance Slightly hazy (CLEAR) 04/11/23 05:30 Urine pH 6.0 (5.0 - 8.0) 04/11/23 05:30 Ur Specific [place] 1.015 (1.000-1.030) 04/11/23 05:30 Urine Protein 3+ (NEGATIVE) 04/11/23 05:30 Urine Glucose (UA) 4+ (NEGATIVE) 04/11/23 05:30 Urine Ketones Negative (NEGATIVE) 04/11/23 05:30 Urine Blood 4+ (NEGATIVE) 04/11/23 05:30 Urine Nitrite Negative (NEGATIVE) 04/11/23 05:30 Urine Bilirubin Negative (NEGATIVE) 04/11/23 05:30 Urine Urobilinogen 2+ (NORMAL) 04/11/23 05:30 Ur Leukocyte Esterase Negative (NEGATIVE) 04/11/23 05:30 Urine RBC 3-5 /HPF (0-3) A 04/11/23 05:30 Urine WBC 10-20 /HPF (0-5) A 04/11/23 05:30 Ur Squamous Epith Cells Few /HPF (NEGATIVE) 04/11/23 05:30 Amorphous Sediment 1+ /HPF (NEGATIVE) 04/11/23 05:30 Urine Bacteria 2+ /HPF (NEGATIVE) 04/11/23 05:30 Hyaline Casts Rare /LPF (NEGATIVE) 04/11/23 05:30 Granular Casts Few /LPF (NEGATIVE) 04/11/23 05:30 Ur Culture Indicated? Yes/culture set up 04/11/23 05:30 Stl Occult Blood (IFOB) Positive (NEGATIVE) A 04/15/23 13:38 Vancomycin Trough 12.9 ug/mL (15-20) L 04/15/23 22:30 Blood Type O POSITIVE 04/11/23 10:06 Antibody Screen Negative 04/11/23 10:03 Crossmatch See Detail 04/11/23 10:03 - Plan (1) Sepsis Status: Acute Qualifiers: Sepsis type: sepsis due to unspecified organism Sepsis acute organ dysfunction status: unspecified Qualified Code(s): A41.9 - Sepsis, unspecified organism Plan: WOUND CARE, NORMAL SALINE AT 75 ML/HR, ALBUMIN 25% IV DAILY, VANCOMYCIN 1.25G IV TID, MEROPENEM 1G IV Q8H, DILAUDID 1MG IV Q4H PRN, OTBS ACHS, HUMULIN R SLIDING SCALE, LANTUS 10 UNITS DAILY, ZOFRAN 4MG IV Q4H PRN, PERCOCET 5/325MG Q4H PRN, COLACE 200MG HS. (2) Necrotizing fasciitis of ankle and foot Status: Acute Plan: WOUND CARE BY (3) Acute osteomyelitis of metatarsal bone of right foot Status: Acute Plan: IV ANTIBIOTICS (4) Anemia Status: Acute Qualifiers: Anemia type: unspecified type Qualified Code(s): D64.9 - Anemia, unspecified Plan: MONITOR H&H, TRANSFUSE PACKED RED BLOOD CELLS IF NEEDED (5) UTI (urinary tract infection) Status: Acute Qualifiers: Urinary tract infection type: acute cystitis Hematuria presence: with hematuria Qualified Code(s): N30.01 - Acute cystitis with hematuria Plan: IV ANTIBIOTICS (6) Hyponatremia Status: Acute Plan: IV FLUIDS (7) Dehydration Status: Acute Plan: IV FLUIDS (8) Uncontrolled type 2 diabetes mellitus Status: Chronic Qualifiers: Glycemic state: with hyperglycemia Qualified Code(s): E11.65 - Type 2 diabetes mellitus with hyperglycemia Plan: OTBS ACHS, HUMULIN R SLIDING SCALE, LANTUS 10 UNITS DAILY
--- NOTE | 2023-04-16 10:07 | PCM.PROG ---
Progress Note - Progress Note for Day of Date of Exam: 04/16/23 - Subjective Subjective: IS CURRENTLY INPATIENT STATUS FOR TREATMENT OF SEPSIS, NECROTIZING FASCIITIS OF THE RIGHT ANKLE AND FOOT, OSTEOMYELITIS OF THE RIGHT FOOT, ANEMIA, UTI, HYPONATREMIA, DEHYDRATION, AND UNCONTROLLED TYPE 2 DIABETES. TODAY, HE IS ALERT AND ORIENTED, LYING IN BED ON MORNING ROUNDS. HE CONTINUES TO COMPLAIN OF GENERALIZED WEAKNESS THIS MORNING AND PAIN TO THE RIGHT LOWER EXTREMITY. HE ADMITS TO SLIGHT IMPROVEMENT IN SYMPTOMS SINCE WE SAW HIM YESTERDAY. HE HAS RECEIVIED FOUR UNITS OF PACKED RED BLOOD CELLS SINCE ADMISSION. HE IS DAY 6 POST OP FACIOTOMY OF THE ANTERIOR AND LATERAL LEG COMPARTMENT OF THE RIGHT LEG, EXTENSIVE DEBRIDEMENT OF MUSCLES AND TENDONS OF THAT REGION, METATARSECTOMY OF THE RIGHT FOOT (FIRST), ANTIBIOTIC BEAD PLACEMENT, AND MEDICAL PLANTAR FASCIECTOMY OF THE PLANTAR MEDIAL COMPARTMENT OF THE FOOT OF THE RIGHT WITH EXTENSIVE DEBRIDEMENT. ALSO TOOK HIM TO THE OR ON 04/13 FOR FURTHER WASHOUT. NOTES IN HIS OPERATIVE NOTE THAT PATIENT HAS EXTENSIVE SOFT TISSUE LOSS WITH GANGREEN AND NECROSIS. ON EXAMINATION TODAY, HEART IS REGULAR IN RATE AND RHYTHM. BILATERAL LUNGS ARE NOTED WITH DIMINISHED LUNG SOUNDS THROUGHOUT. ABDOMEN IS ROUND, SOFT, AND NON-TENDER WITH NORMAL BOWEL SOUNDS NOTED IN ALL QUADRANTS. THERE IS GOOD RANGE OF MOTION NOTED TO THE UPPER EXTREMITIES. HE HAS HAD A LEFT BTA AND HAS WEAKNESS AND ATROPHY OF THE RIGHT LOWER EXTREMITY. THERE IS A BULKY DRESSING NOTED TO THE RIGHT LOWER EXTREMITY. IS FOLLOWING PATIENT IS PERFORMING DRESSING CHANGES AND WOUND CARE. HIS VITALS THIS MORNING ARE: 98.3-79-20-98%-140/79. LABS WERE OBTAINED. WBC 6.5, RBC 3.98, HGB 10.1, HCT 30.5, PLT COUNT 402, SODIUM 132, POTASSIUM 3.9, CHLORIDE 98, CARBON DIOXIDE 29.0, BUN 6, CREATININE 0.69, GLUCOSE 177, CALCIUM 7.7, TOTAL BILI 0.40, AST 11, ALT 6, ALK PHOS 374, CRP 69.80, TOTAL PROTEIN 7.1, ALBUMIN 1.9. RIGHT FOOT AND RIGHT LEG WOUND CULTURES ARE POSITIVE FOR GROWTH OF ENTEROCOCCUS FAECALIS AND KLEBSIELLA PNEUMONIAE. URINE CULTURE IS POSITIVE FOR STAPHYLOCOCCUS AUREUS. STOOL IS POSITIVE FOR OCCULT BLOOD. HE IS CURRENTLY RECEIVING NORMAL SALINE AT 75 ML/HR, ALBUMIN 25% IV DAILY, VANCOMYCIN 1.25G IV TID, MEROPENEM 1G IV Q8H, DILAUDID 1MG IV Q4H PRN, OTBS ACHS, HUMULIN R SLIDING SCALE, LANTUS 10 UNITS DAILY, ZOFRAN 4MG IV Q4H PRN, PERCOCET 5/325MG Q4H PRN, COLACE 200MG HS, MILK OF MAGNESIA 15ML QID, MIRALAX 17G DAILY. PLANS TO TAKE HIM BACK TO THE OR THIS MORNING FOR FURTHER WASHOUT OF WOUND TO ATTEMPT TO SALVAGE THE LIMB. WE ARE IN AGREEMENT WITH PLANS. OTHERWISE, WE WILL CONTINUE WITH CURRENT PLAN OF CARE TODAY. WE WILL FOLLOW UP WITH AM LABS AND CONTINUE TO MONITOR. TIME SPENT ON CLINICAL ASSESSMENT, REVIEWING LABS AND IMAGING, DECISION MAKING, AND DOCUMENTATION GREATER THAN 45 MINUTES. - Past Medical Family Social History Past Med/Fam/Surg Hx: No changes since H&P Allergies: Allergies No Known Drug Allergies Allergy (Verified 07/25/17 15:16) - Review of Systems ROS: No change since H&P - Vital Signs and I&O's Vital Signs: Vital Signs Temperature 98.2 F Temperature 98.3 F Temperature 98.0 F Pulse Rate [Brachial] 79 Pulse Rate [Brachial] 72 Pulse Rate 72 Pulse Rate 72 Respiratory Rate 16 Respiratory Rate 16 Respiratory Rate 20 Respiratory Rate 20 Respiratory Rate 20 Respiratory Rate 20 Blood Pressure [Right Arm] 140/79 Blood Pressure [Right Arm] 144/78 Blood Pressure 154/93 O2 Sat by Pulse Oximetry 97 O2 Sat by Pulse Oximetry 98 O2 Sat by Pulse Oximetry 99 Intake and Output: Intake & Output 04/13/23 04/14/23 04/15/23 04/16/23 12:59 12:59 11:59 11:59 Intake Total 2232 / 2232 Output Total 1900 / 1900 Balance 332 / 332 - Physical Exam Oriented: Normal Eyes: Normal Ear: Normal Nose: Normal Throat: Normal Respiratory: Normal Cardiovascular: Normal, Edema (RIGHT LOWER EXTREMITY ) : Normal Auscultation: Bowel Sounds: Normal Tenderness: Normal Skin: Normal, Red, Tender, Hot, Wound (RIGHT LEG ) Musculoskeletal: Right, Leg, Ankle, Foot, Swelling, Tender Psychiatric: Normal Mood Description: Calm Affect: Normal Speech Pattern: Clear, Appropriate - Laboratory and Diagnostics Result Diagrams: 04/16/23 04:46 04/16/23 04:46 Labs: 10/31/23 20:22 Blood Blood Culture - Final 04/10/23 22:50 Foot - Right Wound Gram Stain - Final 04/10/23 22:50 Foot - Right Wound Culture - Final Klebsiella Pneumoniae Enterococcus Faecalis 04/10/23 22:55 Leg - Right Wound Gram Stain - Final 04/10/23 22:55 Leg - Right Wound Culture - Final Klebsiella Pneumoniae Enterococcus Faecalis 04/12/23 11:44 Blood Blood Culture - Preliminary 04/12/23 11:35 Blood Blood Culture - Preliminary 04/10/23 20:25 Blood Blood Culture Gram Stain - Final 04/10/23 20:25 Blood Blood Culture - Final 04/11/23 05:30 Urine,Clean Catch Urine Culture - Final Staphylococcus Aureus Laboratory WBC 6.5 X10^3/uL (3.6-10.0) 04/16/23 04:46 RBC 3.98 X10^6/uL (4.7-6.0) L 04/16/23 04:46 Hgb 10.1 g/dL (13.5-18.0) L 04/16/23 04:46 Hct 30.5 % (42.0-54.0) L 04/16/23 04:46 MCV 76.7 fL (80.0-100.0) L 04/16/23 04:46 MCH 25.3 pg (27.0-34.0) L 04/16/23 04:46 MCHC 33.0 g/dL (33.0-35.0) 04/16/23 04:46 RDW 18.9 % (11.6-16.5) H 04/16/23 04:46 Plt Count 402 X10^3/uL (150.0-450.0) 04/16/23 04:46 Plt Count Comment Adequate (ADEQUATE) 04/13/23 05:53 MPV 7.4 fL (7.4-11.0) 04/16/23 04:46 Neut % (Auto) 62.5 % (42.0-75.0) 04/16/23 04:46 Lymph % (Auto) 24.4 % (21.0-51.0) 04/16/23 04:46 [place] % (Auto) 8.5 % (0.0-13.0) 04/16/23 04:46 Eos % (Auto) 3.4 % (0.9-2.9) H 04/16/23 04:46 Baso % (Auto) 1.2 % (0.2-1.0) H 04/16/23 04:46 Neut # (Auto) 4.1 x10^3/uL (2.2-4.8) 04/16/23 04:46 Lymph # (Auto) 1.6 X10^3/uL (1.3-2.9) 04/16/23 04:46 [place] # (Auto) 0.6 x10^3/uL (0.3-0.8) 04/16/23 04:46 Eos # (Auto) 0.2 x10^3/uL (0.0-0.2) 04/16/23 04:46 Baso # (Auto) 0.1 X10^3/uL (0.0-0.1) 04/16/23 04:46 Absolute Nucleated RBC 0.1 /100WBC 04/16/23 04:46 Total Counted 100 04/13/23 05:53 Neutrophils % (Manual) 77 % (39-76) H 04/13/23 05:53 Band Neutrophils % 3 % (0-10) 04/13/23 05:53 Lymphocytes % (Manual) 13 % (13-43) 04/13/23 05:53 Monocytes % (Manual) 4 % (4-9) 04/13/23 05:53 Eosinophils % (Manual) 2 % (0-6) 04/13/23 05:53 Metamyelocytes % 1 04/13/23 05:53 Plt Morphology Comment Normal (NORMAL) 04/13/23 05:53 RBC Morphology Abnormal (NORMAL) 04/13/23 05:53 Hypochromasia Slight A 04/13/23 05:53 Anisocytosis Slight A 04/13/23 05:53 Microcytosis Slight A 04/13/23 05:53 Sodium 132 mmol/L (136-145) L 04/16/23 04:46 Corrected Sodium 134 mmol/L (136-145) L 04/16/23 04:46 Potassium 3.9 mmol/L (3.5-5.1) 04/16/23 04:46 Chloride 98 mmol/L (98-107) 04/16/23 04:46 Carbon Dioxide 29.0 mmol/L (21-32) 04/16/23 04:46 BUN 6 mg/dL (7-18) L 04/16/23 04:46 Creatinine 0.69 mg/dL (0.70-1.30) L 04/16/23 04:46 Est GFR (MDRD) Af Amer > 60 (>60) 04/16/23 04:46 Est GFR (MDRD) Non-Af > 60 (>60) 04/16/23 04:46 Glucose 177 mg/dL (65-99) H 04/16/23 04:46 POC Glucose (mg/dL) 161 mg/dL (65-99) H 04/16/23 05:20 Lactic Acid 3.8 mmol/L (0.4-2.0) H 04/10/23 20:25 Calcium 7.7 mg/dL (8.5-10.1) L 04/16/23 04:46 Corrected Calcium 9.4 mg/dL (8.5-10.1) 04/16/23 04:46 Magnesium 2.0 mg/dL (2.0-2.9) 04/14/23 05:55 Total Bilirubin 0.40 mg/dL (0.2-1.0) 04/16/23 04:46 AST 11 Units/L (15-37) L 04/16/23 04:46 ALT 6 Units/L (12-78) L 04/16/23 04:46 Alkaline Phosphatase 374 Units/L (46-116) H 04/16/23 04:46 C-Reactive Protein 69.80 mg/L (0-3.0) H 04/16/23 04:46 Total Protein 7.1 g/dL (6.4-8.2) 04/16/23 04:46 Albumin 1.9 g/dL (3.4-5.0) L 04/16/23 04:46 Globulin 5.2 g/dL (2.5-4.5) H 04/16/23 04:46 Albumin/Globulin Ratio 0.4 Ratio (1.1-2.1) L 04/16/23 04:46 Lipase 21 Units/L (16-77) 04/10/23 20:25 Specimen Type Clean catch urine 04/11/23 05:30 Urine Color Nubia (YELLOW) 04/11/23 05:30 Urine Appearance Slightly hazy (CLEAR) 04/11/23 05:30 Urine pH 6.0 (5.0 - 8.0) 04/11/23 05:30 Ur Specific Mcgrath 1.015 (1.000-1.030) 04/11/23 05:30 Urine Protein 3+ (NEGATIVE) 04/11/23 05:30 Urine Glucose (UA) 4+ (NEGATIVE) 04/11/23 05:30 Urine Ketones Negative (NEGATIVE) 04/11/23 05:30 Urine Blood 4+ (NEGATIVE) 04/11/23 05:30 Urine Nitrite Negative (NEGATIVE) 04/11/23 05:30 Urine Bilirubin Negative (NEGATIVE) 04/11/23 05:30 Urine Urobilinogen 2+ (NORMAL) 04/11/23 05:30 Ur Leukocyte Esterase Negative (NEGATIVE) 04/11/23 05:30 Urine RBC 3-5 /HPF (0-3) A 04/11/23 05:30 Urine WBC 10-20 /HPF (0-5) A 04/11/23 05:30 Ur Squamous Epith Cells Few /HPF (NEGATIVE) 04/11/23 05:30 Amorphous Sediment 1+ /HPF (NEGATIVE) 04/11/23 05:30 Urine Bacteria 2+ /HPF (NEGATIVE) 04/11/23 05:30 Hyaline Casts Rare /LPF (NEGATIVE) 04/11/23 05:30 Granular Casts Few /LPF (NEGATIVE) 04/11/23 05:30 Ur Culture Indicated? Yes/culture set up 04/11/23 05:30 Stl Occult Blood (IFOB) Positive (NEGATIVE) A 04/15/23 13:38 Vancomycin Trough 12.9 ug/mL (15-20) L 04/15/23 22:30 Blood Type O POSITIVE 04/11/23 10:06 Antibody Screen Negative 04/11/23 10:03 Crossmatch See Detail 04/11/23 10:03 - Plan (1) Sepsis Status: Acute Qualifiers: Sepsis type: sepsis due to unspecified organism Sepsis acute organ dysfunction status: unspecified Qualified Code(s): A41.9 - Sepsis, unspecified organism Plan: WOUND CARE, NORMAL SALINE AT 75 ML/HR, ALBUMIN 25% IV DAILY, VANCOMYCIN 1.25G IV TID, MEROPENEM 1G IV Q8H, DILAUDID 1MG IV Q4H PRN, OTBS ACHS, HUMULIN R SLIDING SCALE, LANTUS 10 UNITS DAILY, ZOFRAN 4MG IV Q4H PRN, PERCOCET 5/325MG Q4H PRN, COLACE 200MG HS. (2) Necrotizing fasciitis of ankle and foot Status: Acute Plan: WOUND CARE BY (3) Acute osteomyelitis of metatarsal bone of right foot Status: Acute Plan: IV ANTIBIOTICS (4) Anemia Status: Acute Qualifiers: Anemia type: unspecified type Qualified Code(s): D64.9 - Anemia, unspecified Plan: MONITOR H&H, TRANSFUSE PACKED RED BLOOD CELLS IF NEEDED (5) UTI (urinary tract infection) Status: Acute Qualifiers: Urinary tract infection type: acute cystitis Hematuria presence: with hematuria Qualified Code(s): N30.01 - Acute cystitis with hematuria Plan: IV ANTIBIOTICS (6) Hyponatremia Status: Acute Plan: IV FLUIDS (7) Dehydration Status: Acute Plan: IV FLUIDS (8) Uncontrolled type 2 diabetes mellitus Status: Chronic Qualifiers: Glycemic state: with hyperglycemia Qualified Code(s): E11.65 - Type 2 diabetes mellitus with hyperglycemia Plan: OTBS ACHS, HUMULIN R SLIDING SCALE, LANTUS 10 UNITS DAILY
--- NOTE | 2023-04-16 13:54 | DR.CONSULT ---
CONSULT Consultation for Day of: Date: 04/15/23 Chief Complaint Chief Complaint: Extensive wound right leg with muscle necrosis and gas below knee in this patient with significant diabetes, peripheral vascular disease and hx of rectal cancer s/p low anterior resection and end colostomy. Allergies Allergies Allergy/AdvReac Type Severity Reaction Status Date / Time No Known Drug Allergies Allergy Verified 07/25/17 15:16 History of Present Illness History of Present Illness: 42 year old male with significant diabetes and peripheral vascular disease who has had a left below knee amputation and presented to Dr. Fabian's office with pain and swelling of the right leg below the knee in the anterior tibial compartment. Films were consistent with gas here and the patient was taken to the operating suite for debridement and placement of antibiotic beads. There was extensive necrosis of the anterior tibialis muscle with questionable osteomyelitis of other bones. At that time the patient had a fever of 103. Hemoglobin 8.7 white blood cell count of 11,000. Patient has had amputation all of the toes of the right foot except for the great toe and has questionable osteomyelitis of the first metatarsal head. I have been asked to evaluate this patient. I have discussed with the patient there is a significant risk of amputation either below of above the knee. He would like to try to keep his foot and at this time they planning extensive further debridement with wound vacuum placement and continued directed antibiotics. I had been told that I had seen his patient in the past but I can find no evidence of that nor can I find any evidence of any type of intervention of the legs from an arterial standpoint. This patient has had a diagnosis of left colon cancer status does low anterior resection with end colostomy. Past Medical History Past Medical History: Diabetes Additional Medical History: HX COLON CANCER, Past Surgical History Surgical History: Bowel Resection Additional Surgical History: LEFT BTK AMPUTATION, RIGHT GREAT TOE AMPUTATION, COLOSTOMY REVERSAL Family History Family Medical History: Diabetes Mellitus, [place], Heart Failure and Hypertension Social History Does patient currently use any type of tobacco product: No Have you used tobacco products in the last 12 months: No Does any household member use tobacco: No Alcohol Use: None Drug Use: None Medications Home Medications: No Known Drug Allergies Allergy (Verified 07/25/17 15:16) Steglatro 15 mg po BID Review of Systems Constitutional: See HPI Eyes: No Symptoms Reported ENT: No Symptoms Reported Respiratory: No Symptoms Reported Cardiovascular: No Symptoms Reported Gastrointestinal: No Symptoms Reported and See HPI Genitourinary: No Symptoms Reported Musculoskeletal: See HPI Skin: See HPI Neurological: No Symptoms Reported Physical Exam Vital Signs: Vital Signs Temperature 98.3 F Temperature 97.5 F Pulse Rate [Brachial] 87 Pulse Rate [Brachial] 89 Respiratory Rate 20 Respiratory Rate 18 Respiratory Rate 18 Respiratory Rate 20 Blood Pressure [Right Arm] 158/88 Blood Pressure [Right Arm] 130/73 O2 Sat by Pulse Oximetry 99 O2 Sat by Pulse Oximetry 99 Oriented: Normal, Time, Person and Place Eyes: Normal Ear: Normal Nose: Normal Throat: Normal Respiratory: Clear Throughout Cardiovascular: Normal : Normal Auscultation: Bowel Sounds: Normal Palpation: Normal Tenderness: Normal Skin: Other (Open wound length of the anterior compartment of the right leg which had antibiotic beads in place. No obvious purulence on my exam. ) Mood Description: Calm Affect: Normal Speech Pattern: Clear Plan (1) Sepsis: Status: Acute Qualifiers: Sepsis acute organ dysfunction status: unspecified Sepsis type: sepsis due to unspecified organism Qualified Code(s): A41.9 - Sepsis, unspecified organism (2) Necrotizing fasciitis of ankle and foot: Status: Acute Plan: Will continue IV antibiotics, debridement and brody vacuum as per Dr. Fabian . and this point plan is to try and salvage this leg. If we are going to try and Salvage his leg he will need CT angiogram to assess for any type of arterial problem that needs correction to get him the best possibility of limb salvage. (3) Acute osteomyelitis of metatarsal bone of right foot: Status: Acute (4) Anemia: Status: Acute Qualifiers: Anemia type: unspecified type Qualified Code(s): D64.9 - Anemia, unspecified (5) UTI (urinary tract infection): Status: Acute Qualifiers: Hematuria presence: with hematuria Urinary tract infection type: acute cystitis Qualified Code(s): N30.01 - Acute cystitis with hematuria (6) Hyponatremia: Status: Acute (7) Dehydration: Status: Acute (8) Uncontrolled type 2 diabetes mellitus: Status: Chronic Qualifiers: Glycemic state: with hyperglycemia Qualified Code(s): E11.65 - Type 2 diabetes mellitus with hyperglycemia
[2023-04-16] MEDS ORDERED: OMNIPAQUE 350 mg/mL 50 mL BTL 50 ML ONE (14:07)
[2023-04-16] MEDS ORDERED: OMNIPAQUE 350 mg/mL 100 mL BTL 100 ML ONE (14:07)
[2023-04-16] MEDS: MERREM VIAL 1 G in NS 100 ML IV 100 ML IV SCH ×2 (15:59→21:00)
[2023-04-16] MEDS: NovoLIN R (or HumuLIN R) SC PRN ×2 (17:32→20:00)
[2023-04-16 17:54] LABS: CREATININE 0.64 mg/dL (0.70-1.30); VANCOMYCIN,TROUGH 15.4 ug/mL (15-20)
--- NOTE | 2023-04-16 20:01 | CT ---
EXAM:CTA AORTA WITH RUNOFFHISTORY:WOUNDS RT LEG, SIGNIFICANT HISTORY;COMPARISON:None.TECHNIQUE:Axial CT images of the abdomen, pelvis and lower extremities were obtained prior to and after the administration of 150 mL Omnipaque 350 IV contrast during the arterial phase. Images were reformatted with a 3D angiographic technique for further evaluation.Radiation dose: 1215.62 mGy-cm total DLPFINDINGS:Aorta: Abdominal aorta is normal in caliber. No clinically significant stenosis or occlusion.Mesenteric arteries/Celiac trunk: No clinically significant stenosis, occlusion or aneurysm.Renal arteries: No clinically significant stenosis, occlusion or aneurysm.Right iliac arteries: No clinically significant stenosis, occlusion or aneurysm.Left iliac arteries: No clinically significant stenosis, occlusion or aneurysm.Right femoral arteries/popliteal artery: No clinically significant stenosis, occlusion or aneurysm.Left femoral arteries/popliteal artery: Absence of contrast in the majority of the left superficial femoral, profunda femoral and popliteal arteries.Right infrapopliteal arteries: No occlusion or aneurysm. 3 vessel runoff.Lung bases are clear.No acute osseous abnormality.[id number] left amputation.Edema in the soft tissues of the right lower extremity with cutaneous defects in the lateral soft tissues of the distal lower extremity and dorsal aspect of the ankle; consistent with the sequela of the patient's known necrotizing fasciitis.Stomach and proximal small bowel appear normal.Solid visceral organs of the upper abdomen are unremarkable.Gallbladder appears normal.No biliary dilatation.Homogeneous enhancement of the kidneys without hydronephrosis or hydroureter.No urinary calculus identified.Urinary bladder is unremarkable.Unremarkable appearance of the small and large bowel.No evidence of acute appendicitis.Reproductive structures are unremarkable.No pneumoperitoneum.No free intra-abdominal fluid.No adenopathy.IMPRESSION:1. Edema in the soft tissues of the right lower extremity with cutaneous defects in the lateral soft tissues of the distal lower extremity and dorsal aspect of the ankle; consistent with the sequela of the patient's known necrotizing fasciitis. Unremarkable appearance of the arterial structures in the right lower extremity without clinically significant stenosis or occlusion.2. Absence of intravenous contrast throughout the majority of the left superficial femoral, profunda femoral and popliteal arteries; age indeterminate. Previous [id number] left amputation.THIS IS AN ELECTRONICALLY VERIFIED FINAL [id number] 7:57 PM - Electronically signed by Nnamdi Stewart MD
[2023-04-16] MEDS: SNACK - Diabetic Appropriate PO SCH (21:17)
[2023-04-16] MEDS: MIRALAX POWDER (1 DOSE 17 G) PO SCH (21:18)
[2023-04-16] MEDS: COLACE CAP 100 MG PO SCH (21:18)
[2023-04-17] MEDS: NS + KCL 20 MEQ/L 1,000 ML with MAGNESIUM SULFATE 50% INJ VIAL 1 G IV SCH ×4 (02:02→20:35)
[2023-04-17 05:14] LABS: BASOPHILS % (AUTO) 0.9 % (0.2-1.0); EOSINOPHILS # (AUTO) 0.2 x10^3/uL (0.0-0.2); EOSINOPHILS % (AUTO) 3.1 % (0.9-2.9); HEMATOCRIT 28.8 % (42.0-54.0); HEMOGLOBIN 9.6 g/dL (13.5-18.0); LYMPHOCYTES # (AUTO) 1.3 X10^3/uL (1.3-2.9); LYMPHOCYTES % (AUTO) 23.7 % (21.0-51.0); MEAN CORPUSCULAR HEMOGLOBIN 25.3 pg (27.0-34.0); MEAN CORPUSCULAR HGB CONC 33.2 g/dL (33.0-35.0); MEAN CORPUSCULAR VOLUME 76.2 fL (80.0-100.0); MEAN PLATELET VOLUME 7.2 fL (7.4-11.0); MONOCYTES # (AUTO) 0.4 x10^3/uL (0.3-0.8); NEUTROPHILS # (AUTO) 3.5 x10^3/uL (2.2-4.8); NEUTROPHILS % (AUTO) 64.3 % (42.0-75.0); PLATELET COUNT 384 X10^3/uL (150.0-450.0); RED BLOOD COUNT 3.77 X10^6/uL (4.7-6.0); RED CELL DISTRIBUTION WIDTH 19.3 % (11.6-16.5); WHITE BLOOD COUNT 5.4 X10^3/uL (3.6-10.0)
[2023-04-17] MEDS: MERREM VIAL 1 G in NS 100 ML IV 100 ML IV SCH ×3 (05:20→21:32)
[2023-04-17 05:30] LABS: ALANINE AMINOTRANSFERASE < 6 Units/L (12-78); ALBUMIN 1.9 g/dL (3.4-5.0); ALKALINE PHOSPHATASE 261 Units/L (46-116); ASPARTATE AMINO TRANSFERASE 7 Units/L (15-37); BLOOD UREA NITROGEN 6 mg/dL (7-18); CALCIUM 7.6 mg/dL (8.5-10.1); CARBON DIOXIDE 28.4 mmol/L (21-32); CHLORIDE 100 mmol/L (98-107); COR CA(FOR HYPOALB) 9.3 mg/dL (8.5-10.1); COR NA(FOR HYPERGLY) 134 mmol/L (136-145); CREATININE 0.62 mg/dL (0.70-1.30); GLUCOSE 130 mg/dL (65-99); POTASSIUM 4.1 mmol/L (3.5-5.1); SODIUM 133 mmol/L (136-145); TOTAL PROTEIN 6.6 g/dL (6.4-8.2); eGFR NON BLACK RACES > 60 (>60)
--- NOTE | 2023-04-17 06:25 | NOTE.SOAP ---
Soap Note Note for Day of Date of Exam: 04/14/23 Subjective Data Subjective Data: patient seen bedside doing well today. no issues overnight. Approx 10cc of drainage in the VAC. Objective Data Objective Data: bandage without issues. leave intact due wound VAC. Assessment Assessment: 42 m with necrotizing fasciitis of the right LE. DM uncontrolled, acute blood loss anemia with chronic anemia. Plan Plan: patient washed out yesterday with VAC application. position still guarded regarding limb. plan to go back to OR tomorrow for further washout with external fixation application. He has extensive necrosis anterior leg skin and has lost anterior compartment as well as lateral compartment muscles. Proximal amputation may still be a possibility due to extensive soft tissue damage. Cont IV abx and monitoring of wound VAC. Surgery tomorrow with Dr. Fabian
[2023-04-17] MEDS: VANCOMYCIN IV *PREMIX 1.25 G/250 ML BAG 1.25 G/250 ML PIGGYBACK IV SCH ×2 (06:32→14:20)
[2023-04-17] MEDS: LANTUS SC SCH (09:28)
[2023-04-17] MEDS: PROTONIX INJ 40 MG VIAL IVP SCH ×2 (09:28→21:32)
[2023-04-17] MEDS: ALBUMIN HUMAN 25%- 100 ML 100 ML IV SCH (09:29)
[2023-04-17] MEDS: MILK OF MAGNESIA PO SCH ×4 (09:29→20:37)
--- NOTE | 2023-04-17 09:59 | NOTE.SOAP ---
Soap Note Note for Day of Date of Exam: 04/17/23 Subjective Data Subjective Data: Patient with infection/ necrosis of tissue right leg. Patient is diabetic. Dr Fabian attempting limb salvage. CTA performed to make sure there was nothing to do to the arterial supply that would help with salvage Objective Data Temperature: 98.3 F Pulse Rate: 83 Respiratory Rate: 20 Blood Pressure: 154/74 Objective Data: Dressing in place right leg. CTA shows no stenosis or obstruction of arterial structures right leg Assessment Assessment: Necrosis tissue right leg Plan Plan: I have nothing to add in regards to arterial invention. If the leg is felt not to be salvageable please contact me if you are considering amputation..
--- NOTE | 2023-04-17 10:26 | PCM.PROG ---
Progress Note - Progress Note for Day of Date of Exam: 04/17/23 - Subjective Subjective: IS CURRENTLY INPATIENT STATUS FOR TREATMENT OF SEPSIS, NECROTIZING FASCIITIS OF THE RIGHT ANKLE AND FOOT, OSTEOMYELITIS OF THE RIGHT FOOT, ANEMIA, UTI, HYPONATREMIA, DEHYDRATION, AND UNCONTROLLED TYPE 2 DIABETES. TODAY, HE IS ALERT AND ORIENTED, LYING IN BED ON MORNING ROUNDS. HE CONTINUES TO COMPLAIN OF GENERALIZED WEAKNESS THIS MORNING AND PAIN TO THE RIGHT LOWER EXTREMITY. HE ADMITS TO SLIGHT IMPROVEMENT IN SYMPTOMS SINCE WE SAW HIM YESTERDAY. HE HAS RECEIVIED FOUR UNITS OF PACKED RED BLOOD CELLS SINCE ADMISSION. HE IS DAY 7 POST OP FACIOTOMY OF THE ANTERIOR AND LATERAL LEG COMPARTMENT OF THE RIGHT LEG, EXTENSIVE DEBRIDEMENT OF MUSCLES AND TENDONS OF THAT REGION, METATARSECTOMY OF THE RIGHT FOOT (FIRST), ANTIBIOTIC BEAD PLACEMENT, AND MEDICAL PLANTAR FASCIECTOMY OF THE PLANTAR MEDIAL COMPARTMENT OF THE FOOT OF THE RIGHT WITH EXTENSIVE DEBRIDEMENT. ALSO TOOK HIM TO THE OR ON 04/13 AND THEN AGAIN ON 04/16 FOR FURTHER WASHOUT AND PLACEMENT OF WOUND VAC. NOTES IN HIS OPERATIVE NOTE THAT PATIENT HAS EXTENSIVE SOFT TISSUE LOSS WITH GANGREEN AND NECROSIS. ON EXAMINATION TODAY, HEART IS REGULAR IN RATE AND RHYTHM. BILATERAL LUNGS ARE NOTED WITH DIMINISHED LUNG SOUNDS THROUGHOUT. ABDOMEN IS ROUND, SOFT, AND NON-TENDER WITH NORMAL BOWEL SOUNDS NOTED IN ALL QUADRANTS. THERE IS GOOD RANGE OF MOTION NOTED TO THE UPPER EXTREMITIES. HE HAS HAD A LEFT BTA AND HAS WEAKNESS AND ATROPHY OF THE RIGHT LOWER EXTREMITY. THERE IS A BULKY DRESSING NOTED TO THE RIGHT LOWER EXTREMITY WITH A WOUND VAC. IS FOLLOWING PATIENT IS PERFORMING DRESSING CHANGES AND WOUND CARE. HIS VITALS THIS MORNING ARE: 98.3-83-20-99%-154/74. LABS WERE OBTAINED. WBC 5.4, RBC 3.77, HGB 9.6, HCT 28.8, PLT COUNT 384, SODIUM 133, POTASSIUM 4.1, CHLORIDE 100, CARBON DIOXIDE 28.4, BUN 6, CREATININE 0.62, GLUCOSE 130, CALCIUM 7.6, TOTAL BILI 0.50, AST 7, ALT <6, ALK PHOS 261, CRP 46.10, TOTAL PROTEIN 6.6, ALBUMIN 1.9. RIGHT FOOT AND RIGHT LEG WOUND CULTURES ARE POSITIVE FOR GROWTH OF ENTEROCOCCUS FAECALIS AND KLEBSIELLA PNEUMONIAE. URINE CULTURE IS POSITIVE FOR STAPHYLOCOCCUS AUREUS. STOOL IS POSITIVE FOR OCCULT BLOOD. HE IS CURRENTLY RECEIVING NORMAL SALINE WITH POTASSIUM AND MAGNESIUM AT 75 ML/HR, ALBUMIN 25% IV DAILY, VANCOMYCIN 1.25G IV Q8H, MEROPENEM 1G IV Q8H, DILAUDID 1MG IV Q4H PRN, OTBS ACHS, HUMULIN R SLIDING SCALE, LANTUS 10 UNITS DAILY, ZOFRAN 4MG IV Q4H PRN, PERCOCET 5/325MG Q4H PRN, COLACE 200MG HS, MILK OF MAGNESIA 15ML QID, MIRALAX 17G DAILY. AND PLANS TO TAKE HIM BACK TO THE OR THIS MORNING FOR FURTHER WASHOUT OF WOUND TO ATTEMPT TO SALVAGE THE LIMB TOMORROW. WE ARE IN AGREEMENT WITH PLANS. OTHERWISE, WE WILL CONTINUE WITH CURRENT PLAN OF CARE TODAY. WE WILL FOLLOW UP WITH AM LABS AND CONTINUE TO MONITOR. TIME SPENT ON CLINICAL ASSESSMENT, REVIEWING LABS AND IMAGING, DECISION MAKING, AND DOCUMENTATION GREATER THAN 45 MINUTES. - Past Medical Family Social History Past Med/Fam/Surg Hx: No changes since H&P Allergies: Allergies No Known Drug Allergies Allergy (Verified 07/25/17 15:16) - Review of Systems ROS: No change since H&P - Vital Signs and I&O's Vital Signs: Vital Signs Temperature 98.3 F Temperature 98.3 F Pulse Rate [Brachial] 79 Pulse Rate 83 Respiratory Rate 20 Respiratory Rate 20 Blood Pressure [Right Arm] 149/79 Blood Pressure 154/74 O2 Sat by Pulse Oximetry 99 Intake and Output: Intake & Output 04/14/23 04/15/23 04/16/23 04/17/23 12:59 11:59 11:59 11:59 Intake Total 2232 / 2232 4104 / 4104 Output Total 1900 / 1900 3900 / 3900 Balance 332 / 332 204 / 204 - Physical Exam Oriented: Normal, Time, Person, Place Eyes: Normal Ear: Normal Nose: Normal Throat: Normal Respiratory: Normal Cardiovascular: Normal : Normal Auscultation: Bowel Sounds: Normal Tenderness: Normal Skin: Other (Open wound length of the anterior compartment of the right leg which had antibiotic beads in place. No obvious purulence on my exam.) Musculoskeletal: Right, Leg, Ankle, Foot, Swelling, Tender Psychiatric: Normal Mood Description: Calm Affect: Normal Speech Pattern: Clear, Appropriate - Laboratory and Diagnostics Result Diagrams: 04/17/23 04:26 04/17/23 04:26 Labs: 04/10/23 20:22 Blood Blood Culture - Final 04/10/23 22:50 Foot - Right Wound Gram Stain - Final 04/10/23 22:50 Foot - Right Wound Culture - Final Klebsiella Pneumoniae Enterococcus Faecalis 04/10/23 22:55 Leg - Right Wound Gram Stain - Final 04/10/23 22:55 Leg - Right Wound Culture - Final Klebsiella Pneumoniae Enterococcus Faecalis 04/12/23 11:44 Blood Blood Culture - Preliminary 04/12/23 11:35 Blood Blood Culture - Preliminary 04/10/23 20:25 Blood Blood Culture Gram Stain - Final 04/10/23 20:25 Blood Blood Culture - Final 04/11/23 05:30 Urine,Clean Catch Urine Culture - Final Staphylococcus Aureus Laboratory WBC 5.4 X10^3/uL (3.6-10.0) 04/17/23 04:26 RBC 3.77 X10^6/uL (4.7-6.0) L 04/17/23 04:26 Hgb 9.6 g/dL (13.5-18.0) L 04/17/23 04:26 Hct 28.8 % (42.0-54.0) L 04/17/23 04:26 MCV 76.2 fL (80.0-100.0) L 04/17/23 04:26 MCH 25.3 pg (27.0-34.0) L 04/17/23 04:26 MCHC 33.2 g/dL (33.0-35.0) 04/17/23 04:26 RDW 19.3 % (11.6-16.5) H 04/17/23 04:26 Plt Count 384 X10^3/uL (150.0-450.0) 04/17/23 04:26 Plt Count Comment Adequate (ADEQUATE) 04/13/23 05:53 MPV 7.2 fL (7.4-11.0) L 04/17/23 04:26 Neut % (Auto) 64.3 % (42.0-75.0) 04/17/23 04:26 Lymph % (Auto) 23.7 % (21.0-51.0) 04/17/23 04:26 [place] % (Auto) 8.0 % (0.0-13.0) 04/17/23 04:26 Eos % (Auto) 3.1 % (0.9-2.9) H 04/17/23 04:26 Baso % (Auto) 0.9 % (0.2-1.0) 04/17/23 04:26 Neut # (Auto) 3.5 x10^3/uL (2.2-4.8) 04/17/23 04:26 Lymph # (Auto) 1.3 X10^3/uL (1.3-2.9) 04/17/23 04:26 [place] # (Auto) 0.4 x10^3/uL (0.3-0.8) 04/17/23 04:26 Eos # (Auto) 0.2 x10^3/uL (0.0-0.2) 04/17/23 04:26 Baso # (Auto) 0.0 X10^3/uL (0.0-0.1) 04/17/23 04:26 Absolute Nucleated RBC 0.0 /100WBC 04/17/23 04:26 Total Counted 100 04/13/23 05:53 Neutrophils % (Manual) 77 % (39-76) H 04/13/23 05:53 Band Neutrophils % 3 % (0-10) 04/13/23 05:53 Lymphocytes % (Manual) 13 % (13-43) 04/13/23 05:53 Monocytes % (Manual) 4 % (4-9) 04/13/23 05:53 Eosinophils % (Manual) 2 % (0-6) 04/13/23 05:53 Metamyelocytes % 1 04/13/23 05:53 Plt Morphology Comment Normal (NORMAL) 04/13/23 05:53 RBC Morphology Abnormal (NORMAL) 04/13/23 05:53 Hypochromasia Slight A 04/13/23 05:53 Anisocytosis Slight A 04/13/23 05:53 Microcytosis Slight A 04/13/23 05:53 Sodium 133 mmol/L (136-145) L 04/17/23 04:26 Corrected Sodium 134 mmol/L (136-145) L 04/17/23 04:26 Potassium 4.1 mmol/L (3.5-5.1) 04/17/23 04:26 Chloride 100 mmol/L (98-107) 04/17/23 04:26 Carbon Dioxide 28.4 mmol/L (21-32) 04/17/23 04:26 BUN 6 mg/dL (7-18) L 04/17/23 04:26 Creatinine 0.62 mg/dL (0.70-1.30) L 04/17/23 04:26 Est GFR (MDRD) Af Amer > 60 (>60) 04/17/23 04:26 Est GFR (MDRD) Non-Af > 60 (>60) 04/17/23 04:26 Glucose 130 mg/dL (65-99) H 04/17/23 04:26 POC Glucose (mg/dL) 131 mg/dL (65-99) H 04/17/23 05:27 Lactic Acid 3.8 mmol/L (0.4-2.0) H 04/10/23 20:25 Calcium 7.6 mg/dL (8.5-10.1) L 04/17/23 04:26 Corrected Calcium 9.3 mg/dL (8.5-10.1) 04/17/23 04:26 Magnesium 2.2 mg/dL (2.0-2.9) 04/17/23 04:26 Total Bilirubin 0.50 mg/dL (0.2-1.0) 04/17/23 04:26 AST 7 Units/L (15-37) L 04/17/23 04:26 ALT < 6 Units/L (12-78) L 04/17/23 04:26 Alkaline Phosphatase 261 Units/L (46-116) H 04/17/23 04:26 C-Reactive Protein 46.10 mg/L (0-3.0) H 04/17/23 04:26 Total Protein 6.6 g/dL (6.4-8.2) 04/17/23 04:26 Albumin 1.9 g/dL (3.4-5.0) L 04/17/23 04:26 Globulin 4.7 g/dL (2.5-4.5) H 04/17/23 04:26 Albumin/Globulin Ratio 0.4 Ratio (1.1-2.1) L 04/17/23 04:26 Lipase 21 Units/L (16-77) 04/10/23 20:25 Specimen Type Clean catch urine 04/11/23 05:30 Urine Color [place] (YELLOW) 04/11/23 05:30 Urine Appearance Slightly hazy (CLEAR) 04/11/23 05:30 Urine pH 6.0 (5.0 - 8.0) 04/11/23 05:30 Ur Specific [place] 1.015 (1.000-1.030) 04/11/23 05:30 Urine Protein 3+ (NEGATIVE) 04/11/23 05:30 Urine Glucose (UA) 4+ (NEGATIVE) 04/11/23 05:30 Urine Ketones Negative (NEGATIVE) 04/11/23 05:30 Urine Blood 4+ (NEGATIVE) 04/11/23 05:30 Urine Nitrite Negative (NEGATIVE) 04/11/23 05:30 Urine Bilirubin Negative (NEGATIVE) 04/11/23 05:30 Urine Urobilinogen 2+ (NORMAL) 04/11/23 05:30 Ur Leukocyte Esterase Negative (NEGATIVE) 04/11/23 05:30 Urine RBC 3-5 /HPF (0-3) A 04/11/23 05:30 Urine WBC 10-20 /HPF (0-5) A 04/11/23 05:30 Ur Squamous Epith Cells Few /HPF (NEGATIVE) 04/11/23 05:30 Amorphous Sediment 1+ /HPF (NEGATIVE) 04/11/23 05:30 Urine Bacteria 2+ /HPF (NEGATIVE) 04/11/23 05:30 Hyaline Casts Rare /LPF (NEGATIVE) 04/11/23 05:30 Granular Casts Few /LPF (NEGATIVE) 04/11/23 05:30 Ur Culture Indicated? Yes/culture set up 04/11/23 05:30 Stl Occult Blood (IFOB) Positive (NEGATIVE) A 04/15/23 13:38 Vancomycin Trough 15.4 ug/mL (15-20) 04/16/23 16:35 Blood Type O POSITIVE 04/11/23 10:06 Antibody Screen Negative 04/11/23 10:03 Crossmatch See Detail 04/11/23 10:03 - Plan (1) Sepsis Status: Acute Qualifiers: Sepsis type: sepsis due to unspecified organism Sepsis acute organ dysfunction status: unspecified Qualified Code(s): A41.9 - Sepsis, unspecified organism Plan: WOUND CARE, NORMAL SALINE AT 75 ML/HR, ALBUMIN 25% IV DAILY, VANCOMYCIN 1.25G IV Q8H, MEROPENEM 1G IV Q8H, DILAUDID 1MG IV Q4H PRN, OTBS ACHS, HUMULIN R SLIDING SCALE, LANTUS 10 UNITS DAILY, ZOFRAN 4MG IV Q4H PRN, PERCOCET 5/325MG Q4H PRN, COLACE 200MG HS. (2) Necrotizing fasciitis of ankle and foot Status: Acute Plan: WOUND CARE BY / (3) Acute osteomyelitis of metatarsal bone of right foot Status: Acute Plan: IV ANTIBIOTICS (4) Anemia Status: Acute Qualifiers: Anemia type: unspecified type Qualified Code(s): D64.9 - Anemia, unspecified Plan: MONITOR H&H, TRANSFUSE PACKED RED BLOOD CELLS IF NEEDED (5) UTI (urinary tract infection) Status: Acute Qualifiers: Urinary tract infection type: acute cystitis Hematuria presence: with hematuria Qualified Code(s): N30.01 - Acute cystitis with hematuria Plan: IV ANTIBIOTICS (6) Hyponatremia Status: Acute Plan: IV FLUIDS (7) Dehydration Status: Acute Plan: IV FLUIDS (8) Uncontrolled type 2 diabetes mellitus Status: Chronic Qualifiers: Glycemic state: with hyperglycemia Qualified Code(s): E11.65 - Type 2 diabetes mellitus with hyperglycemia Plan: OTBS ACHS, HUMULIN R SLIDING SCALE, LANTUS 10 UNITS DAILY
[2023-04-17] MEDS: NovoLIN R (or HumuLIN R) SC PRN ×2 (18:38→21:33)
[2023-04-17] MEDS: SNACK - Diabetic Appropriate PO SCH (20:36)
[2023-04-17] MEDS: MIRALAX POWDER (1 DOSE 17 G) PO SCH (20:37)
[2023-04-17] MEDS: DILAUDID INJ IVP PRN (20:38)
[2023-04-17] MEDS: COLACE CAP 100 MG PO SCH (21:33)
[2023-04-17 22:41] LABS: CREATININE 0.78 mg/dL (0.70-1.30)
[2023-04-17 22:44] LABS: VANCOMYCIN,TROUGH 20.3 ug/mL (15-20)
[2023-04-17] MEDS: VANCOMYCIN IV *PREMIX 1 G/200 ML BAG 1 G/200 ML PIGGYBACK IV SCH (23:05)
[2023-04-18] MEDS ORDERED: HIBICLENS WASH ONE (01:49)
[2023-04-18] MEDS ORDERED: HIBICLENS WASH EXT ONE (02:52)
[2023-04-18] MEDS: MERREM VIAL 1 G in NS 100 ML IV 100 ML IV SCH ×2 (05:05→13:43)
[2023-04-18] MEDS: NS + KCL 20 MEQ/L 1,000 ML with MAGNESIUM SULFATE 50% INJ VIAL 1 G IV SCH ×4 (05:43→20:20)
[2023-04-18] MEDS: VANCOMYCIN IV *PREMIX 1 G/200 ML BAG 1 G/200 ML PIGGYBACK IV SCH ×3 (06:11→22:03)
[2023-04-18] MEDS: DILAUDID INJ IVP PRN ×2 (06:12→20:20)
[2023-04-18 06:27] LABS: BASOPHILS # (AUTO) 0.1 X10^3/uL (0.0-0.1); EOSINOPHILS # (AUTO) 0.2 x10^3/uL (0.0-0.2); EOSINOPHILS % (AUTO) 4.8 % (0.9-2.9); HEMATOCRIT 29.4 % (42.0-54.0); HEMOGLOBIN 9.7 g/dL (13.5-18.0); LYMPHOCYTES # (AUTO) 1.4 X10^3/uL (1.3-2.9); LYMPHOCYTES % (AUTO) 27.8 % (21.0-51.0); MEAN CORPUSCULAR HGB CONC 32.8 g/dL (33.0-35.0); MEAN CORPUSCULAR VOLUME 76.3 fL (80.0-100.0); MEAN PLATELET VOLUME 6.7 fL (7.4-11.0); MONOCYTES # (AUTO) 0.4 x10^3/uL (0.3-0.8); MONOCYTES % (AUTO) 8.1 % (0.0-13.0); NEUTROPHILS % (AUTO) 58.3 % (42.0-75.0); PLATELET COUNT 428 X10^3/uL (150.0-450.0); RED BLOOD COUNT 3.86 X10^6/uL (4.7-6.0); RED CELL DISTRIBUTION WIDTH 19.2 % (11.6-16.5); WHITE BLOOD COUNT 5.2 X10^3/uL (3.6-10.0)
[2023-04-18 06:45] LABS: ALANINE AMINOTRANSFERASE 7 Units/L (12-78); ALBUMIN 2.2 g/dL (3.4-5.0); ALKALINE PHOSPHATASE 232 Units/L (46-116); ASPARTATE AMINO TRANSFERASE 14 Units/L (15-37); BLOOD UREA NITROGEN 9 mg/dL (7-18); CALCIUM 7.8 mg/dL (8.5-10.1); CARBON DIOXIDE 28.9 mmol/L (21-32); CHLORIDE 99 mmol/L (98-107); COR CA(FOR HYPOALB) 9.2 mg/dL (8.5-10.1); COR NA(FOR HYPERGLY) 136 mmol/L (136-145); CREATININE 0.87 mg/dL (0.70-1.30); GLUCOSE 181 mg/dL (65-99); POTASSIUM 4.2 mmol/L (3.5-5.1); SODIUM 134 mmol/L (136-145); TOTAL PROTEIN 6.9 g/dL (6.4-8.2); eGFR NON BLACK RACES > 60 (>60)
[2023-04-18] MEDS ORDERED: CONSULT PHARMACY - POTASSIUM & MAGNESIUM XX SCH (07:00)
[2023-04-18] MEDS: ALBUMIN HUMAN 25%- 100 ML 100 ML IV SCH (08:58)
[2023-04-18] MEDS: PROTONIX INJ 40 MG VIAL IVP SCH ×2 (08:58→20:18)
[2023-04-18] MEDS: LANTUS SC SCH (08:59)
[2023-04-18] MEDS: MILK OF MAGNESIA PO SCH ×4 (08:59→20:16)
[2023-04-18] MEDS ORDERED: BETADINE SOLN ONE (13:39)
[2023-04-18] MEDS ORDERED: PEPCID 20 MG VIAL ONE (13:40)
[2023-04-18] MEDS ORDERED: FENTANYL VIAL INJ 100 mcg ONE (13:40)
[2023-04-18] MEDS ORDERED: ZOFRAN INJ 4 MG VIAL ONE (13:40)
[2023-04-18] MEDS ORDERED: DIPRIVAN VIAL 20 ML ONE (13:40)
[2023-04-18] MEDS ORDERED: REGLAN INJ 10 MG VIAL ONE (13:40)
[2023-04-18] MEDS ORDERED: ZEMURON 100 MG VIAL ONE (13:40)
[2023-04-18] MEDS ORDERED: VERSED ONE (13:40)
[2023-04-18] MEDS ORDERED: MARCAINE 0.25% INJ ONE (14:49)
[2023-04-18] MEDS ORDERED: ANCEF VIAL 1 GRAM ONE (14:53)
[2023-04-18] MEDS ORDERED: NS 1,000 ML IV 1,000 ML ONE (14:53)
[2023-04-18] MEDS ORDERED: NS 100 ML IV 0 ML ONE (14:54)
[2023-04-18] MEDS ORDERED: BENADRYL INJ 50 MG VIAL IVP PRN (15:06)
[2023-04-18] MEDS ORDERED: BARHEMSYS INJ IVP PRN (15:06)
[2023-04-18] MEDS ORDERED: DILAUDID INJ IVP PRN (15:06)
[2023-04-18] MEDS ORDERED: ZOFRAN INJ 4 MG VIAL IVP PRN (15:06)
[2023-04-18] MEDS ORDERED: REGLAN INJ 10 MG VIAL IVP PRN (15:06)
[2023-04-18] MEDS ORDERED: VANCOMYCIN IV *PREMIX 1 G/200 ML BAG 1 G/200 ML PIGGYBACK IV ONE (15:40)
[2023-04-18] MEDS ORDERED: SUPRANE ONE (15:46)
[2023-04-18] MEDS ORDERED: EPHEDRINE SULFATE INJ ONE (16:16)
[2023-04-18] MEDS ORDERED: BRIDION ONE (16:23)
[2023-04-18] MEDS ORDERED: DILAUDID INJ ONE (17:00)
[2023-04-18] MEDS: SNACK - Diabetic Appropriate PO SCH (20:16)
[2023-04-18] MEDS: MIRALAX POWDER (1 DOSE 17 G) PO SCH (20:17)
[2023-04-18] MEDS: CIPRO TAB 500 MG PO SCH (20:17)
[2023-04-18] MEDS: COLACE CAP 100 MG PO SCH (20:18)
[2023-04-18] MEDS: NovoLIN R (or HumuLIN R) SC PRN (20:18)
[2023-04-19 06:24] LABS: BASOPHILS # (AUTO) 0.1 X10^3/uL (0.0-0.1); BASOPHILS % (AUTO) 0.9 % (0.2-1.0); EOSINOPHILS # (AUTO) 0.2 x10^3/uL (0.0-0.2); EOSINOPHILS % (AUTO) 3.9 % (0.9-2.9); HEMATOCRIT 28.9 % (42.0-54.0); HEMOGLOBIN 9.6 g/dL (13.5-18.0); LYMPHOCYTES # (AUTO) 1.3 X10^3/uL (1.3-2.9); MEAN CORPUSCULAR HEMOGLOBIN 25.3 pg (27.0-34.0); MEAN CORPUSCULAR HGB CONC 33.2 g/dL (33.0-35.0); MEAN CORPUSCULAR VOLUME 76.2 fL (80.0-100.0); MEAN PLATELET VOLUME 6.6 fL (7.4-11.0); MONOCYTES # (AUTO) 0.4 x10^3/uL (0.3-0.8); MONOCYTES % (AUTO) 6.7 % (0.0-13.0); NEUTROPHILS % (AUTO) 66.5 % (42.0-75.0); PLATELET COUNT 401 X10^3/uL (150.0-450.0); RED BLOOD COUNT 3.79 X10^6/uL (4.7-6.0); RED CELL DISTRIBUTION WIDTH 19.1 % (11.6-16.5)
[2023-04-19 06:41] LABS: ALANINE AMINOTRANSFERASE < 6 Units/L (12-78); ALBUMIN 2.4 g/dL (3.4-5.0); ALKALINE PHOSPHATASE 200 Units/L (46-116); ASPARTATE AMINO TRANSFERASE 12 Units/L (15-37); BLOOD UREA NITROGEN 12 mg/dL (7-18); CALCIUM 7.7 mg/dL (8.5-10.1); CARBON DIOXIDE 29.9 mmol/L (21-32); CHLORIDE 98 mmol/L (98-107); COR NA(FOR HYPERGLY) 135 mmol/L (136-145); CREATININE 0.73 mg/dL (0.70-1.30); GLUCOSE 206 mg/dL (65-99); POTASSIUM 4.3 mmol/L (3.5-5.1); SODIUM 132 mmol/L (136-145); eGFR NON BLACK RACES > 60 (>60)
[2023-04-19 06:53] LABS: CREATININE 0.74 mg/dL (0.70-1.30)
[2023-04-19 06:55] LABS: VANCOMYCIN,TROUGH 20.8 ug/mL (15-20)
--- NOTE | 2023-04-19 08:24 | NOTE.SOAP ---
Soap Note Note for Day of Date of Exam: 04/14/23 Subjective Data Subjective Data: patient seen bedside doing well today. no issues overnight. Approx 20cc of drainage in the VAC. Objective Data Objective Data: bandage without issues. leave intact due wound VAC. Assessment Assessment: 40 m with necrotizing fasciitis of the right LE. DM uncontrolled, acute blood loss anemia with chronic anemia. Multiple washouts performed Plan Plan: Patient received a repeat washed out yesterday with VAC application and application of antibiotic cement in the foot. position still guarded regarding limb. We do not plan at this time to take patient back to surgery. We will monitor how he progresses with the wound VAC device over time. He will be discharged on oral antibiotics and we will refer him to an infectious disease specialist. Home vac orders placed with case management. Prognosis is still guarded and educated patient on high risk of limb loss, he is aware and prepared for every outcome. He must remain in the posterior splint at this time and maintain the wound vac with dressing changes MWF.
[2023-04-19] MEDS: PROTONIX INJ 40 MG VIAL IVP SCH ×2 (09:10→21:15)
[2023-04-19] MEDS: CIPRO TAB 500 MG PO SCH ×2 (09:10→21:15)
[2023-04-19] MEDS: LANTUS SC SCH (09:10)
[2023-04-19] MEDS: ALBUMIN HUMAN 25%- 100 ML 100 ML IV SCH (09:10)
[2023-04-19] MEDS: MILK OF MAGNESIA PO SCH ×5 (09:10→21:46)
[2023-04-19] MEDS: VANCOMYCIN IV *PREMIX 750 mg/150 ML BAG 750 MG/150 ML PIGGYBACK IV SCH ×3 (11:32→21:14)
[2023-04-19] MEDS: NS 1,000 ML IV 1,000 ML IV SCH ×2 (11:34→21:45)
[2023-04-19] MEDS: NovoLIN R (or HumuLIN R) SC PRN ×2 (17:56→21:25)
--- NOTE | 2023-04-19 19:14 | PCM.PROG ---
Progress Note Progress Note for Day of Date of Exam: 04/19/23 Subjective Subjective: IS CURRENTLY INPATIENT STATUS FOR TREATMENT OF SEPSIS, NECROTIZING FASCIITIS OF THE RIGHT ANKLE AND FOOT, OSTEOMYELITIS OF THE RIGHT FOOT, ANEMIA, UTI, HYPONATREMIA, DEHYDRATION, AND UNCONTROLLED TYPE 2 DIABETES. TODAY, HE IS ALERT AND ORIENTED, LYING IN BED ON MORNING ROUNDS. HE CONTINUES TO COMPLAIN OF GENERALIZED WEAKNESS THIS MORNING AND PAIN TO THE RIGHT LOWER EXTREMITY. HE ADMITS TO SLIGHT IMPROVEMENT IN SYMPTOMS SINCE WE SAW HIM YESTERDAY. HE HAS RECEIVIED FOUR UNITS OF PACKED RED BLOOD CELLS SINCE ADMISSION. HE POST OP FACIOTOMY OF THE ANTERIOR AND LATERAL LEG COMPARTMENT OF THE RIGHT LEG, EXTENSIVE DEBRIDEMENT OF MUSCLES AND TENDONS OF THAT REGION, METATARSECTOMY OF THE RIGHT FOOT (FIRST), ANTIBIOTIC BEAD PLACEMENT, AND MEDICAL PLANTAR FASCIECTOMY OF THE PLANTAR MEDIAL COMPARTMENT OF THE FOOT OF THE RIGHT WITH EXTENSIVE DEBRIDEMENT. ALSO TOOK HIM TO THE OR ON 04/13 AND THEN AGAIN ON 04/16 FOR FURTHER WASHOUT AND PLACEMENT OF WOUND VAC. NOTES IN HIS OPERATIVE NOTE THAT PATIENT HAS EXTENSIVE SOFT TISSUE LOSS WITH GANGREEN AND NECROSIS. ON EXAMINATION TODAY, HEART IS REGULAR IN RATE AND RHYTHM. BILATERAL LUNGS ARE NOTED WITH DIMINISHED LUNG SOUNDS THROUGHOUT. ABDOMEN IS ROUND, SOFT, AND NON-TENDER WITH NORMAL BOWEL SOUNDS NOTED IN ALL QUADRANTS. THERE IS GOOD RANGE OF MOTION NOTED TO THE UPPER EXTREMITIES. HE HAS HAD A LEFT BTA AND HAS W EAKNESS AND ATROPHY OF THE RIGHT LOWER EXTREMITY. THERE IS A BULKY DRESSING NOTED TO THE RIGHT LOWER EXTREMITY WITH A WOUND VAC. RIGHT FOOT AND RIGHT LEG WOUND CULTURES ARE POSITIVE FOR GROWTH OF ENTEROCOCCUS FAECALIS AND KLEBSIELLA PNEUMONIAE. URINE CULTURE IS POSITIVE FOR STAPHYLOCOCCUS AUREUS. STOOL IS POSITIVE FOR OCCULT BLOOD. HE IS CURRENTLY RECEIVING NORMAL SALINE WITH POTASSIUM AND MAGNESIUM AT 75 ML/HR, ALBUMIN 25% IV DAILY, VANCOMYCIN 1.25G IV Q8H, MEROPENEM 1G IV Q8H, DILAUDID 1MG IV Q4H PRN, OTBS ACHS, HUMULIN R SLIDING SCALE, LANTUS 10 UNITS DAILY, ZOFRAN 4MG IV Q4H PRN, PERCOCET 5/325MG Q4H PRN, COLACE 200MG HS, MILK OF MAGNESIA 15ML QID, MIRALAX 17G DAILY. AND PLANS TO TAKE HIM BACK TO THE OR THIS MORNING FOR FURTHER WASHOUT OF WOUND TO ATTEMPT TO SALVAGE THE LIMB TOMORROW. WE ARE IN AGREEMENT WITH PLANS. OTHERWISE, WE WILL CONTINUE WITH CURRENT PLAN OF CARE TODAY. WE WILL FOLLOW UP WITH AM LABS AND CONTINUE TO MONITOR. TIME SPENT ON CLINICAL ASSESSMENT, REVIEWING LABS AND IMAGING, DECISION MAKING, AND DOCUMENTATION GREATER THAN 45 MINUTES. Past Medical Family Social History Past Med/Fam/Surg Hx: No changes since H&P Allergies: Allergies No Known Drug Allergies Allergy (Verified 07/25/17 15:16) Review of Systems ROS: No change since H&P Vital Signs and I&O's Vital Signs: Vital Signs Temperature 98.8 F Temperature 97.6 F Pulse Rate [Brachial] 84 Pulse Rate [Brachial] 78 Respiratory Rate 20 Respiratory Rate 18 Blood Pressure [Right Arm] 151/88 Blood Pressure [Right Arm] 156/80 O2 Sat by Pulse Oximetry 99 O2 Sat by Pulse Oximetry 99 Intake and Output: Intake & Output 04/17/23 04/18/23 04/19/23 04/20/23 11:59 11:59 11:59 11:59 Intake Total 4104 / 4104 4397 / 4397 3379 / 3379 480 / 480 Output Total 3900 / 3900 5075 / 5075 3200 / 3200 600 / 600 Balance 204 / 204 -678 / -678 179 / 179 -120 / -120 Physical Exam Oriented: Normal, Time, Person and Place Eyes: Normal Ear: Normal Nose: Normal Throat: Normal Respiratory: Normal Cardiovascular: Normal : Normal Auscultation: Bowel Sounds: Normal Tenderness: Normal Skin: Other (Open wound length of the anterior compartment of the right leg which had antibiotic beads in place. No obvious purulence on my exam. ) Musculoskeletal: Right, Leg, Ankle, Foot, Swelling and Tender Psychiatric: Normal Mood Description: Calm Affect: Normal Speech Pattern: Clear and Appropriate Laboratory and Diagnostics 04/19/23 06:10 04/19/23 06:10 Labs: 04/12/23 11:44 Blood Blood Culture - Final 04/12/23 11:35 Blood Blood Culture - Final 04/10/23 20:22 Blood Blood Culture - Final 04/10/23 22:50 Foot - Right Wound Gram Stain - Final 04/10/23 22:50 Foot - Right Wound Culture - Final Klebsiella Pneumoniae Enterococcus Faecalis 04/10/23 22:55 Leg - Right Wound Gram Stain - Final 04/10/23 22:55 Leg - Right Wound Culture - Final Klebsiella Pneumoniae Enterococcus Faecalis 04/10/23 20:25 Blood Blood Culture Gram Stain - Final 04/10/23 20:25 Blood Blood Culture - Final 04/11/23 05:30 Urine,Clean Catch Urine Culture - Final Staphylococcus Aureus Laboratory WBC 6.0 X10^3/uL (3.6-10.0) 04/19/23 06:10 RBC 3.79 X10^6/uL (4.7-6.0) L 04/19/23 06:10 Hgb 9.6 g/dL (13.5-18.0) L 04/19/23 06:10 Hct 28.9 % (42.0-54.0) L 04/19/23 06:10 MCV 76.2 fL (80.0-100.0) L 04/19/23 06:10 MCH 25.3 pg (27.0-34.0) L 04/19/23 06:10 MCHC 33.2 g/dL (33.0-35.0) 04/19/23 06:10 RDW 19.1 % (11.6-16.5) H 04/19/23 06:10 Plt Count 401 X10^3/uL (150.0-450.0) 04/19/23 06:10 Plt Count Comment Adequate (ADEQUATE) 04/13/23 05:53 MPV 6.6 fL (7.4-11.0) L 04/19/23 06:10 Neut % (Auto) 66.5 % (42.0-75.0) 04/19/23 06:10 Lymph % (Auto) 22.0 % (21.0-51.0) 04/19/23 06:10 [place] % (Auto) 6.7 % (0.0-13.0) 04/19/23 06:10 Eos % (Auto) 3.9 % (0.9-2.9) H 04/19/23 06:10 Baso % (Auto) 0.9 % (0.2-1.0) 04/19/23 06:10 Neut # (Auto) 4.0 x10^3/uL (2.2-4.8) 04/19/23 06:10 Lymph # (Auto) 1.3 X10^3/uL (1.3-2.9) 04/19/23 06:10 [place] # (Auto) 0.4 x10^3/uL (0.3-0.8) 04/19/23 06:10 Eos # (Auto) 0.2 x10^3/uL (0.0-0.2) 04/19/23 06:10 Baso # (Auto) 0.1 X10^3/uL (0.0-0.1) 04/19/23 06:10 Absolute Nucleated RBC 0.1 /100WBC 04/19/23 06:10 Total Counted 100 04/13/23 05:53 Neutrophils % (Manual) 77 % (39-76) H 04/13/23 05:53 Band Neutrophils % 3 % (0-10) 04/13/23 05:53 Lymphocytes % (Manual) 13 % (13-43) 04/13/23 05:53 Monocytes % (Manual) 4 % (4-9) 04/13/23 05:53 Eosinophils % (Manual) 2 % (0-6) 04/13/23 05:53 Metamyelocytes % 1 04/13/23 05:53 Plt Morphology Comment Normal (NORMAL) 04/13/23 05:53 RBC Morphology Abnormal (NORMAL) 04/13/23 05:53 Hypochromasia Slight A 04/13/23 05:53 Anisocytosis Slight A 04/13/23 05:53 Microcytosis Slight A 04/13/23 05:53 Sodium 132 mmol/L (136-145) L 04/19/23 06:10 Corrected Sodium 135 mmol/L (136-145) L 04/19/23 06:10 Potassium 4.3 mmol/L (3.5-5.1) 04/19/23 06:10 Chloride 98 mmol/L (98-107) 04/19/23 06:10 Carbon Dioxide 29.9 mmol/L (21-32) 04/19/23 06:10 BUN 12 mg/dL (7-18) 04/19/23 06:10 Creatinine 0.73 mg/dL (0.70-1.30) 04/19/23 06:10 Creatinine 0.74 mg/dL (0.70-1.30) 04/19/23 06:10 Est GFR (MDRD) Af Amer > 60 (>60) 04/19/23 06:10 Est GFR (MDRD) Non-Af > 60 (>60) 04/19/23 06:10 Glucose 206 mg/dL (65-99) H 04/19/23 06:10 POC Glucose (mg/dL) 241 mg/dL (65-99) H 04/19/23 17:39 Lactic Acid 3.8 mmol/L (0.4-2.0) H 04/10/23 20:25 Calcium 7.7 mg/dL (8.5-10.1) L 04/19/23 06:10 Corrected Calcium 9.0 mg/dL (8.5-10.1) 04/19/23 06:10 Magnesium 2.3 mg/dL (2.0-2.9) 04/18/23 05:55 Total Bilirubin 0.60 mg/dL (0.2-1.0) 04/19/23 06:10 AST 12 Units/L (15-37) L 04/19/23 06:10 ALT < 6 Units/L (12-78) L 04/19/23 06:10 Alkaline Phosphatase 200 Units/L (46-116) H 04/19/23 06:10 C-Reactive Protein 24.90 mg/L (0-3.0) H 04/19/23 06:10 Total Protein 7.0 g/dL (6.4-8.2) 04/19/23 06:10 Albumin 2.4 g/dL (3.4-5.0) L 04/19/23 06:10 Globulin 4.6 g/dL (2.5-4.5) H 04/19/23 06:10 Albumin/Globulin Ratio 0.5 Ratio (1.1-2.1) L 04/19/23 06:10 Lipase 21 Units/L (16-77) 04/10/23 20:25 Carcinoembryonic Ag 0.6 ng/mL (<=3.8) 04/16/23 04:46 Specimen Type Clean catch urine 04/11/23 05:30 Urine Color [place] (YELLOW) 04/11/23 05:30 Urine Appearance Slightly hazy (CLEAR) 04/11/23 05:30 Urine pH 6.0 (5.0 - 8.0) 04/11/23 05:30 Ur Specific [place] 1.015 (1.000-1.030) 04/11/23 05:30 Urine Protein 3+ (NEGATIVE) 04/11/23 05:30 Urine Glucose (UA) 4+ (NEGATIVE) 04/11/23 05:30 Urine Ketones Negative (NEGATIVE) 04/11/23 05:30 Urine Blood 4+ (NEGATIVE) 04/11/23 05:30 Urine Nitrite Negative (NEGATIVE) 04/11/23 05:30 Urine Bilirubin Negative (NEGATIVE) 04/11/23 05:30 Urine Urobilinogen 2+ (NORMAL) 04/11/23 05:30 Ur Leukocyte Esterase Negative (NEGATIVE) 04/11/23 05:30 Urine RBC 3-5 /HPF (0-3) A 04/11/23 05:30 Urine WBC 10-20 /HPF (0-5) A 04/11/23 05:30 Ur Squamous Epith Cells Few /HPF (NEGATIVE) 04/11/23 05:30 Amorphous Sediment 1+ /HPF (NEGATIVE) 04/11/23 05:30 Urine Bacteria 2+ /HPF (NEGATIVE) 04/11/23 05:30 Hyaline Casts Rare /LPF (NEGATIVE) 04/11/23 05:30 Granular Casts Few /LPF (NEGATIVE) 04/11/23 05:30 Ur Culture Indicated? Yes/culture set up 04/11/23 05:30 Stl Occult Blood (IFOB) Positive (NEGATIVE) A 04/15/23 13:38 Vancomycin Trough 20.8 ug/mL (15-20) H* 04/19/23 06:10 Tissue Pathology See comment. 04/10/23 23:05 Blood Type O POSITIVE 04/11/23 10:06 Antibody Screen Negative 04/11/23 10:03 Crossmatch See Detail 04/11/23 10:03 Plan (1) Sepsis: Status: Acute Qualifiers: Sepsis acute organ dysfunction status: unspecified Sepsis type: sepsis due to unspecified organism Qualified Code(s): A41.9 - Sepsis, unspecified organism Plan: WOUND CARE, NORMAL SALINE AT 75 ML/HR, ALBUMIN 25% IV DAILY, VANCOMYCIN 1.25G IV Q8H, MEROPENEM 1G IV Q8H, DILAUDID 1MG IV Q4H PRN, OTBS ACHS, HUMULIN R SLIDING SCALE, LANTUS 10 UNITS DAILY, ZOFRAN 4MG IV Q4H PRN, PERCOCET 5/325MG Q4H PRN, COLACE 200MG HS. (2) Necrotizing fasciitis of ankle and foot: Status: Acute Plan: WOUND CARE BY / (3) Acute osteomyelitis of metatarsal bone of right foot: Status: Acute Plan: IV ANTIBIOTICS (4) Anemia: Status: Acute Qualifiers: Anemia type: unspecified type Qualified Code(s): D64.9 - Anemia, unspecified Plan: MONITOR H&H, TRANSFUSE PACKED RED BLOOD CELLS IF NEEDED (5) UTI (urinary tract infection): Status: Acute Qualifiers: Hematuria presence: with hematuria Urinary tract infection type: acute cystitis Qualified Code(s): N30.01 - Acute cystitis with hematuria Plan: IV ANTIBIOTICS (6) Hyponatremia: Status: Acute Plan: IV FLUIDS (7) Dehydration: Status: Acute Plan: IV FLUIDS (8) Uncontrolled type 2 diabetes mellitus: Status: Chronic Qualifiers: Glycemic state: with hyperglycemia Qualified Code(s): E11.65 - Type 2 diabetes mellitus with hyperglycemia Plan: OTBS ACHS, HUMULIN R SLIDING SCALE, LANTUS 10 UNITS DAILY
[2023-04-19] MEDS: COLACE CAP 100 MG PO SCH ×2 (21:14→21:48)
[2023-04-19] MEDS: SNACK - Diabetic Appropriate PO SCH (21:24)
[2023-04-19] MEDS: MIRALAX POWDER (1 DOSE 17 G) PO SCH (21:25)
[2023-04-19] MEDS: DILAUDID INJ IVP PRN (21:35)
[2023-04-19 23:51] VITALS: RESP 20
[2023-04-20] MEDS: NS 1,000 ML IV 1,000 ML IV SCH ×2 (04:06→09:41)
[2023-04-20] MEDS: NovoLIN R (or HumuLIN R) SC PRN (05:29)
[2023-04-20] MEDS ORDERED: PHARMACY COMMENT IV NR (05:30)
[2023-04-20 06:09] LABS: BASOPHILS # (AUTO) 0.1 X10^3/uL (0.0-0.1); BASOPHILS % (AUTO) 1.1 % (0.2-1.0); EOSINOPHILS # (AUTO) 0.3 x10^3/uL (0.0-0.2); EOSINOPHILS % (AUTO) 4.7 % (0.9-2.9); HEMATOCRIT 27.6 % (42.0-54.0); HEMOGLOBIN 9.1 g/dL (13.5-18.0); LYMPHOCYTES # (AUTO) 1.6 X10^3/uL (1.3-2.9); LYMPHOCYTES % (AUTO) 27.4 % (21.0-51.0); MEAN CORPUSCULAR HEMOGLOBIN 25.1 pg (27.0-34.0); MEAN CORPUSCULAR VOLUME 75.9 fL (80.0-100.0); MEAN PLATELET VOLUME 6.7 fL (7.4-11.0); MONOCYTES # (AUTO) 0.4 x10^3/uL (0.3-0.8); MONOCYTES % (AUTO) 7.9 % (0.0-13.0); NEUTROPHILS # (AUTO) 3.3 x10^3/uL (2.2-4.8); NEUTROPHILS % (AUTO) 58.9 % (42.0-75.0); PLATELET COUNT 367 X10^3/uL (150.0-450.0); RED BLOOD COUNT 3.63 X10^6/uL (4.7-6.0); RED CELL DISTRIBUTION WIDTH 19.1 % (11.6-16.5); WHITE BLOOD COUNT 5.7 X10^3/uL (3.6-10.0)
[2023-04-20 06:21] LABS: ALANINE AMINOTRANSFERASE < 6 Units/L (12-78); ALBUMIN 2.2 g/dL (3.4-5.0); ALKALINE PHOSPHATASE 159 Units/L (46-116); ASPARTATE AMINO TRANSFERASE 11 Units/L (15-37); BLOOD UREA NITROGEN 14 mg/dL (7-18); CALCIUM 7.7 mg/dL (8.5-10.1); CARBON DIOXIDE 30.2 mmol/L (21-32); CHLORIDE 101 mmol/L (98-107); COR CA(FOR HYPOALB) 9.1 mg/dL (8.5-10.1); COR NA(FOR HYPERGLY) 140 mmol/L (136-145); GLUCOSE 229 mg/dL (65-99); POTASSIUM 4.1 mmol/L (3.5-5.1); SODIUM 137 mmol/L (136-145); TOTAL PROTEIN 6.4 g/dL (6.4-8.2); eGFR NON BLACK RACES > 60 (>60)
[2023-04-20 06:22] LABS: CREATININE 0.7 mg/dL (0.70-1.30); VANCOMYCIN,TROUGH 16.7 ug/mL (15-20)
[2023-04-20] MEDS: LANTUS SC SCH (09:39)
[2023-04-20] MEDS: PROTONIX INJ 40 MG VIAL IVP SCH (09:39)
[2023-04-20] MEDS: ALBUMIN HUMAN 25%- 100 ML 100 ML IV SCH (09:39)
[2023-04-20] MEDS: CIPRO TAB 500 MG PO SCH (09:40)
[2023-04-20] MEDS: MILK OF MAGNESIA PO SCH (09:40)
[2023-04-20] MEDS ORDERED: VANCOMYCIN IV *PREMIX 750 mg/150 ML BAG 750 MG/150 ML PIGGYBACK IV SCH (10:00)
[2023-04-20] MEDS ORDERED: STERILE WATER IRRIGATION IR ONE (11:56)
[2023-04-20] MEDS: DILAUDID INJ IVP PRN (12:43)
[2023-04-20 13:43] VITALS: BP 162/91; PULSE 96; TEMP 97.5; O2SAT 99
== END 2023-04-20 13:55 | disposition home or self-care (01) | DRG 501 ==
LOC: ER 19:42 → MED/SURG 23:56
PROVIDERS: ADMIT Family Medicine; ATTEND Internal Medicine
PROC: DEBRIDE (2023-04-10 22:15)
DX: Z89.431 Acquired absence of right foot; R06.02 Shortness of breath; K92.1 Melena; I96 Gangrene, not elsewhere classified; M72.6 Necrotizing fasciitis; L03.115 Cellulitis of right lower limb; B95.61 Methicillin susceptible Staphylococcus aureus infection as the cause of diseases classified elsewhere; E86.0 Dehydration; B96.1 Klebsiella pneumoniae [K. pneumoniae] as the cause of diseases classified elsewhere; D64.89 Other specified anemias; B95.2 Enterococcus as the cause of diseases classified elsewhere; E87.1 Hypo-osmolality and hyponatremia; N30.01 Acute cystitis with hematuria; M86.8X7 Other osteomyelitis, ankle and foot; E11.65 Type 2 diabetes mellitus with hyperglycemia; Z89.512 Acquired absence of left leg below knee; R79.82 Elevated C-reactive protein (CRP)

== ENCOUNTER 2023-12-04 21:46 | Inpatient (IN) ==
--- NOTE | 2023-12-04 21:57 | DR.GENAD ---
HPI Time Seen Time Seen by Provider: 12/04/23 21:57 PCP Primary Care Physician: Sruthi Anderson HPI Comment HPI Comment: 43 y/o with persistent red, swollen rt elbow after falling and injuring it about ten days ago; he's been to several ers as well as his pcp but has not been to ortho due to insurance issues; he denies fever or chills and started taking abx on Sunday; the pain is starting to radiate up the arm into the rt chest. Complaint/Symptoms Chief Complaint:: Pt fell on 11/25/2023 and injured his right elbow. Pt came here to ER and xray showed no broken bones. Pt followed up with PCP for another xray that didn't show any broken bones. Pt went to [facility] as well and xrays were performed there. No broken bones. Pt is to follow up with "bone doctor" but he hasn't found one yet. Pt was given pain and PCN Rx at [facility]. Pt PCP gave him a steroid injection. Source History Provided: Patient and Significant Other Mode of Arrival Mode of Arrival: Ambulatory Timing Onset of Chief Complaint: 11/25/23 PMH PMH Past Medical History: Yes Past Medical History: Diabetes Past Medical History Comment: Colon CA Past Surgical History: Yes Surgical History: Bowel Resection and Ortho Surgery Past Surgical History Comment: Left BKA Family History History of Family Medical Conditions: Yes Family Medical History: Diabetes Mellitus, [place], Heart Failure and Hypertension Social History Alcohol Use: None Do you use any recreational Drugs:: No Lives With: Alone Lives Where: Home Infectious screening Have you traveled outside the country in the last 6 months?: No Isolation: Standard ROS Review of Systems Constitutional: No Symptoms Reported Eyes: No Symptoms Reported ENTM: No Symptoms Reported Respiratoy: No Symptoms Reported Cardiovascular: No Symptoms Reported Gastrointestinal/Abdominal: No Symptoms Reported Genitourinary: No Symptoms Reported Neurological: No Symptoms Reported Musculoskeletal: See HPI Integumentary: No Symptoms Reported Hematologic/Lymphatic: No Symptoms Reported Endocrine: No Symptoms Reported Psychiatric: No Symptoms Reported PE Vital Signs Vitals: Vital Signs Temperature 99.0 F Pulse Rate 113 Pulse Rate 134 Respiratory Rate 20 Respiratory Rate 18 Respiratory Rate 20 Respiratory Rate 22 Respiratory Rate 22 Blood Pressure 137/74 Blood Pressure 115/66 O2 Sat by Pulse Oximetry 96 O2 Sat by Pulse Oximetry 97 General Limitations: No Limitations General Appearance: Alert and In No Apparent Distress Head Head Exam: Normal Inspection Eyes Eye exam: Normal Appearance Neck Neck Exam: Normal Inspection Chest Chest Inspection: Normal Inspection Respiratory Respiratory Exam: Normal Lung Sounds Bilat Respiratory Exam: Bilateral: Clear to Auscultation Cardiovascular Cardiovascular Exam: Regular Rate and Normal Rhythm Abdominal Exam Abdominal Exam: Normal Inspection, Normal Bowel Sounds and Soft Extremities Extremities Exam: Tenderness, Edema and Other (rt elbow hot, red, tender) Back Back Exam: Normal Inspection Neurologic Neurological Exam: Alert and Oriented X3 Psychiatric Psychiatric Exam: Normal Affect and Normal Mood Skin Skin Exam: Warm, Dry, Intact and Normal Color ROR Labs Reviewed Laboratory Results Reviewed?: Yes 12/04/23 23:08 12/04/23 23:08 Laboratory: WBC 13.1 X10^3/uL (3.6-10.0) H 12/04/23 23:08 RBC 4.21 X10^6/uL (4.7-6.0) L 12/04/23 23:08 Hgb 11.7 g/dL (13.5-18.0) L 12/04/23 23:08 Hct 35.0 % (42.0-54.0) L 12/04/23 23:08 MCV 83.2 fL (80.0-100.0) 12/04/23 23:08 MCH 27.8 pg (27.0-34.0) 12/04/23 23:08 MCHC 33.5 g/dL (33.0-35.0) 12/04/23 23:08 RDW 12.8 % (11.6-16.5) 12/04/23 23:08 Plt Count 341 X10^3/uL (150.0-450.0) 12/04/23 23:08 MPV 8.2 fL (7.4-11.0) 12/04/23 23:08 Neut % (Auto) 86.7 % (42.0-75.0) H 12/04/23 23:08 Lymph % (Auto) 5.9 % (21.0-51.0) L 12/04/23 23:08 [place] % (Auto) 6.8 % (0.0-13.0) 12/04/23 23:08 Eos % (Auto) 0.1 % (0.9-2.9) L 12/04/23 23:08 Baso % (Auto) 0.5 % (0.2-1.0) 12/04/23 23:08 Neut # (Auto) 11.3 x10^3/uL (2.2-4.8) H 12/04/23 23:08 Lymph # (Auto) 0.8 X10^3/uL (1.3-2.9) L 12/04/23 23:08 [place] # (Auto) 0.9 x10^3/uL (0.3-0.8) H 12/04/23 23:08 Eos # (Auto) 0.0 x10^3/uL (0.0-0.2) 12/04/23 23:08 Baso # (Auto) 0.1 X10^3/uL (0.0-0.1) 12/04/23 23:08 Absolute Nucleated RBC 0.3 /100WBC 12/04/23 23:08 Sodium 118 mmol/L (136-145) L* 12/04/23 23:08 Corrected Sodium 139 mmol/L (136-145) 12/04/23 23:08 Potassium 3.4 mmol/L (3.5-5.1) L 12/04/23 23:08 Chloride 80 mmol/L (98-107) L* 12/04/23 23:08 Carbon Dioxide 26.6 mmol/L (21-32) 12/04/23 23:08 BUN 12 mg/dL (7-18) 12/04/23 23:08 Creatinine 1.92 mg/dL (0.70-1.30) H 12/04/23 23:08 Est GFR (MDRD) Af Amer 50 (>60) L 12/04/23 23:08 Est GFR (MDRD) Non-Af 41 (>60) L 12/04/23 23:08 Glucose 956 mg/dL (65-99) H* 12/04/23 23:08 Uric Acid 7.1 mg/dL (3.5-7.2) 12/04/23 23:08 Calcium 8.7 mg/dL (8.5-10.1) 12/04/23 23:08 Corrected Calcium 10.4 mg/dL (8.5-10.1) H 12/04/23 23:08 Total Bilirubin 0.90 mg/dL (0.2-1.0) 12/04/23 23:08 AST 9 Units/L (15-37) L 12/04/23 23:08 ALT 8 Units/L (12-78) L 12/04/23 23:08 Alkaline Phosphatase 177 Units/L (46-116) H 12/04/23 23:08 Total Protein 7.8 g/dL (6.4-8.2) 12/04/23 23:08 Albumin 1.9 g/dL (3.4-5.0) L 12/04/23 23:08 Globulin 5.9 g/dL (2.5-4.5) H 12/04/23 23:08 Albumin/Globulin Ratio 0.3 Ratio (1.1-2.1) L 12/04/23 23:08 Other Results Comments: 43 y/o with persistent rt elbow cellulitis found to have rbs of 956 and normal co2; admitted with fluids and iv insulin but not drip due to vancomycin requiring 2 hours; switch to drip if necessary to bring to goal alt tanvi currently down to 500. XRAY XRAY Interpreted by: Radiologist X-ray Results: ct rue: Small joint effusion. No fracture identified. Edema in the soft tissues; particularly along the dorsal aspect of the elbow. Opioid Opioid Risk Tool Age (Víctor box if 16-45): Yes History of Preadolescent Sexual Abuse: No Total: 1 Total Score Risk Category: Low Risk Copyright: Ronny OLMSTEAD predicting aberrant behaviors Discharge Plan Diagnosis Discharge Problem: Hyperosmolar hyperglycemic state (HHS), Cellulitis of right elbow, Acute hyponatremia Discharge Plan Patient Disposition: ADMITTED INPATIENT Condition: Stable Prescriptions: No Action Steglatro 15 mg tablet 15 mg PO BID (DME) lancets Misc Qty: 100 0RF Rx Instructions: As Directed (DME) blood-glucose meter Kit Qty: 1 0RF Rx Instructions: As Directed diclofenac sodium 75 mg tablet,delayed release (DR/EC) 75 mg PO BID Qty: 20 0RF Health Concerns: Post Hospitalization: new medications and changes needed to prevent readmission or further decline. Pt educated and given instructions on all concerns. Plan of Treatment: Continue with present treatment and follow up plan. Pt is to keep follow up appointment as instructed and take medications as ordered.
[2023-12-04] MEDS: NORCO 5/325 MG TAB PO ONE (23:05)
[2023-12-04 23:21] LABS: BASOPHILS # (AUTO) 0.1 X10^3/uL (0.0-0.1); BASOPHILS % (AUTO) 0.5 % (0.2-1.0); EOSINOPHILS % (AUTO) 0.1 % (0.9-2.9); HEMOGLOBIN 11.7 g/dL (13.5-18.0); LYMPHOCYTES # (AUTO) 0.8 X10^3/uL (1.3-2.9); LYMPHOCYTES % (AUTO) 5.9 % (21.0-51.0); MEAN CORPUSCULAR HEMOGLOBIN 27.8 pg (27.0-34.0); MEAN CORPUSCULAR HGB CONC 33.5 g/dL (33.0-35.0); MEAN CORPUSCULAR VOLUME 83.2 fL (80.0-100.0); MEAN PLATELET VOLUME 8.2 fL (7.4-11.0); MONOCYTES # (AUTO) 0.9 x10^3/uL (0.3-0.8); MONOCYTES % (AUTO) 6.8 % (0.0-13.0); NEUTROPHILS # (AUTO) 11.3 x10^3/uL (2.2-4.8); NEUTROPHILS % (AUTO) 86.7 % (42.0-75.0); PLATELET COUNT 341 X10^3/uL (150.0-450.0); RED BLOOD COUNT 4.21 X10^6/uL (4.7-6.0); RED CELL DISTRIBUTION WIDTH 12.8 % (11.6-16.5); WHITE BLOOD COUNT 13.1 X10^3/uL (3.6-10.0)
[2023-12-04 23:30] LABS: ALBUMIN 1.9 g/dL (3.4-5.0); CALCIUM 8.7 mg/dL (8.5-10.1); CARBON DIOXIDE 26.6 mmol/L (21-32); COR CA(FOR HYPOALB) 10.4 mg/dL (8.5-10.1); CREATININE 1.92 mg/dL (0.70-1.30); POTASSIUM 3.4 mmol/L (3.5-5.1); TOTAL PROTEIN 7.8 g/dL (6.4-8.2); URIC ACID 7.1 mg/dL (3.5-7.2)
--- NOTE | 2023-12-04 23:59 | CT ---
EXAM:UPPER EXT W/O CONHISTORY:Pt fell on 11/25/2023 and injured his right elbow. Pt came here to ER and xray showed no fracture. Pt followed up with PCP for another xray that didn't show any fractures. Swelling and redness to right elbow area. ; DM, COLON CA SX: BOWEL RESECTION, ORTHO, LEFT BKACOMPARISON:None.TECHNIQUE:Non-contras t axial CT images of the right elbow/upper extremity. Images were reformatted into coronal and sagittal planes for further evaluation.Radiation dose: 89.92 mGy-cm total DLPFINDINGS:No fracture or dislocation.Small elbow joint effusion.Edema in the subcutaneous tissues; particularly dorsal to the elbow.Imaged muscles and tendons appear grossly normal.IMPRESSION:Small joint effusion. No fracture identified. Edema in the soft tissues; particularly along the dorsal aspect of the elbow.THIS IS AN ELECTRONICALLY VERIFIED FINAL REPORT12/04/2023 11:55 PM - Electronically signed by Nnamid Stewart MD
[2023-12-05] MEDS: NS 1,000 ML IV 1,000 ML IV ONE ×2 (00:11→01:08)
[2023-12-05] MEDS: VANCOMYCIN IV *PREMIX 1 G/200 ML BAG 1 G/200 ML PIGGYBACK IV SCH (00:16)
[2023-12-05] MEDS: NovoLIN R (or HumuLIN R) IV STA (00:24)
[2023-12-05] MEDS ORDERED: CONSULT PHARMACY - POTASSIUM & MAGNESIUM XX SCH (01:00)
[2023-12-05] MEDS ORDERED: ZOFRAN ODT PO PRN (01:31)
[2023-12-05] MEDS: NovoLIN R (or HumuLIN R) SC PRN (02:18)
[2023-12-05] MEDS: NS 1,000 ML IV 1,000 ML IV SCH (02:23)
[2023-12-05] MEDS: NovoLIN R (or HumuLIN R) IV ONE (03:58)
[2023-12-05] MEDS: NORCO 5/325 MG TAB PO PRN (06:19)
[2023-12-05 06:23] LABS: BASOPHILS # (AUTO) 0.1 X10^3/uL (0.0-0.1); BASOPHILS % (AUTO) 0.4 % (0.2-1.0); EOSINOPHILS % (AUTO) 0.2 % (0.9-2.9); HEMOGLOBIN 11.3 g/dL (13.5-18.0); LYMPHOCYTES # (AUTO) 0.7 X10^3/uL (1.3-2.9); LYMPHOCYTES % (AUTO) 4.7 % (21.0-51.0); MEAN CORPUSCULAR HEMOGLOBIN 27.2 pg (27.0-34.0); MEAN CORPUSCULAR HGB CONC 34.2 g/dL (33.0-35.0); MEAN CORPUSCULAR VOLUME 79.3 fL (80.0-100.0); MEAN PLATELET VOLUME 7.6 fL (7.4-11.0); MONOCYTES # (AUTO) 1.1 x10^3/uL (0.3-0.8); MONOCYTES % (AUTO) 7.1 % (0.0-13.0); NEUTROPHILS % (AUTO) 87.6 % (42.0-75.0); PLATELET COUNT 330 X10^3/uL (150.0-450.0); RED BLOOD COUNT 4.16 X10^6/uL (4.7-6.0); RED CELL DISTRIBUTION WIDTH 13.3 % (11.6-16.5); WHITE BLOOD COUNT 14.9 X10^3/uL (3.6-10.0)
[2023-12-05 06:55] LABS: ALANINE AMINOTRANSFERASE 8 Units/L (12-78); ALBUMIN 1.8 g/dL (3.4-5.0); ALKALINE PHOSPHATASE 176 Units/L (46-116); ASPARTATE AMINO TRANSFERASE 10 Units/L (15-37); BLOOD UREA NITROGEN 11 mg/dL (7-18); CALCIUM 8.8 mg/dL (8.5-10.1); CARBON DIOXIDE 28.2 mmol/L (21-32); CHLORIDE 91 mmol/L (98-107); COR CA(FOR HYPOALB) 10.6 mg/dL (8.5-10.1); COR NA(FOR HYPERGLY) 135 mmol/L (136-145); CREATININE 1.37 mg/dL (0.70-1.30); GLUCOSE 412 mg/dL (65-99); SODIUM 128 mmol/L (136-145); TOTAL PROTEIN 7.4 g/dL (6.4-8.2); eGFR NON BLACK RACES > 60 (>60)
[2023-12-05] MEDS: K-DUR TAB 20 MEQ PO SCH (09:18)
--- NOTE | 2023-12-05 09:47 | DR.H&P ---
H&P History & Physical for Day of: H&P Date: 12/05/23 Chief Complaint Chief Complaint: right elbow pain and swelling History of Present Illness History of Present Illness: Mr Pena is a 43y/o male with a PMH of Type 2 DM, Left BK amputation, colon cancer s/p resection, right toe amputation and hx of recurrent MRSA infections and osteomyelitis presented with worsening right elbow pain and swelling. He states he had a fall on Sunday and hit his arm. He went to the ER and also saw his PCP later. He had XRs done which were did not show any fracture. He was given Toradol injection and abx at the office. He states the pain, swelling and redness continued to get worse so he came back to the ER. He reports pain with movement. In the ER, his glucose was 956, normal AG and bicarb. CT of the extremity showed small joint effusion and soft tissue edema. He was started on insulin, fluids, pain control and IV Vancomycin. This morning, he states his pain is not controlled. His glucose has improved to 345. Labs/imaging reviewed: -WBC 14.9 Hgb 11.3 K:3.0 BUN/Cr: 04/11. Glucose:345 -CT reviewed Plan: Will change fluids to NS with KCl, add morphine for pain control. Add Lantus 20 units, continue SSI. Change Vanc dose as per pharmacy. Monitor elbow redness and swelling. Keep arm elevated. Replace electrolytes as needed. Monitor AM labs/imaging. Past Medical History Past Medical History: Diabetes Additional Medical History: HX COLON CANCER, Past Surgical History Surgical History: Bowel Resection and Ortho Surgery Additional Surgical History: LEFT BTK AMPUTATION, RIGHT GREAT TOE AMPUTATION, COLOSTOMY REVERSAL Family History Family Medical History: Diabetes Mellitus, [place], Heart Failure and Hypertension Social History Alcohol Use: None Medications Home Medications: Home Medications Medication Instructions Recorded Confirmed Type ertugliflozin 15 mg tablet 15 mg PO BID 06/08/21 04/10/23 History (Steglatro) Allergies Allergies Allergy/AdvReac Type Severity Reaction Status Date / Time No Known Drug Allergies Allergy Verified 11/26/23 04:41 Labs 12/05/23 06:19 12/05/23 06:19 Labs: Laboratory WBC 14.9 X10^3/uL (3.6-10.0) H 12/05/23 06:19 RBC 4.16 X10^6/uL (4.7-6.0) L 12/05/23 06:19 Hgb 11.3 g/dL (13.5-18.0) L 12/05/23 06:19 Hct 33.0 % (42.0-54.0) L 12/05/23 06:19 MCV 79.3 fL (80.0-100.0) L 12/05/23 06:19 MCH 27.2 pg (27.0-34.0) 12/05/23 06:19 MCHC 34.2 g/dL (33.0-35.0) 12/05/23 06:19 RDW 13.3 % (11.6-16.5) 12/05/23 06:19 Plt Count 330 X10^3/uL (150.0-450.0) 12/05/23 06:19 MPV 7.6 fL (7.4-11.0) 12/05/23 06:19 Neut % (Auto) 87.6 % (42.0-75.0) H 12/05/23 06:19 Lymph % (Auto) 4.7 % (21.0-51.0) L 12/05/23 06:19 [place] % (Auto) 7.1 % (0.0-13.0) 12/05/23 06:19 Eos % (Auto) 0.2 % (0.9-2.9) L 12/05/23 06:19 Baso % (Auto) 0.4 % (0.2-1.0) 12/05/23 06:19 Neut # (Auto) 13.0 x10^3/uL (2.2-4.8) H 12/05/23 06:19 Lymph # (Auto) 0.7 X10^3/uL (1.3-2.9) L 12/05/23 06:19 [place] # (Auto) 1.1 x10^3/uL (0.3-0.8) H 12/05/23 06:19 Eos # (Auto) 0.0 x10^3/uL (0.0-0.2) 12/05/23 06:19 Baso # (Auto) 0.1 X10^3/uL (0.0-0.1) 12/05/23 06:19 Absolute Nucleated RBC 0.0 /100WBC 12/05/23 06:19 Sodium 128 mmol/L (136-145) L 12/05/23 06:19 Corrected Sodium 135 mmol/L (136-145) L 12/05/23 06:19 Potassium 3.0 mmol/L (3.5-5.1) L 12/05/23 06:19 Chloride 91 mmol/L (98-107) L 12/05/23 06:19 Carbon Dioxide 28.2 mmol/L (21-32) 12/05/23 06:19 BUN 11 mg/dL (7-18) 12/05/23 06:19 Creatinine 1.37 mg/dL (0.70-1.30) H 12/05/23 06:19 Est GFR (MDRD) Af Amer > 60 (>60) 12/05/23 06:19 Est GFR (MDRD) Non-Af > 60 (>60) 12/05/23 06:19 Glucose 412 mg/dL (65-99) H 12/05/23 06:19 POC Glucose (mg/dL) 212 mg/dL (65-99) H 12/05/23 09:20 Uric Acid 7.1 mg/dL (3.5-7.2) 12/04/23 23:08 Calcium 8.8 mg/dL (8.5-10.1) 12/05/23 06:19 Corrected Calcium 10.6 mg/dL (8.5-10.1) H 12/05/23 06:19 Magnesium 2.1 mg/dL (2.0-2.9) 12/05/23 06:19 Total Bilirubin 0.70 mg/dL (0.2-1.0) 12/05/23 06:19 AST 10 Units/L (15-37) L 12/05/23 06:19 ALT 8 Units/L (12-78) L 12/05/23 06:19 Alkaline Phosphatase 176 Units/L (46-116) H 12/05/23 06:19 Total Protein 7.4 g/dL (6.4-8.2) 12/05/23 06:19 Albumin 1.8 g/dL (3.4-5.0) L 12/05/23 06:19 Globulin 5.6 g/dL (2.5-4.5) H 12/05/23 06:19 Albumin/Globulin Ratio 0.3 Ratio (1.1-2.1) L 12/05/23 06:19 Review of Systems Constitutional: No Symptoms Reported Eyes: No Symptoms Reported ENT: No Symptoms Reported Respiratory: No Symptoms Reported Cardiovascular: No Symptoms Reported Gastrointestinal: No Symptoms Reported Genitourinary: No Symptoms Reported Musculoskeletal: Arm Pain Skin: See HPI Neurological: No Symptoms Reported Physical Exam Vital Signs: Vital Signs Temperature 99.8 F Temperature 98.2 F Pulse Rate [Right Radial] 114 Pulse Rate [Right Radial] 111 Pulse Rate [Right Radial] 110 Respiratory Rate 20 Respiratory Rate 20 Respiratory Rate 22 Respiratory Rate 22 Respiratory Rate 20 Blood Pressure [Right Arm] 162/86 Blood Pressure [Right Arm] 144/75 Blood Pressure [Right Arm] 144/75 Blood Pressure [Right Arm] 121/62 Blood Pressure [Right Arm] 116/74 O2 Sat by Pulse Oximetry 100 O2 Sat by Pulse Oximetry 100 O2 Sat by Pulse Oximetry 99 Oriented: Normal Eyes: Normal Throat: Normal Respiratory: Clear Throughout Cardiovascular: Normal Auscultation: Bowel Sounds: Normal Palpation: Normal Tenderness: Normal Skin: Red, Tender, Hot and Other (right elbow) Musculoskeletal: Right, Elbow and Motor Deficit (left leg BKA, right foot toe amputation) Psychiatric: Normal Mood Description: Calm Affect: Normal Speech Pattern: Clear and Appropriate Assessment/Plan (1) Cellulitis of right elbow: Status: Acute (2) Elbow pain, right: Status: Acute (3) Hyperosmolar hyperglycemic state (HHS): Status: Acute (4) Dehydration: Status: Acute (5) Uncontrolled type 2 diabetes mellitus: Qualifiers: Glycemic state: with hyperglycemia Qualified Code(s): E11.65 - Type 2 diabetes mellitus with hyperglycemia Status: Chronic (6) Anemia: Qualifiers: Anemia type: unspecified type Qualified Code(s): D64.9 - Anemia, unspecified Status: Acute (7) Peripheral vascular disease, unspecified: Status: Chronic (8) BLAIR (acute kidney injury): Status: Acute Review H&P Reviewed: Yes Patient was examined?: Yes
[2023-12-05] MEDS: LANTUS SC SCH (10:15)
[2023-12-05] MEDS: NS + KCL 20 MEQ/L 1,000 ML IV SCH (10:15)
[2023-12-05] MEDS: VANCOMYCIN IV *PREMIX 1.25 G/250 ML BAG 1.25 G/250 ML PIGGYBACK IV SCH (10:16)
[2023-12-05] MEDS: MORPHINE SULFATE INJ 2 MG INJ IVP PRN (11:01)
[2023-12-05 11:39] VITALS: BMI 25.7
[2023-12-05] MEDS: LOVENOX INJ 40 MG SYR SC SCH (16:54)
[2023-12-05] MEDS: SNACK - Diabetic Appropriate PO SCH ×2 (20:45)
[2023-12-06] MEDS: TYLENOL 325 MG TAB PO PRN (00:31)
[2023-12-06 06:04] LABS: BASOPHILS % (AUTO) 0.4 % (0.2-1.0); EOSINOPHILS # (AUTO) 0.1 x10^3/uL (0.0-0.2); EOSINOPHILS % (AUTO) 0.6 % (0.9-2.9); HEMATOCRIT 30.3 % (42.0-54.0); HEMOGLOBIN 10.2 g/dL (13.5-18.0); LYMPHOCYTES # (AUTO) 1.1 X10^3/uL (1.3-2.9); LYMPHOCYTES % (AUTO) 9.2 % (21.0-51.0); MEAN CORPUSCULAR HEMOGLOBIN 27.3 pg (27.0-34.0); MEAN CORPUSCULAR HGB CONC 33.7 g/dL (33.0-35.0); MEAN CORPUSCULAR VOLUME 81.1 fL (80.0-100.0); MEAN PLATELET VOLUME 7.7 fL (7.4-11.0); MONOCYTES # (AUTO) 1.1 x10^3/uL (0.3-0.8); MONOCYTES % (AUTO) 9.4 % (0.0-13.0); NEUTROPHILS # (AUTO) 9.8 x10^3/uL (2.2-4.8); NEUTROPHILS % (AUTO) 80.4 % (42.0-75.0); PLATELET COUNT 292 X10^3/uL (150.0-450.0); RED BLOOD COUNT 3.73 X10^6/uL (4.7-6.0); RED CELL DISTRIBUTION WIDTH 13.3 % (11.6-16.5); WHITE BLOOD COUNT 12.1 X10^3/uL (3.6-10.0)
[2023-12-06 06:18] LABS: ALANINE AMINOTRANSFERASE 9 Units/L (12-78); ALBUMIN 1.4 g/dL (3.4-5.0); ALKALINE PHOSPHATASE 207 Units/L (46-116); ASPARTATE AMINO TRANSFERASE 19 Units/L (15-37); BLOOD UREA NITROGEN 16 mg/dL (7-18); CALCIUM 8.1 mg/dL (8.5-10.1); CARBON DIOXIDE 24.8 mmol/L (21-32); CHLORIDE 97 mmol/L (98-107); COR CA(FOR HYPOALB) 10.2 mg/dL (8.5-10.1); COR NA(FOR HYPERGLY) 136 mmol/L (136-145); CREATININE 1.17 mg/dL (0.70-1.30); GLUCOSE 256 mg/dL (65-99); MAGNESIUM 2.1 mg/dL (2.0-2.9); POTASSIUM 3.5 mmol/L (3.5-5.1); SODIUM 132 mmol/L (136-145); TOTAL PROTEIN 6.4 g/dL (6.4-8.2); eGFR NON BLACK RACES > 60 (>60)
[2023-12-06] MEDS ORDERED: CONSULT PHARMACY - POTASSIUM & MAGNESIUM XX SCH (07:00)
[2023-12-06] MEDS: K-DUR TAB 20 MEQ PO SCH (08:28)
[2023-12-06 09:31] VITALS: O2SAT 99
[2023-12-06] MEDS: ZOSYN VIAL 3.375 GRAMS 3.375 G in NS 100 ML IV 100 ML IV SCH (10:32)
--- NOTE | 2023-12-06 10:36 | PCM.PROG ---
Progress Note Progress Note for Day of Date of Exam: 12/06/23 Subjective Subjective: Pt is a 43y/o male with a PMH of Type 2 DM, Left BK amputation, colon cancer s/p resection, right toe amputation and hx of recurrent MRSA infections and osteomyelitis admitted for right elbow cellulitis. This morning he continues to report swelling and pain around elbow. Erythema does appear to beyond margins from yesterday. No acute events overnight. Labs/imaging reviewed: -WBC 12.1, Hgb 10.2, Plt 292, Na 132, K 3.5, Creatinine 1.17, Glucose 256 -Blood culture pending -CT of the extremity showed small joint effusion and soft tissue edema. Plan: Will continue IVF NS with KCl, morphine for pain control. Lantus 20 units, continue SSI. Continue Vancomycin and add Zosyn for additional coverage. Monitor elbow redness and swelling. Keep arm elevated. Replace electrolytes as needed. Continue to closely monitor and follow up AM labs/imaging. Past Medical Family Social History Allergies: Allergies No Known Drug Allergies Allergy (Verified 11/26/23 04:41) Review of Systems ROS changes noted: see HPI Vital Signs and I&O's Vital Signs: Vital Signs Temperature 98.6 F Temperature 98.4 F Pulse Rate [Right Radial] 106 Pulse Rate [Right Radial] 100 Respiratory Rate 20 Respiratory Rate 22 Respiratory Rate 18 Respiratory Rate 22 Blood Pressure [Right Arm] 133/81 Blood Pressure [Right Arm] 121/70 O2 Sat by Pulse Oximetry 99 O2 Sat by Pulse Oximetry 98 Intake and Output: Intake & Output 12/03/23 12/04/23 12/05/23 12/06/23 23:59 23:59 23:59 23:59 Intake Total 3291 / 3291 2829 / 2829 Output Total 900 / 900 500 / 500 Balance 2391 / 2391 2329 / 2329 Physical Exam Oriented: Normal Eyes: Normal Throat: Normal Cardiovascular: Normal Auscultation: Bowel Sounds: Normal Tenderness: Normal Skin: Red, Tender, Hot and Other (right elbow) Musculoskeletal: Right, Elbow and Motor Deficit (left leg BKA, right foot toe amputation) Psychiatric: Normal Mood Description: Calm Affect: Normal Speech Pattern: Clear and Appropriate Laboratory and Diagnostics 12/06/23 05:33 12/06/23 05:33 Labs: Laboratory WBC 12.1 X10^3/uL (3.6-10.0) H 06/27/24 05:33 RBC 3.73 X10^6/uL (4.7-6.0) L 12/06/23 05:33 Hgb 10.2 g/dL (13.5-18.0) L 12/06/23 05:33 Hct 30.3 % (42.0-54.0) L 12/06/23 05:33 MCV 81.1 fL (80.0-100.0) 12/06/23 05:33 MCH 27.3 pg (27.0-34.0) 12/06/23 05:33 MCHC 33.7 g/dL (33.0-35.0) 12/06/23 05:33 RDW 13.3 % (11.6-16.5) 12/06/23 05:33 Plt Count 292 X10^3/uL (150.0-450.0) 12/06/23 05:33 MPV 7.7 fL (7.4-11.0) 12/06/23 05:33 Neut % (Auto) 80.4 % (42.0-75.0) H 12/06/23 05:33 Lymph % (Auto) 9.2 % (21.0-51.0) L 12/06/23 05:33 [place] % (Auto) 9.4 % (0.0-13.0) 12/06/23 05:33 Eos % (Auto) 0.6 % (0.9-2.9) L 12/06/23 05:33 Baso % (Auto) 0.4 % (0.2-1.0) 12/06/23 05:33 Neut # (Auto) 9.8 x10^3/uL (2.2-4.8) H 12/06/23 05:33 Lymph # (Auto) 1.1 X10^3/uL (1.3-2.9) L 12/06/23 05:33 [place] # (Auto) 1.1 x10^3/uL (0.3-0.8) H 12/06/23 05:33 Eos # (Auto) 0.1 x10^3/uL (0.0-0.2) 12/06/23 05:33 Baso # (Auto) 0.0 X10^3/uL (0.0-0.1) 12/06/23 05:33 Absolute Nucleated RBC 0.0 /100WBC 12/06/23 05:33 Sodium 132 mmol/L (136-145) L 12/06/23 05:33 Corrected Sodium 136 mmol/L (136-145) 12/06/23 05:33 Potassium 3.5 mmol/L (3.5-5.1) 12/06/23 05:33 Chloride 97 mmol/L (98-107) L 12/06/23 05:33 Carbon Dioxide 24.8 mmol/L (21-32) 12/06/23 05:33 BUN 16 mg/dL (7-18) 12/06/23 05:33 Creatinine 1.17 mg/dL (0.70-1.30) 12/06/23 05:33 Est GFR (MDRD) Af Amer > 60 (>60) 12/06/23 05:33 Est GFR (MDRD) Non-Af > 60 (>60) 12/06/23 05:33 Glucose 256 mg/dL (65-99) H 12/06/23 05:33 POC Glucose (mg/dL) 322 mg/dL (65-99) H 12/06/23 05:15 Lactic Acid 1.1 mmol/L (0.4-2.0) 12/05/23 11:50 Uric Acid 7.1 mg/dL (3.5-7.2) 12/04/23 23:08 Calcium 8.1 mg/dL (8.5-10.1) L 12/06/23 05:33 Corrected Calcium 10.2 mg/dL (8.5-10.1) H 12/06/23 05:33 Magnesium 2.1 mg/dL (2.0-2.9) 12/06/23 05:33 Total Bilirubin 0.60 mg/dL (0.2-1.0) 12/06/23 05:33 AST 19 Units/L (15-37) 12/06/23 05:33 ALT 9 Units/L (12-78) L 12/06/23 05:33 Alkaline Phosphatase 207 Units/L (46-116) H 12/06/23 05:33 Total Protein 6.4 g/dL (6.4-8.2) 12/06/23 05:33 Albumin 1.4 g/dL (3.4-5.0) L 12/06/23 05:33 Globulin 5.0 g/dL (2.5-4.5) H 12/06/23 05:33 Albumin/Globulin Ratio 0.3 Ratio (1.1-2.1) L 12/06/23 05:33 Plan (1) Cellulitis of right elbow: Status: Acute (2) Elbow pain, right: Status: Acute (3) Hyperosmolar hyperglycemic state (HHS): Status: Acute (4) Dehydration: Status: Acute (5) Uncontrolled type 2 diabetes mellitus: Status: Chronic Qualifiers: Glycemic state: with hyperglycemia Qualified Code(s): E11.65 - Type 2 diabetes mellitus with hyperglycemia (6) Anemia: Status: Acute Qualifiers: Anemia type: unspecified type Qualified Code(s): D64.9 - Anemia, unspecified (7) Peripheral vascular disease, unspecified: Status: Chronic (8) BLAIR (acute kidney injury): Status: Acute
[2023-12-06 12:05] VITALS: BP 136/77; PULSE 105; RESP 18; TEMP 99.7
[2023-12-06] MEDS ORDERED: PHARMACY COMMENT IV NR (20:00)
--- NOTE | 2023-12-08 14:22 | W.DIS.FURT ---
Summary of Discharge Discharge Summary of Date Date of Exam: 12/06/23 Admission Date Date of Admission: 12/04/23 Admission Diagnosis Patient Problems (Updated 12/05/23 @ 09:45 by Mireille Pérez) Hyperosmolar hyperglycemic state (HHS) (Acute) E11.00 Cellulitis of right elbow (Acute) L03.113 Acute hyponatremia (Acute) E87.1 Hospital Course: -Pt transferred to another facility in stable condition due to insurance coverage. Pt is a 43y/o male with a PMH of Type 2 DM, Left BK amputation, colon cancer s/p resection, right toe amputation and hx of recurrent MRSA infections and osteomyelitis admitted for right elbow cellulitis. This morning he continues to report swelling and pain around elbow. Erythema does appear to beyond margins from yesterday. No acute events overnight. Labs/imaging reviewed: -WBC 12.1, Hgb 10.2, Plt 292, Na 132, K 3.5, Creatinine 1.17, Glucose 256 -Blood culture pending -CT of the extremity showed small joint effusion and soft tissue edema. Plan: Will continue IVF NS with KCl, morphine for pain control. Lantus 20 units, continue SSI. Continue Vancomycin and add Zosyn for additional coverage. Monitor elbow redness and swelling. Keep arm elevated. Replace electrolytes as needed. Continue to closely monitor and follow up AM labs/imaging. Vital Signs: Vital Signs (72 hours) 12/04/23 21:46 12/04/23 23:05 12/05/23 00:22 Temperature 99.0 F Pulse Rate 134 H Pulse Rate [Right Radial] Respiratory Rate 22 22 18 Blood Pressure 115/66 Blood Pressure [Right Arm] O2 Sat by Pulse Oximetry 97 Oxygen Delivery Method Room Air 12/05/23 00:05 12/05/23 00:30 12/05/23 01:00 Temperature Pulse Rate 113 H Pulse Rate [Right Radial] 114 H Respiratory Rate 20 20 20 Blood Pressure 137/74 Blood Pressure [Right Arm] 124/61 O2 Sat by Pulse Oximetry 96 99 Oxygen Delivery Method Room Air Room Air 12/05/23 01:29 12/05/23 02:00 12/05/23 02:30 Temperature Pulse Rate Pulse Rate [Right Radial] Respiratory Rate Blood Pressure Blood Pressure [Right Arm] 106/64 116/74 121/62 O2 Sat by Pulse Oximetry Oxygen Delivery Method 12/05/23 04:40 12/05/23 05:05 12/05/23 06:19 Temperature 98.2 F Pulse Rate Pulse Rate [Right Radial] 110 H 111 H Respiratory Rate 20 22 22 Blood Pressure Blood Pressure [Right Arm] 144/75 144/75 O2 Sat by Pulse Oximetry 99 100 Oxygen Delivery Method 12/05/23 03:13 12/05/23 07:19 12/05/23 11:01 Temperature Pulse Rate Pulse Rate [Right Radial] Respiratory Rate 20 20 Blood Pressure Blood Pressure [Right Arm] O2 Sat by Pulse Oximetry Oxygen Delivery Method Room Air 12/05/23 09:29 12/05/23 08:00 12/05/23 11:31 Temperature 99.8 F H Pulse Rate Pulse Rate [Right Radial] 114 H Respiratory Rate 20 18 Blood Pressure Blood Pressure [Right Arm] 162/86 O2 Sat by Pulse Oximetry 100 Oxygen Delivery Method Room Air Room Air 12/05/23 12:00 12/05/23 16:00 12/05/23 19:09 Temperature 100.1 F H 100.6 F H Pulse Rate Pulse Rate [Right Radial] 113 H 124 H Respiratory Rate 18 18 18 Blood Pressure Blood Pressure [Right Arm] 136/80 141/75 O2 Sat by Pulse Oximetry 98 97 Oxygen Delivery Method Room Air Room Air 12/05/23 19:00 12/05/23 20:00 12/05/23 19:39 Temperature 100.2 F H Pulse Rate Pulse Rate [Right Radial] 123 H Respiratory Rate 18 18 Blood Pressure Blood Pressure [Right Arm] 147/80 O2 Sat by Pulse Oximetry 99 Oxygen Delivery Method Room Air Room Air 12/06/23 00:00 12/06/23 00:31 12/06/23 00:32 Temperature 102.2 F H Pulse Rate Pulse Rate [Right Radial] 118 H Respiratory Rate 22 19 19 Blood Pressure Blood Pressure [Right Arm] 143/73 O2 Sat by Pulse Oximetry 99 Oxygen Delivery Method Room Air 12/06/23 01:16 12/06/23 01:31 12/06/23 01:32 Temperature 100.2 F H Pulse Rate Pulse Rate [Right Radial] Respiratory Rate 17 17 Blood Pressure Blood Pressure [Right Arm] O2 Sat by Pulse Oximetry Oxygen Delivery Method 12/06/23 04:00 12/06/23 08:27 12/06/23 15:07 Temperature 98.4 F Pulse Rate Pulse Rate [Right Radial] 100 H Respiratory Rate 22 22 18 Blood Pressure Blood Pressure [Right Arm] 121/70 O2 Sat by Pulse Oximetry 98 Oxygen Delivery Method Room Air 12/06/23 09:30 12/06/23 08:00 12/06/23 08:57 Temperature 98.6 F Pulse Rate Pulse Rate [Right Radial] 106 H Respiratory Rate 18 20 Blood Pressure Blood Pressure [Right Arm] 133/81 O2 Sat by Pulse Oximetry 99 Oxygen Delivery Method Room Air Room Air 12/06/23 12:00 12/06/23 15:37 Temperature 99.7 F H Pulse Rate Pulse Rate [Right Radial] 105 H Respiratory Rate 18 18 Blood Pressure Blood Pressure [Right Arm] 136/77 O2 Sat by Pulse Oximetry 99 Oxygen Delivery Method Room Air Labs: Laboratory Last Values WBC 12.1 X10^3/uL (3.6-10.0) H 12/06/23 05:33 RBC 3.73 X10^6/uL (4.7-6.0) L 12/06/23 05:33 Hgb 10.2 g/dL (13.5-18.0) L 12/06/23 05:33 Hct 30.3 % (42.0-54.0) L 12/06/23 05:33 MCV 81.1 fL (80.0-100.0) 12/06/23 05:33 MCH 27.3 pg (27.0-34.0) 12/06/23 05:33 MCHC 33.7 g/dL (33.0-35.0) 12/06/23 05:33 RDW 13.3 % (11.6-16.5) 12/06/23 05:33 Plt Count 292 X10^3/uL (150.0-450.0) 12/06/23 05:33 MPV 7.7 fL (7.4-11.0) 12/06/23 05:33 Neut % (Auto) 80.4 % (42.0-75.0) H 12/06/23 05:33 Lymph % (Auto) 9.2 % (21.0-51.0) L 12/06/23 05:33 [place]ven % (Auto) 9.4 % (0.0-13.0) 12/06/23 05:33 Eos % (Auto) 0.6 % (0.9-2.9) L 12/06/23 05:33 Baso % (Auto) 0.4 % (0.2-1.0) 12/06/23 05:33 Neut # (Auto) 9.8 x10^3/uL (2.2-4.8) H 12/06/23 05:33 Lymph # (Auto) 1.1 X10^3/uL (1.3-2.9) L 12/06/23 05:33 [place]ven # (Auto) 1.1 x10^3/uL (0.3-0.8) H 12/06/23 05:33 Eos # (Auto) 0.1 x10^3/uL (0.0-0.2) 12/06/23 05:33 Baso # (Auto) 0.0 X10^3/uL (0.0-0.1) 12/06/23 05:33 Absolute Nucleated RBC 0.0 /100WBC 12/06/23 05:33 Sodium 132 mmol/L (136-145) L 12/06/23 05:33 Corrected Sodium 136 mmol/L (136-145) 12/06/23 05:33 Potassium 3.5 mmol/L (3.5-5.1) 12/06/23 05:33 Chloride 97 mmol/L (98-107) L 12/06/23 05:33 Carbon Dioxide 24.8 mmol/L (21-32) 12/06/23 05:33 BUN 16 mg/dL (7-18) 12/06/23 05:33 Creatinine 1.17 mg/dL (0.70-1.30) 12/06/23 05:33 Est GFR (MDRD) Af Amer > 60 (>60) 12/06/23 05:33 Est GFR (MDRD) Non-Af > 60 (>60) 12/06/23 05:33 Glucose 256 mg/dL (65-99) H 12/06/23 05:33 POC Glucose (mg/dL) 226 mg/dL (65-99) H 12/06/23 11:17 Lactic Acid 1.1 mmol/L (0.4-2.0) 12/05/23 11:50 Uric Acid 7.1 mg/dL (3.5-7.2) 12/04/23 23:08 Calcium 8.1 mg/dL (8.5-10.1) L 12/06/23 05:33 Corrected Calcium 10.2 mg/dL (8.5-10.1) H 12/06/23 05:33 Magnesium 2.1 mg/dL (2.0-2.9) 12/06/23 05:33 Total Bilirubin 0.60 mg/dL (0.2-1.0) 12/06/23 05:33 AST 19 Units/L (15-37) 12/06/23 05:33 ALT 9 Units/L (12-78) L 12/06/23 05:33 Alkaline Phosphatase 207 Units/L (46-116) H 12/06/23 05:33 Total Protein 6.4 g/dL (6.4-8.2) 12/06/23 05:33 Albumin 1.4 g/dL (3.4-5.0) L 12/06/23 05:33 Globulin 5.0 g/dL (2.5-4.5) H 12/06/23 05:33 Albumin/Globulin Ratio 0.3 Ratio (1.1-2.1) L 12/06/23 05:33 Reason For Visit: CELLULITIS RIGHT ELBOW, HYPONATREMIA, DM, FAILED Discharge Date Discharge Date: 12/06/23 Discharge Diagnosis All Active Problems (Updated 12/05/23 @ 09:45 by Mireille Pérez) BLAIR (acute kidney injury) (Acute) Acute osteomyelitis of metatarsal bone of right foot (Acute) Anemia (Acute) UTI (urinary tract infection) (Acute) Hyponatremia (Acute) Dehydration (Acute) Uncontrolled type 2 diabetes mellitus (Chronic) Elbow pain, right (Acute) Injury (Acute) Hyperosmolar hyperglycemic state (HHS) (Acute) Cellulitis of right elbow (Acute) Acute hyponatremia (Acute) Necrotizing fasciitis of ankle and foot (Acute) Gangrene of right foot (Acute) Cellulitis of right foot (Acute) Amputation of one or more toes (Acute) MRSA (methicillin resistant Staphylococcus aureus) infection (Acute) Cellulitis of leg, right (Acute) Peripheral vascular disease, unspecified (Chronic) Other specified local infections of the skin and subcutaneous tissue (Acute) 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 Pt is to keep follow up appointment as instructed and take medications as ordered. Discharge Medications Discharge Medications: No Known Drug Allergies Allergy (Verified 11/26/23 04:41) CONTINUE taking the following medications cyclobenzaprine 5 mg tablet 5 mg PO TID PRN 12/06/23 [History] insulin glargine-yfgn 100 unit/mL (3 mL) subcutaneous pen unit subcut 12/06/23 [History] insulin regular human 100 unit/mL injection solution (Humulin R Regular U-100 Insulin) 12/06/23 [History] rosuvastatin 10 mg tablet 10 mg PO QPM 12/06/23 [History] Discharge Disposition Assessment: No distress noted. Discharge Plan Discharge Plan Hospital Course: -Pt transferred to another facility in stable condition due to insurance coverage. Pt is a 43y/o male with a PMH of Type 2 DM, Left BK amputation, colon cancer s/p resection, right toe amputation and hx of recurrent MRSA infections and osteomyelitis admitted for right elbow cellulitis. This morning he continues to report swelling and pain around elbow. Erythema does appear to beyond margins from yesterday. No acute events overnight. Labs/imaging reviewed: -WBC 12.1, Hgb 10.2, Plt 292, Na 132, K 3.5, Creatinine 1.17, Glucose 256 -Blood culture pending -CT of the extremity showed small joint effusion and soft tissue edema. Plan: Will continue IVF NS with KCl, morphine for pain control. Lantus 20 units, continue SSI. Continue Vancomycin and add Zosyn for additional coverage. Monitor elbow redness and swelling. Keep arm elevated. Replace electrolytes as needed. Continue to closely monitor and follow up AM labs/imaging. Patient Disposition: XF [facility] Condition: Stable Health Concerns: Post Hospitalization: new medications and changes needed to prevent readmission or further decline. Pt educated and given instructions on all concerns. Care Plan Goals: Problem: Infection Goal: Temperature within normal limits. Resolved infection. Instructions: Follow provided instructions. Follow up with primary physician as directed. Contact primary care physician or report to the closest Emergency Room if condition worsens. Plan of Treatment: Continue with present treatment and follow up plan. Pt is to keep follow up appointment as instructed and take medications as ordered. Assessment: No distress noted. Prescriptions: No Action (DME) lancets Misc Qty: 100 0RF Rx Instructions: As Directed (DME) blood-glucose meter Kit Qty: 1 0RF Rx Instructions: As Directed diclofenac sodium 75 mg tablet,delayed release (DR/EC) 75 mg PO BID Qty: 20 0RF Humulin R Regular U-100 Insuln 100 unit/mL solution Patient Comments: [NO ORIGINAL SIG] cyclobenzaprine 5 mg tablet 5 mg PO TID PRN rosuvastatin 10 mg tablet 10 mg PO QPM insulin glargine-yfgn 100 unit/mL (3 mL) insulin pen SUBCUT Patient Comments: [NO ORIGINAL SIG] Orders to Discharge Patient Discharge Orders: Discharge by Transfer to Outside Facility (Routine); Ordered 12/06/23 Ordered By: Donis Juarez Follow ups/Referrals Follow ups/Referrals: Sruthi Anderson [Primary Care Provider] - 1 WEEK Instructions Instructions: Hyponatremia, [id number], Hyperglycemia, [id number], Cellulitis, Adult, [id number], Blood Glucose Monitoring, Adult Stand Alone Forms: Excuse From Work or School, Post Hospital Follow Up Care
== END 2023-12-06 15:50 | disposition short-term general hospital (02) | DRG 602 ==
LOC: ER 21:46 → MED/SURG 21:46 → OBSVTOIN 12-05 01:29 → MED/SURG 12-05 04:42
PROVIDERS: ADMIT Obstetrics & Gynecology Obstetrics; ATTEND Internal Medicine